=== PATIENT | male | born 1945 | race Caucasian/White ===

== ENCOUNTER → 2018-01-30 14:27 | Outpatient (CLI) | payer MEDICARE, OTHER, SELFPAY ==
[2018-01-30 16:10] LABS: Anion Gap 7 (5-15); BUN 24 mg/dL (7-18); BUN/Creat Ratio 15.5 RATIO (10-20); Calcium,Total 9.3 mg/dL (8.5-10.1); Chloride 107 mmol/L (98-107); Cholesterol 226 mg/dL (200); Creatinine, Serum 1.55 mg/dL (0.70-1.30); EST Glomerular Filtration Rate 47 mL/min (>60); Est Glom Filt Rate - Afr Amer 57 mL/min (>60); Glucose 90 mg/dL (74-106); High Density Lipoprotein 45 mg/dL; Potassium 4.6 mmol/L (3.5-5.1); Sodium Level 142 mmol/L (136-145); Triglycerides 111 mg/dL; Very Low Density Lipoprotein 22 mg/dL (5-40)
[2018-01-30 16:28] LABS: Vitamin D,25 Hydroxy 40.5 ng/mL (29.95-100.01)
== END ==
PROVIDERS: Family Provider Family Medicine; PCP Family Medicine; Visit Provider Family Medicine
DX: Z00.00 Encounter for general adult medical examination without abnormal findings (principal)
CPT/HCPCS: 36415; 80048; 80061; 82306; 84153; G0103

== ENCOUNTER → 2018-06-05 10:34 | Outpatient (CLI) | payer MEDICARE, OTHER, SELFPAY ==
[2018-06-05 12:15] LABS: Anion Gap 10 (5-15); BUN 32 mg/dL (7-18); BUN/Creat Ratio 18.8 RATIO (10-20); Calcium,Total 9.6 mg/dL (8.5-10.1); Chloride 105 mmol/L (98-107); EST Glomerular Filtration Rate 43 mL/min (>60); Est Glom Filt Rate - Afr Amer 51 mL/min (>60); Glucose 106 mg/dL (74-106); Potassium 3.6 mmol/L (3.5-5.1); Sodium Level 141 mmol/L (136-145); Thyroid Stim Hormone (TSH) 1.97 uIU/mL (0.358-3.74)
== END ==
PROVIDERS: Family Provider Family Medicine; PCP Family Medicine; Visit Provider Family Medicine
DX: E03.9 Hypothyroidism, unspecified (principal); N28.9 Disorder of kidney and ureter, unspecified
CPT/HCPCS: 36415; 80048; 84443

== ENCOUNTER → 2018-07-16 10:35 | Outpatient (CLI) | payer MEDICARE, OTHER, SELFPAY ==
[2018-07-16 12:05] LABS: Absolute Lymphocyte Count 2.09 X10^3/ul (0.83-4.51); Absolute Neutrophil Count 5.3 X10^3/uL (2.0-7.7); Basophil# 0.03 X10^3/uL; Basophil% 0.4 % (0-1); Eosinophil# 0.42 X10^3/uL; Eosinophils% 4.9 % (0-5); Lymphocyte # 2.09 X10^3/ul (4.0); Lymphocyte % 24.5 % (19-41); Mean Corp Hgb Conc 32.6 g/gl (32-36); Mean Corpuscular Hgb 30.4 pg (27.0-32.0); Mean Corpuscular Volume 93.3 fL (80-94); Mean Platelet Vol. 11.3 fl (6.2-12.0); Monocyte% 8.2 % (0-10); Neutrophil # 5.29 X10^3/uL (2.7-7.7); Neutrophil % 61.9 % (47-70); Platelet Count 248 K/mm3 (150-450); RBC Distribution Width CV 14.8 % (11.6-14.6); RBC Distribution Width SD 50.1 fl (35.1-43.9); Red Blood Count 4.93 M/mm3 (4.6-6.2); White Blood Count 8.5 K/mm3 (4.4-11.0)
[2018-07-16 12:06] LABS: POSITIVE COUNT NO; POSITIVE DIFFERENTIAL NO; POSITIVE MORPHOLOGY NO
[2018-07-16 12:23] LABS: ALB/GLOB Ratio 0.7 RATIO (0.9-2.4); AST(SGOT) 23 U/L (15-37); Alanine Aminotransfer ALT/SGPT 26 U/L (16-61); Alkaline Phosphatase 87 U/L (45-117); Anion Gap 13 (5-15); BUN 19 mg/dL (7-18); BUN/Creat Ratio 11.9 RATIO (10-20); Calcium,Total 9.1 mg/dL (8.5-10.1); Chloride 106 mmol/L (98-107); Creatinine, Serum 1.59 mg/dL (0.70-1.30); EST Glomerular Filtration Rate 46 mL/min (>60); Est Glom Filt Rate - Afr Amer 56 mL/min (>60); Globulin 4.6 g/dL (2.2-4.2); Glucose 93 mg/dL (74-106); Magnesium 1.9 mg/dL (1.6-2.6); Potassium 4.3 mmol/L (3.5-5.1); Prealbumin 16.8 mg/dL (20.0-40.0); Protein, Total 7.6 g/dL (6.4-8.2); Sodium Level 142 mmol/L (136-145); Thyroid Stim Hormone (TSH) 1.37 uIU/mL (0.358-3.74)
== END ==
PROVIDERS: Family Provider Family Medicine; PCP Family Medicine; Visit Provider Family Medicine
DX: Z98.84 Bariatric surgery status (principal)
CPT/HCPCS: 36415; 80053; 83735; 84134; 84443; 85025

== ENCOUNTER → 2018-07-24 11:19 | Outpatient (CLI) | payer MEDICARE, OTHER, SELFPAY ==
[2018-07-24 15:20] LABS: Anion Gap 9 (5-15); BUN 18 mg/dL (7-18); BUN/Creat Ratio 11.2 RATIO (10-20); Calcium,Total 9.7 mg/dL (8.5-10.1); Chloride 106 mmol/L (98-107); Creatinine, Serum 1.61 mg/dL (0.70-1.30); EST Glomerular Filtration Rate 45 mL/min (>60); Est Glom Filt Rate - Afr Amer 55 mL/min (>60); Glucose 121 mg/dL (74-106); Sodium Level 142 mmol/L (136-145)
== END ==
PROVIDERS: Family Provider Family Medicine; PCP Family Medicine; Referring Provider Family Medicine; Visit Provider Family Medicine
DX: N28.9 Disorder of kidney and ureter, unspecified (principal)
CPT/HCPCS: 36415; 80048

== ENCOUNTER → 2018-09-20 09:51 | Outpatient (CLI) | payer MEDICARE, OTHER, SELFPAY ==
[2018-09-20 12:05] LABS: Absolute Neutrophil Count 4.4 X10^3/uL (2.0-7.7); Basophil# 0.03 X10^3/uL; Basophil% 0.4 % (0-1); Eosinophil# 0.55 X10^3/uL; Eosinophils% 6.6 % (0-5); Hematocrit 45.8 % (40-54); Hemoglobin 14.8 g/dl (13.0-16.5); Mean Corp Hgb Conc 32.3 g/gl (32-36); Mean Corpuscular Hgb 30.3 pg (27.0-32.0); Mean Corpuscular Volume 93.7 fL (80-94); Mean Platelet Vol. 11.6 fl (6.2-12.0); Monocyte# 0.77 X10^3/uL; Monocyte% 9.2 % (0-10); Neutrophil # 4.43 X10^3/uL (2.7-7.7); Neutrophil % 52.7 % (47-70); Platelet Count 218 K/mm3 (150-450); RBC Distribution Width CV 16.1 % (11.6-14.6); RBC Distribution Width SD 55.2 fl (35.1-43.9); Red Blood Count 4.89 M/mm3 (4.6-6.2); White Blood Count 8.4 K/mm3 (4.4-11.0)
[2018-09-20 12:06] LABS: POSITIVE COUNT NO; POSITIVE DIFFERENTIAL NO; POSITIVE MORPHOLOGY NO
[2018-09-20 12:45] LABS: ALB/GLOB Ratio 0.9 RATIO (0.9-2.4); AST(SGOT) 22 U/L (15-37); Alanine Aminotransfer ALT/SGPT 26 U/L (16-61); Albumin, Serum 3.5 g/dL (3.2-5.0); Alkaline Phosphatase 105 U/L (45-117); Anion Gap 11 (5-15); BUN 19 mg/dL (7-18); BUN/Creat Ratio 12.3 RATIO (10-20); Calcium,Total 9.4 mg/dL (8.5-10.1); Chloride 108 mmol/L (98-107); Cholesterol 260 mg/dL (200); Creatinine, Serum 1.55 mg/dL (0.70-1.30); EST Glomerular Filtration Rate 47 mL/min (>60); Est Glom Filt Rate - Afr Amer 57 mL/min (>60); Globulin 4.1 g/dL (2.2-4.2); Glucose 100 mg/dL (74-106); High Density Lipoprotein 47 mg/dL; Prealbumin 19.8 mg/dL (20.0-40.0); Protein, Total 7.6 g/dL (6.4-8.2); Sodium Level 144 mmol/L (136-145); Triglycerides 140 mg/dL; Very Low Density Lipoprotein 28 mg/dL (5-40)
== END ==
PROVIDERS: Family Provider Family Medicine; PCP Family Medicine; Referring Provider Family Medicine; Visit Provider Family Medicine
DX: I10 Essential (primary) hypertension (principal); Z98.84 Bariatric surgery status; E78.5 Hyperlipidemia, unspecified; E03.9 Hypothyroidism, unspecified
CPT/HCPCS: 36415; 80053; 80061; 83735; 84134; 84443; 85025

== ENCOUNTER 2019-03-10 07:45 | Day surgery (SDC) | payer MEDICARE, OTHER, SELFPAY ==
--- NOTE | 2019-02-24 02:38 | HP_ITS ---
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 Is patient in pain?: No Allergies lisinopril Allergy (Verified 02/24/19 13:59) Swelling Medications Levothyroxine [Synthroid] 112 mcg PO DAILY 05/03/15 [History Confirmed 02/24/19] Multivit-Min/FA/Lycopene/Lut [Centrum Silver Tablet] 1 ea PO DAILY 05/03/15 [History Confirmed 02/24/19] Fish Oil 1,200 mg Fish Oil 1,200 mg PO DAILY 08/05/15 [History Confirmed 02/24/19] calcium carbonate 1,177 mg chewable tablet 1,177 mg PO DAILY tab 02/24/19 [History Confirmed 02/24/19] omeprazole 20 mg capsule,delayed release 20 mg PO DAILY 02/24/19 [History Confirmed 02/24/19] vitamin B12 500 mcg-folic acid 400 mcg tablet 1 tab PO DAILY 02/24/19 [History Confirmed 02/24/19] PFSH Medical History GERD (gastroesophageal reflux disease) (Acute) HTN (hypertension) (Chronic) Surgical History H/O carpal tunnel repair (Acute) H/O gastric bypass (Acute) h/o right thumb surgery (Acute) Family History Father Colon cancer Social History Smoking Status: Never smoker alcohol intake: never HPI HPI HPI: MIGUEL GUEVARA, is a 73 M who presents to the office today for HPI HPI Surgical H&P: Yes HPI: MIGUEL GUEVARA, is a 73 M who presents to the office today for superior gluteal cleft wound. Patient states about a month ago he started to notice this sore and he has been using Neosporin but has not stated gotten any better. States that with sitting he may have a 5/10 pain but that will improve to no pain if he changes position. Patient did have this previously in 2016 which did heal with some Neosporin and at that time it was only 1 cm x 0.7 cm with 2 mm of depth and no obvious pilonidal pits. Patient has had a colonoscopy in 2008 where he had lipoma of the right colon proven on biopsy otherwise no other polyps. Patient states he has bowel movements usually daily occasionally every other day, denies any blood. His father had colon cancer when he was 8485. Patient also did recently undergo gastric bypass at [facility] on 07/03/2018. Patient is still on omeprazole for reflux but he states that that is controlled he was initially put on more for pain in the epigastric region. Exam Const General: cooperative, comfortable, no acute distress Resp Effort & Inspection: normal respiratory effort Cardio Rate: regular rate GI Inspection: non-distended Palpation: soft, no guarding, nontender Other: Superior gluteal cleft: Shallow open wound about 1.5 cm in length by 3 mm in width with some macerated tissue surrounding, no obvious drainage. No obvious pilonidal pits Neuro Cranial Nerves: CN's II-XI intact bilaterally Psych Affect: normal affect Assessment & Plan Problems 1. Wound of gluteal cleft S31.809A 2. Encounter for screening for malignant neoplasm of colon Z12.11 Plan We will have patient continue Neosporin and only use Neosporin for half a day and then leave it dry and also place a gauze between the gluteal cleft see if this helps that heal. Wound is very shallow unable to be packed. Did encourage patient to not sit in a recliner as he would hit this area if he is in a reclined position. We will also reevaluate this area at the time of colonoscopy. We will likely plan for another follow-up. He just does not continue to heal patient may need wound care. I have discussed the above with the patient. I have offered the patient colonoscopy for evaluation. I have explained the risks/benefits of the procedure and described the procedure. I have discussed the risks with the patient, including but not limited to: infection, bleeding, perforation of the GI tract requiring emergency surgery, inability to complete the procedure, injury to any internal organs, complications of anesthesia, etc. - the patient understands and agrees to proceed. I have answered all the patient's questions to the patient's satisfaction and the patient has no further questions. The patient has been given instructions for the colon cleansing preparation. 1 day of clears, MiraLAX Dulcolax split prep Hailey Valdovinos M.D. Pager: [phone] [facility] [address] [place] [address], [facility], [address] [place] [address] Office: [phone] Plan Detail Follow Up We will schedule colonoscopy in reevaluate gluteal cleft wound Coding Level of Care Code Off vis,est,level 3 Diagnoses Wound of gluteal cleft S31.809A Encounter for screening for malignant neoplasm of colon Z12.11 02/24/19 1438 <Electronically signed by Hailey Valdovinos MD> Date Hailey Valdovinos MD I have re-examined the patient. There are no clinical changes since date of exam.
[2019-02-24 13:59] VITALS: BMI 28.8
[2019-03-10 08:06] VITALS: BP 138/76; PULSE 61; RESP 16; TEMP 36.2; O2SAT 99; BMI 29.1
[2019-03-10 09:36] VITALS: BP 138/76; BP 141/68; PULSE 73; RESP 16; TEMP 36.6; O2SAT 98
--- NOTE | 2019-03-10 09:38 | OP.ENDO_ITS ---
03/10/2019 Trevor Morton MD [address] [id number] Re : Colonoscopy procedure for Roosevelt Velarde Dear Dr. Morton This procedure was performed on Sunday, March 10, 2019. My impressions and recommendations are as follows: Impressions : - Preparation of the colon was inadequate. - Diverticulosis in the entire examined colon. - Small lipoma in the ascending colon. - No specimens collected. Recommendations : - Discharge patient to home. - High fiber diet. - Continue present medications. - Repeat colonoscopy at appointment to be scheduled because the bowel preparation was poor. My findings are described in the full procedure note, which is enclosed. If I can be of further assistance, please feel free to contact me at Doctor phone number(s): , Work: . Sincerely, MD Hailey Rainey MD 03/10/2019 9:38:25 AM This report has been signed electronically.
[2019-03-10 09:41] VITALS: BP 134/80; BP 138/76; PULSE 65; RESP 16; O2SAT 98
[2019-03-10 09:46] VITALS: BP 138/76; BP 142/77; PULSE 70; RESP 16; O2SAT 99
[2019-03-10 09:51] VITALS: BP 138/76; BP 141/82; PULSE 74; RESP 16; TEMP 36.5; O2SAT 99
[2019-03-10 09:58] VITALS: BP 138/76
== END 2019-03-10 10:08 | disposition home or self-care (01) ==
LOC: EN 07:47 → AC 07:49
PROVIDERS: Family Provider Family Medicine; PCP Family Medicine; Referring Provider Family Medicine; Visit Provider Surgery
PROC: 0DJD8ZZ Inspection of Lower Intestinal Tract, Via Natural or Artificial Opening Endoscopic (ICD-10-PCS; CPT 45378; principal; 2019-03-10 08:55)
DX: Z12.11 Encounter for screening for malignant neoplasm of colon (principal); K57.30 Diverticulosis of large intestine without perforation or abscess without bleeding; D17.79 Benign lipomatous neoplasm of other sites; Z80.0 Family history of malignant neoplasm of digestive organs; E78.00 Pure hypercholesterolemia, unspecified; E06.9 Thyroiditis, unspecified; K21.9 Gastro-esophageal reflux disease without esophagitis; I10 Essential (primary) hypertension; Z79.899 Other long term (current) drug therapy
CPT/HCPCS: G0105; J7120; J2405

== ENCOUNTER → 2019-03-20 | Outpatient (CLI) | payer MEDICARE, OTHER, SELFPAY ==
[2019-03-10 08:06] VITALS: BMI 29.1
[2019-03-20 14:33] LABS: AST(SGOT) 19 U/L (15-37); Alanine Aminotransfer ALT/SGPT 19 U/L (16-61); Albumin, Serum 3.6 g/dL (3.2-5.0); Alkaline Phosphatase 110 U/L (45-117); Bilirubin, Direct 0.23 mg/dL (0.00-0.30); Cholesterol 208 mg/dL (200); Globulin 3.7 g/dL (2.2-4.2); High Density Lipoprotein 52 mg/dL; Protein, Total 7.3 g/dL (6.4-8.2); T4 Total, Thyroxin 10.5 ug/dL (4.5-12.1); Thyroid Stim Hormone (TSH) 1.07 uIU/mL (0.358-3.74); Triglycerides 100 mg/dL; Very Low Density Lipoprotein 20 mg/dL (5-40)
== END | disposition home or self-care (01) ==
LOC: MTLAB 13:00
PROVIDERS: Family Provider Family Medicine; PCP Family Medicine; Referring Provider Family Medicine; Visit Provider Family Medicine
DX: E78.5 Hyperlipidemia, unspecified (principal); E03.9 Hypothyroidism, unspecified
CPT/HCPCS: 36415; 80061; 80076; 84436; 84443; 84481

== ENCOUNTER → 2019-03-25 | Outpatient (CLI) | payer MEDICARE, OTHER, SELFPAY ==
[2019-03-10 08:06] VITALS: BMI 29.1
[2019-03-25 15:45] LABS: Absolute Lymphocyte Count 1.59 X10^3/ul (0.83-4.51); Absolute Neutrophil Count 9.2 X10^3/uL (2.0-7.7); Basophil# 0.01 X10^3/uL; Basophil% 0.1 % (0-1); Eosinophil# 0.22 X10^3/uL; Eosinophils% 1.8 % (0-5); Hematocrit 45.7 % (40-54); Lymphocyte # 1.59 X10^3/ul (4.0); Lymphocyte % 13.2 % (19-41); Mean Corp Hgb Conc 32.8 g/gl (32-36); Mean Corpuscular Hgb 30.5 pg (27.0-32.0); Mean Corpuscular Volume 92.9 fL (80-94); Mean Platelet Vol. 11.9 fl (6.2-12.0); Monocyte# 0.97 X10^3/uL; Monocyte% 8.1 % (0-10); Neutrophil # 9.21 X10^3/uL (2.7-7.7); Neutrophil % 76.6 % (47-70); Platelet Count 188 K/mm3 (150-450); Red Blood Count 4.92 M/mm3 (4.6-6.2)
[2019-03-25 15:54] LABS: POSITIVE COUNT NO; POSITIVE DIFFERENTIAL NO; POSITIVE MORPHOLOGY NO
[2019-03-25 16:20] LABS: Vitamin D,25 Hydroxy 43.7 ng/mL (29.95-100.01)
[2019-03-25 16:21] LABS: PTHIN 50.8 pg/mL (18.4-80.1)
[2019-03-25 16:22] LABS: Anion Gap 7 (5-15); BUN 26 mg/dL (7-18); BUN/Creat Ratio 19.7 RATIO (10-20); Chloride 108 mmol/L (98-107); Creatinine, Serum 1.32 mg/dL (0.70-1.30); EST Glomerular Filtration Rate 57 mL/min (>60); Est Glom Filt Rate - Afr Amer 69 mL/min (>60); Glucose 99 mg/dL (74-106); Phosphorus 3.1 mg/dL (2.5-4.9); Potassium 3.9 mmol/L (3.5-5.1); Prealbumin 19.6 mg/dL (20.0-40.0); Sodium Level 140 mmol/L (136-145)
[2019-03-25 16:52] LABS: Vitamin B12 > 2000 pg/mL (211-911)
[2019-03-30 16:22] LABS: Zinc, Plasma or Serum 58 ug/dL (56-134)
== END | disposition home or self-care (01) ==
PROVIDERS: Family Provider Family Medicine; PCP Family Medicine; Referring Provider Family Medicine; Visit Provider Family Medicine
DX: N18.2 Chronic kidney disease, stage 2 (mild) (principal); Z98.84 Bariatric surgery status; E55.9 Vitamin D deficiency, unspecified; K21.9 Gastro-esophageal reflux disease without esophagitis
CPT/HCPCS: 36415; 80048; 82306; 82607; 82746; 83735; 83970; 84100; 84134; 84630; 85025

== ENCOUNTER 2019-04-15 10:00 | Outpatient (RCR) | payer MEDICARE, OTHER, SELFPAY ==
[2019-04-08 09:05] VITALS: BP 122/65; PULSE 68; RESP 16; TEMP 35.7; BMI 28.3
--- NOTE | 2019-04-08 10:35 | PCM.WC.HP ---
(1) Pressure ulcer of coccygeal region, stage 1 Status: Chronic Current Visit: Yes Code(s): L89.151 - Pressure ulcer of sacral region, stage 1 (2) Overweight (BMI 25.0-29.9) Status: Chronic Current Visit: No Code(s): E66.3 - Overweight (3) Hyperlipidemia Status: Chronic Current Visit: No Code(s): E78.5 - Hyperlipidemia, unspecified (4) Hypertension Status: Chronic Current Visit: No Code(s): I10 - Essential (primary) hypertension (5) Hypothyroidism Status: Chronic Current Visit: No Code(s): E03.9 - Hypothyroidism, unspecified (6) GERD (gastroesophageal reflux disease) Status: Chronic Current Visit: No Code(s): K21.9 - Gastro-esophageal reflux disease without esophagitis (7) History of gastric bypass Status: Chronic Current Visit: No Code(s): Z98.84 - Bariatric surgery status History of Present Illness Date of Service: 04/08/19 Chief Complaint: Pressure ulceration of the coccygeal area, stage I History of Wound: This is a 73-year-old male who presents with a sore on my coccyx. The condition has existed for approximately 3 months. He has been treated by his primary care physician, Dr. Morton, who subsequently referred the patient to Dr. Valdovinos , surgeon. The ulceration has been treated with Neosporin topically. In general, there has been slow improvement. He presents today for further evaluation and management. He denies significant drainage. He has had discomfort in the area, which appears to be improving. He has had no prior surgeries in the area of his current ulceration. Past Medical History Past Medical History: Chronic Problems (Last Reviewed 03/20/19 @ 13:51 by Amy Guevara) Pressure ulcer of coccygeal region, stage 1 (Chronic) Overweight (BMI 25.0-29.9) (Chronic) Hyperlipidemia (Chronic) Hypertension (Chronic) Hypothyroidism (Chronic) GERD (gastroesophageal reflux disease) (Chronic) History of gastric bypass (Chronic) Past Medical History: Patient's history is negative for myocardial infarction, congestive heart failure, cerebrovascular accident, diabetes mellitus, cancer, pulmonary disease, and renal disease. Patient does have a history of hyperlipidemia, hypothyroidism, hypertension, and gastroesophageal reflux disease. Surgical History: - - Patient has a history of bilateral total knee replacement surgeries in the past. He underwent gastric bypass surgery for morbid obesity in June 2018, and has lost to 115 pounds. He has a history of left carpal tunnel release. Right thumb surgery was performed as a result of trauma. The patient underwent a tonsillectomy in the past. Allergies/Adverse Reactions: Allergies lisinopril Allergy (Verified 04/08/19 09:18) Swelling Home Medications: Ambulatory Orders Medication Instructions Recorded Levothyroxine [Synthroid] 112 mcg PO DAILY 05/03/15 omeprazole 20 mg capsule,delayed 40 mg PO DAILY 02/24/19 release Calcium Citrate/Vitamin D3 1,200 ea PO DAILY 03/05/19 [Citracal + D Maximum Caplet] Cyanocobalamin (Vitamin B-12) 2,500 mcg PO DAILY 03/05/19 [Vitamin B-12] Multivit-Min/Iron/Folic Acid/K 1 ea PO DAILY 03/05/19 [Bariatric Mv-Iron 45 mg Cap] Red Yeast Rice 1,200 mg PO BID 03/05/19 - Family History Paternal Family History: Family History (Last Reviewed 03/20/19 @ 13:51 by Amy Guevara) Father Colon cancer - - Patient's father at the age of 86 with a history of colon cancer and chronic obstructive pulmonary disease. Patient's mother at the age of 89 from complications of old age. Social History: The patient is . He denies the use of alcohol tobacco products. 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 Lives: Spouse/ Significant Other Smoking Status: Never smoker Tobacco Use: Non-smoker Alcohol: None Drugs: None Review of Systems Constitutional: Denies: Chills, Fever, Weight Change Eyes: Denies: Pain, Vision Change HEENT: Denies: Difficulty Hearing, Difficulty Swallowing, Sinus Congestion Cardiovascular: Denies: Chest Pain, Palpitations Respiratory: Denies: Cough, Shortness of Breath Gastrointestinal: Denies: Diarrhea, Nausea, Vomiting Genitourinary: Denies: Dysuria, Hematuria Endocrine: Denies: Heat/ Cold Intolerance, Polydipsia, Polyuria Hematologic/ Lymphatic: Denies: Easy Bruising, Easy Bleeding - Physical Exam Vital Signs Temp Pulse Resp BP 96.2 F L 68 16 122/65 H 04/08/19 09:05 04/08/19 09:05 04/08/19 09:05 04/08/19 09:05 General: Alert, Oriented x3, Cooperative, No apparent distress, Well developed, Well nourished HEENT: Atraumatic, PERRLA, EOMI, Normocephalic Oral: Moist Mucosa Neck: Supple, No JVD, Negative Carotid Bruits, Negative Hepatojugular Reflux, No Nodes, No Nuchal Rigidity, Trachea Midline Lungs: Clear to auscultation, Normal air movement, No rhonchi, No wheeze, No rales Cardiovascular: Regular rate, Regular Rhythm, Normal S1, Normal S2, No murmurs Abdomen: Soft, Non Tender, Non-Distended, Obese Extremities: No clubbing, No cyanosis, No edema Skin: - - The sacrococcygeal area reveals some minor irritation, consistent with a stage I pressure ulceration. There is no full-thickness involvement. There is no sign of infection or cellulitis. Wound Measurements and Assessment WC - Nurse 1 - General Ulcer Measurement Start: 04/08/19 09:04 Freq: Status: Active Protocol: Activity Type Activity Date Activity User E-Sign Co-Sign Detail Recorded Client Recorded Date Recorded By Document 04/08/19 09:05 [facility] [id number] 04/08/19 09:14 [facility] 04/08/19 09:05 Wound Center Nurse 1 [Ulcer Assessment] #1- COCCYX -Combined with other wound No -Current Size (cm) - Length 0.1 -Current Size (cm) - Width 0.1 -Current Size (cm) - Depth 0.1 -Total Square Cm 0.01 -Date of Last Picture (Recall this 04/08/19 field) -Photo Taken Yes -Epithelialization None Present -Tunneling No -Undermining/Tunneling No -Circular Undermining No -Exudate Amt None Present -Wound Margin Flat & Intact -Texture (Mary-wound Skin Appearance) Assessed, Scarring -Moisture (Mary-wound Skin Appearance Assessed, ) Maceration -Color (Mary-wound Skin Appearance) Assessed, Erythema -Temperature (Mary-wound Skin No Abnormality Appearance) (Pt Warm) -Tenderness on Palpation (Mary-wound Yes Skin Appearance) -Ulcer Cleansing Rinsed/ Irrigated with Saline -Foul Odor after Cleansing No -Anesthetic Used 5% Lidocaine Gel WC - Nurse 2 - General Ulcer CM Notes Start: 04/08/19 09:04 Freq: Status: Active Protocol: Activity Type Activity Date Activity User E-Sign Co-Sign Detail Recorded Client Recorded Date Recorded By Document 04/08/19 10:21 DV [id number] 04/08/19 10:29 DV 04/08/19 10:21 Wound Center Nurse 2 [Procedure/Treatment] -Time 10:26 -Correct Patient Yes -Correct Side, Site, Position Yes -Correct Procedure No -Procedure Performed No -Wound/Ulcer Outcome Not Healed -Foul Odor after Cleansing No -Bioengineered Tissue No [See Physician Procedure note for Specifics] Pain Scale: 0-10 Numeric [Pain] -Is Patient Pain Free? Yes Musculoskeletal: No Muscle Wasting Neurological: Cranial nerves II-XII grossly intact, Neuro grossly intact Psych/Mental Status: Normal Affect, Appropriate, Alert and oriented to time, place, person, mood and affect Debridement Note Post-Debridement Measurements/Treatment WC - Nurse 2 - General Ulcer CM Notes Start: 04/08/19 09:04 Freq: Status: Active Protocol: Activity Type Activity Date Activity User E-Sign Co-Sign Detail Recorded Client Recorded Date Recorded By Document 04/08/19 10:21 DV [id number] 04/08/19 10:29 DV 04/08/19 10:21 Wound Center Nurse 2 #1- COCCYX -Time 10:26 -Correct Patient Yes -Correct Side, Site, Position Yes -Correct Procedure No -Procedure Performed No -Wound/Ulcer Outcome Not Healed -Foul Odor after Cleansing No -Bioengineered Tissue No Pain Scale: 0-10 Numeric Is Patient Pain Free? Yes No debridement was completed today Assessment/Plan Active Problems (Last Reviewed 03/20/19 @ 13:51 by Amy Guevara) Pressure ulcer of coccygeal region, stage 1 (Chronic) Assessment: This is a 73-year-old male who presents with irritation in the sacrococcygeal region, which is very superficial. It appears to represent a stage I pressure ulceration. Plan: A lengthy discussion has been undertaken with the patient and with his . Offloading measures are to be implemented. Means by which this is to be accomplished has been thoroughly explained. He currently owns gel cushions and other offloading devices. The patient has been advised to keep the area clean and dry. We are to implement the use of Melgisorb which will be applied daily. The patient is to return in 1 week for reassessment. The patient is not a smoker. Influenza vaccine was not administered today. Patient weighs 209 pounds. He stands 6 feet 0 inches tall. His BMI is 28.3, which places him in an overweight category. He is well aware of weight issues, having undergone a gastric bypass procedure 1 year ago. Mild weight loss has been recommended.
[2019-04-15 09:59] VITALS: BP 135/72; PULSE 63; RESP 18; TEMP 36.8; BMI 28.3
--- NOTE | 2019-04-15 10:53 | HP.PCM_ITS ---
(1) Pressure ulcer of coccygeal region, stage 1 Status: Chronic Current Visit: Yes Code(s): L89.151 - Pressure ulcer of sacral region, stage 1 (2) Overweight (BMI 25.0-29.9) Status: Chronic Current Visit: No Code(s): E66.3 - Overweight (3) Hyperlipidemia Status: Chronic Current Visit: No Code(s): E78.5 - Hyperlipidemia, unspecified (4) Hypertension Status: Chronic Current Visit: No Code(s): I10 - Essential (primary) hypertension (5) Hypothyroidism Status: Chronic Current Visit: No Code(s): E03.9 - Hypothyroidism, unspecified (6) GERD (gastroesophageal reflux disease) Status: Chronic Current Visit: No Code(s): K21.9 - Gastro-esophageal reflux disease without esophagitis (7) History of gastric bypass Status: Chronic Current Visit: No Code(s): Z98.84 - Bariatric surgery status History of Present Illness Date of Service: 04/15/19 Chief Complaint: Pressure ulceration of the coccygeal area, stage I History of Wound: This is a 73-year-old male who presented with a sore on my coccyx. The condition had existed for approximately 3 months. He had been treated by his primary care physician, Dr. Morton, who subsequently referred the patient to Dr. Valdovinos , surgeon. The ulceration had been treated with Neosporin topically. In general, there had been slow improvement. He presented for further evaluation and management. He denied significant drainage. He had discomfort in the area, which appeared to be improving. He has had no prior surgeries in the area of his ulceration. Past Medical History Past Medical History: Chronic Problems (Last Reviewed 03/20/19 @ 13:51 by Amy Guevara) Pressure ulcer of coccygeal region, stage 1 (Chronic) Overweight (BMI 25.0-29.9) (Chronic) Hyperlipidemia (Chronic) Hypertension (Chronic) Hypothyroidism (Chronic) GERD (gastroesophageal reflux disease) (Chronic) History of gastric bypass (Chronic) Surgical History: - - Patient has a history of bilateral total knee replacement surgeries in the past. He underwent gastric bypass surgery for morbid obesity in June 2018, and has lost to 115 pounds. He has a history of left carpal tunnel release. Right thumb surgery was performed as a result of trauma. The patient underwent a tonsillectomy in the past. Allergies/Adverse Reactions: Allergies lisinopril Allergy (Verified 04/08/19 09:18) Swelling Home Medications: Ambulatory Orders Medication Instructions Recorded Levothyroxine [Synthroid] 112 mcg PO DAILY 05/03/15 omeprazole 20 mg capsule,delayed 40 mg PO DAILY 02/24/19 release Calcium Citrate/Vitamin D3 1,200 ea PO DAILY 03/05/19 [Citracal + D Maximum Caplet] Cyanocobalamin (Vitamin B-12) 2,500 mcg PO DAILY 03/05/19 [Vitamin B-12] Multivit-Min/Iron/Folic Acid/K 1 ea PO DAILY 03/05/19 [Bariatric Mv-Iron 45 mg Cap] Red Yeast Rice 1,200 mg PO BID 03/05/19 - Family History Paternal Family History: Family History (Last Reviewed 03/20/19 @ 13:51 by Amy Guevara) Father Colon cancer - - Patient's father at the age of 86 with a history of colon cancer and chronic obstructive pulmonary disease. Patient's mother at the age of 89 from complications of old age. Lives: Spouse/ Significant Other Smoking Status: Never smoker Tobacco Use: Non-smoker Alcohol: None Drugs: None Review of Systems Constitutional: Denies: Chills, Fever, Weight Change Eyes: Denies: Pain, Vision Change HEENT: Denies: Difficulty Hearing, Difficulty Swallowing, Sinus Congestion Cardiovascular: Denies: Chest Pain, Palpitations Respiratory: Denies: Cough, Shortness of Breath Gastrointestinal: Denies: Diarrhea, Nausea, Vomiting Genitourinary: Denies: Dysuria, Hematuria Endocrine: Denies: Heat/ Cold Intolerance, Polydipsia, Polyuria Hematologic/ Lymphatic: Denies: Easy Bruising, Easy Bleeding - Physical Exam Vital Signs Temp Pulse Resp BP 98.2 F 63 18 135/72 H 04/15/19 09:59 04/15/19 09:59 04/15/19 09:59 04/15/19 09:59 General: Alert, Oriented x3, Cooperative, No apparent distress, Well developed, Well nourished HEENT: Atraumatic, PERRLA, EOMI, Normocephalic Oral: Moist Mucosa Neck: No JVD Lungs: Normal air movement Abdomen: Soft, Non Tender, Non-Distended Extremities: No clubbing, No cyanosis, No edema, No Calf Tenderness Skin: No rashes, No breakdown, - - The sacrococcygeal area is now totally healed and epithelialized. The ulceration for which the patient had initially presented is now healed. Wound Measurements and Assessment WC - Nurse 1 - General Ulcer Measurement Start: 04/08/19 09:04 Freq: Status: Active Protocol: Activity Type Activity Date Activity User E-Sign Co-Sign Detail Recorded Client Recorded Date Recorded By Document 04/15/19 09:59 RB [id number] 04/15/19 10:06 RB 04/15/19 09:59 Wound Center Nurse 1 [Ulcer Assessment] #1- COCCYX -Combined with other wound No -Current Size (cm) - Length 0 -Current Size (cm) - Width 0 -Current Size (cm) - Depth 0 -Total Square Cm 0 -Photo Taken Yes -Epithelialization Large 67-100% -Tunneling No -Undermining/Tunneling No -Circular Undermining No -Exudate Amt None Present -Wound Margin Distinct, Outline Attached -Granulation Amt Large (67-100%) -Granulation Quality [place] -Slough/Fibrin No -Necrosis Amt None Present (0 %) -Structure Exposed N/A -Texture (Mary-wound Skin Appearance) Assessed -Moisture (Mary-wound Skin Appearance Assessed ) -Color (Mary-wound Skin Appearance) Assessed -Temperature (Mary-wound Skin No Abnormality Appearance) (Pt Warm) -Tenderness on Palpation (Mary-wound No Skin Appearance) -Ulcer Cleansing Rinsed/ Irrigated with Saline -Foul Odor after Cleansing No WC - Nurse 2 - General Ulcer CM Notes Start: 04/08/19 09:04 Freq: Status: Active Protocol: Activity Type Activity Date Activity User E-Sign Co-Sign Detail Recorded Client Recorded Date Recorded By Document 04/15/19 10:46 DV [id number] 04/15/19 10:49 DV 04/15/19 10:46 Wound Center Nurse 2 [Procedure/Treatment] -Time 10:46 -Correct Patient Yes -Correct Side, Site, Position Yes -Correct Procedure No -Procedure Performed No -Post Debridement Size (cm) - Length 0 -Post Debridement Size (cm) - Width 0 -Post Debridement Size (cm) - Depth 0 -Total Square Cm 0 -Wound/Ulcer Outcome Healed- Epithelialized [See Physician Procedure note for Specifics] Pain Scale: 0-10 Numeric [Pain] -Is Patient Pain Free? Yes Musculoskeletal: No Muscle Wasting Neurological: Cranial nerves II-XII grossly intact, Neuro grossly intact Psych/Mental Status: Normal Affect, Appropriate, Alert and oriented to time, place, person, mood and affect Debridement Note Post-Debridement Measurements/Treatment WC - Nurse 2 - General Ulcer CM Notes Start: 04/08/19 09:04 Freq: Status: Active Protocol: Activity Type Activity Date Activity User E-Sign Co-Sign Detail Recorded Client Recorded Date Recorded By Document 04/08/19 10:21 DV [id number] 04/08/19 10:29 DV Document 04/15/19 10:46 DV [id number] 04/15/19 10:49 DV 04/08/19 04/15/19 10:21 10:46 Wound Center Nurse 2 #1- COCCYX -Time 10:26 10:46 -Correct Patient Yes Yes -Correct Side, Site, Position Yes Yes -Correct Procedure No No -Procedure Performed No No -Post Debridement Size (cm) - Length 0 -Post Debridement Size (cm) - Width 0 -Post Debridement Size (cm) - Depth 0 -Total Square Cm 0 -Wound/Ulcer Outcome Not Healed Healed- Epithelialized -Foul Odor after Cleansing No -Bioengineered Tissue No Pain Scale: 0-10 Numeric Is Patient Pain Free? Yes Yes No debridement was completed today - The patient is completely healed and epithelialized. Assessment/Plan Active Problems (Last Reviewed 03/20/19 @ 13:51 by Amy Guevara) Pressure ulcer of coccygeal region, stage 1 (Chronic) Assessment: This is a 73-year-old male who presented with irritation in the sacrococcygeal region, which is very superficial. It appeared to represent a stage I pressure ulceration, and is now completely healed and epithelialized. Plan: The patient is completely healed and epithelialized. The ulceration in the sacrococcygeal area for which the patient initially presented, is now healed. A lengthy discussion has been undertaken with the patient and with his . Offloading measures are to be continued. Means by which this is to be accomplished has been thoroughly explained. He currently owns gel cushions and other offloading devices. The patient has been advised to keep the area clean and dry. The patient is to be discharged, and will be followed up henceforth on an as-needed basis. The patient is not a smoker. Influenza vaccine was not administered today. Patient weighs 209 pounds. He stands 6 feet 0 inches tall. His BMI is 28.3, which places him in an overweight category. He is well aware of weight issues, having undergone a gastric bypass procedure 1 year ago. Mild weight loss has been recommended.
== END 2019-04-23 23:59 ==
LOC: WC 10:00
PROVIDERS: Family Provider Family Medicine; PCP Family Medicine; Visit Provider Surgery
DX: L89.151 Pressure ulcer of sacral region, stage 1 (principal); E78.5 Hyperlipidemia, unspecified; I10 Essential (primary) hypertension; K21.9 Gastro-esophageal reflux disease without esophagitis; Z98.84 Bariatric surgery status
CPT/HCPCS: 99212; 99213; G0463

== ENCOUNTER → 2019-09-25 11:50 | Outpatient (CLI) | payer MEDICARE, OTHER, SELFPAY ==
[2019-09-25 14:16] LABS: Absolute Lymphocyte Count 1.82 X10^3/uL (0.83-4.51); Absolute Neutrophil Count 6.8 X10^3/uL (2.0-7.7); Basophil# 0.06 X10^3/uL; Basophil% 0.6 % (0-1); Eosinophil# 0.29 X10^3/uL; Hematocrit 45.6 % (40-54); Hemoglobin 14.2 g/dL (13.0-16.5); Lymphocyte # 1.82 X10^3/ul (4.0); Lymphocyte % 18.9 % (19-41); Mean Corp Hgb Conc 31.1 g/dL (32-36); Mean Corpuscular Hgb 29.8 pg (27.0-32.0); Mean Corpuscular Volume 95.8 fL (80-94); Mean Platelet Vol. 11.5 fl (6.2-12.0); Monocyte# 0.67 X10^3/uL; NRBC Flagged by Analyzer 0 % (0-5); Neutrophil # 6.76 X10^3/uL (2.7-7.7); Neutrophil % 70.3 % (47-70); Platelet Count 223 K/mm3 (150-450); RBC Distribution Width CV 13.6 % (11.6-14.6); RBC Distribution Width SD 48.6 fl (35.1-43.9); Red Blood Count 4.76 M/mm3 (4.6-6.2); White Blood Count 9.6 K/mm3 (4.4-11.0)
[2019-09-25 14:32] LABS: Anion Gap 4 (5-15); BUN 18 mg/dL (7-18); BUN/Creat Ratio 13.7 RATIO (10-20); Calcium,Total 8.7 mg/dL (8.5-10.1); Chloride 109 mmol/L (98-107); Cholesterol 194 mg/dL (200); Creatinine, Serum 1.31 mg/dL (0.70-1.30); EST Glomerular Filtration Rate 57 mL/min (>60); Est Glom Filt Rate - Afr Amer 69 mL/min (>60); Free T3 2.5 pg/mL (2.18-3.98); Glucose 87 mg/dL (74-106); High Density Lipoprotein 54 mg/dL; Potassium 3.9 mmol/L (3.5-5.1); Sodium Level 143 mmol/L (136-145); T4 Total, Thyroxin 11.9 ug/dL (4.5-12.1); Thyroid Stim Hormone (TSH) 0.23 uIU/mL (0.358-3.74); Triglycerides 94 mg/dL; Very Low Density Lipoprotein 19 mg/dL (5-40)
== END ==
PROVIDERS: Family Provider Family Medicine; PCP Family Medicine; Referring Provider Family Medicine; Visit Provider Family Medicine
DX: Z00.00 Encounter for general adult medical examination without abnormal findings (principal); E03.9 Hypothyroidism, unspecified; Z98.84 Bariatric surgery status
CPT/HCPCS: 36415; 80048; 80061; 84153; 84436; 84443; 84481; 85025; G0103

== ENCOUNTER → 2019-10-28 12:35 | Outpatient (CLI) | payer MEDICARE, OTHER, SELFPAY ==
--- NOTE | 2019-10-28 12:45 | RAD_ITS ---
STUDY: X-RAY - LUMBAR SPINE REASON FOR EXAM: Male, 74 years old. LBP TECHNIQUE: 4 view(s) of the lumbar spine were obtained including oblique views. COMPARISON: Comparison is made with prior study dated October 25, 2016. FINDINGS: Normal lumbar lordosis. There is no substantial scoliosis. There is a normal alignment of the vertebrae. There is multilevel endplate spondylosis of the lumbar vertebrae. There is multi-level degenerative disc disease with multi-level disc space narrowing. Facet joint osteoarthritis. There has been progressive degenerative changes as compared to prior examination. There is mild atherosclerotic calcification of the abdominal aorta without a demonstrated aneurysm. RAD/L/S Spine Min 4 Views IMPRESSION: Degenerative changes of the spine, as detailed above. These have progressed. Electronically Signed: Howie Brothers, at 11:04 EST , Service support ,
== END ==
PROVIDERS: PCP Internal Medicine; Referring Provider Internal Medicine; Visit Provider Internal Medicine
DX: M54.5 Low back pain (principal)
CPT/HCPCS: 72110

== ENCOUNTER → 2019-11-04 10:41 | Outpatient (CLI) | payer MEDICARE, OTHER, SELFPAY ==
--- NOTE | 2019-11-04 10:30 | RAD_ITS ---
STUDY: X-RAY - ORBITS REASON FOR EXAM: Male, 74 years old. MRI CLEARANCE. HX METAL IN RT EYE. TECHNIQUE: 2 view(s) of the orbits were obtained. COMPARISON: None. FINDINGS: Normal bilateral orbits without a metallic orbital foreign body. Normal visualized facial bones. Normal paranasal sinuses. The soft tissue structures are unremarkable. RAD/Orbits for Foreign Body IMPRESSION: No demonstrated metallic orbital foreign body. The patient is cleared for an MRI examination. Electronically Signed: Howie Brothers, at 12:23 EST , Service support ,
--- NOTE | 2019-11-04 10:59 | MRI_ITS ---
STUDY: MRI BRAIN WITH AND WITHOUT CONTRAST REASON FOR EXAM: Male, 74 years old. ABNORMAL GAIT, tremors, syncope TECHNIQUE: Standardized multiplanar fat and water weighted pulse sequences were obtained. iv Dotarem 17ml was administered for the contrast portion of the examination. COMPARISON: None. FINDINGS: There is mild cerebral atrophy with widening of the extra-axial spaces and ventricular dilatation. There are a limited number of small white matter hyperintensities, distributed throughout the deep white matter tracts of the cerebral hemispheres, consistent with mild chronic white matter ischemic changes. There is no evidence for recent intracranial ischemia or other cause of cytotoxic edema on diffusion weighted imaging (DWI). Normal T2* images of the brain without demonstrated susceptibility artifact. There is no demonstrated hemosiderin stain. No midline shift or hydrocephalus. Cystic volume loss (measuring 2.0 x 2.29 x 0.48 cm) is present in the right basal ganglia and lentiform nucleus, with slight superior extension into the periventricular white matter, and there is mild peripheral enhancement of this region. No additional areas of abnormal enhancement or a focal lesion within the brain on the current study. Normal thalami. There is no extra-axial fluid accumulation. Normal flow voids within the major intracranial circulation suggesting patency by spin echo criteria. Normal venous enhancement. Normal sella turcica, pituitary gland, infundibular stalk, optic chiasm and hypothalamus. Normal tectal plate and pineal gland. Normal midbrain, enid and medulla. Normal cerebellum. Normal basal cisterns. Normal bilateral temporal bones. Normal bilateral internal auditory canals. No demonstrated orbital abnormality, within the constraints of a routine brain study. There is mucoperiosteal inflammatory disease of the paranasal sinuses consistent with mild chronic sinusitis. Normal calvarium and skull base. Normal visualized soft tissue structures. Normal visualized upper cervical spine. MRI/Brain W/WO Contrast IMPRESSION: 1. 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 2. Cystic volume loss (measuring 2.0 x 2.29 x 0.48 cm) is present in the right basal ganglia and lentiform nucleus, with slight superior extension into the periventricular white matter, and there is mild peripheral enhancement of this region. 3. Alternative consideration includes recent cystic necrosis or related changes due to previous infection or inflammatory process. 4. Cystic encephalomalacia from previous infarction can present in this manner, however no peripheral enhancement would be expected. 5. If there are prior brain imaging studies comparison to the current study is recommended. 6. Mild chronic ischemic changes of the white matter. Electronically Signed: Jonathan Patrick MD at 17:01 EST , Service support ,
[2019-11-04 11:45] LABS: EGFR FINGERSTICK > 60.0000 mL/min (>60)
== END ==
PROVIDERS: PCP Internal Medicine; Referring Provider Internal Medicine; Visit Provider Internal Medicine
DX: R26.9 Unspecified abnormalities of gait and mobility (principal)
CPT/HCPCS: 70030; 70553; A9575

== ENCOUNTER → 2019-11-14 12:59 | Outpatient (CLI) | payer MEDICARE, OTHER, SELFPAY ==
--- NOTE | 2019-11-14 13:05 | RAD_ITS ---
STUDY: X-RAY - CERVICAL SPINE REASON FOR EXAM: Male, 74 years old. neck pain, no trauma TECHNIQUE: 6 view(s) of the cervical spine were obtained. COMPARISON: None FINDINGS: Craniocervical junction and cervical spine are intact and aligned with normal mineralization and prevertebral soft tissues. There is diffuse age-related degenerative change likely with multilevel bilateral foraminal stenosis. Canal patency cannot be assessed on plain films. RAD/Cerv Spine 4 or 5 Views IMPRESSION: Age-related spondylosis. Electronically Signed: Dwight Sy, at 17:03 EST Tel , Service support ,
== END ==
PROVIDERS: PCP Internal Medicine; Referring Provider Internal Medicine; Visit Provider Internal Medicine
DX: M54.2 Cervicalgia (principal)
CPT/HCPCS: 72050

== ENCOUNTER 2019-12-15 10:30 | Outpatient (RCR) | payer MEDICARE, OTHER, SELFPAY ==
--- NOTE | 2019-11-17 13:30 | HP.PTEVAL_ITS ---
Patient's Visit Information MIGUEL GUEVARA is a 74 year old M referred to Physical Therapy by Eladia García DO with a diagnosis of LUMBAR DDD ,LBP,NECK PAIN ,LOSS ROM. Date of Evaluation: 11/17/19 Physical Therapist: Reuben Shaw, PT, Cert MDT, OCS - Visit Plan Frequency: 2x /Week Duration: 4 Weeks Plan: PT INTERVENTIONS DLS ,POSTURAL EX'S,LE FLEXABLITY,CERVICAL ROM ,MODATIES NEEDDED - Subjective Findings: This 74 y/o male presents to physical therapy with back pain and neck pain with decrease ROM. Cervical pain from decrease ROM. Pateint slipped in the snow. 3 weeks immediate. Patient seen Family DR recommended PT. Patient had x- rays . Patient symmtrical lumbar pain. Pain desribed as ache . Affected sleeping. Aggraveting factors bending lifting,extended walking. Alleviating sitting but has wound sacral. Denies parathesia/tingling.Cervical pain is worse when turning neck ,Denies TRUJILLO/Nausea/dizziness. Symptoms affects in cervical spine when driving care Bowel/bladder -. Coughing /sneezing -. Patient symptoms affects function and ADLS. 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 Patient had MRI showed tumor possible cyst plan to see Neurologist. SOCAIL: . VOCATION: retired - Pain Bilateral Back Pain Intensity (Out of 10): 2 Pain Intensity Range: 10 - Objective POSTURE: mild foward posture. GAIT: reciprocal pattern mild foward posture. NEURO: denies parathesia/tingling,reflexes 1/3 L3-4,L4-5,L5-S1. MMT: quads/hams 4/5,hip flexion 4-/5,ankle 4/5. SYMMTRIES: align. LUMBAR ROM: flexion mod loss,extension,mod /severe,side glides mod loss. CERVICAL ROM: rotation /lateral flexion mod/severe loss,extension mod/severe loss,flexion mi t. loss. FLEXABLITY: hams mod tight - Special Tests C/S Radiculapathy - Right Upper limb tension test: Negative C/S Radiculapathy - Left Spurl[place]: Negative C/S Radiculapathy - Right Spurlings: Negative C/S Radiculapathy - Left Cervical distraction: Negative C/S Radiculapathy - Right Cervical distraction: Negative C/S Radiculapathy - Left Relief test: Negative Sharp [place]: Negative Vertebral Artery Test: Negative Alar Ligament Test: Negative L/S Slump test left side: Negative L/S Slump test right side: Negative L/S Left Straight Leg Raise: Negative L/S Right Straight Leg Raise: Negative Lumbar Standing: Flexion - Mechanical Response: No effect Lumbar Standing: Flexion - Symptoms During Testing: No effect Lumbar Standing: Flexion - Symptoms After Testing: No effect Lumbar Standing: Extension - Mechanical Response: No effect Lumbar Standing: Extension - Symptoms During Testing: Increases Lumbar Standing: Extension - Symptoms After Testing: Worse Lumbar Standing: Right Side Glides - Mechanical Response: No effect Lumbar Standing: Right Side [place] - Symptoms During Testing: No effect Lumbar Standing: Right Side [place] - Symptoms After Testing: No effect Lumbar Standing: Left Side [place] - Mechanical Response: No effect Lumbar Standing: Left Side [place] - Symptoms During Testing: No effect Lumbar Standing: Left Side [place] - Symptoms After Testing: No effect - Goals Goal 1:: Patient be Independant with HEP. Goal Time Frame: 4-6 Weeks Goal 2:: Patient improve postural ex's for ADL'S. Goal Time Frame: 4-6 Weeks Goal 3:: Patient decrease pain cervical and lumbar pain by 50% to improve function. Goal Time Frame: 4-6 Weeks Goal 4:: Patient to improve lumbar ROM and cervical ROM for function of recovery. Goal Time Frame: 4-6 Weeks Goal 5:: Patient improve back owestrey score by 5 points or > to improve QOL. Goal Time Frame: 4-6 Weeks - Rehabilitation Potential Physical Therapy Diagnosis: This patient has decrease lumbar ROM ,pain,decrease strength ,core ,postural muscles along with comorbities influence patients condition. Rehabilitation Potential: Good - Anticipated Interventions Patient/Client Instruction: Educate patient on: Condition, Plan of Care For the Purpose of:: To decrease pain, To increase ROM, To improve muscle performance and motor function, To increase tolerance to activity/condition/position, To improve performance and independence with ADL's, To improve ability of physical actions for home/community/work/leisure, To improve health of tissue, To decrease soft tissue restriction, To increase flexibility/ROM, To reduce risk of recurrence, To improve ability to perform tasks related to life management Therapeutic Exercise to Include: Strength training, Postural training, Flexibilty training, Active ROM, Dynamic Lumbar Stabilization For the Purpose of:: To decrease pain, To increase ROM, To improve muscle performance and motor function, To improve ability to perform ADL's, To increase tolerance to activity/condition/position, To improve ability of physical actions for home/community/work/leisure, To improve health of tissue, To decrease soft tissue restriction, To increase flexibility/ROM, To reduce risk of recurrence, To improve ability to perform tasks related to life management TENS: Yes IF ES: Yes Cryotherapy (ice pack, ice massage): Yes Thermo therapy (hot pack): Yes For the Purpose of:: To decrease pain, To increase ROM, To improve nutrient delivery to tissue, To increase oxygenation perfusion, To improve health of tissue, To decrease soft tissue restriction Thank you for the opportunity to evaluate your patient. For Medicare and Medicare HMO plans, please review the plan of care and approve it. It will need to be FAXED BACK to us at [phone] for Medicare purposes. For Medicare only, by signing this I certify the plan of care. Please let me know if there are questions or concerns regarding this plan of care. Physician Signature: Date :
--- NOTE | 2019-12-15 11:50 | HP.PTDCSUM ---
It has been my pleasure to treat MIGUEL GUEVARA referred by Eladia García DO, with the diagnosis of LUMBAR DDD ,LBP,NECK PAIN ,LOSS ROM for a total of 6 visit(s). Discharge Date: 12/15/19 Please see the following information for a summary of their discharge status. Subjective: Doing about same not much better. Dr has no visit scheduled Bilateral Back Pain Intensity (Out of 10): 2 % Improvement: 50 Objective/Function: POSTURE: mild foward posture. GAIT : reciprocal pattern. NEURO: denies parathesia/tingling ,reflexes. MMT: quads/hams/hip 4/5,ankle 4/5. LUMBAR ROM: flexion min loss ,extension mod loss ,side glides min loss Goal 1:: Patient be Independant with HEP. Goal Progress: Goal Met Goal 2:: Patient improve postural ex's for ADL'S. Goal Progress: Goal Met Goal 3:: Patient decrease pain cervical and lumbar pain by 50% to improve function. Goal Progress: Goal Met Goal 4:: Patient to improve lumbar ROM and cervical ROM for function of recovery. Goal Progress: Goal Met Goal 5:: Patient improve back owestrey score by 5 points or > to improve QOL. Goal Progress: Goal Met Plan: d/c to HEP Discharge Comments: D/C TO HEP If there are questions or concerns regarding this patient's physical therapy, please feel free to call me at [phone]. Thank you for the referral of this patient. Sincerely, Reuben Shaw, PT, Cert MDT, OCS
== END 2019-12-15 19:00 | disposition home or self-care (01) ==
LOC: PT 10:30
PROVIDERS: PCP Internal Medicine; Referring Provider Internal Medicine; Visit Provider Internal Medicine
DX: M51.36 Other intervertebral disc degeneration, lumbar region (principal); M47.816 Spondylosis without myelopathy or radiculopathy, lumbar region; M54.2 Cervicalgia; M54.5 Low back pain; R29.898 Other symptoms and signs involving the musculoskeletal system
CPT/HCPCS: 97110; 97162; 97530

== ENCOUNTER 2019-12-18 11:36 | Observation (INO) | payer MEDICARE, OTHER, SELFPAY ==
[2019-12-18] VITALS (12 sets, daily range): BP systolic 104–149; BP diastolic 63–72; PULSE 53–88; RESP 12–17; TEMP 36.7–36.9; O2SAT 96–99; BMI 27.0; BMI 26.4
--- NOTE | 2019-12-18 11:55 | EKG12_ITS ---
Test Reason : SYNCOPE Blood Pressure : / mmHG Vent. Rate : 072 BPM Atrial Rate : 072 BPM P-R Int : 182 ms QRS Dur : 076 ms QT Int : 388 ms P-R-T Axes : 058 023 048 degrees QTc Int : 424 ms Sinus rhythm with occasional Premature ventricular complexes Low voltage QRS Borderline ECG Confirmed by CELESTE MATUTE, CAMILLE ([id number]), medical editor CHANTAL WELLS ([id number]) on 12/22/2019 1:45:02 PM Referred By: Eladia García Confirmed By:CONCHIS ALONSO MD
--- NOTE | 2019-12-18 11:57 | ED.DCSUM_ITS ---
- ER Visit Summary Date of Service: 12/18/19 Chief Complaint: Passed out History of Present Illness: The patient is a 74 M history of stroke and Parkinson's disease. No cardiac history. Patient was walking around his kitchen. Finger lightheaded for a time and he passed out for seconds. Denies any injuries. Denies any headache, chest pain, shortness of breath, abdominal pain, nausea or vomiting. After the episode he had some mild diarrhea. Denies any melena. He ate breakfast this morning. He denies any recent fever. Physical Examination: Older male no acute distress. Vital signs are stable and afebrile. He does not look septic or toxic. He is in no acute distress. H E ENT exam unremarkable. Neck nontender no lymphadenopathy. Lungs clear to auscultation bilaterally. Heart regular rate and rhythm rate about 80 no murmur. Chest wall nontender. Abdomen soft nontender. Normal bowel sounds no peritoneal signs. Extremities moves all 4. Calves are nontender without edema or cords. No deformities. Nontender. Normal range of motion. 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 Dorsi plantarflexion intact. Back nontender. Neurologically is awake and alert. He has no focal motor or sensory deficits. Fingertip to nose within normal limits bilaterally. NIH score is 0. Test Results: EKG shows normal sinus rhythm rate of 70 with PVCs. No signs of PA or ischemia. No significant dysrhythmia. Chest x-ray portable 1 view shows no acute abnormality. Read both by myself and radiologist. CBC normal white count 9 hemoglobin 14. Chemistries unremarkable except creatinine 1.42. He does have a baseline renal insufficiency. Troponin normal. Orthostatic vital signs negative. Emergency Department Course and Treatment: Older male with brief syncopal episode. He is passed out before which sounds like orthostatic hypotension. He really was just walking around his kitchen today when this occurred. Treatment Plan: Repeat exam patient is doing well at 1 PM. He is asymptomatic. He and I discussed treatment options and he is willing to be admitted. I have the hospitalist on page. Disposition: Admission Impression: Acute syncope of uncertain etiology History of prior stroke and Parkinson's disease This note was generated with [employer] software. It may contain incorrect words, spelling, and punctuation that were not noted in review of the chart prior to signing ED Disposition - Plan for ED Patient: Referrals: Ricky,Eladia, DO [Primary Care Provider] -
--- NOTE | 2019-12-18 12:00 | RAD_ITS ---
STUDY: X-RAY CHEST REASON FOR EXAM: Male, 74 years old. SYNCOPE, NO CHEST COMPLAINTS TECHNIQUE: Single AP portable view of the chest. COMPARISON: 05/12/2015 FINDINGS: The lungs are clear and expanded. There is no demonstrated pleural abnormality. Normal size heart. Normal mediastinum and shasha. Normal visualized pulmonary arteries. Normal visualized aortic arch and descending thoracic aorta. Normal visualized thoracic spine. Normal visualized ribs, clavicles, and shoulders. There is no demonstrated abnormality of the visualized soft tissue structures of the upper abdomen. RAD/Chest 1 View (Portable) IMPRESSION: Normal x-ray examination of the chest. Electronically Signed: Reginaldo Stout MD at 12:35 EDT Tel , Service support ,
[2019-12-18 12:10] LABS: Absolute Lymphocyte Count 0.76 X10^3/uL (0.83-4.51); Absolute Neutrophil Count 8.2 X10^3/uL (2.0-7.7); Basophil# 0.04 X10^3/uL; Basophil% 0.4 % (0-1); Eosinophil# 0.04 X10^3/uL; Eosinophils% 0.4 % (0-5); Hemoglobin 14.6 g/dL (13.0-16.5); Lymphocyte # 0.76 X10^3/ul (4.0); Lymphocyte % 7.7 % (19-41); Mean Corp Hgb Conc 31.7 g/dL (32-36); Mean Corpuscular Hgb 30.6 pg (27.0-32.0); Mean Corpuscular Volume 96.4 fL (80-94); Mean Platelet Vol. 11.1 fl (6.2-12.0); Monocyte# 0.74 X10^3/uL; Monocyte% 7.5 % (0-10); NRBC Flagged by Analyzer 0 % (0-5); Neutrophil # 8.24 X10^3/uL (2.7-7.7); Neutrophil % 83.4 % (47-70); Platelet Count 183 K/mm3 (150-450); RBC Distribution Width CV 14.6 % (11.6-14.6); RBC Distribution Width SD 52.3 fl (35.1-43.9); Red Blood Count 4.77 M/mm3 (4.6-6.2); White Blood Count 9.9 K/mm3 (4.4-11.0)
[2019-12-18 12:28] LABS: Anion Gap 6 (5-15); BUN 22 mg/dL (7-18); BUN/Creat Ratio 15.5 RATIO (10-20); Calcium,Total 9.3 mg/dL (8.5-10.1); Chloride 104 mmol/L (98-107); Creatinine, Serum 1.42 mg/dL (0.70-1.30); EST Glomerular Filtration Rate 52 mL/min (>60); Est Glom Filt Rate - Afr Amer 63 mL/min (>60); Estimated Creatinine Clearance 51.61 ml/min; Glucose 152 mg/dL (74-106); Potassium 4.2 mmol/L (3.5-5.1); Sodium Level 139 mmol/L (136-145)
--- NOTE | 2019-12-18 13:13 | PCM.HP.STD ---
Problem List (1) Syncope and collapse Status: Acute (2) History of CVA (cerebrovascular accident) Status: Chronic (3) Parkinsons disease Status: Chronic (4) Hyperlipidemia Status: Chronic Qualifiers: Hyperlipidemia type: unspecified Qualified Code(s): E78.5 - Hyperlipidemia, unspecified (5) Hypertension Status: Chronic Qualifiers: Hypertension type: essential hypertension Qualified Code(s): I10 - Essential (primary) hypertension (6) Hypothyroidism Status: Chronic Qualifiers: Hypothyroidism type: unspecified Qualified Code(s): E03.9 - Hypothyroidism, unspecified (7) GERD (gastroesophageal reflux disease) Status: Chronic Qualifiers: Esophagitis presence: esophagitis presence not specified Qualified Code(s): K21.9 - Gastro-esophageal reflux disease without esophagitis History of Present Illness Date of Admission: 12/18/19 Chief Complaint: Syncopal event The patient is a 74 y/o M w/ PMHx: Hx CVA, Parkinson's Disease, CKD stage III (baseline Cr 1.4-1.6), Hypothyroidism, GERD, Hx Gastric Bypass who presents to the [facility] ED on 12/18/19 with history of on AM on day of ED presentation noted to have been walking into his kitchen, felt lightheaded which worsened with syncopal event < 1 minute, no other symptoms, notes diarrheal episode following with no head or body trauma he states he had no abdominal cramping or any further loose stools aside that 1. Patient does admit upon waking had significant body aches diffusely but patient denies any recent fever, cough, dyspnea complaints. He notes that he is only been walking from his home to the pharmacy. His is at home with him and has had no recent symptoms and she has not been out either. He denies any urinary symptoms including dysuria, frequency, suprapubic discomfort.. Work-up in the ED included T 98.3, heart 79, BP 139/68, respiratory rate 17, 97% on room air, negative orthostatic vital signs especially upon standing, CBC with WC 9.9, hemoglobin 14.6, platelet 183 with left shift, BMP with BUN/creatinine 22/1.42, glucose 152, troponin less than 0.015, EKG with sinus rhythm with PVCs with no acute evidence of ischemia, chest x-ray with no acute cardiopulmonary findings. Past Medical History Past Medical History (Chronic Problems): Chronic Problems (Last Reviewed 03/20/19 @ 13:51 by Amy Guevara) Pressure ulcer of coccygeal region, stage 1 (Chronic) Overweight (BMI 25.0-29.9) (Chronic) Hyperlipidemia (Chronic) Hypertension (Chronic) Hypothyroidism (Chronic) GERD (gastroesophageal reflux disease) (Chronic) History of gastric bypass (Chronic) History of CVA (cerebrovascular accident) (Chronic) Parkinsons disease (Chronic) Medical History: Medical History (Last Reviewed 03/20/19 @ 13:51 by Amy Guevara) GERD (gastroesophageal reflux disease) K21.9 HTN (hypertension) I10 Allergies lisinopril Allergy (Verified 12/18/19 11:37) Swelling Home Medications: Ambulatory Orders Medication Instructions Recorded Levothyroxine [Synthroid] 112 mcg PO DAILY 05/03/15 Carbidopa/Levodopa 1 tab PO TID 12/18/19 [Carbidopa-Levodopa 25-250 Tab] Surgical History: Surgical History (Last Reviewed 03/20/19 @ 13:51 by Amy Guevara) H/O carpal tunnel repair Z98.890 H/O gastric bypass Z98.84 h/o right thumb surgery Surgical History: - - Patient has a history of bilateral total knee replacement surgeries in the past. He underwent gastric bypass surgery for morbid obesity in June 2018, and has lost to 115 pounds. He has a history of left carpal tunnel release. Right thumb surgery was performed as a result of trauma. The patient underwent a tonsillectomy in the past. Psychiatric History: No pertinent psych hx Lives: Spouse/ Significant Other Smoking Status: Never smoker Tobacco Use: Non-smoker Alcohol: None Drugs: None - *Family History Paternal Family History: Family History (Last Reviewed 03/20/19 @ 13:51 by Amy Guevara) Father Colon cancer History Items: - - Patient's father at the age of 86 with a history of colon cancer and chronic obstructive pulmonary disease. Maternal Family History: Family History (Last Reviewed 03/20/19 @ 13:51 by Amy Guevara) Father Colon cancer History Items: - - Patient's mother at the age of 89 from complications of old age but patient denied any history in her of heart disease, diabetes or cancer. Review of Systems Constitutional: Reports: Malaise, Weakness, Fatigue. Denies: Anorexia, Chills, Fever, Weight Change HEENT: Denies: Head Aches, Sinus Congestion, Sinus Drainage Cardiovascular: Reports: Syncope. Denies: Chest Pain, Palpitations Respiratory: Denies: Cough, Shortness of Breath, Shortness of breath at rest, Shortness of breath upon exertion, Sputum production, Wheezing Gastrointestinal: Reports: Diarrhea. Denies: Abdominal Pain, Nausea, Vomiting Genitourinary: Denies: Dysuria Musculoskeletal: Reports: Joint Pain, Muscle pain. Denies: Joint Tenderness Skin: Denies: Rash, Wounds Neurological: Reports: Tremor. Denies: Focal weakness, Numbness, Tingling Psychiatric: Denies: Anxiety, Depression, Homicidal Ideations, Suicidal Ideations Hematologic/ Lymphatic: Reports: Easy Bruising, Easy Bleeding VTE Information - Inpt Only VTE Present on Admission: No VTE Mechan Device Prophylaxis: SCD's VTE Pharm Prophylaxis ordered?: Yes Patient Problems: Active and Suspected Problems (Last Reviewed 03/20/19 @ 13:51 by Amy Guevara) Syncope and collapse (Acute) Subjective: Seated upright in the ED bed, no acute distress, denies any current complaints but does still admit to generalized malaise, body aches. Objective: Physical Examination: General: awake, alert, oriented x 3 and cooperative, seated upright in the ED bed, no acute distress. Skin: normal color, turgor, no icterus, cyanosis. HEENT: AT/NC, EOMI, PERRLA, oddly dry MM, no carotid bruits or JVD noted. Lungs: CTA bilaterally, moderate effort, mild decrease BL bases, no rales, ronchi or wheezing. Heart: Regular rate and rhythm; no gallop, rub audible. Abdomen: soft, NTTP, ND, mildly hyperactive BS, no HSM. Extremities: no cyanosis, clubbing, or edema. Neurological: patient awake, alert, oriented x 3; cognitive function appears baseline intact; pupils equally reactive to light and accomodation; cranial nerves II-XII grossly normal, moving all 4 extremities, mild tremor primarily left upper extremity, hand, strength moderately to severely global decrease secondary to acute complaints. Psychiatric: affect appears mildly fatigued otherwise normal, no acute evidence of depressive or anxiety feelings. - Physical Exam Vitals/I&O's: Vital Signs Temp Pulse Resp BP Pulse Ox 98.3 F 71 16 133/64 H 99 12/18/19 11:37 12/18/19 11:55 12/18/19 11:50 12/18/19 11:55 12/18/19 11:50 Oxygen Delivery Method Room Air Weight: 199 lb 4.766 oz Body Mass Index (BMI) 27.0 Laboratory Results 12/18/19 11:50: WBC 9.9, RBC 4.77, Hgb 14.6, Hct 46.0, MCV 96.4 H, MCH 30.6, MCHC 31.7 L, RDW Std Deviation 52.3 H, RDW Coeff of Aravind 14.6, Plt Count 183, MPV 11.1, Immature Gran % (Auto) 0.600, Neut % (Auto) 83.4 H, Lymph % (Auto) 7.7 L, [place] % (Auto) 7.5, Eos % (Auto) 0.4, Baso % (Auto) 0.4, Absolute Neuts (auto) 8.2 H, Absolute Lymphs (auto) 0.76 L, Nucleated RBC % 0 12/18/19 11:50: Sodium 139, Potassium 4.2, Chloride 104, Carbon Dioxide 29.0, Anion Gap 6, BUN 22 H, Creatinine 1.42 H, Estim Creat Clear Calc 51.61, Est GFR (MDRD) Af Amer 63, Est GFR (MDRD) Non-Af 52 L, BUN/Creatinine Ratio 15.5, Glucose 152 H, Calcium 9.3, Troponin I < 0.015 Assessment/Plan All Active Problems (Last Reviewed 03/20/19 @ 13:51 by Amy Guevara) Syncope and collapse (Acute) The patient is a 74 y/o M w/ PMHx: Hx CVA, Parkinson's Disease, CKD stage III, Hypothyroidism, GERD, Hx Gastric Bypass who presents to the [facility] ED on 12/18/19 with history of on AM on day of ED presentation noted to have been walking into his kitchen, felt lightheaded which worsened with syncopal event < 1 minute, no other symptoms, notes diarrheal episode following with no head or body trauma. 1. Syncopal Event: Unclear etiololgy, EKG in ED w/ sinus rhythm with PVCs without evidence of acute ischemia, CXR w/ no acute cardiopulmonary findings, initial trop normal. Will admit to PCU, place on a monitored bed to assure no acute myocardial infarction with serial cardiac enzymes and EKGs. Will maintain on fall precautions, obtain admission orthostatic repeat in AM, continue to gently hydrate, obtain ECHO, if any developments of any upper respiratory complaints would immediately transition patient to appropriate precautions and request respiratory viral panel. PT/OT consultation to ascertain stability and discharge needs. 2. Hyperglycemia: Admission glucose 152, will obtain HgbA1c and add accu checks and ISS if appropriate. 3. Parkinson's disease: Continue home sinemet regimen, does have tremor, maintain on fall precautions, PT/OT/CM consultations for discharge planning. 4. Hx CVA: Patient without any deficits, will add baby asa, not on HTN regimen, not on HLD, will add if appropriate 5. Hypothyroidism: Continue home synthroid regimen, TSH and FT4 pending. 6. Chronic Kidney Disease Stage III: Admission BUN/Cr 22/1.42, baseline renal function 1.4-1.6, repeat BMP in AM. 7. GERD: Maintain on famotidine. 8. DVT prophylaxis: SCDs, Lovenox. OBSV E&M: [id number] Initial observation care L3
--- NOTE | 2019-12-18 13:56 | ED.RN ---
attempted to call and daughter both with no answer to inform of pt's admission.
--- NOTE | 2019-12-18 14:07 | ECHOD_ITS ---
Reason For Study: Syncope Procedure This was a 2D Doppler, Color Flow transthoracic echocardiogram. Exam performed portable in patient room. Left Ventricle Normal LV size. Left ventricular systolic function is normal. The estimated ejection fraction is 65 %. Normal diastology for age. No regional wall motion abnormalities noted. Right Ventricle Normal RV size. Normal systolic function. Atria Normal left atrium. Normal right atrium. Hypermobile atrial septum. Bubble contrast study negative for right to left interatrial shunt. Mitral Valve Normal mitral valve. Tricuspid Valve Normal tricuspid valve. Aortic Valve Trisinus/trileaflet aortic valve. Mild focal aortic valve calcification. Pulmonic Valve Normal pulmonic valve. Great Vessels Normal aortic root. Pericardium/Pleural No pericardial effusion. Medication Performed a rapid injection of agitated mix of 9 cc saline and 1cc air to assess for atrial septal defect. MMode/2D Measurements & Calculations LVIDd: 4.4 cm IVSd: 1.2 cm Ao root diam: 3.7 cm LVIDs: 2.7 cm LVPWd: 1.2 cm RVDd: 3.6 cm FS: 37.1 % LAV(MOD-bp): 47.0 ml LVAd ap4: 24.1 cm2 SV(MOD-sp4): 41.0 ml LAV(MOD-bp) Indexed: 22.1 ml/m2 EDV(MOD-sp4): 61.9 ml LAV(MOD-sp2): 43.8 ml EDV(sp4-el): 62.9 ml LAV(MOD-sp4): 43.1 ml LVAs ap4: 12.6 cm2 ESV(MOD-sp4): 20.9 ml ESV(sp4-el): 21.6 ml EF(MOD-sp4): 66.3 % EF(sp4-el): 65.7 % SV(sp4-el): 41.3 ml LA A4 area: 16.2 cm2 LA dimension(2D): 4.5 cm RA A4 area: 14.1 cm2 Doppler Measurements & Calculations MV E max gilbert: 70.1 cm/sec Lat Peak E' Gilbert: 7.7 cm/sec Med Peak E' Gilbert: 6.5 cm/sec MV A max gilbert: 103.9 cm/sec E/E' lat: 9.1 E/E' med: 10.9 MV E/A: 0.67 Ao V2 max: 132.3 cm/sec LV V1 max: 110.2 cm/sec PA V2 max: 115.2 cm/sec Ao max P.0 mmHg LV V1 max P.9 mmHg Ao V2 mean: 95.5 cm/sec Ao mean P.0 mmHg Ao V2 VTI: 29.8 cm Interpretation Summary Normal LV size. Left ventricular systolic function is normal. The estimated ejection fraction is 65 %. Hypermobile atrial septum. Bubble contrast study negative for right to left interatrial shunt. Normal diastology for age. Ordering Physician: Waleska Bernard Referring Physician: Eladia García Performed By: Mary Jane Booker, HAYES, RVT
[2019-12-18 14:33] LABS: T4 Free Direct 1.18 ng/dL (0.76-1.46); Thyroid Stim Hormone (TSH) 0.37 uIU/mL (0.358-3.74)
[2019-12-18] MEDS: 0.9% Normal Saline 1,000 ML 100 ML IV (14:36)
[2019-12-18 14:46] LABS: Hemoglobin A1c 5.6 % (4.2-6.3)
[2019-12-18 16:14] LABS: Bacteria 0 SEEN /hpf (None Seen); Mucous, Urine 0 SEEN /hpf (<or=2+); Red Blood Cells-Urine 0 SEEN /hpf (0-5); Squamous Epithelial Cells - UA 0 SEEN /hpf (0-5); White Blood Cells 0 SEEN /hpf (0-5)
[2019-12-18 16:22] LABS: Color, Urine Yellow (Yellow); Glucose, Dipstick Normal (Normal); Ketone-Dipstick 5 mg/dl (Negative); Leukocyte Esterase-Dipstick 25 /ul (Negative); Nitrite-Dipstick Negative (Negative); Occult Blood-Urine Negative /ul (Negative); Protein-Dipstick Negative (Negative); Specific Gravity, Urine 1.015 (1.002-1.030); Urine Bilirubin Dipstick Negative (Negative); Urine Clarity Clear (Clear); Urine Urobilinogen Normal (Normal)
[2019-12-18] MEDS: Carbidopa/Levodopa 25/250 Tablet PO (17:44)
[2019-12-19] VITALS (12 sets, daily range): BP systolic 124–156; BP diastolic 57–77; PULSE 44–65; RESP 14–16; TEMP 36.2–37; O2SAT 95–97
[2019-12-19] MEDS: 0.9% Normal Saline 1,000 ML 100 ML IV ×3 (00:23→22:09)
[2019-12-19 05:30] LABS: Absolute Lymphocyte Count 2.11 X10^3/uL (0.83-4.51); Absolute Neutrophil Count 3.3 X10^3/uL (2.0-7.7); Basophil# 0.04 X10^3/uL; Basophil% 0.6 % (0-1); Eosinophil# 0.58 X10^3/uL; Eosinophils% 8.5 % (0-5); Hematocrit 42.5 % (40-54); Hemoglobin 13.7 g/dL (13.0-16.5); Lymphocyte # 2.11 X10^3/ul (4.0); Lymphocyte % 30.8 % (19-41); Mean Corp Hgb Conc 32.2 g/dL (32-36); Mean Corpuscular Hgb 30.6 pg (27.0-32.0); Mean Corpuscular Volume 94.9 fL (80-94); Monocyte# 0.84 X10^3/uL; Monocyte% 12.3 % (0-10); NRBC Flagged by Analyzer 0 % (0-5); Neutrophil # 3.25 X10^3/uL (2.7-7.7); Neutrophil % 47.5 % (47-70); Platelet Count 154 K/mm3 (150-450); RBC Distribution Width CV 14.4 % (11.6-14.6); RBC Distribution Width SD 49.7 fl (35.1-43.9); Red Blood Count 4.48 M/mm3 (4.6-6.2); White Blood Count 6.8 K/mm3 (4.4-11.0)
--- NOTE | 2019-12-19 05:55 | EKG12_ITS ---
Test Reason : AM Blood Pressure : / mmHG Vent. Rate : 049 BPM Atrial Rate : 049 BPM P-R Int : 186 ms QRS Dur : 084 ms QT Int : 438 ms P-R-T Axes : 062 014 050 degrees QTc Int : 395 ms Sinus bradycardia Otherwise normal ECG When compared with ECG of 18-DEC-2019 12:26, MANUAL COMPARISON REQUIRED, DATA IS UNCONFIRMED Confirmed by GERALDINE MATUTE, JENSEN ([id number]), index editor ANNIA NARANJO ([id number]) on 12/23/2019 9:25:06 AM Referred By: Eladia García Confirmed By:JENSEN CHANDLER MD
[2019-12-19] MEDS: Levothyroxine 112 MCG Tablet PO (06:12)
[2019-12-19 06:19] LABS: ALB/GLOB Ratio 0.9 RATIO (0.9-2.4); AST(SGOT) 17 U/L (15-37); Alanine Aminotransfer ALT/SGPT 8 U/L (16-61); Albumin, Serum 3.1 g/dL (3.2-5.0); Alkaline Phosphatase 111 U/L (45-117); Anion Gap 7 (5-15); BUN 19 mg/dL (7-18); BUN/Creat Ratio 15.3 RATIO (10-20); Calcium,Total 8.7 mg/dL (8.5-10.1); Chloride 107 mmol/L (98-107); Creatinine, Serum 1.24 mg/dL (0.70-1.30); EST Glomerular Filtration Rate 61 mL/min (>60); Est Glom Filt Rate - Afr Amer 74 mL/min (>60); Globulin 3.3 g/dL (2.2-4.2); Glucose 88 mg/dL (74-106); Protein, Total 6.4 g/dL (6.4-8.2); Sodium Level 141 mmol/L (136-145)
[2019-12-19] MEDS: Aspirin 81 MG TAB.CHEW PO (08:43)
[2019-12-19] MEDS: Carbidopa/Levodopa 25/250 Tablet PO ×3 (08:43→16:32)
[2019-12-19] MEDS: Famotidine 20 MG Tablet PO (08:43)
[2019-12-19] MEDS: Enoxaparin 40 MG/0.4 ML Syringe SC (08:43)
--- NOTE | 2019-12-19 10:38 | PCM.PN.HOSP ---
Patient Problems: Active and Suspected Problems (Last Reviewed 03/20/19 @ 13:51 by Amy Guevara) Syncope and collapse (Acute) Subjective: Patient seen and examined. He was admitted with a complaint of syncope. Patient states he was walking in his kitchen sugar Hungarian 2 get something was making breakfast when he fell on the floor. Patient is not sure whether he passed out or not as he says he was aware of his surroundings and was laying on the floor for about an hour after wards because he was unable to get up. He had associated fecal incontinence but cannot say whether he had any seizure-like episode or not. He had no urinary incontinence and no tongue biting and did not feel drowsy afterwards. He says he has had 3 similar episodes like this over the past year. He says he has had a stroke in the recent past. He says he is due for an MRI of his back today as he has been having back pain. He has no complaints this morning. He denies any nausea, lightheadedness or dizziness or any weakness in his lower extremities. Review systems otherwise negative. Labs and vitals reviewed. Patient noted to be bradycardic with heart rate going down to the 40s. Review of signs otherwise negative. Vitals/I&O's: Vital Signs Temp Pulse Resp BP Pulse Ox 97.5 F L 59 L 16 156/72 H 96 12/19/19 08:47 12/19/19 08:47 12/19/19 08:47 12/19/19 08:47 12/19/19 08:47 Oxygen Delivery Method Room Air Weight: 194 lb 14.218 oz Body Mass Index (BMI) 26.4 Orthostatic Vital Signs Start: 12/19/19 06:29 Freq: q24h Status: Active Protocol: Activity Type Activity Date Activity User E-Sign Co-Sign Detail Recorded Client Recorded Date Recorded By Document 12/19/19 06:29 CM [id number] 12/19/19 06:30 CM 12/19/19 06:29 Orthostatic Vitals Standing -Blood Pressure (90/60-120/80) 124/63 H -Extremity Use Left Arm -Pulse Rate (60-100) 65 Sitting -Blood Pressure (90/60-120/80) 128/64 H -Extremity Use Left Arm -Pulse Rate (60-100) 55 L Lying -Blood Pressure (90/60-120/80) 133/57 H -Extremity Use Left Arm -Pulse Rate (60-100) 50 L Intake and Output for Last 24 Hours 12/17/19 12/18/19 12/19/19 23:59 23:59 23:59 Intake Total 520 / 520 2127. / Balance 520 / 520 / General: Alert, Oriented x3, Cooperative, No apparent distress HEENT: Atraumatic, PERRLA, EOMI, Normocephalic Oral: Moist Mucosa Neck: Supple, No JVD, Negative Carotid Bruits Lungs: Clear to auscultation, Normal air movement, No rhonchi, No wheeze, No rales Cardiovascular: Regular rate, Regular Rhythm, Normal S1, Normal S2, No murmurs Abdomen: Bowel Sounds Present, Soft, Non Tender, Non-Distended, No Hepato-splenomegaly Extremities: No clubbing, No cyanosis, No edema, Capillary Refill Less than 3 Seconds Skin: No rashes, No breakdown Musculoskeletal: No Tenderness to Palpation of Joints or Extremities Lymphatic: No Cervical, Supraclavicular, or Inguinal Adenopathy Neurological: Cranial nerves II-XII grossly intact, Neuro grossly intact, Motor Exam 5/5 strength throughout Psych/Mental Status: Normal Affect, Appropriate, Alert and oriented to time, place, person, mood and affect Laboratory Results 12/18/19 11:50: WBC 9.9, RBC 4.77, Hgb 14.6, Hct 46.0, MCV 96.4 H, MCH 30.6, MCHC 31.7 L, RDW Std Deviation 52.3 H, RDW Coeff of Aravind 14.6, Plt Count 183, MPV 11.1, Immature Gran % (Auto) 0.600, Neut % (Auto) 83.4 H, Lymph % (Auto) 7.7 L, [place] % (Auto) 7.5, Eos % (Auto) 0.4, Baso % (Auto) 0.4, Absolute Neuts (auto) 8.2 H, Absolute Lymphs (auto) 0.76 L, Nucleated RBC % 0 12/18/19 11:50: Sodium 139, Potassium 4.2, Chloride 104, Carbon Dioxide 29.0, Anion Gap 6, BUN 22 H, Creatinine 1.42 H, Estim Creat Clear Calc 51.61, Est GFR (MDRD) Af Amer 63, Est GFR (MDRD) Non-Af 52 L, BUN/Creatinine Ratio 15.5, Glucose 152 H, Calcium 9.3, Troponin I < 0.015 12/18/19 11:50: Magnesium 2.0, TSH 0.37, Free T4 1.18 12/18/19 11:50: Hemoglobin A1c 5.6 12/18/19 16:00: Troponin I < 0.015 12/18/19 16:07: Urine Color Yellow, Urine Clarity Clear, Urine pH 5.0, Ur Specific [place] 1.015, Urine Protein Negative, Urine Glucose (UA) Normal, Urine Ketones 5 H, Urine Occult Blood Negative, Urine Nitrite Negative, Urine Bilirubin Negative, Urine Urobilinogen Normal, Ur Leukocyte Esterase 25 H, Urine RBC 0 SEEN, Urine WBC 0 SEEN, Ur Squamous Epith Cells 0 SEEN, Urine Bacteria 0 SEEN, Urine Mucus 0 SEEN 12/18/19 18:34: Troponin I < 0.015 12/19/19 05:10: WBC 6.8, RBC 4.48 L, Hgb 13.7, Hct 42.5, MCV 94.9 H, MCH 30.6, MCHC 32.2, RDW Std Deviation 49.7 H, RDW Coeff of Aravind 14.4, Plt Count 154, MPV 11.0, Immature Gran % (Auto) 0.300, Neut % (Auto) 47.5, Lymph % (Auto) 30.8, [place] % (Auto) 12.3 H, Eos % (Auto) 8.5 H, Baso % (Auto) 0.6, Absolute Neuts (auto) 3.3, Absolute Lymphs (auto) 2.11, Nucleated RBC % 0 12/19/19 05:10: Sodium 141, Potassium 4.0, Chloride 107, Carbon Dioxide 27.0, Anion Gap 7, BUN 19 H, Creatinine 1.24, Estim Creat Clear Calc 59.10, Est GFR (MDRD) Af Amer 74, Est GFR (MDRD) Non-Af 61, BUN/Creatinine Ratio 15.3, Glucose 88, Calcium 8.7, Total Bilirubin 0.70, AST 17, ALT 8 L, Alkaline Phosphatase 111, Total Protein 6.4, Albumin 3.1 L, Globulin 3.3, Albumin/Globulin Ratio 0.9 Diagnostic Data Chest X-Ray 12/18/19 12:00 IMPRESSION: Normal x-ray examination of the chest. Electronically Signed: Reginaldo Stout MD at 12:35 EDT Tel , Service support , Current Medications Acetaminophen (Tylenol) 650 mg PO Q6H PRN PRN PRN Reason: Pain Score 1-10/Temp > 100.7 F Al Hydroxide/Mg Hydroxide (Mylanta Ii) 30 ml PO Q6H PRN PRN PRN Reason: Gastric Burning Albuterol Sulfate (Ventolin Aerosols) 2.5 mg INHALATION Q2H PRN PRN PRN Reason: SOB/Wheezing Aspirin (Aspirin, Baby) 81 mg PO DAILY@0800 [facility] Last Admin: 12/19/19 08:43 Dose: 81 mg Documented by: Carbidopa/Levodopa (Sinemet) 1 tablet PO TIDCM [facility] Last Admin: 12/19/19 08:43 Dose: 1 tablet Documented by: Dextrose (D50w Syringe) 0 gm IV X1 PRN; Protocol PRN Reason: Hypoglycemia Enoxaparin Sodium (Lovenox) 40 mg SC DAILY [facility] Last Admin: 12/19/19 08:43 Dose: 40 mg Documented by: Famotidine (Pepcid) 20 mg PO BID [facility] Last Admin: 12/19/19 08:43 Dose: 20 mg Documented by: Glucagon () 1 mg IM .X1 PRN PRN Reason: Hypoglycemia Guaifenesin (Robitussin) 20 ml PO Q4H PRN PRN PRN Reason: COUGH Hydralazine HCl (Apresoline Iv) 10 mg IV Q4H PRN PRN PRN Reason: SBP > 160 Sodium Chloride () 1,000 mls @ 100 mls/hr IV .Q10H [facility] Last Admin: 12/19/19 10:25 Dose: 100 mls/hr Documented by: Levothyroxine Sodium (Synthroid) 112 mcg PO DAILY@0600 [facility] Last Admin: 12/19/19 06:12 Dose: 112 mcg Documented by: Magnesium Hydroxide (Milk Of Magnesia) 30 ml PO DAILY PRN PRN PRN Reason: Constipation Melatonin (Melatonin) 3 mg PO QHS PRN PRN PRN Reason: INSOMNIA Nitroglycerin (Nitrostat) 0.4 mg SUBLINGUAL Q5M PRN PRN Reason: CARDIAC/CHEST PAIN Ondansetron HCl (Zofran) 4 mg IV Q8H PRN PRN PRN Reason: NAUSEA/VOMITING Oxycodone HCl (Oxyir) 5 mg PO Q4H PRN PRN PRN Reason: Pain Score 4-5/10 Prochlorperazine Edisylate (Compazine Iv) 5 mg IV Q4H PRN PRN PRN Reason: Breakthrough Nausea/Vomiting Psyllium Hydrophilic Mucilloid (Metamucil) 1 packet PO DAILY PRN PRN PRN Reason: Constipation Senna/Docusate Sodium (Senokot-S, Mary-Colace) 2 tablet PO BID PRN PRN PRN Reason: Constipation Sodium Chloride () 10 - 40 ml IV UD PRN PRN Reason: SALINE FLUSH Throat Lozenges (Cepacol Sore Throat Lozenge) 1 lozenge MUCOUS MEM Q2H PRN PRN PRN Reason: SORE THROAT STROKE Vital Signs/Narrative: Vital Signs Temp Pulse Resp BP Pulse Ox 12/19/19 08:47 97.5 F L 59 L 16 156/72 H 96 12/19/19 06:59 95 12/19/19 06:49 50 L Medical Necessity - Tobacco Use Smoking Status: Never smoker Tobacco Use: Non-smoker Assessment/Plan All Active Problems (Last Reviewed 03/20/19 @ 13:51 by Amy Guevara) Syncope and collapse (Acute) 1. Syncope etiology is unclear. He ahd associated fecal incontinence, raising a question of possible seizure. He also has bradycardia, which could be contributing to syncope. troponins x 3 were negative. EKG showed no acute ST changes. 2D echo: Normal left ventricular size and function with EF of 65% and no regional wall motion abnormalities noted. Bubble study negative, hypermobile atrial septum. Normal diastolic for age. will get neurology consult and EEG in light of possibility of seizure 2. Parkinson;s disease: recently diagnosed with Parkinsons. On sinemet. Fall precautions. PT/OT on board 3. History of CVA: on aspirin. 4. HypothyroidismL: on synthroid. 5. CKD 3: baseline Cr is around 1.3. Cr today is 1.24 6. GERD: on famotidine. DVT prophylaxis: lovenox OBSV E&M: [id number] Subsequent observation care L2
--- NOTE | 2019-12-19 12:50 | CASEMGMT ---
Attempted x 2 to discuss SHAIKH form with patient. turfgrass technician is in room now and will be working with pt for a while. Josh LONDONON RN ACM
--- NOTE | 2019-12-19 14:30 | MRI_ITS ---
STUDY: MRI LUMBAR SPINE WITHOUT CONTRAST REASON FOR EXAM: Male, 74 years old. back pain, fall 1 mon ago TECHNIQUE: Standardized fat and water weighted pulse sequences were obtained in the sagittal and axial planes. COMPARISON: Lumbar spine x-ray dated October 28, 2019 FINDINGS: No visualized compression deformity or acute fracture. Slight predominance of red marrow noted in the osseous structures. Normal lumbar lordosis. Mild levoscoliosis is present. Normal conus medullaris that terminates at the T12-L1 level. L1-2: Normal endplates. Normal disc height and morphology. Normal bilateral facet joints. Normal central canal and bilateral lateral recesses. Normal bilateral intervertebral neural foramina. L2-3: The disc space is mildly to moderately narrowed from anterior to posterior, resulting in a mild diffuse disc spur complex. Mild bilateral facet joint hypertrophy is also present contributing to mild central canal stenosis. Normal lateral recesses. Normal bilateral intervertebral neural foramina. Mild endplate degenerative changes are present. Schmorl''s nodes changes are present on both sides of the disc space. L3-4: The disc space is moderately narrowed with a mild diffuse disc bulge and superimposed central disc protrusion. Bilateral facet joint hypertrophy is also present contributing to mild central canal stenosis. Normal lateral recesses. Normal bilateral intervertebral neural foramina. Mild endplate degenerative changes are present. L4-5: The disc space is moderately narrowed with a mild diffuse disc bulge and superimposed central disc protrusion. Bilateral facet joint hypertrophy is also present contributing to mild central canal stenosis. Normal lateral recesses. Normal bilateral intervertebral neural foramina. Mild endplate degenerative changes are present. L5-S1: The disc space is moderately narrowed with minimal posterior annular bulging. A superimposed right eccentric disc protrusion is present entering the right lateral recess stenosis and nerve root compression. Normal central canal and left lateral recess. Normal bilateral facet joints. Normal bilateral intervertebral neural foramina. Mild endplate degenerative changes are present. Normal visualized sacral ala. There is mild paraspinal muscular atrophy. Several small cysts are present in the left kidney. MRI/Spine Lumbar (Routine) IMPRESSION: 1. Multilevel degenerative changes, as described above. 2. Mild central canal stenosis from L2-L3 down to L5-S1 3. No visualized compression deformity or acute fracture. Electronically Signed: Jonathan Patrick MD at 15:34 EDT , Service support ,
--- NOTE | 2019-12-19 15:28 | CASEMGMT ---
RN CM Note: attempted to review SHAIKH form, nursing working with pt. Deferred at this time. Josh LONDONON RN ACM
--- NOTE | 2019-12-19 15:32 | NURSING ---
VSA not completed on time due to patient being off floor for testing
[2019-12-20 02:48] VITALS: BP 132/87; PULSE 46; RESP 16; TEMP 36.7; O2SAT 98
[2019-12-20 03:00] VITALS: PULSE 44
[2019-12-20] MEDS: Levothyroxine 112 MCG Tablet PO (05:33)
[2019-12-20 06:11] VITALS: PULSE 39
[2019-12-20 06:25] VITALS: BP 107/67; BP 131/67; BP 136/74; PULSE 46; PULSE 53; PULSE 64
[2019-12-20 06:45] VITALS: PULSE 64
[2019-12-20 07:03] LABS: Absolute Lymphocyte Count 2.02 X10^3/uL (0.83-4.51); Absolute Neutrophil Count 3.6 X10^3/uL (2.0-7.7); Basophil# 0.06 X10^3/uL; Basophil% 0.8 % (0-1); Eosinophil# 0.91 X10^3/uL; Eosinophils% 12.1 % (0-5); Hematocrit 40.5 % (40-54); Hemoglobin 13.1 g/dL (13.0-16.5); Lymphocyte # 2.02 X10^3/ul (4.0); Lymphocyte % 26.8 % (19-41); Mean Corp Hgb Conc 32.3 g/dL (32-36); Mean Corpuscular Hgb 30.8 pg (27.0-32.0); Mean Corpuscular Volume 95.3 fL (80-94); Mean Platelet Vol. 11.2 fl (6.2-12.0); Monocyte# 0.91 X10^3/uL; Monocyte% 12.1 % (0-10); NRBC Flagged by Analyzer 0 % (0-5); Neutrophil # 3.63 X10^3/uL (2.7-7.7); Neutrophil % 47.9 % (47-70); Platelet Count 162 K/mm3 (150-450); RBC Distribution Width CV 14.5 % (11.6-14.6); RBC Distribution Width SD 50.5 fl (35.1-43.9); Red Blood Count 4.25 M/mm3 (4.6-6.2); White Blood Count 7.6 K/mm3 (4.4-11.0)
[2019-12-20 07:23] LABS: Anion Gap 7 (5-15); BUN 17 mg/dL (7-18); BUN/Creat Ratio 16.7 RATIO (10-20); Calcium,Total 8.2 mg/dL (8.5-10.1); Chloride 110 mmol/L (98-107); Creatinine, Serum 1.02 mg/dL (0.70-1.30); EST Glomerular Filtration Rate 76 mL/min (>60); Est Glom Filt Rate - Afr Amer 92 mL/min (>60); Estimated Creatinine Clearance 71.85 ml/min; Glucose 83 mg/dL (74-106); Sodium Level 143 mmol/L (136-145)
[2019-12-20] MEDS: Aspirin 81 MG TAB.CHEW PO (07:24)
[2019-12-20] MEDS: Carbidopa/Levodopa 25/250 Tablet PO (07:24)
[2019-12-20] MEDS: Enoxaparin 40 MG/0.4 ML Syringe SC (07:24)
[2019-12-20] MEDS: 0.9% Normal Saline 1,000 ML 100 ML IV (07:27)
[2019-12-20 08:28] VITALS: BP 145/71; PULSE 85; RESP 16; TEMP 36.4; O2SAT 94
--- NOTE | 2019-12-20 09:49 | DCINST_ITS ---
- Discharge Diagnoses Current Active Problems: Current Active and Chronic Problems (Last Reviewed 03/20/19 @ 13:51 by Amy Guevara) Syncope and collapse (Acute) History of CVA (cerebrovascular accident) (Chronic) Parkinsons disease (Chronic) You will use the following diet at home:: Cardiac Your food should be the consistency of: Regular Your liquids should be the consistency of: Regular/Thin Discharge Activity: Return to Normal Activity Weight Bearing Status: Weight bearing as tolerated Call your doctor if you observe: Shortness of breath, Dizziness, Fainting spells Instructions: What Is Syncope?, ED Bradycardia, ED Near Syncope Vasovagal Additional Instructions: follow up with classified advertising clerk in [place] in 1-2 weeks Allergies/Adverse Reactions: Allergies lisinopril Allergy (Verified 12/18/19 11:37) Swelling Medications to take at Discharge Levothyroxine [Synthroid] 112 mcg PO DAILY 05/03/15 Carbidopa/Levodopa [Carbidopa-Levodopa 25-250 Tab] 1 tab PO TID 12/18/19 Primary Care Physician: Eladia García DO [Primary Care Provider] - Please follow up with your Primary Care Physician in: one week Test Results: Test results from this visit will be discussed in further detail at your follow-up appointment, if applicable. Proposed Discharge Date: 12/20/19
--- NOTE | 2019-12-20 09:53 | PCM.DC.SUM ---
Discharge Date and Diagnosis Date of Admission: 12/18/19 Date of Discharge: 12/20/19 - Primary Discharge Diagnosis Active and Suspected Problems (Last Reviewed 03/20/19 @ 13:51 by Amy Guevara) Syncope and collapse (Acute) mechanical fall bradycardia - Secondary Discharge Diagnosis Chronic Problems (Last Reviewed 03/20/19 @ 13:51 by Amy Guevara) Pressure ulcer of coccygeal region, stage 1 (Chronic) Overweight (BMI 25.0-29.9) (Chronic) Hyperlipidemia (Chronic) Hypertension (Chronic) Hypothyroidism (Chronic) GERD (gastroesophageal reflux disease) (Chronic) History of gastric bypass (Chronic) History of CVA (cerebrovascular accident) (Chronic) Parkinsons disease (Chronic) Hospital Course and Treatment Imaging Results: Diagnostic Data Chest X-Ray 12/18/19 12:00 IMPRESSION: Normal x-ray examination of the chest. Electronically Signed: Reginaldo Stout MD at 12:35 EDT Tel , Service support , Lumbar Spine MRI 12/19/19 14:30 IMPRESSION: 1. Multilevel degenerative changes, as described above. 2. Mild central canal stenosis from L2-L3 down to L5-S1 3. No visualized compression deformity or acute fracture. Electronically Signed: Jonathan Patrick MD at 15:34 EDT , Service support , Operations: None Procedures: 2-D Echocardiogram, Electroencephalogram Summary of Care Provided: The patient is a 74 year old M with a past medical history as outlined was admitted through the ED on 12/18/2019 with a complaint of syncopal event on the day of presentation. Patient states he was walking to his kitchen to get something for the fridge and thinks his legs gave way. He really could not say whether he passed out or at bedside if he did it was very very brief moments. This was unwitnessed and he lay on the floor for about an hour before he was able to get to a phone to call his son. He had assisted bowel incontinence because he could not get up from the floor but denied any generalized weakness. Patient has a history of bradycardia and states he has been following up with his payroll clerk and had to wear Holter monitor for about a month but was told that it was not related to any falls. He has had 3 such falls in the past year and is also been diagnosed with Parkinson's disease and this was thought to also be a cause of the falls. On admission, vitals were stable and EKG showed sinus rhythm with some PVCs but no evidence of ischemia. Chest x-ray showed no acute cardiopulmonary findings. He was admitted and managed for syncope. OrthoStatics checked were positive, on the floor, though they have been positive in the ED. 2D echo was done and showed normal left ventricular size and function with EF of 65% and no regional wall motion abnormalities noted with negative bubble study and hypermobile atrial septum and normal diastolic for age. EEG done was also normal and neurology was consulted due to suspicion for bowel incontinence which raised possibility of a seizure. Neurology reviewed patient and did not think that this was likely due to a seizure. Patient remained stable. He was bradycardic for some time in the hospital with heart rate going down to the 40s but then would come up to the 80s and was 85 at time of discharge. Patient said this was chronic and review of records showed that he had had bradycardia back in 2013. He said he had been told by his payroll clerk that he did not need a pacemaker and patient preferred to follow-up with his payroll clerk on outpatient basis. Patient remained stable and was discharged home on 12/20/2019. He was evaluated by physical therapy and deemed fit to go home. He is to follow-up with his primary care doctor and also to follow-up with his payroll clerk within 1 to 2 weeks. Patient seen and examined prior to discharge. He had no complaints and felt well. Review of systems otherwise negative. Labs and vitals reviewed. Home medication reviewed and reconciled. o/e: Vital Signs Height 6 ft Weight: 194 lb 14.218 oz Weight in Pounds 194.9 lbs Pulse Ox 94 Temperature 97.6 F Pulse Rate [Standing] 64 Pulse Rate [Sitting] 53 Pulse Rate [Lying] 46 Pulse Rate 85 Respiratory Rate 16 Blood Pressure [Standing] 107/67 Blood Pressure [Sitting] 131/67 Blood Pressure [Lying] 136/74 Blood Pressure 145/71 Blood Pressure Position Semi-Fowlers [] General: Alert, Oriented x3, Cooperative, No apparent distress HEENT: Atraumatic, PERRLA, EOMI, Normocephalic Oral: Moist Mucosa Neck: Supple, No JVD, Negative Carotid Bruits Lungs: Clear to auscultation, Normal air movement, No rhonchi, No wheeze, No rales Cardiovascular: Regular rate, Regular Rhythm, Normal S1, Normal S2, No murmurs Abdomen: Bowel Sounds Present, Soft, Non Tender, Non-Distended, No Hepato-splenomegaly Extremities: No clubbing, No cyanosis, No edema, Capillary Refill Less than 3 Seconds Skin: No rashes, No breakdown Musculoskeletal: No Tenderness to Palpation of Joints or Extremities Lymphatic: No Cervical, Supraclavicular, or Inguinal Adenopathy Neurological: Cranial nerves II-XII grossly intact, Neuro grossly intact, Motor Exam 5/5 strength throughout Psych/Mental Status: Normal Affect, Appropriate, Alert and oriented to time, place, person, mood and affect Patient was able to ambulate without any shortness of breath or feeling dizzy or lightheaded. Plan is to discharge him today to follow-up with his primary care doctor and payroll clerk. - Physical Exam Vitals/I&O's: Vital Signs Temp Pulse Resp BP Pulse Ox 97.6 F L 85 16 145/71 H 94 12/20/19 08:28 12/20/19 08:28 12/20/19 08:28 12/20/19 08:28 12/20/19 08:28 Oxygen Delivery Method Room Air Weight: 194 lb 14.218 oz Body Mass Index (BMI) 26.4 Orthostatic Vital Signs Start: 12/19/19 06:29 Freq: q24h Status: Active Protocol: Activity Type Activity Date Activity User E-Sign Co-Sign Detail Recorded Client Recorded Date Recorded By Document 12/20/19 06:25 [id number] 12/20/19 06:28 12/20/19 06:25 Orthostatic Vitals Standing -Blood Pressure (90/60-120/80 mm Hg) 107/67 -Extremity Use Left Arm -Pulse Rate (60-100 beats/min) 64 Sitting -Blood Pressure (90/60-120/80 mm Hg) 131/67 H -Extremity Use Left Arm -Pulse Rate (60-100 beats/min) 53 L Lying -Blood Pressure (90/60-120/80 mm Hg) 136/74 H -Extremity Use Left Arm -Pulse Rate (60-100 beats/min) 46 L Intake and Output for Last 24 Hours 12/18/19 12/19/19 12/20/19 23:59 23:59 23:59 Intake Total 520 / 520 3808.33 / 4408.33 2009 Balance 520 / 520 3808.33 / 4408.33 2009 Microbiology Past 72 Hours 12/18/19 16:07 Urine, Clean Catch Urine Culture - Preliminary Culture exhibits no growth. Laboratory Results 12/20/19 06:15: WBC 7.6, RBC 4.25 L, Hgb 13.1, Hct 40.5, MCV 95.3 H, MCH 30.8, MCHC 32.3, RDW Std Deviation 50.5 H, RDW Coeff of Aravind 14.5, Plt Count 162, MPV 11.2, Immature Gran % (Auto) 0.300, Neut % (Auto) 47.9, Lymph % (Auto) 26.8, Grainger % (Auto) 12.1 H, Eos % (Auto) 12.1 H, Baso % (Auto) 0.8, Absolute Neuts (auto) 3.6, Absolute Lymphs (auto) 2.02, Nucleated RBC % 0 12/20/19 06:15: Sodium 143, Potassium 4.0, Chloride 110 H, Carbon Dioxide 26.0, Anion Gap 7, BUN 17, Creatinine 1.02, Estim Creat Clear Calc 71.85, Est GFR (MDRD) Af Amer 92, Est GFR (MDRD) Non-Af 76, BUN/Creatinine Ratio 16.7, Glucose 83, Calcium 8.2 L Current Medications Acetaminophen (Tylenol) 650 mg PO Q6H PRN PRN PRN Reason: Pain Score 1-10/Temp > 100.7 F Al Hydroxide/Mg Hydroxide (Mylanta Ii) 30 ml PO Q6H PRN PRN PRN Reason: Gastric Burning Albuterol Sulfate (Ventolin Aerosols) 2.5 mg INHALATION Q2H PRN PRN PRN Reason: SOB/Wheezing Aspirin (Aspirin, Baby) 81 mg PO DAILY@0800 [facility] Last Admin: 12/20/19 07:24 Dose: 81 mg Documented by: Carbidopa/Levodopa (Sinemet) 1 tablet PO TIDCM [facility] Last Admin: 12/20/19 07:24 Dose: 1 tablet Documented by: Dextrose (D50w Syringe) 0 gm IV X1 PRN; Protocol PRN Reason: Hypoglycemia Enoxaparin Sodium (Lovenox) 40 mg SC DAILY [facility] Last Admin: 12/20/19 07:24 Dose: 40 mg Documented by: Famotidine (Pepcid) 20 mg PO BID [facility] Last Admin: 12/20/19 07:23 Dose: Not Given Documented by: Glucagon () 1 mg IM .X1 PRN PRN Reason: Hypoglycemia Guaifenesin (Robitussin) 20 ml PO Q4H PRN PRN PRN Reason: COUGH Hydralazine HCl (Apresoline Iv) 10 mg IV Q4H PRN PRN PRN Reason: SBP > 160 Levothyroxine Sodium (Synthroid) 112 mcg PO DAILY@0600 [facility] Last Admin: 12/20/19 05:33 Dose: 112 mcg Documented by: Magnesium Hydroxide (Milk Of Magnesia) 30 ml PO DAILY PRN PRN PRN Reason: Constipation Melatonin (Melatonin) 3 mg PO QHS PRN PRN PRN Reason: INSOMNIA Nitroglycerin (Nitrostat) 0.4 mg SUBLINGUAL Q5M PRN PRN Reason: CARDIAC/CHEST PAIN Ondansetron HCl (Zofran) 4 mg IV Q8H PRN PRN PRN Reason: NAUSEA/VOMITING Oxycodone HCl (Oxyir) 5 mg PO Q4H PRN PRN PRN Reason: Pain Score 4-5/10 Prochlorperazine Edisylate (Compazine Iv) 5 mg IV Q4H PRN PRN PRN Reason: Breakthrough Nausea/Vomiting Psyllium Hydrophilic Mucilloid (Metamucil) 1 packet PO DAILY PRN PRN PRN Reason: Constipation Senna/Docusate Sodium (Senokot-S, Mary-Colace) 2 tablet PO BID PRN PRN PRN Reason: Constipation Sodium Chloride () 10 - 40 ml IV UD PRN PRN Reason: SALINE FLUSH Throat Lozenges (Cepacol Sore Throat Lozenge) 1 lozenge MUCOUS MEM Q2H PRN PRN PRN Reason: SORE THROAT Discharge Diet: Low fat/ Low Cholesterol Discharge Activity: Return to Normal Activity Weight Bearing Status: Weight bearing as tolerated Call your doctor if you observe: Shortness of breath, Dizziness, Fainting spells Home Medications: Medications to take at Discharge Levothyroxine [Synthroid] 112 mcg PO DAILY 05/03/15 Carbidopa/Levodopa [Carbidopa-Levodopa 25-250 Tab] 1 tab PO TID 12/18/19 Primary Care Physician: Eladia García DO [Primary Care Provider] - Please follow up with your Primary Care Physician in: one week Patient Instructions: What Is Syncope?, ED Bradycardia, ED Near Syncope Vasovagal Additional Instructions: follow up with your payroll clerk in 1-2 weeks Disposition: Home Minutes spent on discharge:: 35 Patient Condition:: Stable Medical Necessity - Tobacco Use Smoking Status: Never smoker Tobacco Use: Non-smoker Meaningful Use Info Meaningful Use Diagnoses (Choose all that apply): None applicable OBSV E&M: 11493 Observation care discharge
== END 2019-12-20 09:52 | disposition home or self-care (01) ==
LOC: ED 12:02 → PCU 13:33
PROVIDERS: Admitting Provider Family Medicine; Emergency Provider Emergency Medicine; PCP Internal Medicine; Referring Provider Internal Medicine; Visit Provider Student in an Organized Health Care Education/Training Program
DX: R55 Syncope and collapse (principal); G20 Parkinson's disease; E78.5 Hyperlipidemia, unspecified; E03.9 Hypothyroidism, unspecified; K21.9 Gastro-esophageal reflux disease without esophagitis; I12.9 Hypertensive chronic kidney disease with stage 1 through stage 4 chronic kidney disease, or unspecified chronic kidney disease; N18.3 Chronic kidney disease, stage 3 (moderate); R73.9 Hyperglycemia, unspecified; R00.1 Bradycardia, unspecified; I35.8 Other nonrheumatic aortic valve disorders; Z86.73 Personal history of transient ischemic attack (TIA), and cerebral infarction without residual deficits; Z79.899 Other long term (current) drug therapy; Z98.84 Bariatric surgery status
CPT/HCPCS: 36415; 71045; 72148; 80048; 80053; 81001; 83036; 83735; 84439; 84443; 84484; 85025; 87086; 93005; 93306; 95819; 96360; 96361; 96372; 97161; 97165; 99218; 99251; 99285; J7030; Q9957; G0378; G0463

== ENCOUNTER → 2020-03-05 15:56 | Outpatient (CLI) | payer MEDICARE, OTHER, SELFPAY ==
[2019-12-18 14:20] VITALS: BMI 26.4
--- NOTE | 2020-03-05 16:45 | MRI_ITS ---
STUDY: MRI CERVICAL SPINE WITHOUT CONTRAST REASON FOR EXAM: Male, 74 years old. Neck pain and stiffness TECHNIQUE: Standardized fat and water weighted pulse sequences were obtained in the sagittal and axial planes. COMPARISON: Plain films 14 November 2019 FINDINGS: Craniocervical junction is intact and aligned with mild reversal of cervical lordosis. Marrow and paraspinal soft tissues are normal. There is diffuse thickening of the posterior longitudinal ligament contributing to multilevel thecal sac stenosis. Spinal cord is mildly compressed at C2-C3, C3-C4, C4-C5. There are multilevel bilateral moderate and severe foraminal stenoses at C3-C4, C4-C5, left C5-C6, left C6-C7. Spinal cord is flattened at the compressing levels with mildly decreased volume and normal signal. MRI/Spine Cervical (Routine) IMPRESSION: 1. Multilevel mild cord compression due to ventral spondylosis, presumably early anterior longitudinal ligament ossification. Neurosurgical referral is advised. 2. Multilevel foraminal stenoses. Electronically Signed: Dwight Sy, at 20:58 EDT Tel , Service support ,
== END ==
PROVIDERS: PCP Internal Medicine; Referring Provider Internal Medicine; Visit Provider Internal Medicine
DX: M54.2 Cervicalgia (principal)
CPT/HCPCS: 72141

== ENCOUNTER → 2020-05-14 07:17 | Outpatient (CLI) | payer MEDICARE, OTHER, SELFPAY ==
[2019-12-18 14:20] VITALS: BMI 26.4
--- NOTE | 2020-05-14 07:21 | NM_ITS ---
CLINICAL: 74-year-old male with history of elevation of the serum alkaline phosphatase level. WHOLE BODY 99m Tc MDP RADIONUCLIDE BONE SCINTIGRAPHY COMPARISON: None available FINDINGS: Following the intravenous administration of 26.7 mCi of 99m Tc MDP, whole body bone images reveal: 1. Increased radiopharmaceutical concentration is identified in the acromioclavicular and sternoclavicular compartments of both shoulders, right and left wrists. 2. The remaining skeletal structures are scintigraphically unremarkable with normal-appearing renal images and urinary bladder activity identified. Bilateral knee arthroplasties are demonstrated without evidence of abnormal increased tracer concentration. NM/Bone Scan Whole Body IMPRESSION: 1. The increase in radiopharmaceutical concentration identified in the bilateral shoulders and wrists is commensurate with degenerative arthritis. 2. There is no definitive scintigraphic evidence of visualized skeletal metastatic and/or metabolic disease on the current examination. Electronically Signed: Reginaldo Mata DO at 21:29 EDT Tel , Service support ,
== END ==
PROVIDERS: PCP Internal Medicine; Referring Provider Internal Medicine; Visit Provider Internal Medicine
DX: R74.8 Abnormal levels of other serum enzymes (principal)
CPT/HCPCS: 78306

== ENCOUNTER → 2020-06-29 10:17 | Outpatient (CLI) | payer MEDICARE, OTHER, SELFPAY ==
[2019-12-18 14:20] VITALS: BMI 26.4
--- NOTE | 2020-06-29 10:46 | CT_ITS ---
STUDY: CT BRAIN WITH AND WITHOUT CONTRAST REASON FOR EXAM: Male, 74 years old. RIGHT SIDE WEAKNESS. HX OF STOKE X 1 YEAR. RADIATION DOSAGE (If Supplied By Facility): CTDIvol = ( 60.81 ) mGy, DLP = ( 2218.02 ) mGycm TECHNIQUE: Transaxial CT imaging of the brain was performed pre and post contrast administration. The examination was performed with intravenous administration of 50ML OF ISOVUE 370. Individualized dose optimization techniques were used for this CT. COMPARISON: MRI 11/04/2019 FINDINGS: Normal soft tissue structures. Normal calvarium. There is mild cerebral atrophy with widening of the extra-axial spaces and ventricular dilatation. There are areas of decreased attenuation within the white matter tracts of the supratentorial brain, consistent with microvascular disease changes. Chronic lacunar infarct of the right caudate nucleus. Normal brainstem. Normal cerebellum. There is no intracranial hemorrhage. There are no findings of an acute ischemic infarction. Normal visualized paranasal sinuses. CT/Brain/Head W/WO Contrast IMPRESSION: Chronic involutional changes of the brain. Electronically Signed: Reginaldo Stout MD at 11:06 EDT Tel , Service support ,
== END ==
PROVIDERS: PCP Internal Medicine; Referring Provider Internal Medicine; Visit Provider Internal Medicine
DX: R53.1 Weakness (principal)
CPT/HCPCS: 70470; Q9967

== ENCOUNTER → 2020-07-27 11:33 | Outpatient (CLI) | payer MEDICARE, OTHER, SELFPAY ==
[2019-12-18 14:20] VITALS: BMI 26.4
--- NOTE | 2020-07-27 08:00 | PROSBIL_PTH ---
PATIENT: MIGUEL GUEVARA LOC: [facility] U#:[id number] AGE/SX: 79/M ROOM: RE07/27/[address]: Dr. Camacho Read MD : [id number] BED: DIS: SPEC #: [id number] RECD: 07/27/20 12:50 STATUS: LOUIE LYNDSAY #: [id number] DIXON: 07/27/20 08:[address]: Camacho Read DEPT: SURGICAL PATHOLOGY RECD BY: Rajat Zavala ENTERED: 07/27/20 12:51 SP TYPE: PROST BX PHILIP DR: Dr. Eladia García DO Tissues: A - PROSTATE RIGHT B - PROSTATE RIGHT C - PROSTATE RIGHT D - PROSTATE LEFT E - PROSTATE LEFT F - PROSTATE LEFT Procedures: PROSTATE BX HEADER OPERATION: Prostate biopsy PRE-OP DIAGNOSIS: Elevated PSA TISSUE SUBMITTED: A - Right apex, B - Right mid, C - Right base, D - Left apex, E - Left mid, F - Left base MICROSCOPIC DIAGNOSIS A. Right prostate, apex, core biopsy: Focal glandular atrophy. B. Right prostate, mid, core biopsy: Focal glandular atrophy. C. Right prostate, base, core biopsy: Focal high-grade prostatic intraepithelial neoplasia (HGPIN). D. Left prostate, apex, core biopsy: Focal high-grade prostatic intraepithelial neoplasia (HGPIN). E. Left prostate, mid, core biopsy: Focal glandular atrophy and mild chronic inflammation. F. Left prostate, base, core biopsy: Mild chronic inflammation and focal acute inflammation. AM:thomas 07/28/20 MICROSCOPIC DESCRIPTION Slides are reviewed. GROSS DESCRIPTION A - Received is one container designated prostate, right apex. The specimen consists of one elongated fragment of light dougherty-white soft tissue measuring 1.2 cm in length and 0.1 cm in diameter. The specimen is totally submitted in one cassette. B - Received is one container designated prostate, right mid. The specimen consists of two elongated fragments of light dougherty-white soft tissue each measuring 1.5 cm in length and 0.1 cm in diameter. The specimen is totally submitted in one cassette. C - Received is one container designated prostate, right base. The specimen consists of two elongated fragments of light dougherty-white soft tissue measuring 1 and 1.2 cm in length and 0.1 cm in diameter. The specimen is totally submitted in one cassette. D - Received is one container designated prostate, left apex. The specimen consists of one elongated fragment of light dougherty-white soft tissue measuring 1 cm in length and 0.1 cm in diameter. The specimen is totally submitted in one cassette. E - Received is one container designated prostate, left mid. The specimen consists of two elongated fragments of light dougherty-white soft tissue measuring 1 and 1.2 cm in length and 0.1 cm in diameter. The specimen is totally submitted in one cassette. F - Received is one container designated prostate, left base. The specimen consists of two elongated fragments of light dougherty-white soft tissue measuring 0.7 and 1 cm in length and 0.1 cm in diameter. The specimen is totally submitted in one cassette. / SJ:rg 07/27/20 TC:3 CPT: G0146
== END ==
PROVIDERS: PCP Internal Medicine; Visit Provider Urology
DX: R97.20 Elevated prostate specific antigen [PSA] (principal)
CPT/HCPCS: 88305; G0416

== ENCOUNTER 2020-08-13 15:50 | Observation (INO) | payer MEDICARE, OTHER, SELFPAY ==
[2019-12-18 14:20] VITALS: BMI 26.4
[2020-08-13] VITALS (11 sets, daily range): BP systolic 112–199; BP diastolic 62–88; PULSE 46–86; RESP 13–19; TEMP 36.6–36.7; O2SAT 97–99; BMI 26.4; BMI 27.2; BMI 27.3
--- NOTE | 2020-08-13 16:03 | EKG12_ITS ---
Test Reason : CP Blood Pressure : / mmHG Vent. Rate : 068 BPM Atrial Rate : 068 BPM P-R Int : 176 ms QRS Dur : 080 ms QT Int : 396 ms P-R-T Axes : 048 001 039 degrees QTc Int : 421 ms Normal sinus rhythm Low voltage QRS Borderline ECG Confirmed by GERALDINE MATUTE, JENSEN ([id number]), primer expeditor and drier ANNIA NARANJO ([id number]) on 08/16/2020 9:39:08 AM Referred By: CHICO Confirmed By:JENSEN CHANDLER MD
[2020-08-13] MEDS: Aspirin 81 MG TAB.CHEW 324 MG PO (16:10)
--- NOTE | 2020-08-13 16:12 | ED.DCSUM_ITS ---
History of Present Illness Chief Complaint: Chest Pain Informant: Patient Onset: Today Narrative: Presents for evaluation of transient chest pressure starting 2 hours prior to arrival. States resting when symptoms occurred. No radicular symptoms. No nausea dyspnea or diaphoresis. No cardiac history. He states earlier this morning while walking the kitchen he did feel lightheaded. There is no dizziness. There is been no recent vomiting or diarrhea. No fevers. No cough. No loss of taste or smell. No sick contacts. History of hypertension however off medicine since his gastric bypass. History of hypercholesterolemia. History of a stroke in the past with no deficits. Stress test years ago no history of heart cath. He states symptoms resolved just prior to arrival to the ED. Currently asymptomatic. Prior similar symptoms: No Past Medical History - Allergies and Home Meds Allergies/Adverse Reactions: Allergies lisinopril Allergy (Verified 08/13/20 15:51) Swelling Primary Care Physician: Eladia García DO [Primary Care Provider] - Past Medical History: - - Hypertension, hypercholesterolemia, CVA Surgical History: - - Patient has a history of bilateral total knee replacement surgeries in the past. He underwent gastric bypass surgery for morbid obesity in June 2018, and has lost to 115 pounds. He has a history of left carpal tunnel release. Right thumb surgery was performed as a result of trauma. The patient underwent a tonsillectomy in the past. Smoking Status: Never smoker - Family History Paternal Family History: Family History (Last Reviewed 03/20/19 @ 13:51 by Amy Guevara) Father Colon cancer Family History: Reports: - - Patient's father at the age of 86 with a history of colon cancer and chronic obstructive pulmonary disease. Maternal Family History: Family History (Last Reviewed 03/20/19 @ 13:51 by Amy Guevara) Father Colon cancer Family History: Reports: - - Patient's mother at the age of 89 from complications of old age but patient denied any history in her of heart disease, diabetes or cancer. Review of Systems General: Denies: Chills, Fever, Sweats Eyes: Denies: Visual changes - bilaterally, Diplopia ENT: Denies: Rhinorrhea, Sore throat Cardiovascular: Reports: Chest pain. Denies: Palpitations Respiratory: Denies: Dyspnea, Cough, Dyspnea on exertion Gastrointestinal: Denies: Abdominal pain, Nausea, Vomiting, Diarrhea, Melena, Hematochezia Genitourinary: Denies: Dysuria, Hematuria, Frequency Musculoskeletal: Denies: Back pain, Extremity Pain Skin: Denies: Rash, Wounds Neurological: Denies: Headache, Weakness, Numbness Physical Exam Vital Signs/Narrative: Vital Signs Temp Pulse Resp BP Pulse Ox 08/13/20 16:03 97 08/13/20 15:59 72 15 130/70 H 97 08/13/20 15:51 98.1 F 86 17 112/65 98 Inital Vital Signs reviewed: Yes General: Well nourished, Well developed, No Acute Distress Head: Normocephalic, Atraumatic Eyes: Perrl, EOMI ENT: Moist mucous membranes, No rhinorrhea Neck: Supple, Nontender Cardiovascular: Regular rate, Regular rhythm, No murmurs Respiratory: No distress, CTA bilaterally, Chest nontender Abdomen: Soft, Nontender, Nondistended, Normal bowel sounds Back: Nontender, Normal Inspection Extremities: Nontender, No edema Skin: Normal color, No rash Neurological: Alert, Oriented x3, Cranial nerves II-XII grossly intact, Normal Strength, Normal Sensation Psychological: Normal affect, Normal Mood Diagnostic/Tx/Re-eval Chest X-Ray - ED: 1 View, Read by ED Physician, Read by Radiologist, No Acute Disease Clinical Impression(s) from Imaging Studies Chest X-Ray 08/13/20 16:20 IMPRESSION: Normal x-ray examination of the chest. Electronically Signed: Reginaldo Stout MD at 16:33 EST Tel , Service support , Abnormal Lab Results 08/13/20 08/13/20 08/13/20 16:15 16:15 16:15 WBC 7.2 RBC 4.45 L Hgb 13.9 Hct 43.5 MCV 97.8 H MCH 31.2 MCHC 32.0 RDW Std Deviation 52.3 H RDW Coeff of Aravind 14.4 Plt Count 191 MPV 11.0 Immature Gran % (Auto) 0.400 Neut % (Auto) 60.3 Lymph % (Auto) 23.1 [place] % (Auto) 9.4 Eos % (Auto) 6.2 H Baso % (Auto) 0.6 Absolute Neuts (auto) 4.3 Absolute Lymphs (auto) 1.65 Nucleated RBC % 0 PT 13.5 INR 1.1 APTT 28.5 Sodium 145 Potassium 4.0 Chloride 115 H Carbon Dioxide 26.0 Anion Gap 4 L BUN 18 Creatinine 1.12 Estim Creat Clear Calc 65.44 Est GFR (MDRD) Af Amer 83 Est GFR (MDRD) Non-Af 68 BUN/Creatinine Ratio 16.1 Glucose 87 Calcium 8.9 Troponin I < 0.015 Urine Color Urine Clarity Urine pH Ur Specific [place] Urine Protein Urine Glucose (UA) Urine Ketones Urine Occult Blood Urine Nitrite Urine Bilirubin Urine Urobilinogen Ur Leukocyte Esterase Urine RBC Urine WBC Ur Squamous Epith Cells Amorphous Sediment Urine Bacteria Urine Mucus 08/13/20 08/13/20 19:05 19:08 WBC RBC Hgb Hct MCV MCH MCHC RDW Std Deviation RDW Coeff of Aravind Plt Count MPV Immature Gran % (Auto) Neut % (Auto) Lymph % (Auto) [place] % (Auto) Eos % (Auto) Baso % (Auto) Absolute Neuts (auto) Absolute Lymphs (auto) Nucleated RBC % PT INR APTT Sodium Potassium Chloride Carbon Dioxide Anion Gap BUN Creatinine Estim Creat Clear Calc Est GFR (MDRD) Af Amer Est GFR (MDRD) Non-Af BUN/Creatinine Ratio Glucose Calcium Troponin I 0.017 Urine Color Yellow Urine Clarity Sl. Cloudy Urine pH 5.0 Ur Specific [place] 1.020 Urine Protein Negative Urine Glucose (UA) Normal Urine Ketones 5 H Urine Occult Blood 150 H Urine Nitrite Negative Urine Bilirubin Negative Urine Urobilinogen Normal Ur Leukocyte Esterase 25 H Urine RBC 10-25 SEEN Urine WBC 0-5 SEEN Ur Squamous Epith Cells 5-10 SEEN Amorphous Sediment 1+ URATE Urine Bacteria 0 SEEN Urine Mucus 0 SEEN - Medical Decision Making Patient asymptomatic on arrival EKG sinus with no acute changes. Initial cardiac work-up was negative. Urine noted slight leukocytes WBCs, urine culture was sent him normal white count. Patient's heart score is a 4. In addition I performed repeat troponin at 3 hours, troponin slightly up at 0.017. He was given aspirin. Remains symptom-free. Discussed with hospitalist, Dr. Bernard for admission. ED Disposition - Plan for ED Patient: Disposition: Acute Care Hospital [facility] Diagnosis: Chest pain, Elevated troponin Referrals: Ricky,Eladia, [Primary Care Provider] -
--- NOTE | 2020-08-13 16:20 | RAD_ITS ---
STUDY: X-RAY CHEST REASON FOR EXAM: Male, 74 years old. chest heaviness, fatigue, and dizziness. TECHNIQUE: Single AP portable view of the chest. COMPARISON: 12/18/2019 FINDINGS: The lungs are clear and expanded. There is no demonstrated pleural abnormality. Normal size heart. Normal mediastinum and shasha. Normal visualized pulmonary arteries. Normal visualized aortic arch and descending thoracic aorta. Normal visualized thoracic spine. Normal visualized ribs, clavicles, and shoulders. There is no demonstrated abnormality of the visualized soft tissue structures of the upper abdomen. RAD/Chest 1 View (Portable) IMPRESSION: Normal x-ray examination of the chest. Electronically Signed: Reginaldo Stout MD at 16:33 EST Tel , Service support ,
[2020-08-13 16:34] LABS: Absolute Lymphocyte Count 1.65 X10^3/uL (0.83-4.51); Absolute Neutrophil Count 4.3 X10^3/uL (2.0-7.7); Basophil# 0.04 X10^3/uL; Basophil% 0.6 % (0-1); Eosinophil# 0.44 X10^3/uL; Eosinophils% 6.2 % (0-5); Hematocrit 43.5 % (40-54); Hemoglobin 13.9 g/dL (13.0-16.5); Lymphocyte # 1.65 X10^3/ul (4.0); Lymphocyte % 23.1 % (19-41); Mean Corpuscular Hgb 31.2 pg (27.0-32.0); Mean Corpuscular Volume 97.8 fL (80-94); Monocyte# 0.67 X10^3/uL; Monocyte% 9.4 % (0-10); NRBC Flagged by Analyzer 0 % (0-5); Neutrophil # 4.32 X10^3/uL (2.7-7.7); Neutrophil % 60.3 % (47-70); Platelet Count 191 K/mm3 (150-450); RBC Distribution Width CV 14.4 % (11.6-14.6); RBC Distribution Width SD 52.3 fl (35.1-43.9); Red Blood Count 4.45 M/mm3 (4.6-6.2); White Blood Count 7.2 K/mm3 (4.4-11.0)
[2020-08-13 16:45] LABS: International Normalized Ratio 1.1; Prothrombin Time (Protime)PT. 13.5 SECONDS (11.7-14.9)
[2020-08-13 16:46] LABS: Partial Thromboplast Time 28.5 Seconds (24.1-36.2)
[2020-08-13 16:47] LABS: Anion Gap 4 (5-15); BUN 18 mg/dL (7-18); BUN/Creat Ratio 16.1 RATIO (10-20); Calcium,Total 8.9 mg/dL (8.5-10.1); Chloride 115 mmol/L (98-107); Creatinine, Serum 1.12 mg/dL (0.70-1.30); EST Glomerular Filtration Rate 68 mL/min (>60); Est Glom Filt Rate - Afr Amer 83 mL/min (>60); Estimated Creatinine Clearance 65.44 ml/min; Glucose 87 mg/dL (74-106); Sodium Level 145 mmol/L (136-145)
[2020-08-13 19:20] LABS: Bacteria 0 SEEN /hpf (None Seen); Mucous, Urine 0 SEEN /hpf (<or=2+)
[2020-08-13 19:30] LABS: Color, Urine Yellow (Yellow); Glucose, Dipstick Normal (Normal); Ketone-Dipstick 5 mg/dl (Negative); Leukocyte Esterase-Dipstick 25 /ul (Negative); Nitrite-Dipstick Negative (Negative); Occult Blood-Urine 150 /ul (Negative); Protein-Dipstick Negative (Negative); Urine Bilirubin Dipstick Negative (Negative); Urine Clarity Sl. Cloudy (Clear); Urine Urobilinogen Normal (Normal)
[2020-08-13 19:38] LABS: White Blood Cells 0-5 SEEN /hpf (0-5)
[2020-08-13 19:39] LABS: Red Blood Cells-Urine 10-25 SEEN /hpf (0-5); Squamous Epithelial Cells - UA 5-10 SEEN /hpf (0-5)
[2020-08-13 19:40] LABS: Amorphous Sediment 1+ URATE
--- NOTE | 2020-08-13 20:57 | PCM.HP.STD ---
Problem List (1) Chest pain Status: Acute Qualifiers: Chest pain type: unspecified Qualified Code(s): R07.9 - Chest pain, unspecified (2) Overweight (BMI 25.0-29.9) Status: Chronic (3) Hyperlipidemia Status: Chronic Qualifiers: Hyperlipidemia type: unspecified Qualified Code(s): E78.5 - Hyperlipidemia, unspecified (4) Hypertension Status: Chronic Qualifiers: Hypertension type: essential hypertension Qualified Code(s): I10 - Essential (primary) hypertension (5) Hypothyroidism Status: Chronic Qualifiers: Hypothyroidism type: unspecified Qualified Code(s): E03.9 - Hypothyroidism, unspecified (6) GERD (gastroesophageal reflux disease) Status: Chronic Qualifiers: Esophagitis presence: esophagitis presence not specified Qualified Code(s): K21.9 - Gastro-esophageal reflux disease without esophagitis (7) History of gastric bypass Status: Chronic (8) History of CVA (cerebrovascular accident) Status: Chronic (9) Parkinsons disease Status: Chronic History of Present Illness Date of Admission: 08/13/20 Chief Complaint: Dyspnea, fatigue, dizziness. The patient is a 74 y/o M w/ PMHx: Chronic bradycardia, Hx CVA without deficits, Hx morbid obesity s/p gastric bypass, HTN not on medications since bypass, HLD, Parkinson's disease, Hypothyroidism, BPH recently started on new medication alfuzosin Sunday prior to presentation who presents to the [facility] ED on 08/13/20 with history of onset of chest discomfort approximate 2 hours prior to arrival, described as a chest heaviness/pressure in the midsternal region with no radiation occurring at rest while he was watching television with no associated nausea, emesis, dyspnea, diaphoresis, rated initially 5-10 in severity, resolved upon ED presentation and continues to remain resolved. Patient denies any symptoms of lightheadedness following initiation of his new medication, only starting today on ED day of presentation. Work-up in the ED included T 98.1, heart rate 86, BP 112/65, respiratory rate 17, 98% on room air, CBC with WC 7.2, hemoglobin 13.9, platelet 191 with no shift with increased eosinophils only, unremarkable coags, BMP with chloride 115, troponin less than 0.015 with repeat 0.017, urinalysis with elevated specific gravity 1.020 otherwise not marked appearing, chest x-ray with no acute cardiopulmonary findings, EKG with SR with no acute evidence of ischemia. In the ED patient ministered aspirin 324 mg p.o. x1. Past Medical History Past Medical History (Chronic Problems): Chronic Problems (Last Reviewed 03/20/19 @ 13:51 by Amy Guevara) Pressure ulcer of coccygeal region, stage 1 (Chronic) Overweight (BMI 25.0-29.9) (Chronic) Hyperlipidemia (Chronic) Hypertension (Chronic) Hypothyroidism (Chronic) GERD (gastroesophageal reflux disease) (Chronic) History of gastric bypass (Chronic) History of CVA (cerebrovascular accident) (Chronic) Parkinsons disease (Chronic) Medical History: Medical History (Last Reviewed 03/20/19 @ 13:51 by Amy Guevara) GERD (gastroesophageal reflux disease) K21.9 HTN (hypertension) I10 Allergies lisinopril Allergy (Verified 08/13/20 15:51) Swelling Home Medications: Ambulatory Orders Medication Instructions Recorded Levothyroxine [Synthroid] 112 mcg PO DAILY 05/03/15 Carbidopa/Levodopa 1 tab PO TID 12/18/19 [Carbidopa-Levodopa 25-250 Tab] Alfuzosin HCl [Alfuzosin HCl ER] 10 mg PO QHS 08/13/20 Finasteride [Proscar] 5 mg PO 08/13/20 Gabapentin [Neurontin] 200 mg PO BIDCM 08/13/20 Surgical History: Surgical History (Last Reviewed 03/20/19 @ 13:51 by Amy Guevara) H/O carpal tunnel repair Z98.890 H/O gastric bypass Z98.84 h/o right thumb surgery Surgical History: - - Bilateral total knee replacements, gastric, Left carpal tunnel release, Right thumb surgery, T+A, lumbar back surgery. Psychiatric History: No pertinent psych hx Lives: Spouse/ Significant Other Smoking Status: Never smoker Tobacco Use: Non-smoker Alcohol: None Drugs: None - *Family History Paternal Family History: Family History (Last Reviewed 03/20/19 @ 13:51 by Amy Guevara) Father Colon cancer History Items: Cancer, Pulmonary Disease, - - Patient's father at the age of 86 with a history of colon cancer and chronic obstructive pulmonary disease. Maternal Family History: Family History (Last Reviewed 03/20/19 @ 13:51 by Amy Guevara) Father Colon cancer History Items: - - Patient's mother at the age of 89 from complications of old age but patient denied any history in her of heart disease, diabetes or cancer. Review of Systems Constitutional: Reports: Fatigue. Denies: Anorexia, Chills, Fever, Malaise, Weakness, Weight Change HEENT: Denies: Head Aches, Sinus Congestion, Sinus Drainage Cardiovascular: Reports: Chest Pain, Chest Pressure, Light Headedness. Denies: Edema, Orthopnea, Palpitations, Syncope Respiratory: Denies: Cough, Shortness of Breath, Shortness of breath at rest, Shortness of breath upon exertion, Sputum production Gastrointestinal: Denies: Abdominal Pain, Nausea, Vomiting Genitourinary: Denies: Dysuria Musculoskeletal: Reports: Back Pain, Joint Pain, Joint stiffness, Joint swelling, Joint Tenderness, Leg Pain Skin: Denies: Rash, Wounds Neurological: Denies: Numbness, Tingling, Focal weakness Psychiatric: Denies: Anxiety, Depression, Homicidal Ideations, Suicidal Ideations Hematologic/ Lymphatic: Denies: Easy Bruising, Easy Bleeding VTE Information - Inpt Only VTE Present on Admission: No VTE Mechan Device Prophylaxis: SCD's VTE Pharm Prophylaxis ordered?: Yes Subjective: Patient seated upright in the ED bed, mildly fatigued otherwise no acute distress, continues to be chest discomfort/pressure free. Objective: Physical Examination: General: awake, alert, oriented x 3 and cooperative, seated upright in the ED bed in no apparent distress, remains chest discomfort free. Skin: normal color, turgor, no icterus, cyanosis. HEENT: AT/NC, EOMI, PERRLA, MMM, no carotid bruits or JVD noted. Lungs: CTA bilaterally, moderate effort, mild decrease BL bases, no rales, ronchi or wheezing. Heart: Mildly bradycardic with regular rhythm; no gallop, rub audible. Abdomen: soft, NTTP, ND, normal BS, no HSM. Extremities: no cyanosis, clubbing, or edema. Neurological: patient awake, alert, oriented as noted; cognitive function baseline intact; pupils equally reactive to light and accomodation; cranial nerves II-XII grossly normal, moving all 4 extremities, no focal deficits, strength preserved. Psychiatric: affect appears mildly fatigued otherwise normal, no acute evidence of depressive or anxiety feelings. - Physical Exam Vitals/I&O's: Vital Signs Temp Pulse Resp BP Pulse Ox 98.1 F 52 L 17 146/67 H 99 08/13/20 15:51 08/13/20 19:05 08/13/20 19:05 08/13/20 19:05 08/13/20 19:05 Oxygen Delivery Method Room Air Weight: 195 lb Body Mass Index (BMI) 26.4 Laboratory Results 08/13/20 16:15: WBC 7.2, RBC 4.45 L, Hgb 13.9, Hct 43.5, MCV 97.8 H, MCH 31.2, MCHC 32.0, RDW Std Deviation 52.3 H, RDW Coeff of Aravind 14.4, Plt Count 191, MPV 11.0, Immature Gran % (Auto) 0.400, Neut % (Auto) 60.3, Lymph % (Auto) 23.1, [place] % (Auto) 9.4, Eos % (Auto) 6.2 H, Baso % (Auto) 0.6, Absolute Neuts (auto) 4.3, Absolute Lymphs (auto) 1.65, Nucleated RBC % 0 08/13/20 16:15: PT 13.5, INR 1.1, APTT 28.5 08/13/20 16:15: Sodium 145, Potassium 4.0, Chloride 115 H, Carbon Dioxide 26.0, Anion Gap 4 L, BUN 18, Creatinine 1.12, Estim Creat Clear Calc 65.44, Est GFR (MDRD) Af Amer 83, Est GFR (MDRD) Non-Af 68, BUN/Creatinine Ratio 16.1, Glucose 87, Calcium 8.9, Troponin I < 0.015 08/13/20 19:05: Urine Color Yellow, Urine Clarity Sl. Cloudy, Urine pH 5.0, Ur Specific [place] 1.020, Urine Protein Negative, Urine Glucose (UA) Normal, Urine Ketones 5 H, Urine Occult Blood 150 H, Urine Nitrite Negative, Urine Bilirubin Negative, Urine Urobilinogen Normal, Ur Leukocyte Esterase 25 H, Urine RBC 10-25 SEEN, Urine WBC 0-5 SEEN, Ur Squamous Epith Cells 5-10 SEEN, Amorphous Sediment 1+ URATE, Urine Bacteria 0 SEEN, Urine Mucus 0 SEEN 08/13/20 19:08: Troponin I 0.017 Assessment/Plan All Active Problems (Last Reviewed 03/20/19 @ 13:51 by Amy Guevara) Syncope and collapse (Acute) Chest pain (Acute) The patient is a 74 y/o M w/ PMHx: Chronic bradycardia, Hx CVA without deficits, Hx morbid obesity s/p gastric bypass, HTN not on medications since bypass, HLD, Parkinson's disease, Hypothyroidism, BPH recently started on new medication alfuzosin Sunday prior to presentation who presents to the [facility] ED on 08/13/20 with history of onset of chest discomfort approximate 2 hours prior to arrival, described as a chest heaviness/pressure in the midsternal region. 1. Chest Pain: EKG in ED with sinus rhythm with no acute evidence of ischemia, CXR w/ no acute cardiopulmonary findings, initial trop initial less than 0.015 with repeat 0.017. Will admit to PCU, place on a monitored bed to assure no acute myocardial infarction with serial cardiac enzymes and EKGs. If repeat EKGs and cardiac enzymes remain unremarkable will pursue a.m. cardiac stress testing. FLP in AM. Magnesium level requested. ASA, NG, morphine. 2. Hypertension, not on medication: Patient with elevated BP upon ED evaluation, prior to this BPs noted to be normal range, notes hypertensive issues resolved once he had his bypass surgery, will continue to closely monitor and if necessary add regimen, as needed IV hydralazine. 3. Hyperlipidemia: Not on statin, will obtain FLP in AM. 4. Parkinson's disease: We will continue patient home Sinemet regimen, maintain on fall precautions as needed. 5. Hypothyroidism: Continue home synthroid regimen. 6. BPH: We will continue patient Proscar and recently initiated alfuzosin; however, if cardiac stress testing unremarkable may need to consider discontinuing this regimen as lightheadedness may be associated. 7. Chronic neuropathy with chronic back pain: We will continue patient home Neurontin regimen. 8. History of prior CVA: We will maintain on aspirin, not on statin with FLP in a.m. as noted, monitor for initiation of hypertensive regimen, hemoglobin A1c pending as noted. 9. Chronic bradycardia: Patient with chronic bradycardia, notes often heart rate in the 50s. 10. DVT prophylaxis: SCDs, Lovenox. OBSV E&M: 85242 Initial observation care L3
--- NOTE | 2020-08-13 21:44 | EKG12_ITS ---
Test Reason : CP ADMIT Blood Pressure : / mmHG Vent. Rate : 050 BPM Atrial Rate : 050 BPM P-R Int : 206 ms QRS Dur : 082 ms QT Int : 440 ms P-R-T Axes : 065 021 056 degrees QTc Int : 401 ms Sinus bradycardia Otherwise normal ECG When compared with ECG of 13-AUG-2020 16:13, MANUAL COMPARISON REQUIRED, DATA IS UNCONFIRMED Confirmed by GERALDINE MATUTE, JENSEN ([id number]), script editor ANNIA NARANJO ([id number]) on 08/17/2020 9:36:47 AM Referred By: SEAN Confirmed By:JENSEN CHANDLER MD
[2020-08-13 22:37] LABS: Magnesium 2.1 mg/dL (1.6-2.6)
[2020-08-13] MEDS: Famotidine 20 MG Tablet PO (22:47)
[2020-08-13] MEDS: 0.9% Normal Saline 1,000 ML 100 ML IV (22:48)
[2020-08-13] MEDS: 0.9% Saline Lock 10 ML Syringe IV (22:48)
[2020-08-14 03:02] VITALS: PULSE 45
[2020-08-14 04:19] VITALS: BP 150/74; PULSE 51; RESP 14; TEMP 36.6; O2SAT 96
[2020-08-14] MEDS: Levothyroxine 112 MCG Tablet PO (05:34)
[2020-08-14] MEDS: Aspirin E.C. 81 MG Tablet PO (05:34)
[2020-08-14] MEDS: Carbidopa/Levodopa 25/250 Tablet PO (05:34)
--- NOTE | 2020-08-14 05:55 | EKG12_ITS ---
Test Reason : AM Blood Pressure : / mmHG Vent. Rate : 048 BPM Atrial Rate : 048 BPM P-R Int : 200 ms QRS Dur : 084 ms QT Int : 454 ms P-R-T Axes : 071 015 055 degrees QTc Int : 405 ms Sinus bradycardia Otherwise normal ECG When compared with ECG of 13-AUG-2020 21:50, MANUAL COMPARISON REQUIRED, DATA IS UNCONFIRMED Confirmed by GERALDINE MATUTE, JENSEN ([id number]), material expeditor ANNIA NARANJO ([id number]) on 08/17/2020 9:39:01 AM Referred By: SEAN Confirmed By:JENSEN CHANDLER MD
[2020-08-14 06:59] VITALS: PULSE 59
[2020-08-14 07:32] LABS: Absolute Neutrophil Count 4.4 X10^3/uL (2.0-7.7); Basophil# 0.06 X10^3/uL; Basophil% 0.8 % (0-1); Eosinophil# 0.49 X10^3/uL; Eosinophils% 6.3 % (0-5); Hematocrit 42.9 % (40-54); Hemoglobin 13.2 g/dL (13.0-16.5); Lymphocyte % 25.8 % (19-41); Mean Corp Hgb Conc 30.8 g/dL (32-36); Mean Corpuscular Hgb 30.3 pg (27.0-32.0); Mean Corpuscular Volume 98.4 fL (80-94); Mean Platelet Vol. 11.2 fl (6.2-12.0); Monocyte# 0.77 X10^3/uL; Monocyte% 9.9 % (0-10); NRBC Flagged by Analyzer 0 % (0-5); Neutrophil # 4.41 X10^3/uL (2.7-7.7); Neutrophil % 56.9 % (47-70); Platelet Count 187 K/mm3 (150-450); RBC Distribution Width CV 14.2 % (11.6-14.6); RBC Distribution Width SD 51.9 fl (35.1-43.9); Red Blood Count 4.36 M/mm3 (4.6-6.2); White Blood Count 7.8 K/mm3 (4.4-11.0)
[2020-08-14 07:52] VITALS: O2SAT 97
[2020-08-14 08:08] LABS: ALB/GLOB Ratio 0.9 RATIO (0.9-2.4); AST(SGOT) 16 U/L (15-37); Alanine Aminotransfer ALT/SGPT < 6 U/L (16-61); Alkaline Phosphatase 109 U/L (45-117); Anion Gap 2 (5-15); BUN 18 mg/dL (7-18); BUN/Creat Ratio 16.4 RATIO (10-20); Calcium,Total 8.7 mg/dL (8.5-10.1); Chloride 113 mmol/L (98-107); Cholesterol 206 mg/dL (200); EST Glomerular Filtration Rate 70 mL/min (>60); Est Glom Filt Rate - Afr Amer 84 mL/min (>60); Estimated Creatinine Clearance 66.63 ml/min; Globulin 3.2 g/dL (2.2-4.2); Glucose 86 mg/dL (74-106); High Density Lipoprotein 58 mg/dL; Potassium 4.1 mmol/L (3.5-5.1); Protein, Total 6.2 g/dL (6.4-8.2); Sodium Level 144 mmol/L (136-145); Triglycerides 78 mg/dL; Very Low Density Lipoprotein 16 mg/dL (5-40)
[2020-08-14] MEDS: 0.9% Normal Saline 1,000 ML 100 ML IV (10:01)
[2020-08-14 10:03] VITALS: BP 146/74; PULSE 59; RESP 14; TEMP 36.4; O2SAT 96
[2020-08-14] MEDS: Gabapentin 400 MG Capsule PO (10:06)
--- NOTE | 2020-08-14 10:50 | STRESSREP ---
Stress Test Report Pharmacologic myocardial perfusion stress test. 74-year-old man with a history of chest pain. Stress protocol: Resting KG demonstrates sinus bradycardia with a rate of 55 bpm normal intervals are noted resting blood pressure is 152/64 mmHg. 0.4 mg of regadenoson was infused per usual protocol. The maximum heart rate attained was 80 bpm which was 54% of max impacted heart rate maximum workload was 1 metabolic equivalent. At rest there were no ST or T wave changes noted to suggest abnormal flow reserve at peak infusion nonspecific ST-T wave changes were noted with no meet the criteria for ischemia. No clinical angina was noted. Myocardial perfusion protocol. 14.1 mCi of technetium 99m sestamibi was injected at rest. 0.4 mg of regadenoson was infused per usual protocol. At peak infusion 44.3 mCi of technetium 99m sestamibi was injected stress images were obtained stress and rest images were reconstructed and compared in short axis vertical and horizontal long axis. Gated images were also obtained Perfusion SPECT analysis: Review of the stress images demonstrate normal uptake of tracer noted in all areas of myocardium the resting images similar demonstrate normal uptake of tracer noted in all areas of myocardium. No reversibility is noted suggest ischemia no previous infarct is noted. Gated SPECT analysis: The gated ejection fraction is 66%. Conclusion: Normal pharmacologic myocardial perfusion stress test. Preserved ejection fraction.
--- NOTE | 2020-08-14 11:59 | DCINST_ITS ---
- Discharge Diagnoses Current Active Problems: Current Active and Chronic Problems (Last Reviewed 03/20/19 @ 13:51 by Amy Guevara) Overweight (BMI 25.0-29.9) (Chronic) Hyperlipidemia (Chronic) Hypertension (Chronic) Hypothyroidism (Chronic) GERD (gastroesophageal reflux disease) (Chronic) History of gastric bypass (Chronic) History of CVA (cerebrovascular accident) (Chronic) Parkinsons disease (Chronic) Chest pain (Acute) You will use the following diet at home:: No restrictions Your food should be the consistency of: Regular Your liquids should be the consistency of: Regular/Thin Discharge Activity: Return to Normal Activity Weight Bearing Status: Full weight bearing Allergies/Adverse Reactions: Allergies lisinopril Allergy (Verified 08/13/20 15:51) Swelling Medications to take at Discharge Levothyroxine [Synthroid] 112 mcg PO DAILY 05/03/15 Alfuzosin HCl [Alfuzosin HCl ER] 10 mg PO QHS 08/13/20 Gabapentin [Neurontin] 400 mg PO TID 08/13/20 Carbidopa-Levo 25-100 mg Odt 1 tab PO TID 08/14/20 Multiple Vitamin 1 PO DAILY 08/14/20 Primary Care Physician: Eladia García DO [Primary Care Provider] - Please follow up with your Primary Care Physician in: SCHEDULED Test Results: Test results from this visit will be discussed in further detail at your follow- up appointment, if applicable.
--- NOTE | 2020-08-14 16:58 | PCM.DC.SUM ---
Discharge Date and Diagnosis - Problem List Patient Problems: Active and Suspected Problems (Last Reviewed 03/20/19 @ 13:51 by Amy Guevara) Chest pain (Acute) Date of Admission: 08/13/20 Date of Discharge: 08/14/20 - Primary Discharge Diagnosis Acute Problems: Active Problems (Last Reviewed 03/20/19 @ 13:51 by Amy Guevara) #1 Musculoskeletal chest pain #2 essential hypertension #3 Parkinson's disease #4 hyperlipidemia - Secondary Discharge Diagnosis Chronic Problems: Chronic Problems (Last Reviewed 03/20/19 @ 13:51 by Amy Guevara) Pressure ulcer of coccygeal region, stage 1 (Chronic) Overweight (BMI 25.0-29.9) (Chronic) Hyperlipidemia (Chronic) Hypertension (Chronic) Hypothyroidism (Chronic) GERD (gastroesophageal reflux disease) (Chronic) History of gastric bypass (Chronic) History of CVA (cerebrovascular accident) (Chronic) Parkinsons disease (Chronic) Hospital Course and Treatment Operations: None Procedures: Nuclear stress test Summary of Care Provided: The patient is a 74 year old M was seen in the emergency room at [facility] with a chief complaint of chest pain which she describes as pressure-like in nature, work-up in the emergency room included cardiac isoenzymes which were normal, EKG was obtained and showed no acute ischemic changes, patient had a repeat troponin drawn in the emergency room and it was slightly up from his original troponin at 0.017. Patient's chest x-ray was unremarkable. Patient was placed in observation status on PCU, repeat cardiac enzymes were not significant. On 08/14/2020, patient underwent a nuclear stress test that was negative for reversible ischemia. On 08/14/2020, patient was seen and examined: On examination he appeared in good health and spirits. A resting tremor was noted. Vital signs as documented. Skin warm and dry and without overt rashes. Neck without JVD, neck was supple, trachea midline, thyroid was normal. Lungs clear bilaterally, normal air movement was noted. Heart exam notable for regular rhythm, normal sounds and absence of murmurs, rubs or gallops. Abdomen unremarkable and without evidence of organomegaly, masses, or abdominal aortic enlargement. Bowel sounds are present, abdomen is not distended. Extremities nonedematous, no cyanosis was noted, no clubbing was noted. Neuro: Cranial nerves II through XII are grossly intact, no focal motor deficits were noted, sensation to light touch and pinprick intact, motor exam 5/5 throughout. Psych: Patient is alert and oriented x3, he does not appear anxious or depressed, he does not appear agitated. On 08/14/2020, patient was seen and examined and discharged home in stable condition. Patient Problems: Active and Suspected Problems (Last Reviewed 03/20/19 @ 13:51 by Amy Guevara) Chest pain (Acute) - Physical Exam Vitals/I&O's: Vital Signs Temp Pulse Resp BP Pulse Ox 97.6 F L 59 L 14 146/74 H 96 08/14/20 10:03 08/14/20 10:03 08/14/20 10:03 08/14/20 10:03 08/14/20 10:03 Oxygen Delivery Method Room Air Weight: 91.2 kg Body Mass Index (BMI) 27.2 Intake and Output for Last 24 Hours 08/12/20 08/13/20 08/14/20 23:59 23:59 23:59 Intake Total 240 / 240 1163.33 / 1163.33 Output Total 200 / 200 Balance 240 / 240 963.33 / 963.33 Microbiology Past 72 Hours 08/13/20 19:15 Urine, Clean Catch Urine Culture - Preliminary Culture exhibits no growth. Laboratory Results 08/13/20 19:05: Urine Color Yellow, Urine Clarity Sl. Cloudy, Urine pH 5.0, Ur Specific [place] 1.020, Urine Protein Negative, Urine Glucose (UA) Normal, Urine Ketones 5 H, Urine Occult Blood 150 H, Urine Nitrite Negative, Urine Bilirubin Negative, Urine Urobilinogen Normal, Ur Leukocyte Esterase 25 H, Urine RBC 10-25 SEEN, Urine WBC 0-5 SEEN, Ur Squamous Epith Cells 5-10 SEEN, Amorphous Sediment 1+ URATE, Urine Bacteria 0 SEEN, Urine Mucus 0 SEEN 08/13/20 19:08: Troponin I 0.017 08/13/20 19:08: Magnesium 2.1 08/13/20 22:00: Troponin I 0.016 08/14/20 07:15: WBC 7.8, RBC 4.36 L, Hgb 13.2, Hct 42.9, MCV 98.4 H, MCH 30.3, MCHC 30.8 L, RDW Std Deviation 51.9 H, RDW Coeff of Aravind 14.2, Plt Count 187, MPV 11.2, Immature Gran % (Auto) 0.300, Neut % (Auto) 56.9, Lymph % (Auto) 25.8, [place] % (Auto) 9.9, Eos % (Auto) 6.3 H, Baso % (Auto) 0.8, Absolute Neuts (auto) 4.4, Absolute Lymphs (auto) 2.00, Nucleated RBC % 0 08/14/20 07:15: Sodium 144, Potassium 4.1, Chloride 113 H, Carbon Dioxide 29.0, Anion Gap 2 L, BUN 18, Creatinine 1.10, Estim Creat Clear Calc 66.63, Est GFR (MDRD) Af Amer 84, Est GFR (MDRD) Non-Af 70, BUN/Creatinine Ratio 16.4, Glucose 86, Calcium 8.7, Total Bilirubin 0.60, AST 16, ALT < 6 L, Alkaline Phosphatase 109, Total Protein 6.2 L, Albumin 3.0 L, Globulin 3.2, Albumin/Globulin Ratio 0.9, Triglycerides 78, Cholesterol 206 H, LDL Cholesterol 132 H, VLDL Cholesterol 16, HDL Cholesterol 58 Discharge Activity: Return to Normal Activity Weight Bearing Status: Full weight bearing Home Medications: Medications to take at Discharge Levothyroxine [Synthroid] 112 mcg PO DAILY 05/03/15 Alfuzosin HCl [Alfuzosin HCl ER] 10 mg PO QHS 08/13/20 Gabapentin [Neurontin] 400 mg PO TID 08/13/20 Carbidopa-Levo 25-100 mg Odt 1 tab PO TID 08/14/20 Multiple Vitamin 1 PO DAILY 08/14/20 Primary Care Physician: Eladia García DO [Primary Care Provider] - Please follow up with your Primary Care Physician in: SCHEDULED Disposition: Home Minutes spent on discharge:: 30 Patient Condition:: Stable Medical Necessity - Tobacco Use Smoking Status: Never smoker Tobacco Use: Non-smoker Meaningful Use Info Meaningful Use Diagnoses (Choose all that apply): None applicable OBSV E&M: 07589 Observation care discharge
== END 2020-08-14 11:59 | disposition home or self-care (01) ==
LOC: ED 21:03 → PCU 21:25
PROVIDERS: Admitting Provider Family Medicine; Emergency Provider Emergency Medicine; PCP Internal Medicine; Visit Provider Internal Medicine
DX: R07.89 Other chest pain (principal); E03.9 Hypothyroidism, unspecified; E78.5 Hyperlipidemia, unspecified; G20 Parkinson's disease; G62.9 Polyneuropathy, unspecified; G89.29 Other chronic pain; I10 Essential (primary) hypertension; K21.00 Gastro-esophageal reflux disease with esophagitis, without bleeding; N40.0 Benign prostatic hyperplasia without lower urinary tract symptoms; M54.9 Dorsalgia, unspecified; R00.1 Bradycardia, unspecified; Z79.899 Other long term (current) drug therapy; Z86.73 Personal history of transient ischemic attack (TIA), and cerebral infarction without residual deficits; Z96.653 Presence of artificial knee joint, bilateral; Z98.84 Bariatric surgery status
CPT/HCPCS: 36415; 71045; 78452; 80048; 80053; 80061; 81001; 83735; 84484; 85025; 85610; 85730; 87086; 87088; 93005; 93017; 99285; A9500; J7030; A4216; J2785

== ENCOUNTER → 2020-10-08 10:44 | Outpatient (CLI) | payer MEDICARE, OTHER, SELFPAY ==
[2020-08-13 22:08] VITALS: BMI 27.2
--- NOTE | 2020-10-08 10:49 | CDU_ITS ---
Reason For Study: Carotid stenosis Rt. Velocities/BP Lt. Velocities/BP Prox CCA 68.2/10.8 cm/sec. Prox CCA 69.5/10.2 cm/sec. Mid CCA 81.2/9.5 cm/sec. Mid CCA 66.2/11.3 cm/sec. Dist CCA 79.9/12.1 cm/sec. Dist CCA 61.9/10.2 cm/sec. Prox ICA 89.1/48.6 cm/sec. Prox ICA 52/13.5 cm/sec. Mid ICA 91.7/16 cm/sec. Mid ICA 66.2/17.9 cm/sec. Dist ICA 78.6/16 cm/sec. Dist ICA 78.4/19 cm/sec. Rt. ICA/CCA = 1.1. Lt. ICA/CCA = 1.2. Prox ECA 82.6/4.3 cm/sec. Prox ECA 91.5 cm/sec. Rt. Vert. 35.5/8 cm/sec. Lt. Vert. 34.3/9 cm/sec. Right Extracranial There is homogeneous, smooth atherosclerotic plaque noted in the right common carotid artery. There is heterogeneous, smooth atherosclerotic plaque noted in the right internal carotid artery. There is homogeneous, smooth atherosclerotic plaque noted in the right external carotid artery. Antegrade flow is noted in the right vertebral artery. Left Extracranial There is intimal thickening but no significant atherosclerotic plaque noted in the left common carotid artery. There is heterogeneous, irregular atherosclerotic plaque noted in the left internal carotid artery. There is homogeneous, smooth atherosclerotic plaque noted in the left external carotid artery. Antegrade flow is noted in the left vertebral artery. Procedure Carotid Duplex [id number]. This is a Carotid Duplex examination using B-mode, color flow and specral Doppler. Exam performed in department. Interpretation Summary Mild (<50%) stenosis right extracranial internal carotid. Mild (<50%) stenosis left extracranial internal carotid. Flow within the vertebral arteries is antegrade bilaterally. Ordering Physician: Eladia García Referring Physician: Eladia García Performed By: Dara Guerra RVT
== END ==
PROVIDERS: PCP Internal Medicine; Referring Provider Internal Medicine; Visit Provider Internal Medicine
DX: I65.23 Occlusion and stenosis of bilateral carotid arteries (principal)
CPT/HCPCS: 93880

== ENCOUNTER 2020-12-17 13:30 | Outpatient (RCR) | payer MEDICARE, OTHER, SELFPAY ==
[2019-12-18 14:20] VITALS: BMI 26.4
--- NOTE | 2020-07-06 13:39 | HP.PTEVAL_ITS ---
Patient's Visit Information MIGUEL GUEVARA is a 74 year old M referred to Physical Therapy by DELANEY RUIZ with a diagnosis of SPINAL STENOSIS. Date of Evaluation: 07/06/20 Physical Therapist: Luna Wolfe PT, Cert MDT - Visit Plan Frequency: 2-3x /Week Duration: 4-6 Weeks Plan: NO BENDING, TWISTING OR LIFTING > 10 LBS. POSTURE CORRECTION/STRENGTHENING, INSTRUCTION IN APPROPRIATE BODY MECHANICS AND ACTIVITY MODIFICATIONS. DLS STARTING WITH A NEUTRAL SPINE PROGRESSING ROM TOLERATED. CHARLIE LE ROM, STRETCHING AND STRENGTHENING. HEP INSTRUCTION. - Subjective DX: S/P L2-S1 DECOMPRESSION 05/26/20. Work/Leisure: RETIRED. Present symptoms: NO BACK PAIN OR HARDLY NOTICABLE. EXTREMELY WEAK LEGS. RIGHT FOOT FEELS HALF NUMB. LEFT LEG WAS GOOD LEG BUT IT IS STARTING TO GET WEAKER THE DAYS GO ON AND REPORTS HE WAS HARDLY ABLE TO GET IN THE CAR TODAY. PATIENT REPORTS HE WAS HAVING A LOT OF PAIN IN HIS LEGS BUT THE MEDICINE PRESCRIBED HELPED THAT. Present since: PATIENT REPORTS BACK PAIN FOR YEARS. LEG SX'S ARE NEW SINCE S URGERY. STATES THAT BEFORE SX THERE WERE TIMES THAT HE COULD HARDLY WALK BECAUSE OF PAIN IN HIS BACK AND GLUTES BUT THE PAIN WOULD COME AND GO AND FOR THE MOST PART HE COULD WALK NORMALLY AND DO WHATEVER HE WANTED. STATES THAT HE IS WORSE NOW THAN BEFORE SURGERY BECAUSE HE CAN'T WALK. Pain Scale: WORST 8/10 CHARLIE THIGHS AND CALVES. LEAST 0/10. THERE ARE TIMES HE IS PAINFREE SINCE TAKING THE MEDICINE IN THE LAST WEEK OR SO. Currently: 0/10. Commenced as a result of: NO APPARENT REASON. Symptoms at onset: LOW BACK PAIN. Worse: LEGS GET WEAKING WITH STANDING AND WALKING. Better: SITTING. Disturbed sleep: NOT SINCE TAKING THE MEDICINE. Previous history/Previous treatment: THIS IS FIRST BACK SURGERY. NO INJECTIONS. TRIED BEFORE SURGERY - NO EFFECT. Coughing/sneezing/straining: NEGATIVE. Gait: USING WALKER AT ALMOST ALL TIMES. USES THE CANE SOMETIMES AT HOME BUT STATES IT IS HARD TO KEEP HIS BALANCE WITH THE CANE. Difficulty initiating urinatin: NO. Accidents: NO. Un explained weight loss: NO. Imaging: NONE SINCE SURGERY THAT PATIENT IS AWARE OF. PMH: SEE BELOW. CHARLIE TKR'S. SOCIAL: LIVES WITH . SHE IS IN FAIRLY GOOD HEALTH. STATES THAT HIS BED IS UPSTAIRS AND HE THINKS HE MIGHT HAVE TO PUT A BED DOWNSTAIRS BECAUSE WITH HIS LEFT LEG GETTING WEAKER IT IS GETTING HARDER AND HARDER TO GET UP STAIRS AND HE DOES NOT HAVE A WALKER UP THERE. OTHER: DR. ANDERSON'S ASSESSMENT/PLAN 06/08/20: HE IS HEALING IN AN EXPECTED MANNER. HE HAS GENERALIZED WEAKNESS IN HIS LEGS THAT WAS PRESENT BEFORE SURGERY. HE WAS ENCOURAGED TO AMBULATE MUCH POSSIBLE. HIS SUTURES WERE REMOVED AND INCISION HEALING WELL. HE WAS GIVEN NORCO, A MEDROL DOSEPACK, AND MUSCLE RELAXANT TO HELP WITH HIS PAIN. HE WILL FOLLOW UP IN 3 MONTHS AND IF HE IS HEALING WELL, WE CAN DISCUSS HIS NECK PATHOLOGY ATH THIS TIME. IF HE WOULD LIKE TO DO PT, HE WILL CALL US IN 1 MONTH AND WE WILL REFER THAT. - Objective Sitting/Standing Posture: POOR. Lordosis: REDUCED. Other Observations: INDEP GAIT INTO PT WITH FWW X APPROX 300 FEET WITH INCREASING DIFFICULTY WITH INCREASED DISTANCE. PATIENT IS VERY DEPENDENT. Motor deficit: CHARLIE LE WEAKNESS LEFT > RIGHT. LLE: HIP 4-/5, KNEE 4/5, ANKLE 4/5, EHL 4/5. RIGHT LE: HIP 4- /5, KNEE 4-/5, ANKLE 3+/5, EHL 1-2/5. Sensory deficit: CHARLIE LE LIGHT TOUCH SENSATION GROSSLY APPEARS INTACT AND SYMMETRICAL. FURTHER TESTING OF RIGHT FOOT NEEDED. ROM deficit: TIGHT CHARLIE LE HS'S AND GASTROC SOLEUS COMPLEX'S. Reflexes: NT. Dural Signs: NEGATIVE CHARLIE LE'S. Lumbar mvmt loss: NT. Core strength: POOR. Palpation: INCISION IS WELL HEALED WITHOUT SIGNS OF INFECTION. TREATMENT: NEUROMUSCULAR REEDUCATION - RETRAINING OF MVMT AND POSTURE FOR SITTING, LYING AND STANDING ACTIVITIES. - Goals Goal 1:: DECREASE C/O BACK AND CHARLIE LE SX'S. Goal Time Frame: 4-6 Weeks Goal 2:: IMPROVE PERSONAL CARE, LIFTING, WALKING, STANDING, SLEEP, SOCIAL LIFE AND HOMEMAKING FUNCTION Goal Time Frame: 4-6 Weeks Goal 3:: INSTRUCT IN PROPHYLAXIS Goal Time Frame: 4-6 Weeks - Anticipated Interventions Patient/Client Instruction: Educate patient on: Condition, Plan of Care, Risk Factors, Benefits of Fitness Program For the Purpose of:: To improve self management Therapeutic Exercise to Include: Strength training, Body mechanics, Postural training, Flexibilty training, Gait and locomotor training, Neuromotor development, Dynamic Lumbar Stabilization For the Purpose of:: To decrease pain, To improve muscle performance and motor function, To increase tolerance to activity/condition/position, To improve ability of physical actions for home/community/work/leisure, To improve gait and locomotor functions Cryotherapy (ice pack, ice massage): Yes Thermo therapy (hot pack): Yes Ultrasound (thermal/non thermal): Yes For the Purpose of:: To decrease pain, To improve nutrient delivery to tissue Thank you for the opportunity to evaluate your patient. For Medicare and Medicare HMO plans, please review the plan of care and approve it. It will need to be FAXED BACK to us at [phone] for Medicare purposes. For Medicare only, by signing this I certify the plan of care. Please let me know if there are questions or concerns regarding this plan of care. Physician Signature: Date:
--- NOTE | 2020-07-16 12:06 | HP.PTREVAL ---
DELANEY RUIZ, It has been my pleasure to treat MIGUEL GUEVARA over the last 6 visits for SPINAL STENOSIS. Please see the progress note below for an update on the physical therapy plan of care! Subjective: PATIENT REPORTS THE WEAKNESS IN HIS LEGS IS GETTING WORSE AND IT IS VERY DISHEARTNING. STATES HIS CAN SEE THAT HIS IS WALKING WORSE TOO. GETTING HARDER TO GET UP OFF THE COUCH. PATIENT REPORTS INCREASED DIFFICULTY GETTING INTO HIS VEHICLE TO GO HOME VS GETTING IN HIS VEHICLE TO COME TO PT. PATIENT REPORTS DR. WATSON INCREASED HIS GABAPENTIN SUNDAY DUE TO HIS CALL TO HER REPORTING THE ACHING IN HIS LEGS GETTING WORSE. HE REPORTS THE INCREASE IN MEDICINE IS HELPING BUT HE STILL HAS ACHING IN HIS LEGS. PATIENT REPORTS HE LOST HIS BALANCE AND FELL GOING OUT HIS BACK DOOR AT HOME WITH THE WALKER SUNDAY. WAS ABLE TO USE A CHAIR TO GET HIMSELF UP BUT IT WAS VERY DIFFICULT. STATES HE CALLED TO REPORT THE FALL TO DR. WATSON'S OFFICE AND IT WAS DECIDED THAT HE DID NOT NEED TO BE SEEN. STATES HE THINKS HE BETTER GO AHEAD WITH THE REPEAT MRI THAT HIS SURGEON RECOMMENDED. PATIENT REPORTS HE DOES FEEL LIKE HE HAS GAINED SOME STRENGTH IN HIS LEGS AND ANKLES SINCE STARTING PT BUT IT JUST HASN'T HELPED HIS WALKING. PATIENT REPORTS HE IS BUYING A BED TO PUT DOWNSTAIRS DUE TO INCREASED DIFFICULTY TRYING TO GET UP HIS STEPS TO HIS BEDROOM. Objective/Function: PATIENT WAS SEEN TODAY FOR RE-ASSESSMENT OF PROGRESS TOWARD THE SET PT GOALS AND THE NEED FOR FURTHER PHYSICAL THERAPY VS READINESS FOR DISCHARGE. OBJECTIVE EXAM TODAY IS ABOUT THE SAME INITIAL EVAL HOWEVER HE DOES HAVE SOME INCREASED LE STRENGTH WITH MMT'ING AND HE IS PROGRESSING WITH THER EX. HE APPEARS TO BE A GOOD CANDIDATE TO CONTINUE PT BUT THIS PT RECOMMENDS HE CALL HIS SURGEON TO REPORT HIS FALL AND SUBJECTIVE REPORTS LISTED ABOVE. HE IS STILL HAVE GREAT DIFFICULTY WITH GAIT AND WE WILL INCORPORATE MORE GAIT AND BALANCE ACTIVITIES IN HIS PT PLAN. I WAS HAPPY TO SEE SOME INCREASED STRENGTH IN HIS RIGHT EHL TODAY. UPON EXAM TODAY: INDEP GAIT INTO PT WITH FWW X APPROX 300 FEET WITH INCREASING DIFFICULTY WITH INCREASED DISTANCE. PATIENT IS VERY DEPENDENT ON WALKER FOR SAFETY BUT WHEN IN PARALLEL BARS ABLE TO WALK WITHOUT UE. HE IS AFRAID TO DO THIS OUTSIDE OF THE PARALLEL BARS. WITHOUT THE WALKER HIS TRUNK FLEX AND LIMP INCREASE. Motor deficit: CHARLIE LE WEAKNESS RIGHT > LEFT LLE: HIP 4/5, KNEE 4/5, ANKLE 4/5, EHL 4/5. RIGHT LE: HIP 4-/5, KNEE 4-/5, ANKLE 4-/5, EHL3-/5. Sensory deficit: CHARLIE LE LIGHT TOUCH SENSATION GROSSLY APPEARS INTACT AND SYMMETRICAL. FURTHER TESTING OF RIGHT FOOT NEEDED. ROM deficit: TIGHT CHARLIE LE HS'S AND GASTROC SOLEUS COMPLEX'S. Reflexes: NT. Dural Signs: NEGATIVE CHARLIE LE'S. Lumbar mvmt loss: NT. Core strength: POOR. Palpation: INCISION IS WELL HEALED WITHOUT SIGNS OF INFECTION Plan Plan: NO BENDING, TWISTING OR LIFTING > 10 LBS. INCREASE FOCUS ON GAIT AND BALANCE TRAINING AND CONFIDENCE WITH GAIT. POSTURE CORRECTION/STRENGTHENING, INSTRUCTION IN APPROPRIATE BODY MECHANICS AND ACTIVITY MODIFICATIONS. DLS WITH A NEUTRAL SPINE. CHARLIE LE ROM, STRETCHING AND STRENGTHENING. HEP INSTRUCTION. Goals Goal 1:: DECREASE C/O BACK AND CHARLIE LE SX'S. Goal Time Frame: 4-6 Weeks Goal Progress: Not Progressing Goal 2:: IMPROVE PERSONAL CARE, LIFTING, WALKING, STANDING, SLEEP, SOCIAL LIFE AND HOMEMAKING FUNCTION Goal Time Frame: 4-6 Weeks Goal Progress: Not Progressing Goal 3:: INSTRUCT IN PROPHYLAXIS Goal Time Frame: 4-6 Weeks Goal Progress: Not Progressing Anticipated Interventions Patient/Client Instruction: Educate patient on: Condition, Plan of Care, Risk Factors, Benefits of Fitness Program For the Purpose of:: To improve self management Therapeutic Exercise to Include: Strength training, Body mechanics, Postural training, Flexibilty training, Gait and locomotor training, Neuromotor development, Dynamic Lumbar Stabilization For the Purpose of:: To decrease pain, To improve muscle performance and motor function, To increase tolerance to activity/condition/position, To improve ability of physical actions for home/community/work/leisure, To improve gait and locomotor functions Cryotherapy (ice pack, ice massage): Yes Thermo therapy (hot pack): Yes Ultrasound (thermal/non thermal): Yes For the Purpose of:: To decrease pain, To improve nutrient delivery to tissue Please do not hesitate to contact me at [phone] by phone or if you have questions or concerns regarding this new plan of care! Sincerely, Luna Wolfe, PT, Cert MDT
--- NOTE | 2020-08-04 11:35 | HP.PTREVAL_ITS ---
DELANEY RUIZ, It has been my pleasure to treat MIGUEL GUEVARA over the last 10 visits for SPINAL STENOSIS. Please see the progress note below for an update on the physical therapy plan of care! Subjective: PATIENT REPORTS HE WOKE UP WITH SOME DIZZINESS TODAY. NO DIZZINESS SITTING IN TREATMENT ROOM RIGHT NOW. PATIENT REPORTS IT IS INTERMITTENT, ONLY OCCURS WHEN HE WALKS AND IS VERY MILD. PATIENT REPORTS HE HAD HIS MRI OF HIS LOW BACK IN [place] AND HE IS GOING TO GET THE RESULTS WHEN HE SEES DR. ANDERSON TOMORROW. PATIENT DENIES ANY FALLS OR OTHER PROCEEDURES SINCE LAST VISIT. NEGATIVE PROSTATE BIOSPSY. PATIENT REPORTS HIS LEGS ARE STILL WEAK AND HE IS AFRAID TO WALK WITHOUT THE WALKER. PATIENT REPORTS TOLERATING THE LAST PT SESSION WELL. DOING SOME PEDALING WITH HOME EQUIPMENT BUT NOT REALLY DOING ANY OTHER HOME EX'S. Objective/Function: BLOOD PRESSURE: 134/78. PATIENT WAS SEEN TODAY FOR RE- ASSESSMENT OF PROGRESS TOWARD THE SET PT GOALS AND THE NEED FOR FURTHER PHYSICAL THERAPY VS READINESS FOR DISCHARGE. PATIENT CAN NOW WALK INDEP'LY WITHOUT AD SHORT DISTANCES WITH SUPERVISION BUT HE IS AFRAID OF FALLING. HE HAS SOME INCREASED STRENGTH IN THE RIGHT LE SINCE INITIAL EVAL BUT STILL HAS SIGNIFICANT CHARLIE LE WEAKNESS AND BALANCE DEFICITS. PATIENT REPORTS HE REALLY HASN'T IMPROVED MUCH IN TERMS OF HIS LE STRENGTH AND BALANCE SINCE STARTING PT AND THE SURGEON PRETTY MUCH TOOK CARE OF HIS PAIN. HE APPEARS TO BE A GOOD CANDIDATE TO CONTINUE PT IF SURGEON CONCURS. UPON EXAM TODAY: Motor deficit: CHARLIE LE WEAKNESS LEFT > RIGHT. LLE: HIP 4/5, KNEE 4/5, ANKLE 4/5, EHL 4/5. RIGHT LE: HIP 4-/5, KNEE 4-/5, ANKLE 4-/5, EHL 3-/5. Sensory deficit: CHARLIE LE LIGHT TOUCH SENSATION GROSSLY APPEARS INTACT AND SYMMETRICAL. FURTHER TESTING OF RIGHT FOOT NEEDED. PATIENT REPORTS THE TOP OF HIS RIGHT FOOT STILL FEELS NUMB. ROM deficit: TIGHT CHARLIE LE HS'S AND GASTROC SOLEUS COMPLEX'S. BALANCE: PATIENT IS UNABLE TO SLS ON EITHER LE WITHOUT UE ASSSIT FOR MORE THAN ABOUT 1 SEC. Reflexes: NT. Dural Signs: NEGATIVE CHARLIE LE'S. Lumbar mvmt loss: NT. Core strength: POOR Plan Plan: *NO BENDING, TWISTING OR LIFTING > 10 LBS*. CONTINUE PT 2X'S A WK X 10 VISITS. PATIENT AGREEABLE. INCREASE FOCUS ON GAIT AND BALANCE TRAINING AND CONFIDENCE WITH GAIT. POSTURE CORRECTION/STRENGTHENING, INSTRUCTION IN APPROPRIATE BODY MECHANICS AND ACTIVITY MODIFICATIONS. DLS WITH A NEUTRAL SPINE. CHARLIE LE ROM, STRETCHING AND STRENGTHENING. HEP INSTRUCTION. Goals Goal 1:: DECREASE C/O BACK AND CHARLIE LE SX'S. Goal Time Frame: 4-6 Weeks Goal Progress: Not Progressing Goal 2:: IMPROVE PERSONAL CARE, LIFTING, WALKING, STANDING, SLEEP, SOCIAL LIFE AND HOMEMAKING FUNCTION Goal Time Frame: 4-6 Weeks Goal Progress: Not Progressing Goal 3:: INSTRUCT IN PROPHYLAXIS Goal Time Frame: 4-6 Weeks Goal Progress: Not Progressing Anticipated Interventions Patient/Client Instruction: Educate patient on: Condition, Plan of Care, Risk Factors, Benefits of Fitness Program For the Purpose of:: To improve self management Therapeutic Exercise to Include: Strength training, Body mechanics, Postural training, Flexibilty training, Gait and locomotor training, Neuromotor development, Dynamic Lumbar Stabilization For the Purpose of:: To decrease pain, To improve muscle performance and motor function, To increase tolerance to activity/condition/position, To improve ability of physical actions for home/community/work/leisure, To improve gait and locomotor functions Cryotherapy (ice pack, ice massage): Yes Thermo therapy (hot pack): Yes Ultrasound (thermal/non thermal): Yes For the Purpose of:: To decrease pain, To improve nutrient delivery to tissue Please do not hesitate to contact me at [phone] by phone or if you have questions or concerns regarding this new plan of care! Sincerely, Luna Wolfe, PT, Cert MDT
--- NOTE | 2020-08-20 13:14 | HP.PTREVAL ---
DELANEY RUIZ, It has been my pleasure to treat MIGUEL GUEVARA over the last 15 visits for SPINAL STENOSIS. Please see the progress note below for an update on the physical therapy plan of care! Subjective: PATIENT REPORTS HE WAS IN THE HOSPITAL SINCE LAST VISIT FOR CHEST PAIN. PATIENT REPORTS BEING ADMITTED TO THE HOSPITAL LAST SUNDAY AFTERNOON. HE WAS IN THE HOSPITAL ONE DAY. ALL TESTS WERE NORMAL PER PATIENT REPORT AND CHEST PAIN RESOLVED ON ITS OWN. PATIENT DOES NOT FEEL THE THERAPY SESSIONS ARE TOO HARD - JUST RIGHT. PATIENT REPORTS HIS WALKING IS IMRPOVING. HE STATES HE WANTS TO CONTINUE THERAPY BECAUSE IT IS HELPING. NO LONGER USING WALKING. USUALLY USES CANE. Objective/Function: PATIENT WAS SEEN TODAY FOR RE-ASSESSMENT OF PROGRESS TOWARD THE SET PT GOALS AND THE NEED FOR FURTHER PHYSICAL THERAPY VS READINESS FOR DISCHARGE. PATIENT CAN NOW WALK INDEP'LY WITHOUT AD SHORT DISTANCES BUT BALANCE IS BETTER WITH THE CANE. PATIENT DENIES FEAR OF FALLING NOW. HE IS STILL UE DEPENDENT TO TRANSFER FROM SIT TO STAND. GAIT, BALANCE AND LE STRENGTH ARE NOW IMPROVING. HE APPEARS TO BE A GOOD CANDIDATE TO CONTINUE PT BASED ON IMPROVEMENT MADE AND ROOM FOR FURTHER IMPROVEMENT. PATIENT AGREES. UPON EXAM TODAY: Motor deficit: CHARLIE LE WEAKNESS RIGHT > LEFT. LLE: HIP 4/5, KNEE 5/5, ANKLE 5/5, EHL 5/5. RLE: HIP 4-/5, KNEE 4/5, ANKLE 4-/5, EHL 3+/5. Sensory deficit: CHARLIE LE LIGHT TOUCH SENSATION GROSSLY APPEARS INTACT AND SYMMETRICAL. FURTHER TESTING OF RIGHT FOOT NEEDED. PATIENT REPORTS THE TOP OF HIS RIGHT FOOT STILL FEELS NUMB. ROM deficit: TIGHT CHARLIE LE HS'S AND GASTROC SOLEUS COMPLEX'S. BALANCE: PATIENT IS NOW ABLE TO SLS ON THE R LE X APPROX 3 SEC AND THE LEFT 7 SEC'S WITHOUT UE SUPPORT. Reflexes: NT. Dural Signs: NEGATIVE CHARLIE LE'S. Lumbar mvmt loss: (LUMBAR ROM TESTED FOR THE FIRST TIME TODAY). FLEX - MOD. EXT - PATRICE. RSG - PATRICE. LSG - PATRICE. Core strength: POOR Plan Plan: New orders rec'd-- no bend, lift or twist precautions any longer. CONTINUE PT 2X'S A WK X 10 VISITS. PATIENT AGREEABLE. ADD SKTC AND LTR TO HEP TOLERATED NEXT VISIT. INCREASE FOCUS ON GAIT AND BALANCE TRAINING AND CONFIDENCE WITH GAIT. POSTURE CORRECTION/STRENGTHENING, INSTRUCTION IN APPROPRIATE BODY MECHANICS AND ACTIVITY MODIFICATIONS. DLS WITH A NEUTRAL SPINE. CHARLIE LE ROM, STRETCHING AND STRENGTHENING. HEP INSTRUCTION. Goals Goal 1:: DECREASE C/O BACK AND CHARLIE LE SX'S. Goal Time Frame: 4-6 Weeks Goal Progress: Not Progressing Goal 2:: IMPROVE PERSONAL CARE, LIFTING, WALKING, STANDING, SLEEP, SOCIAL LIFE AND HOMEMAKING FUNCTION Goal Time Frame: 4-6 Weeks Goal Progress: Not Progressing Goal 3:: INSTRUCT IN PROPHYLAXIS Goal Time Frame: 4-6 Weeks Goal Progress: Not Progressing Anticipated Interventions Patient/Client Instruction: Educate patient on: Condition, Plan of Care, Risk Factors, Benefits of Fitness Program For the Purpose of:: To improve self management Therapeutic Exercise to Include: Strength training, Body mechanics, Postural training, Flexibilty training, Gait and locomotor training, Neuromotor development, Dynamic Lumbar Stabilization For the Purpose of:: To decrease pain, To improve muscle performance and motor function, To increase tolerance to activity/condition/position, To improve ability of physical actions for home/community/work/leisure, To improve gait and locomotor functions Cryotherapy (ice pack, ice massage): Yes Thermo therapy (hot pack): Yes Ultrasound (thermal/non thermal): Yes For the Purpose of:: To decrease pain, To improve nutrient delivery to tissue Please do not hesitate to contact me at [phone] by phone or if you have questions or concerns regarding this new plan of care! Sincerely, Luna Wolfe, PT, Cert MDT
--- NOTE | 2020-09-23 12:29 | HP.PTDCSUM_ITS ---
It has been my pleasure to treat MIGUEL GUEVARA referred by DELANEY RUIZ, with the diagnosis of SPINAL STENOSIS for a total of 25 visit(s). Discharge Date: Please see the following information for a summary of their discharge status. Subjective: PATIENT REPORTS HE IS DOING PRETTY GOOD. A LITTLE BIT OF LOW BACK PAIN RISING FROM SITTING IF HE SITTS TOO LONG. STATES HE FEELS OK TO STOP PT. WENT FOR A WALK YESTERDAY AND DID REALLY WELL. USING THE CANE WHEN GOES OUTSIDE MOST OF THE TIME FOR SAFETY. PHYSICIAN FOLLOW 10/01/20. CHARLIE THIGHS Pain Intensity (Out of 10): 0 LOW BACK Pain Intensity (Out of 10): 3 % Improvement: 75 Objective/Function: PATIENT WAS SEEN TODAY FOR RE-ASSESSMENT OF PROGRESS TOWARD THE SET PT GOALS AND THE NEED FOR FURTHER PHYSICAL THERAPY VS READINESS FOR DISCHARGE. HE IS NOW ABLE TO TRANSFER FROM SIT TO STAND WITHOUT UE ASSIST. GAIT, BALANCE AND LE STRENGTH HAVE ALL IMPROVED. HE APPEARS TO BE APPROPRIATE FOR DISCHARGE. PATIENT IS AGREEABLE. UPON EXAM TODAY: Motor deficit: CHARLIE LE WEAKNESS RIGHT > LEFT. LLE: HIP 4/5, KNEE 5/5, ANKLE 5/5, EHL 5/5. RLE: HIP 4-/5, KNEE 5/5, ANKLE 4/5, EHL 4-/5. Sensory deficit: CHARLIE LE LIGHT TOUCH SENSATION GROSSLY APPEARS INTACT AND SYMMETRICAL. ROM deficit: TIGHT CHARLIE LE HS'S AND GASTROC SOLEUS COMPLEX'S. BALANCE: PATIENT IS NOW ABLE TO SLS ON THE R LE X APPROX 3 SEC AND THE LEFT 7 SEC'S WITHOUT UE SUPPORT. HE IS QUITE SHAKY WHILE SLS ON LLE. Reflexes: NT. Dural Signs: NEGATIVE CHARLIE LE'S. Lumbar mvmt loss: FLEX - MOD - INCREASES LBP. EXT - PATRICE. RSG - PATRICE. LSG - PATRICE. LUMBAR ROM IS TIGHT ALL DIRECTIONS. THIS PT RECOMMENDS CONTINUED USE OF CANE FOR SAF ETY AND PATIENT AGREEABLE. Goal 1:: DECREASE C/O BACK AND CHARLIE LE SX'S. Goal Progress: Progressing Goal 2:: IMPROVE PERSONAL CARE, LIFTING, WALKING, STANDING, SLEEP, SOCIAL LIFE AND HOMEMAKING FUNCTION Goal Progress: Progressing Goal 3:: INSTRUCT IN PROPHYLAXIS Goal Progress: Progressing Plan: D/C. PATIENT AGREEABLE. If there are questions or concerns regarding this patient's physical therapy, please feel free to call me at [phone]. Thank you for the referral of this patient. Sincerely, Luna Wolfe PT, Cert MDT
--- NOTE | 2020-10-05 12:43 | HP.PTREVAL_ITS ---
DELANEY RUIZ, It has been my pleasure to treat MIGUEL GUEVARA over the last 26 visits for SPINAL STENOSIS. Please see the progress note below for an update on the physical therapy plan of care! Subjective: STILL HAVING BACK PAIN. IT HAS NEVER GONE AWAY. CONSTANT 2-12/11 LBP. NO PAIN, NUMBNESS OR TINGLING IN LEGS. C/O LEG WEAKNESS. HAS TROUBLE STEPPING UP TO GET INTO TRUCK. GOING TO [employer] IN JANUARY AND WANTS TO BE ABLE TO PLAY GOLF IF POSSIBLE. PATIENT REPORTS HIS BALANCE ISN'T GOOD IT USE TO BE AND HE AND DR. WATSON DECIDED HE SHOULD DO MORE PT. STAES HE HAS TRIED TO DO A LOT OF WALING BUT HIS LEGS GET TIRED AND HE LIMPS (LIMPS ON LEFT > RIGHT). 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 PATIENT REPORTS DR. ANDERSON TOLD HIM HE CAN DO WHATEVER HE WANTS TO DO - NO RESTRICTIONS. Objective/Function: NO SIGNIFICANT CHANGES SINCE LAST RE-CHECK 09/23/20 EXCEPT PATIENT IS NOW ABLE TO SLS ON CHARLIE LE'S X 8+ SEC'S EA. LLE IS ALSO MUCH LESS SHAKY WITH SLS. PATIENT IS A GOOD CANDIDATE TO RESUME PT BASED ON PROGRESS MADE AND ROOM FOR FURTHER IMPROVEMENT. Plan Plan: PATIENTS GOAL IS TO BE ABLE TO GOLF IN JANUARY. HAS A MEMBERSHIP AT [employer] AND WILL NEED EX INSTRUCTIONS FOR D/C. RESUME PT 2X'S A WEEK X 10 VISITS. BALANCE TRAINING. CORE STENGTH AND STABILITY TRAINING. TRUNK AND CHARLIE LE ROM AND STRETCHING. CHARLIE LE STRENGTHENING. Goals Goal 1:: DECREASE C/O BACK AND CHARLIE LE SX'S. Goal Time Frame: 4-6 Weeks Goal Progress: Progressing Goal 2:: IMPROVE PERSONAL CARE, LIFTING, WALKING, STANDING, SLEEP, SOCIAL LIFE AND HOMEMAKING FUNCTION Goal Time Frame: 4-6 Weeks Goal Progress: Progressing Goal 3:: INSTRUCT IN PROPHYLAXIS Goal Time Frame: 4-6 Weeks Goal Progress: Progressing Anticipated Interventions Patient/Client Instruction: Educate patient on: Condition, Plan of Care, Risk Factors, Benefits of Fitness Program For the Purpose of:: To improve self management Therapeutic Exercise to Include: Strength training, Body mechanics, Postural training, Flexibilty training, Gait and locomotor training, Neuromotor development, Dynamic Lumbar Stabilization For the Purpose of:: To decrease pain, To improve muscle performance and motor function, To increase tolerance to activity/condition/position, To improve ability of physical actions for home/community/work/leisure, To improve gait and locomotor functions Cryotherapy (ice pack, ice massage): Yes Thermo therapy (hot pack): Yes Ultrasound (thermal/non thermal): Yes For the Purpose of:: To decrease pain, To improve nutrient delivery to tissue Please do not hesitate to contact me at [phone] by phone or if you have questions or concerns regarding this new plan of care! Sincerely, Luna Wolfe, PT, Cert MDT
--- NOTE | 2020-11-11 12:28 | HP.PTREVAL ---
DELANEY RUIZ, It has been my pleasure to treat MIGUEL GUEVARA over the last 35 visits for SPINAL STENOSIS. Please see the progress note below for an update on the physical therapy plan of care! Subjective: PATIENT REPORTS HE FOLLOWED UP WITH HIS SURGEON LAST WEEK AND HE RELEASED HIM. PATIENT REPORTS HE IS CONTINUING TO GET STRONGER AND HIS BALANCE IS EVEN BETTER. CONSIDERING JOINING HERE AT [employer] FOR INDEP EX INSTEAD OF PLANET FITNESS. PATIENT DENIES ANY FALLS BUT REPORTS SOME CLOSE CALLS AND THE SNOW DOESN'T HELP. FORGOT HIS CANE TODAY BUT USUALLY USES IT. STATES SEEING EMERGENCY ROOM PHYSICIAN YESTERDAY AND DOING WELL. DOES NOT HAVE TO FOLLOW UP WITH EMERGENCY ROOM PHYSICIAN FOR A YEAR. Objective/Function: PATIENT WAS SEEN TODAY FOR RE-ASSESSMENT OF PROGRESS TOWARD THE SET PT GOALS AND THE NEED FOR FURTHER PHYSICAL THERAPY VS READINESS FOR DISCHARGE. HE IS MORE EASILY ABLE TO TRANSFER FROM SIT TO STAND WITHOUT UE ASSIST NOW. GAIT, BALANCE AND LE STRENGTH ARE ALL STILL IMPROVING. HE WOULD BENEFIT FROM DECREASING FORMAL PT TO ONE TIME A WEEK WHILE HE STARTS INDEP EX AT THE GYM OF HIS CHOICE. PATIENT IS AGREEABLE AND WAS PROVIDED WITH HIS EX LOGS FOR BOTH [employer] AND [employer]. UPON EXAM TODAY: Motor deficit: CHARLIE LE WEAKNESS RIGHT > LEFT. LLE: HIP 4/5, KNEE 5/5, ANKLE 5/5, EHL 5/5. RLE: HIP 4/5, KNEE 5/5, ANKLE 4/5, EHL 4-/5. Sensory deficit: CHARLIE LE LIGHT TOUCH SENSATION GROSSLY APPEARS INTACT AND SYMMETRICAL. ROM deficit: TIGHT CHARLIE LE HS'S AND GASTROC SOLEUS COMPLEX'S. BALANCE: PATIENT IS NOW ABLE TO SLS ON THE R LE X APPROX 6 SEC AND THE LEFT 20 SEC'S WITHOUT UE SUPPORT. Reflexes: NT. Dural Signs: NEGATIVE CHARLIE LE'S. Lumbar mvmt loss: FLEX - MIN TO MOD - DENIES PAIN. EXT - PATRICE. RSG - PATRICE. LSG - PATRICE. LUMBAR ROM IS TIGHT ALL DIRECTIONS. THIS PT RECOMMENDS CONTINUED USE OF CANE FOR SAFETY AND PATIENT AGREEABLE. Plan Plan: CONTINUE PT ONCE A WEEK FOR EX PROGRESSION AND HOME STRETCHING PROGRAM. PATIENTS GOAL IS TO BE ABLE TO GOLF IN JANUARY. BALANCE TRAINING. CORE STENGTH AND STABILITY TRAINING. TRUNK AND CHARLIE LE ROM AND STRETCHING. CHARLIE LE STRENGTHENING. Goals Goal 1:: DECREASE C/O BACK AND CHARLIE LE SX'S. Goal Time Frame: 4-6 Weeks Goal Progress: Progressing Goal 2:: IMPROVE PERSONAL CARE, LIFTING, WALKING, STANDING, SLEEP, SOCIAL LIFE AND HOMEMAKING FUNCTION Goal Time Frame: 4-6 Weeks Goal Progress: Progressing Goal 3:: INSTRUCT IN PROPHYLAXIS Goal Time Frame: 4-6 Weeks Goal Progress: Progressing Anticipated Interventions Patient/Client Instruction: Educate patient on: Condition, Plan of Care, Risk Factors, Benefits of Fitness Program For the Purpose of:: To improve self management Therapeutic Exercise to Include: Strength training, Body mechanics, Postural training, Flexibilty training, Gait and locomotor training, Neuromotor development, Dynamic Lumbar Stabilization For the Purpose of:: To decrease pain, To improve muscle performance and motor function, To increase tolerance to activity/condition/position, To improve ability of physical actions for home/community/work/leisure, To improve gait and locomotor functions Cryotherapy (ice pack, ice massage): Yes Thermo therapy (hot pack): Yes Ultrasound (thermal/non thermal): Yes For the Purpose of:: To decrease pain, To improve nutrient delivery to tissue Please do not hesitate to contact me at [phone] by phone or if you have questions or concerns regarding this new plan of care! Sincerely, Luna Wolfe, PT, Cert MDT
--- NOTE | 2020-12-17 14:31 | HP.PTDCSUM ---
It has been my pleasure to treat MIGUEL GUEVARA referred by DELANEY RUIZ, with the diagnosis of SPINAL STENOSIS for a total of 39 visit(s). Discharge Date: Please see the following information for a summary of their discharge status. Subjective: STATES HE CAN HIT ABOUT 10 OR 15 GOLF BALLS IN THE BACK YARD NOW. STILL USES THE CANE MOST OF THE TIME TO FEEL MORE COMFORTABLE. CHARLIE THIGHS Pain Intensity (Out of 10): 0 LOW BACK Pain Intensity (Out of 10): 0 % Improvement: 85 Objective/Function: PATIENT WAS SEEN TODAY FOR RE-ASSESSMENT OF PROGRESS TOWARD THE SET PT GOALS AND THE NEED FOR FURTHER PHYSICAL THERAPY VS READINESS FOR DISCHARGE. HE IS MORE EASILY ABLE TO TRANSFER FROM SIT TO STAND WITHOUT UE ASSIST NOW. GAIT, BALANCE AND LE STRENGTH ARE ALL STILL IMPROVING. HE IS INDEP WITH A GYM EX PROGRAM AND IS APPROPRIATE FOR DISCHARGE TO [facility] EX AT THIS TIME. PATIENT IS AGREEABLE. HE STILL HAS LE WEAKNESS, BACK PAIN AND DECREASED BALANCE. UPON EXAM TODAY: Motor deficit: CHARLIE LE WEAKNESS. LLE: HIP 4/5, KNEE 5/5, ANKLE 5/5, EHL 5/5. RLE: HIP 4/5, KNEE 5/5, ANKLE 4/5, EHL 4-/5. Sensory deficit: CHARLIE LE LIGHT TOUCH SENSATION GROSSLY APPEARS INTACT AND SYMMETRICAL. ROM deficit: TIGHT CHARLEI LE HS'S AND GASTROC SOLEUS COMPLEX'S. BALANCE: PATIENT IS NOW ABLE TO SLS ON THE R LE X APPROX 7 SEC AND THE LEFT 18 SEC'S WITHOUT UE SUPPORT. Reflexes: NT. Dural Signs: NEGATIVE CHARLIE LE'S. Lumbar mvmt loss: FLEX - MIN TO MOD - DENIES PAIN. EXT - PATRICE. RSG - PATRICE. LSG - PATRICE. LUMBAR ROM IS TIGHT ALL DIRECTIONS. THIS PT RECOMMENDS CONTINUED USE OF CANE FOR SAFETY AND PATIENT AGREEABLE. Goal 1:: DECREASE C/O BACK AND CHARLIE LE SX'S. Goal Progress: Goal Met Goal 2:: IMPROVE PERSONAL CARE, LIFTING, WALKING, STANDING, SLEEP, SOCIAL LIFE AND HOMEMAKING FUNCTION Goal Progress: Goal Met Goal 3:: INSTRUCT IN PROPHYLAXIS Goal Progress: Goal Met Plan: D/C If there are questions or concerns regarding this patient's physical therapy, please feel free to call me at [phone]. Thank you for the referral of this patient. Sincerely, Luna Wolfe, PT, Cert MDT
== END 2020-12-17 19:00 | disposition home or self-care (01) ==
LOC: PT 13:30
PROVIDERS: PCP Internal Medicine
DX: M48.062 Spinal stenosis, lumbar region with neurogenic claudication (principal)
CPT/HCPCS: 97110; 97112; 97116; 97162; 97164

== ENCOUNTER 2021-09-18 11:52 | Emergency (ER) | payer MEDICARE, OTHER, SELFPAY ==
[2021-09-18 11:53] VITALS: BP 143/72; PULSE 78; RESP 16; TEMP 35.7; O2SAT 94; BMI 30.6
--- NOTE | 2021-09-18 12:33 | EDS_ITS ---
HPI HPI - URI History of Present Illness Chief Complaint: Shortness of Breath Informant: patient Onset/Context/Timing Onset: Today and Yesterday Context: Gradual Onset Timing: Continuous Current Severity: Mild Maximum Severity: Mild Associated Symptoms Associated Symptoms: Positive for Nasal Congestion, Myalgias and Nonproductive cough Narrative Narrative: 76-year-old male history of hypertension and Parkinson's disease. Has had URI symptoms last 2 days with rhinorrhea muscle aches and a nonproductive cough. He denies any fever or chills. He has had some loose stools. He is able to take in p.o. fluids. And he has been vaccinated boosted against Covid. Prior similar symptoms: Yes Recent Illness/Hospitalization: No ROS ROS ED ROS Narrative 76-year-old male no acute distress vital signs stable afebrile pulse ox 94% on room air no hypoxia. HEENT exam unremarkable. Neck nontender. Lungs clear to auscultation bilaterally. Heart regular rhythm no murmur. Abdomen soft nontender. Remedies moves all 4. Calves nontender without edema or cords. Neurologically is awake and alert with no focal motor deficits. Review of Systems ROS Unobtainable: Denies due to encephalopathy Constitutional Constitutional ED: Denies chills, fever(s) or subjective Eyes Eyes: Denies change in vision ENT ENT ED: Denies ear pain Cardiovascular Cardiovascular: Denies chest pain Respiratory/Chest Respiratory/Chest: Reports cough; Denies dyspnea Gastrointestinal Gastrointestinal: Reports diarrhea; Denies abdominal pain, nausea or vomiting Genitourinary Genitourinary ED: Denies dysuria Musculoskeletal Musculoskeletal: Denies myalgias Integumentary Reports rash Neurologic Neurologic: Denies headache(s) Psychiatric Psychiatric: Denies depression Endocrine Endocrinology: Denies polyuria Hematologic/Lymphatic Hematologic/Lymphatic: Denies easy bruising Allergic/Immunologic Allergic/Immunologic ED: Denies urticaria [facility] Medical History (Updated 09/18/21 @ 14:[address] Isidoro Flowers MD) GERD (gastroesophageal reflux disease) HTN (hypertension) Home Medications levothyroxine 112 mcg PO DAILY 05/03/15 [History Last Taken 12/18/19] Carbidopa-Levo 25-100 mg Odt 1 tab PO TID 08/14/20 [History Last Taken Unknown] Multiple Vitamin 1 tablet PO DAILY 08/14/20 [History Last Taken Unknown] Allergy/AdvReac Type Severity Reaction Status Date / Time lisinopril Allergy Swelling Verified 09/18/21 11:53 Family History Father Colon cancer Surgical History H/O carpal tunnel repair H/O gastric bypass h/o right thumb surgery Social History Smoking Status: Never smoker alcohol intake: never EXAM Physical Exam Narrative Exam Narrative: 76-year-old male no acute distress. Vital signs are stable afebrile. H EENT exam is unremarkable. Neck nontender no JVD. Lungs clear to auscultation bilaterally. Heart regular rhythm no murmur. Abdomen soft nontender normal bowel sounds no peritoneal signs. Extremities moves all 4. Calves are nontender without edema or cords. Neurologically is awake alert with no focal motor deficits. Const Vital Signs: 09/18/21 11:53 09/18/21 12:48 09/18/21 14:29 Temperature 96.2 F L Temperature Source Temporal Pulse Rate 78 65 Respiratory Rate 16 18 Respiratory Effort Normal Non-Labored Respiratory Depth Normal Respiratory Pattern Normal Blood Pressure 143/72 H 151/82 H Blood Pressure Mean 95 105 Pulse Ox 94 98 Oxygen Delivery Method Room Air Room Air Room Air Positive well nourished and well developed; Negative for cachectic or contractures General Appearance ED: well developed and NAD; Negative for cachectic, contractures, cyanotic, diaphoretic or pallor Nutritional Appearance: Negative for cachectic HEENT Reports moist mucous membranes normocephalic External Ear: external ears normal Neck no lymphadenopathy, supple, no meningeal signs and no JVD General: Negative for anterior neck swelling Resp normal respiratory effort and clear to auscultation bilaterally Auscultation: Negative for rales, rhonchi or wheezes Cardio S1 normal heart sound, S2 normal heart sound and no murmurs Rate: regular rate Rhythm: regular rhythm GI non-tender, non-distended and no masses Inspection: Negative for abdominal distention Auscultation: normoactive bowel sounds Palpation: soft; Negative for tender or guarding Back/Spine no CVA tenderness and normal ROM General Back: Negative for CVA tenderness Extremity normal to inspection and full ROM General Extremety ED: Negative for cyanosis or tenderness General Extremity: Negative for cyanosis Neuro oriented x3 Sensorium / Orientation: alert, oriented to person, oriented to place and oriented to time; Negative for orientation impaired, lethargic or stuporous Motor Exam: strength 5/5 throughout Psych mental status grossly normal Mood & Affect: Negative for depressed Skin General Skin Exam: Negative for jaundice or pallor Lesions: no lesions Rashes: no rashes MDM MDM MDM Narrative Medical decision making narrative: Patient with URI symptoms. Unremarkable exam. Chest x-ray and Covid test pending. Repeat exam patient doing well at 2:38 PM. Both tests are negative will be discharged home. I did reevaluate his posterior pharynx its normal. Lab Data Attestation: I reviewed the patient's lab results. Lab results narrative: Covid rapid antigen test negative. Radiography Diagnostic Testing: Clinical Impression(s) from Imaging Studies Chest X-Ray 09/18/21 12:39 IMPRESSION: Normal x-ray examination of the chest. Electronically Signed: Reginaldo Stout MD at 13:25 EST Tel , Service support , Chest x-ray, portable, single view interpreted by myself shows no acute abnormality. Cardiac silhouette mediastinum. No infiltrate. Discharge Plan Triage Chief Complaint: Shortness of Breath ED Provider: Isidoro Flowers Dx/Rx/DC Orders Clinical Impression: Viral URI Instructions: ED URI, Viral, No Abx (Adult) Prescriptions: No Action levothyroxine 112 MCG tablet 112 mcg PO DAILY RF: 0 Carbidopa-Levo 25-100 mg Odt 1 tab PO TID RF: 0 Multiple Vitamin 1 tablet PO DAILY RF: 0 Primary Care Provider: Ricky,Eladia Referrals: Ricky,Eladia, DO [Primary Care Provider] - 3-5 Days if not improving Activity Restrictions/Additional Instructions: Plan fluids and rest. Alternate Tylenol and/or Motrin as needed for body aches and fevers. Follow-up with your doctor if not improving. Disposition Disposition: Home, Self Care
--- NOTE | 2021-09-18 12:39 | RAD_ITS ---
STUDY: X-RAY CHEST REASON FOR EXAM: Male, 76 years old. cough TECHNIQUE: Single AP portable view of the chest. COMPARISON: 08/13/2020 FINDINGS: The lungs are clear and expanded. There is no demonstrated pleural abnormality. Normal size heart. Normal mediastinum and shasha. Normal visualized pulmonary arteries. Normal visualized aortic arch and descending thoracic aorta. Normal visualized thoracic spine. Normal visualized ribs, clavicles, and shoulders. There is no demonstrated abnormality of the visualized soft tissue structures of the upper abdomen. RAD/Chest 1 View (Portable) IMPRESSION: Normal x-ray examination of the chest. Electronically Signed: Reginaldo Stout MD at 13:25 EST Tel , Service support ,
[2021-09-18 12:48] VITALS: O2SAT 94
[2021-09-18 14:29] VITALS: BP 151/82; PULSE 65; RESP 18; O2SAT 98
[2021-09-18 15:20] VITALS: RESP 18
== END 2021-09-18 15:21 | disposition home or self-care (01) ==
PROVIDERS: Emergency Provider Emergency Medicine; PCP Internal Medicine
DX: J06.9 Acute upper respiratory infection, unspecified (principal); Z20.822 Contact with and (suspected) exposure to COVID-19; R06.02 Shortness of breath; G20 Parkinson's disease; I10 Essential (primary) hypertension; K21.9 Gastro-esophageal reflux disease without esophagitis; Z79.899 Other long term (current) drug therapy; Z79.890 Hormone replacement therapy
CPT/HCPCS: 71045; 87426; 99282

== ENCOUNTER → 2021-09-20 | Outpatient (CLI) | payer MEDICARE, OTHER, SELFPAY | END | disposition home or self-care (01) | LOC: LABSPEC 15:13 | PROVIDERS: PCP Internal Medicine; Referring Provider Internal Medicine; Visit Provider Internal Medicine | DX: R05.9 Cough, unspecified (principal) | CPT/HCPCS: 87635; U0005; U0003 ==

== ENCOUNTER 2021-11-17 08:55 | Outpatient (CLI) | payer MEDICARE, OTHER, SELFPAY ==
--- NOTE | 2021-11-17 09:02 | CDU_ITS ---
Reason For Study: carotid stenosis Rt. Velocities/BP Lt. Velocities/BP Prox CCA 57.8/12.1 cm/sec. Prox CCA 69.6/12.4 cm/sec. Mid CCA 82.5/14.7 cm/sec. Mid CCA 66.2/12.4 cm/sec. Dist CCA 76.0/12.1 cm/sec. Dist CCA 61.9/11.3 cm/sec. Prox ICA 50.9/8.0 cm/sec. Prox ICA 50.1/11.2 cm/sec. Mid ICA 69.5/16.8 cm/sec. Mid ICA 69.5/16.8 cm/sec. Dist ICA 84.9/20.1 cm/sec. Dist ICA 77.3/20.1 cm/sec. Rt. ICA/CCA = 1.0. Lt. ICA/CCA = 1.2. Prox ECA 79.9/9.5 cm/sec. Prox ECA 86.0/6.9 cm/sec. Rt. Vert. 41.0/13.5 cm/sec. Lt. Vert. 49.8/12.4 cm/sec. Right Extracranial There is intimal thickening but no significant atherosclerotic plaque noted in the right common carotid artery. There is heterogeneous, irregular atherosclerotic plaque noted in the right internal carotid artery. There is intimal thickening but no significant atherosclerotic plaque noted in the right external carotid artery. Antegrade flow is noted in the right vertebral artery. Left Extracranial There is intimal thickening but no significant atherosclerotic plaque noted in the left common carotid artery. There is heterogeneous, irregular atherosclerotic plaque noted in the left internal carotid artery. There is homogeneous, smooth atherosclerotic plaque noted in the left external carotid artery. Antegrade flow is noted in the left vertebral artery. Procedure Carotid Duplex 77716. This is a Carotid Duplex examination using B-mode, color flow and specral Doppler. The exam was diagnostic. Exam performed in department. VL/Carotid Duplex Ultrasound Interpretation Summary Mild (<50%) stenosis right extracranial internal carotid. Mild (<50%) stenosis left extracranial internal carotid. Flow within the vertebral arteries is antegrade bilaterally. Ordering Physician: Eladia García Performed By: Tyson Carson RVT
== END 2021-11-17 23:59 | disposition home or self-care (01) ==
LOC: CVS 08:56
PROVIDERS: PCP Internal Medicine; Referring Provider Internal Medicine; Visit Provider Internal Medicine
DX: I65.23 Occlusion and stenosis of bilateral carotid arteries (principal)
CPT/HCPCS: 93880

== ENCOUNTER 2021-12-12 11:00 | Outpatient (RCR) | payer MEDICARE, OTHER, SELFPAY ==
--- NOTE | 2021-11-15 10:19 | HP.PTEVAL_ITS ---
Patient's Visit Information MIGUEL GUEVARA is a 76 year old M referred to Physical Therapy by Dr. Eladia García DO with a diagnosis of PD, balance issues, generalized weakness. Date of Evaluation: 11/15/21 Physical Therapist: LIV Juares - Visit Plan Frequency: 3x /Week Duration: 3 Weeks Plan: 2-3X/ week for 3-8 weeks for LE strengthening, gait with changing directions and head turns, stretching of gastroc, dual tasking, with HEP - Subjective Pt had PD and is having trouble with his balance and his stamina. He is not very steady when he walks and his legs are weak and he has fallen a few times BW/FW. No freezing episodes. On PD meds. Has had PD for a few years. He does not exercise. He tries to walk and lately he has not been. He used to be able to walk a couple miles at a time but now can only walk 1/4 mile and gets worn out. He uses the cane when he leaves the house. Sit to stand: able to get up without arms and softer chairs are harder to get out of. Stairs: He can go up alter at times when his legs do not feel weak and going down he generally does one at a time. He sleeps well. He can not get up from the floor if he falls. - Objective Gait: walks with wider HEAVENLY, decreased arm swing and decreased trunk rotation. Sit to stand: able to get out of a chair without the use of his arms. TU:20. LE MMT: hip flex R 4-/5 and L 4-/5, hip abd 4/5 B, Able to do 1/2 normal ROM bridge, B knee ext 4/5, B knee flex 4/5. Pt was able to walk on heels and toes (increase LOB). 4 square: 10.02 seconds. opposite arm and leg in standing X 10 on each side including counting by 2's. FGA: 19 - Balance/Special Test Scores Functional Gait Assessment Score: 19 % Disability: 36.6700 Lower Extremity Functional Score: 39 - Goals Goal 1:: I HEP Goal Time Frame: 4-6 Weeks Goal 2:: Increase Tug score by 3 seconds to decrease fall risk Goal Time Frame: 4-6 Weeks Goal 3:: Increase 4 square test to less than 9.68sec to decrease fall risk. Goal Time Frame: 4-6 Weeks Goal 4:: Increase LE strength by 1/2 muscle grade (at time of the eval: LE MMT: hip flex R 4-/5 and L 4-/5, hip abd 4/5 B, Able to do 1/2 normal ROM bridge, B knee ext 4/5, B knee flex 4/5. Pt was able to walk on heels and toes (increase LOB) Goal Time Frame: 4-6 Weeks - Rehabilitation Potential Rehabilitation Potential: Good - Anticipated Interventions Patient/Client Instruction: Educate patient on: Condition, Plan of Care For the Purpose of:: To improve nutrient delivery to tissue, To increase oxygenation perfusion, To improve muscle performance and motor function, To improve ability to perform ADL's, To increase tolerance to activity/condition/position, To improve performance and independence with ADL's, To decrease level of supervision to perform tasks, To improve ability of physical actions for home/community/work/leisure, To improve gait and locomotor functions, To decrease soft tissue restriction, To increase flexibility/ROM, To improve endurance, To improve balance, To improve safety with gait Therapeutic Exercise to Include: Strength training, Endurance training, Balance training, Postural training, Flexibilty training, Gait and locomotor training, Passive ROM, Active ROM For the Purpose of:: To improve muscle performance and motor function, To improve ability to perform ADL's, To increase tolerance to activity/condition/po sition, To improve performance and independence with ADL's, To decrease level of supervision to perform tasks, To improve ability of physical actions for home/community/work/leisure, To improve gait and locomotor functions, To improve health of tissue, To increase flexibility/ROM, To improve endurance, To improve balance, To improve safety with gait, To improve safety Functional Training to Include: Gait training For the Purpose of:: To improve gait and locomotor functions Manual Therapy Techniques to Include: Passive ROM For the Purpose of:: To increase ROM Thank you for the opportunity to evaluate your patient. For Medicare and Medicare HMO plans, please review the plan of care and approve it. It will need to be FAXED BACK to us at [phone] for Medicare purposes. For Medicare only, by signing this I certify the plan of care. Please let me know if there are questions or concerns regarding this plan of care. Physician Signature: Date:
--- NOTE | 2021-12-12 11:33 | HP.PTDCSUM ---
It has been my pleasure to treat MIGUEL GUEVARA referred by Dr. Eladia García DO, with the diagnosis of PD, balance issues, generalized weakness for a total of 9 visit(s). Discharge Date: 12/12/21 Please see the following information for a summary of their discharge status. Subjective: Pt reports that he still feels that his balance is bad and that he gets tired when he walks. Pt feels that the PD class is a good fit for him. Pt wants to see more of the stations than the stretching. generalized achy Pain Intensity (Out of 10): Unrated B knee pain Pain Intensity (Out of 10): Unrated Back Pain Pain Intensity (Out of 10): 3 % Improvement: 25 Objective/Function: LE MMT: hip flex R 4/5 and L 4/5, hip abd 4/5 B, Able to do 1/2 normal ROM bridge, B knee ext 4/5, B knee flex 4/5. Pt was able to walk on heels and toes (increase LOB). TUG improved from 9.20 seconds to 7.47 seconds. 4 Square Test improved from 10.02 to 9 seconds. Goal 1:: I HEP Goal Progress: Goal Met Goal 2:: Increase Tug score by 3 seconds to decrease fall risk Goal Progress: Progressing Goal 3:: Increase 4 square test to less than 9.68sec to decrease fall risk. Goal Progress: Goal Met Goal 4:: Increase LE strength by 1/2 muscle grade (at time of the eval: LE MMT: hip flex R 4-/5 and L 4-/5, hip abd 4/5 B, Able to do 1/2 normal ROM bridge, B knee ext 4/5, B knee flex 4/5. Pt was able to walk on heels and toes (increase LOB) Goal Progress: Goal Met Plan: DC PT to HEP and PD class. Discharge Comments: DC PT to PD class. If there are questions or concerns regarding this patient's physical therapy, please feel free to call me at [phone]. Thank you for the referral of this patient. Sincerely, Renata Baker, MPT Balance/Gait/Functional tests - Balance/Special Test Scores Functional Gait Assessment Score: 19 % Disability: 36.6700 Lower Extremity Functional Score: 44
== END 2021-12-12 19:00 | disposition home or self-care (01) ==
LOC: PT 11:00
PROVIDERS: PCP Internal Medicine; Referring Provider Internal Medicine; Visit Provider Internal Medicine
DX: G20 Parkinson's disease (principal); R53.1 Weakness; R26.89 Other abnormalities of gait and mobility
CPT/HCPCS: 97110; 97161; 97530

== ENCOUNTER → 2022-02-21 | Outpatient (CLI) | payer MEDICARE, OTHER, SELFPAY ==
--- NOTE | 2022-02-21 10:00 | STRESSREP ---
Stress Test Report Pharmacologic myocardial perfusion stress test. 76-year-old male with a history of dyspnea on exertion. Stress protocol: Resting EKG demonstrates normal sinus rhythm with a rate of 57 bpm normal intervals are noted resting blood pressure 148/72 mmHg. 0.4 mg of regadenoson was infused per usual protocol followed by rapid intravenous saline flush injection continuous EKG monitoring was performed. The maximum heart rate was 90 bpm which was 61% of max impacted heart rate the maximum workload was 1 metabolic equivalent. At rest there were no ST or T wave changes noted suggest abnormal flow reserve and at peak infusion nonspecific ST changes were noted with did not meet the criteria for abnormal flow reserve. No clinical angina was noted. Myocardial perfusion protocol. 14.3 mCi of technetium 99m sestamibi was injected at rest. 0.4 mg of regadenoson was infused per usual protocol. At peak infusion 44.6 mCi of technetium 99m sestamibi was injected stress images were obtained stress and rest images were reconstructed and compared in the short axis vertical long horizontal long axis. Gated images were also obtained for Perfusion SPECT analysis: Review of the stress images demonstrate normal uptake of tracer noted in all areas of the myocardium. The resting images similar demonstrate normal uptake of tracer noted in all areas of the myocardium. No areas of reversibility are noted suggest ischemia and no previous infarct is noted. Gated SPECT analysis: The gated ejection fraction is 60%. Conclusion: Normal pharmacologic myocardial perfusion stress test. Preserved ejection fraction.
== END | disposition home or self-care (01) ==
LOC: CVS 06:02
PROVIDERS: PCP Internal Medicine; Referring Provider Internal Medicine; Visit Provider Internal Medicine
DX: R06.00 Dyspnea, unspecified (principal)
CPT/HCPCS: 78452; 93017; A9500; A4216; J2785

== ENCOUNTER → 2022-07-19 | Outpatient (CLI) | payer MEDICARE, OTHER, SELFPAY ==
--- NOTE | 2022-07-19 11:01 | US_ITS ---
EXAM: US RETROPERITONEAL LIMITED, RENAL CLINICAL INDICATION: DISORDER OF KIDNEY TECHNIQUE: Limited grayscale and color Doppler sonographic evaluation of the retroperitoneum was performed. This report was created using [employer] report [employer] technology. COMPARISON: None. FINDINGS: RIGHT KIDNEY: Right kidney measures 10.6 cm in length. 3 mm right renal stone. No hydronephrosis. No perinephric collection is demonstrated. LEFT KIDNEY: Left kidney measures 11.5 cm in length 2.2 cm left renal cyst. No hydronephrosis. No shadowing calculus. No perinephric collection is demonstrated. BLADDER: Mild urinary bladder wall thickening which may represent cystitis or bladder hypertrophy related to chronic outlet obstruction. Bladder mass not excluded. OTHER FINDINGS: Prostate gland is enlarged measuring 5.5 x 5.4 x 4.9 cm. US/Kidney and Bladder IMPRESSION: 1. Nonobstructive 3 mm right renal stone. 2. Prostatomegaly. 3. Urinary bladder wall thickening as described. Electronically Signed: Isaac Oliver MD at 14:58 EDT ,
== END | disposition home or self-care (01) ==
LOC: US 10:58
PROVIDERS: PCP Internal Medicine; Referring Provider Internal Medicine; Visit Provider Internal Medicine
DX: N28.9 Disorder of kidney and ureter, unspecified (principal); R79.89 Other specified abnormal findings of blood chemistry
CPT/HCPCS: 76770

== ENCOUNTER → 2022-07-24 | Outpatient (CLI) | payer MEDICARE, OTHER, SELFPAY ==
--- NOTE | 2022-07-24 07:38 | US_ITS ---
STUDY: ABDOMINAL ULTRASOUND - RIGHT UPPER QUADRANT REASON FOR VISIT: Male, 76 years old ELEVATED LIVER FUNCTION TEST TECHNIQUE: Ultrasound evaluation of the right upper quadrant was performed with real-time and static cano-scale imaging. TECHNICAL QUALITY: Adequate. COMPARISON: Comparison is made with prior study dated 07/19/2022. FINDINGS: Liver: The liver measures 15 cm. There is normal echogenicity of the liver. The bile ducts are within normal limits. There is hepatic color flow. The direction of portal flow is hepatopetal. There is no demonstrated mass lesion. Gallbladder: Normal distended gallbladder. The gallbladder wall measures 2.3 mm. There is a negative sonographic He''s sign. There is no pericholecystic fluid. There are no gallstones. Common Bile Duct (C.B.D.): The common bile duct measures 6.7 mm. Pancreas: Normal size of the head, body and tail of the pancreas. There is normal echogenicity of the pancreas. There is no demonstrated pancreatic mass or cyst. Right Kidney: Normal size of the right kidney. The right kidney measures 10.2 cm x 5.2 cm x 4.7 cm. Normal renal cortex. The right cortex measures 1.5 cm. There is a 1.8 cm x 1.7 cm x 1.2 cm cyst in the right kidney. There is also evidence of a 4 mm nonobstructive intrarenal calculus. There is no right hydronephrosis. US/Abdomen Limited IMPRESSION: Right renal cyst. 4 mm nonobstructive right intrarenal calculus. Electronically Signed: Howie Brothers MD at 15:17 EDT ,
== END | disposition home or self-care (01) ==
LOC: US 07:35
PROVIDERS: PCP Internal Medicine; Referring Provider Internal Medicine; Visit Provider Internal Medicine
DX: R79.89 Other specified abnormal findings of blood chemistry (principal)
CPT/HCPCS: 76705

== ENCOUNTER → 2022-08-21 | Outpatient (CLI) | payer MEDICARE, OTHER, SELFPAY ==
[2022-08-21 13:20] LABS: Absolute Lymphocyte Count 2.03 X10^3/uL (0.83-4.51); Absolute Neutrophil Count 6.4 X10^3/uL (2.0-7.7); Basophil# 0.04 X10^3/uL; Basophil% 0.4 % (0-1); Eosinophils% 3.2 % (0-5); Hematocrit 39.6 % (40-54); Hemoglobin 12.3 g/dL (13.0-16.5); Lymphocyte # 2.03 X10^3/ul (0.83-4.51); Lymphocyte % 21.6 % (19-41); Mean Corp Hgb Conc 31.1 g/dL (32-36); Mean Corpuscular Hgb 30.4 pg (27.0-32.0); Mean Platelet Vol. 11.6 fl (6.2-12.0); Monocyte# 0.54 X10^3/uL; Monocyte% 5.8 % (0-10); NRBC Flagged by Analyzer 0 % (0-5); Neutrophil # 6.43 X10^3/uL (2.7-7.7); Neutrophil % 68.6 % (47-70); Platelet Count 300 K/mm3 (150-450); RBC Distribution Width CV 15.3 % (11.6-14.6); RBC Distribution Width SD 54.9 fl (35.1-43.9); Red Blood Count 4.04 M/mm3 (4.6-6.2); White Blood Count 9.4 K/mm3 (4.4-11.0)
[2022-08-21 13:30] LABS: Prothrombin Time (Protime)PT. 13.1 SECONDS (11.7-14.9)
[2022-08-21 13:31] LABS: Partial Thromboplast Time 28.3 Seconds (24.1-36.2)
[2022-08-21 13:34] LABS: ALB/GLOB Ratio 0.8 RATIO (0.9-2.4); AST(SGOT) 20 U/L (15-37); Alanine Aminotransfer ALT/SGPT 10 U/L (16-61); Albumin, Serum 3.2 g/dL (3.2-5.0); Alkaline Phosphatase 199 U/L (45-117); Anion Gap 6 (5-15); BUN 25 mg/dL (7-18); BUN/Creat Ratio 18.5 RATIO (10-20); Calcium,Total 8.9 mg/dL (8.5-10.1); Chloride 113 mmol/L (98-107); Creatinine, Serum 1.35 mg/dL (0.70-1.30); EST Glomerular Filtration Rate 55 mL/min (>60); Est Glom Filt Rate - Afr Amer 66 mL/min (>60); Globulin 3.9 g/dL (2.2-4.2); Glucose 106 mg/dL (74-106); Potassium 4.2 mmol/L (3.5-5.1); Protein, Total 7.1 g/dL (6.4-8.2); Sodium Level 143 mmol/L (136-145); Troponin-I HS 10 pg/mL (3.0-78.0)
== END | disposition home or self-care (01) ==
PROVIDERS: PCP Internal Medicine; Visit Provider Internal Medicine
DX: K92.1 Melena (principal); R06.09 Other forms of dyspnea
CPT/HCPCS: 80053; 84484; 85025; 85610; 85730

== ENCOUNTER → 2022-12-05 | Outpatient (CLI) | payer MEDICARE, OTHER, SELFPAY ==
--- NOTE | 2022-12-05 08:50 | RAD_ITS ---
EXAM: FL Esophagram, Double Contrast HISTORY: DYSPHAGIA, 34.22 mGy, 62 seconds fluoroscopy, 6 fluoroscopic images obtained COMPARISON: None FINDINGS: Swallowing was initiated normally. No nasopharyngeal reflux or aspiration. No Zenker diverticulum noted on the lateral view. There are anterior spurs in the lower C-spine which impinge upon the posterior esophagus. Normal peristaltic activity noted in the proximal esophagus. However, the mid and distal esophagus demonstrates tertiary contractions with intraesophageal reflux. There is a prominent retrocardiac hiatal hernia with evidence of GE reflux. A 13 mm barium pill passed through the esophagus without difficulty. 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 There is both intraesophageal and GE reflux. Electronically Signed: Anselmo Bass MD at 10:00 EDT ,
== END | disposition home or self-care (01) ==
LOC: RAD 08:39
PROVIDERS: PCP Internal Medicine; Referring Provider Internal Medicine Gastroenterology; Visit Provider Internal Medicine Gastroenterology
DX: R13.10 Dysphagia, unspecified (principal)
CPT/HCPCS: 74221

== ENCOUNTER 2022-12-13 13:30 | Outpatient (RCR) | payer MEDICARE, OTHER, SELFPAY ==
--- NOTE | 2022-09-08 14:26 | HP.PTEVAL_ITS ---
Patient's Visit Information MIGUEL GUEVARA is a 77 year old M referred to Physical Therapy by Dr. Rubi Sanchez MD with a diagnosis of PD, neck pain, cervical dystonia. Date of Evaluation: 09/08/22 Physical Therapist: LIV Juares - Visit Plan Frequency: 2-3x /Week Duration: 6 Weeks Plan: 2-3X/ week for c-spine paraspinal MT, light PROM, light distraction, postural exercises with HEP. Also work on functional balance (EC/EO, head turns, foam and no foam) with HEP. HEP: c-spine rotation X 10 each direction up to 5X/ day - Subjective Pt reports that today is his birthday and he is going out to eat after this. Pt has not felt good for a long while. He stopped coming to PD class cause he would feel bad for 2 days after that. He can not turn his neck very far. He went to a pain management spine Dr. He wanted him to get PT and then the Dr wants to do x-rays if PT goes not help. If X-ray is ok he might have to do an MRI. He has neck all the time but worse with turning his head both directions. He does not sleep but that is not because of his neck. He has no N&T and no weakness into his hands. This was a gradual onset. His balance is terrible. He uses the cane when he goes places that he is not familiar with. He has not had any recent falls. He has not had any freezing episodes. He thinks the PD is getting worse (the shakes and balance). He drives but not often cause he can not turn his neck. PT Goals: fix his neck and make his balance a little better. - Pain c-spine Pain Intensity (Out of 10): 2 Pain Intensity Range: 8 Comment: with turning his neck. LBP Pain Intensity (Out of 10): 0 Pain Intensity Range: 8 Comment: standing - Objective C-spine AROM: Rot B 10%, flex 50%, Ext 10%, SB R 10% and SB L 20%. UE AROM: Flex and Abd approx 120, IR WFL. UE MMT: Flexion 11.8# and 12.6#, IR R 16.7# and L 17.2#, ER R 20.4 and L 20.2. bicep reflex 2+/3 B. 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 Palpation: Tender along the c-spine paraspinals, traps, scalenes and levator. Gait: Walks with flexed trunk and decreased arm swing. good step length and passes stance leg. LE MMT: hip Flex 18.1# and 15.1# and knee ext R 30.7# and L 31.8#, R knee flex 19.5# and L 19.1#. Posture: sits with increase PPT and rounded shoulders and significant fw head. standing opp arm and let. Sit to stand: Able to get up out of the chair without using his arms. FGA: . Stairs: up and down recip with 2 hand rails. TU:06. 4 square: 8.65. Standing with EC 12 seconds and therapist needed to give min A (light touch to correct balance). Sitting opp arm and leg: X 20 without messing up. Did some PT of the c-spine upper paraspinals and some manual light rotation and then had the patient sit up and he felt he could move his neck a little more - Balance/Special Test Scores Functional Gait Assessment Score: 19 % Disability: 36.6700 Lower Extremity Functional Score: 19 - Goals Goal 1:: I HEP Goal Time Frame: 4-6 Weeks Goal 2:: Increase C-spine AROM (at time of the eval: C-spine AROM: Rot B 10%, flex 50%, Ext 10%, SB R 10% and SB L 20%) Goal Time Frame: 4-6 Weeks Goal 3:: Be able to sit with more upright posture on command Goal Time Frame: 4-6 Weeks Goal 4:: Increase FGA by 2 points to decrease fall risk Goal Time Frame: 4-6 Weeks - Rehabilitation Potential Rehabilitation Potential: Good - Anticipated Interventions Patient/Client Instruction: Educate patient on: Condition, Plan of Care For the Purpose of:: To decrease pain, To increase ROM, To improve nutrient delivery to tissue, To improve muscle performance and motor function, To improve ability to perform ADL's, To increase tolerance to activity/condition/position, To improve performance and independence with ADL's, To improve ability of physical actions for home/community/work/leisure, To improve gait and locomotor functions, To improve health of tissue, To decrease soft tissue restriction, To increase flexibility/ROM, To improve balance, To improve safety with gait Therapeutic Exercise to Include: Strength training, Endurance training, Balance training, Body mechanics, Postural training, Flexibilty training, Gait and locomotor training, Passive ROM, Active ROM, Dynamic Lumbar Stabilization, Scapular Strength/Stabilization For the Purpose of:: To decrease pain, To decrease swelling/inflammation, To increase ROM, To improve nutrient delivery to tissue, To improve muscle performance and motor function, To improve ability to perform ADL's, To increase tolerance to activity/condition/position, To improve performance and independen ce with ADL's, To decrease level of supervision to perform tasks, To improve ability of physical actions for home/community/work/leisure, To improve gait and locomotor functions, To improve health of tissue, To decrease soft tissue restriction, To increase flexibility/ROM, To improve balance, To improve safety with gait Functional Training to Include: Gait training For the Purpose of:: To improve gait and locomotor functions Manual Therapy Techniques to Include: Passive ROM, Soft tissue mobilization For the Purpose of:: To decrease pain, To decrease swelling/inflammation, To increase ROM, To improve nutrient delivery to tissue, To improve muscle performance and motor function, To improve ability to perform ADL's, To increase tolerance to activity/condition/position, To improve performance and independence with ADL's, To improve gait and locomotor functions, To improve health of tissue, To decrease soft tissue restriction, To increase flexibility/ROM, To improve endurance, To improve balance, To improve safety with gait Thermo therapy (hot pack): Yes For the Purpose of:: To decrease pain, To increase ROM, To improve nutrient delivery to tissue Thank you for the opportunity to evaluate your patient. For Medicare and Medicare HMO plans, please review the plan of care and approve it. It will need to be FAXED BACK to us at [phone] for Medicare purposes. For Medicare only, by signing this I certify the plan of care. Please let me know if there are questions or concerns regarding this plan of care. Physician Signature: Date:
--- NOTE | 2022-10-18 13:46 | HP.PTREVAL_ITS ---
Dr. Rubi Sanchez MD, It has been my pleasure to treat MIGUEL GUEVARA over the last 9 visits for PD, neck pain, cervical dystonia. Please see the progress note below for an update on the physical therapy plan of care! Subjective: Pt reports that his neck pain is about 7/10 today. He feels that he has 70% improvement but would like to continue a little more and see if he can get more improvement. Objective/Function: C-spine AROM: Rot B 25%, flex 50%, Ext 25%, SB R 20 % and SB L 25%). FGA: 22 Plan Plan: 2-3X/ week for c-spine paraspinal MT, light PROM, light distraction, postural exercises with HEP. Also work on functional balance (EC/EO, head turns, foam and no foam) with HEP. HEP: c-spine rotation X 10 each direction up to 5X/ day Balance/Gait/Functional tests - Balance/Special Test Scores Functional Gait Assessment Score: 22 % Disability: 26.6700 Lower Extremity Functional Score: 38 Goals Goal 1:: I HEP Goal Time Frame: 4-6 Weeks Goal 2:: Increase C-spine AROM (at time of the eval: C-spine AROM: Rot B 10%, flex 50%, Ext 10%, SB R 10% and SB L 20%) Goal Time Frame: 4-6 Weeks Goal 3:: Be able to sit with more upright posture on command Goal Time Frame: 4-6 Weeks Goal Progress: Progressing Goal 4:: Increase FGA by 2 points to decrease fall risk Goal Time Frame: 4-6 Weeks Goal Progress: Goal Met Goal 5:: Decrease neck pain to 5/10 with ADL's Goal Time Frame: 8-12 Weeks Anticipated Interventions Patient/Client Instruction: Educate patient on: Condition, Plan of Care For the Purpose of:: To decrease pain, To increase ROM, To improve nutrient delivery to tissue, To improve muscle performance and motor function, To improve ability to perform ADL's, To increase tolerance to activity/condition/position, To improve performance and independence with ADL's, To improve ability of physical actions for home/community/work/leisure, To improve gait and locomotor functions, To improve health of tissue, To decrease soft tissue restriction, To increase flexibility/ROM, To improve balance, To improve safety with gait Therapeutic Exercise to Include: Strength training, Endurance training, Balance training, Body mechanics, Postural training, Flexibilty training, Gait and locomotor training, Passive ROM, Active ROM, Dynamic Lumbar Stabilization, Scapular Strength/Stabilization For the Purpose of:: To decrease pain, To decrease swelling/inflammation, To increase ROM, To improve nutrient delivery to tissue, To improve muscle performance and motor function, To improve ability to perform ADL's, To increase tolerance to activity/condition/position, To improve performance and independence with ADL's, To decrease level of supervision to perform tasks, To improve ability of physical actions for home/community/work/leisure, To improve gait and locomotor functions, To improve health of tissue, To decrease soft tissue restriction, To increase flexibility/ROM, To improve balance, To improve safety with gait Functional Training to Include: Gait training For the Purpose of:: To improve gait and locomotor functions Manual Therapy Techniques to Include: Passive ROM, Soft tissue mobilization For the Purpose of:: To decrease pain, To decrease swelling/inflammation, To increase ROM, To improve nutrient delivery to tissue, To improve muscle performance and motor function, To improve ability to perform ADL's, To increase tolerance to activity/condition/position, To improve performance and independence with ADL's, To improve gait and locomotor functions, To improve health of tissue, To decrease soft tissue restriction, To increase flexibility/ROM, To improve endurance, To improve balance, To improve safety wi th gait Thermo therapy (hot pack): Yes For the Purpose of:: To decrease pain, To increase ROM, To improve nutrient delivery to tissue Please do not hesitate to contact me at [phone] by phone or if you have questions or concerns regarding this new plan of care! Sincerely, Renata Baker, MPT
--- NOTE | 2022-12-13 13:59 | HP.PTDCSUM ---
It has been my pleasure to treat MIGUEL GUEVARA referred by Dr. Rubi Sanchez MD, with the diagnosis of PD, neck pain, cervical dystonia for a total of 17 visit(s). Discharge Date: 12/13/22 Please see the following information for a summary of their discharge status. Subjective: Pt went to the Dr and he had a swallow test and an endoscopy and they found and bone spur putting pressure on his esophagus and his throat is like pulsating and they also took a biopsy. He feels that PT is not helping him group home. He is waiting for test results and to do a few more test. His neck pain is pretty bad in evening and morning. c-spine Pain Intensity (Out of 10): 2 LBP Pain Intensity (Out of 10): 0 % Improvement: 70 Objective/Function: C-spine AROM: Rot B 25%, flex 50%, Ext 20%, SB R 20% and SB L 25%). Pt always feels looser after MT but it does not last. Goal 1:: I HEP Goal Progress: Not Progressing Goal 2:: Increase C-spine AROM (at time of the eval: C-spine AROM: Rot B 10%, flex 50%, Ext 10%, SB R 10% and SB L 20%) Goal Progress: Progressing Goal 3:: Be able to sit with more upright posture on command Goal Progress: Progressing Goal 4:: Increase FGA by 2 points to decrease fall risk Goal Progress: Goal Met Goal 5:: Decrease neck pain to 5/10 with ADL's Goal Progress: Not Progressing Plan: DC PT to HEP and back to physician. HEP: c-spine rotation X 10 each direction up to 5X/ day Discharge Comments: DC PT to physician If there are questions or concerns regarding this patient's physical therapy, please feel free to call me at [phone]. Thank you for the referral of this patient. Sincerely, Renata Baker, MPT Balance/Gait/Functional tests - Balance/Special Test Scores Functional Gait Assessment Score: 22 % Disability: 100 Lower Extremity Functional Score: 31
== END 2022-12-13 19:00 | disposition home or self-care (01) ==
LOC: PT 13:30
PROVIDERS: PCP Internal Medicine; Referring Provider Psychiatry & Neurology Neurology; Visit Provider Psychiatry & Neurology Neurology
DX: G20 Parkinson's disease (principal); M54.2 Cervicalgia; G24.3 Spasmodic torticollis
CPT/HCPCS: 97110; 97140; 97162; 97530

== ENCOUNTER → 2022-12-28 | Outpatient (CLI) | payer MEDICARE, OTHER, SELFPAY ==
--- NOTE | 2022-12-28 10:15 | NM_ITS ---
CLINICAL: 77-year-old male with history of chronic nausea. SEMI-SOLID PHASE 99m Tc SULFUR COLLOID GASTRIC EMPTYING STUDY COMPARISON: None available FINDINGS: The patient was administered 1.1 mCi of 99m Tc sulfur colloid mixed with oatmeal and consumed per os. Image acquisitions in anterior-posterior projections were obtained for 60 minutes. There is prompt visualization of the stomach. There is no gastroesophageal reflux identified. The T ? raw data emptying was calculated to be 26.66 minutes, (Normal: 12-56 minutes). NM/Gastric Emptying Study IMPRESSION: 1. NORMAL 99m Tc sulfur colloid semi-solid phase (oatmeal) gastric emptying imaging examination. A. There is normal and preserved semi-solid phase gastric emptying compared to normal controls. (Lynn et al, J Nucl Med Tech 38: 186, 2010). Electronically Signed: Reginaldo Mata, at 8:29 EDT ,
== END | disposition home or self-care (01) ==
LOC: NM 10:10
PROVIDERS: PCP Internal Medicine; Referring Provider Internal Medicine Gastroenterology; Visit Provider Internal Medicine Gastroenterology
DX: R11.0 Nausea (principal)
CPT/HCPCS: 78264; A9541

== ENCOUNTER → 2022-12-30 | Outpatient (CLI) | payer MEDICARE, OTHER, SELFPAY ==
--- NOTE | 2022-12-30 07:47 | MRI_ITS ---
STUDY: MRI CERVICAL SPINE WITHOUT CONTRAST REASON FOR EXAM: Male, 77 years old. Cervical spinal stenosis TECHNIQUE: Standardized fat and water weighted pulse sequences were obtained in the sagittal and axial planes. COMPARISON: MRI cervical spine without contrast 03/05/2020. FINDINGS: Normal foramen magnum and brainstem-cervical cord junction. Normal craniovertebral junction. Normal anterior atlantoaxial articulation. Normal odontoid process. Normal cervical lordosis. Normal vertebral bodies and posterior osseous elements. C2-3: Normal endplates. Normal disc height. Midline ventral extradural defect is posterior bulging annulus and is unchanged. Normal central canal and intervertebral neural foramina. C3-4: Normal endplates. Mild disc space height narrowing. Mild ventral epidural defect due to posterior bulging annulus and posterior marginal spurs. This is causing mild indentation of the ventral cord surface. Mild central canal stenosis with an AP canal diameter of 6.6 mm is unchanged. There is moderate stenosis of the right intervertebral neural foramen. Mild stenosis of the left intervertebral neural foramen. This level is unchanged. C4-5: Normal endplates. Minimal disc space height narrowing. Prominent right ventral extradural defect extending caudally is at least bone spur causing posterior displacement of the right C5 nerve root sleeve. The bone spur is also minimally touching the right ventral cord surface. Normal central canal. Mild stenosis of the right intervertebral neural foramen. Normal left intervertebral neural foramina. In my opinion, this level is unchanged. C5-6: Normal endplates. Normal disc height. Minimal ventral extra dural defect due to posterior bulging annulus is unchanged. Normal central canal. Moderate stenosis of the left intervertebral neural foramen. Mild stenosis of the right intervertebral neural foramen. This level is unchanged. C6-7: Normal endplates. Normal disc height. Right ventral extradural defect is posterior marginal spurs. This is unchanged. Normal central canal and intervertebral neural foramina. This level is unchanged. C7-T1: Normal endplates. Normal disc height, signal and morphology. Normal central canal and intervertebral neural foramina. T1-T2, T2-T3 and T3-4: (Sagittal only). Normal endplates. Normal disc height, signal and morphology. Normal central canal and intervertebral neural foramina. No intrinsic signal abnormality of the spinal cord. Mild indentation of the right ventral cord surface at C4-C5 disc space levels due to bone spurs. Normal upper thoracic spinal cord, brainstem and cerebellum. Normal visualized soft tissue structures. OPINION: 1. 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 Calcified right posterior caudal disc extrusion cannot be entirely excluded. Additionally, mild stenosis of the right C4-C5 intervertebral neural foramen. In my opinion, these were present previously and are unchanged. 2. 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 This is unchanged. 3. C3-C4 ventral extradural defect due to posterior bulging annulus and posterior marginal spurs causing minimal indentation of the ventral cord surface and mild central canal stenosis. Additionally, moderate stenosis of the right intervertebral neural foramen and mild stenosis of the left intervertebral neural foramen. This level is unchanged. No 4. No MRI evidence of any suspicious cervical extruded disc fragment. 5. No significant interval change when compared to 03/05/2020. Electronically Signed: Renan Ritchie MD at 13:33 EDT , MRI/Spine Cervical (Routine) IMPRESSION: undefined
== END | disposition home or self-care (01) ==
LOC: MRI 07:46
PROVIDERS: PCP Internal Medicine; Visit Provider Internal Medicine
DX: M48.02 Spinal stenosis, cervical region (principal)
CPT/HCPCS: 72141

== ENCOUNTER 2023-01-10 17:16 | Emergency (ER) | payer MEDICARE, OTHER, SELFPAY ==
[2023-01-10 17:18] VITALS: BP 162/61; PULSE 62; RESP 18; TEMP 36.8; O2SAT 96
[2023-01-10 17:53] LABS: Absolute Lymphocyte Count 0.88 X10^3/uL (0.83-4.51); Absolute Neutrophil Count 12.9 X10^3/uL (2.0-7.7); Basophil# 0.03 X10^3/uL; Basophil% 0.2 % (0-1); Eosinophil# 0.09 X10^3/uL; Eosinophils% 0.6 % (0-5); Hematocrit 45.7 % (40-54); Hemoglobin 14.3 g/dL (13.0-16.5); Lymphocyte # 0.88 X10^3/ul (0.83-4.51); Mean Corp Hgb Conc 31.3 g/dL (32-36); Mean Corpuscular Hgb 29.8 pg (27.0-32.0); Mean Corpuscular Volume 95.2 fL (80-94); Mean Platelet Vol. 10.8 fl (6.2-12.0); Monocyte# 0.62 X10^3/uL; Monocyte% 4.2 % (0-10); NRBC Flagged by Analyzer 0 % (0-5); Neutrophil # 12.93 X10^3/uL (2.7-7.7); Neutrophil % 88.6 % (47-70); Platelet Count 330 K/mm3 (150-450); RBC Distribution Width CV 15.7 % (11.6-14.6); RBC Distribution Width SD 55.5 fl (35.1-43.9); White Blood Count 14.6 K/mm3 (4.4-11.0)
[2023-01-10 18:13] LABS: ALB/GLOB Ratio 0.8 RATIO (0.9-2.4); AST(SGOT) 131 U/L (15-37); Alanine Aminotransfer ALT/SGPT 34 U/L (16-61); Albumin, Serum 3.1 g/dL (3.2-5.0); Alkaline Phosphatase 436 U/L (45-117); Anion Gap 4 (5-15); BUN 22 mg/dL (7-18); BUN/Creat Ratio 15.6 RATIO (10-20); Calcium,Total 9.2 mg/dL (8.5-10.1); Chloride 112 mmol/L (98-107); Creatinine, Serum 1.41 mg/dL (0.70-1.30); EST Glomerular Filtration Rate 52 mL/min (>60); Est Glom Filt Rate - Afr Amer 63 mL/min (>60); Globulin 4.1 g/dL (2.2-4.2); Glucose 136 mg/dL (74-106); Potassium 4.1 mmol/L (3.5-5.1); Protein, Total 7.2 g/dL (6.4-8.2); Sodium Level 139 mmol/L (136-145)
[2023-01-10 18:25] LABS: Bacteria 0 SEEN /hpf (None Seen); Red Blood Cells-Urine 0 SEEN /hpf (0-5); Squamous Epithelial Cells - UA 0 SEEN /hpf (0-5)
[2023-01-10 18:27] LABS: Color, Urine Yellow (Yellow); Glucose, Dipstick Normal (Normal); Ketone-Dipstick 15 mg/dl (Negative); Leukocyte Esterase-Dipstick 25 /ul (Negative); Nitrite-Dipstick Negative (Negative); Occult Blood-Urine Negative /ul (Negative); Protein-Dipstick 15 mg/dl (Negative); Specific Gravity, Urine 1.025 (1.002-1.030); Urine Clarity Clear (Clear); Urine Urobilinogen 8 mg/dl (Normal)
[2023-01-10 18:31] LABS: Urine Bilirubin Dipstick 3 mg/dL (Negative)
[2023-01-10 18:35] LABS: Mucous, Urine RARE /hpf (<or=2+); White Blood Cells 0-5 SEEN /hpf (0-5)
--- NOTE | 2023-01-10 18:45 | EKG12_ITS ---
Test Reason : DYSRHYTHMIA Blood Pressure : / mmHG Vent. Rate : 075 BPM Atrial Rate : 075 BPM P-R Int : 188 ms QRS Dur : 078 ms QT Int : 400 ms P-R-T Axes : 066 005 038 degrees QTc Int : 446 ms Normal sinus rhythm Low voltage QRS Borderline ECG Confirmed by JENSEN CHANDLER MD ([id number]), newspaper photo editor LILLIE ARRIAGA ([id number]) on 01/12/2023 2:21:24 PM Referred By: KYREE Confirmed By:JENSEN CHANDLER MD
--- NOTE | 2023-01-10 18:47 | EDS_ITS ---
HPI HPI - GI History of Present Illness Chief Complaint: Abd Pain Narrative Narrative: 7-year-old male presenting with abdominal pain. He states it is below his diaphragm and above his umbilicus. He describes it as aching and sharp. He states this started about 4 hours ago and was pretty persistent and is now much improved. He had nausea without vomiting. Denies diarrhea or constipation. Patient states that he had upper endoscopy with Dr. Young about a month ago. Everything looked okay. He has a history of gastric bypass as well as hiatal hernia. Patient reports that today he had toast and butter for breakfast and then fried chicken for lunch. There is nothing that would have set him off typically. He does state the pain in the upper abdomen now radiates into his chest periodically throughout the course of the day. He states he has shortness of breath typically but this is unchanged. No chest pressure, lightheadedness. Patient does report that he had a swallow performed yesterday. This was ordered by Dr. Pires performed at [facility] Medical History (Updated 01/10/23 @ 19:[address] Waleska Bernard MD) CKD (chronic kidney disease), stage III GERD (gastroesophageal reflux disease) History of CVA (cerebrovascular accident) HTN (hypertension) Hyperlipidemia Hypothyroidism Parkinsons disease Sinus bradycardia, chronic Home Medications levothyroxine 112 mcg tablet 112 mcg PO DAILY THYROID 05/03/15 [History Last Taken 12/18/19] Carbidopa-Levo 25-100 mg Odt 1 tab PO TID parkinsons 08/14/20 [History Last Taken Unknown] Multiple Vitamin 1 tablet PO DAILY 08/14/20 [History Last Taken Unknown] Allergy/AdvReac Type Severity Reaction Status Date / Time lisinopril Allergy Swelling Verified 01/10/23 17:19 Family History (Updated 01/10/23 @ 19:[address] Waleska Bernard MD) Father Colon cancer COPD (chronic obstructive pulmonary disease) Surgical History (Updated 01/10/23 @ 19:[address] Waleska Bernard MD) H/O carpal tunnel repair H/O gastric bypass h/o right thumb surgery History of back surgery History of gastric bypass History of tonsillectomy and adenoidectomy History of total bilateral knee replacement Social History (Updated 01/10/23 @ 19:[address] Waleska Bernard MD) household members: spouse Smoking Status: Never smoker alcohol intake: never substance use type: does not use ROS ROS ED Constitutional Constitutional ED: Denies chills or fever(s) ENT ENT ED: Denies rhinorrhea or sore throat Cardiovascular Cardiovascular: Reports chest pain Respiratory/Chest Respiratory/Chest: Denies cough or dyspnea Gastrointestinal Gastrointestinal: Reports abdominal pain and nausea Genitourinary Genitourinary ED: Denies dysuria or hematuria Musculoskeletal Musculoskeletal: Denies arthralgias Integumentary Denies abscess Neurologic Neurologic: Denies headache(s) Psychiatric Psychiatric: Denies anxiety or depression EXAM Physical Exam Const Vital Signs: 01/10/23 17:18 01/10/23 20:42 01/10/23 22:42 Temperature 98.3 F Temperature Source Temporal Pulse Rate 62 77 Respiratory Rate 18 18 Blood Pressure 162/61 H 159/65 H Blood Pressure Mean 94 96 Pulse Ox 96 95 Oxygen Delivery Method Room Air Room Air Room Air MDM MDM MDM Narrative Medical decision making narrative: Patient presenting with mid abdominal pain. He states is resolved currently. He states the pain was lasting for about 4-hours. Patient had recent upper endoscopy about a month ago. He had a swallow study yesterday. Differential includes but is not limited to GERD, gastritis, peptic ulcer disease, acute cholecystitis, acute cholelithiasis, choledocholithiasis, appendicitis, d iverticulitis, pancreatitis, small bowel obstruction, perforated bowel. CBC to assess for, hemoglobin, platelets, differential. CMP to assess liver function, renal function, glucose, anion gap, electrolytes. Lipase to assess for pancreatitis. Patient is currently pain-free. CBC shows a leukocytosis of 14.6. Hemoglobin 14.3. Platelets 330. Creatinine near baseline at 1.41. Electrolytes unremarkable. Glucose 126 without anion gap. Total bilirubin 2.5, AST 131, alk phos 436. Urinalysis negative for infection. Patient still remains pain-free. I obtained a CT of the abdomen pelvis with IV contrast which shows concern for gallstones and mild dilatation of the common bile duct. I did follow this with a right upper quadrant ultrasound which showed multiple gallstones with gallbladder wall thickening. The common bile duct is slightly dilated. Discussed with Dr. Patel she does believe it is choledocholithiasis but states that he given the patient has a history of gastric bypass the surgery would be rather complex and would involve GI and general surgery. He states he does not feel comfortable performing this procedure. He recommended transfer. I did try the transfer line for [facility] but was told that they are deferring surgical patients as they have a bunch of surgeries waiting in the ER. [facility] does not have any availability. Spoke with [facility] who did accept the patient ER to ER. Patient remained medically stable. He was given Zosyn prior to transfer. Impression: 1. Choledocholithiasis 2. Acute cholecystitis Lab Data Labs: Laboratory Results - last 24 hr 01/10/23 01/10/23 01/10/23 17:32 17:32 18:15 WBC 14.6 H RBC 4.80 Hgb 14.3 Hct 45.7 MCV 95.2 H MCH 29.8 MCHC 31.3 L RDW Std Deviation 55.5 H RDW Coeff of Aravind 15.7 H Plt Count 330 MPV 10.8 Immature Gran % (Auto) 0.400 Neut % (Auto) 88.6 H Lymph % (Auto) 6.0 L Patrick % (Auto) 4.2 Eos % (Auto) 0.6 Baso % (Auto) 0.2 Absolute Neuts (auto) 12.9 H Absolute Lymphs (auto) 0.88 Nucleated RBC % 0 Sodium 139 Potassium 4.1 Chloride 112 H Carbon Dioxide 23.0 Anion Gap 4 L BUN 22 H Creatinine 1.41 H Est GFR (MDRD) Af Amer 63 Est GFR (MDRD) Non-Af 52 L BUN/Creatinine Ratio 15.6 Glucose 136 H Calcium 9.2 Total Bilirubin 2.50 H AST 131 H ALT 34 Alkaline Phosphatase 436 H Total Protein 7.2 Albumin 3.1 L Globulin 4.1 Albumin/Globulin Ratio 0.8 L Urine Color Yellow Urine Clarity Clear Urine pH 5.0 Ur Specific Mingus 1.025 Urine Protein 15 H Urine Glucose (UA) Normal Urine Ketones 15 H Urine Occult Blood Negative Urine Nitrite Negative Urine Bilirubin 3 H Urine Urobilinogen 8 H Ur Leukocyte Esterase 25 H Urine RBC 0 SEEN Urine WBC 0-5 SEEN Ur Squamous Epith Cells 0 SEEN Urine Bacteria 0 SEEN Urine Mucus RARE Radiography Diagnostic Testing: Clinical Impression(s) from Imaging Studies Abdomen/Pelvis CT 01/10/23 19:00 IMPRESSION: Multiple gallstones with gallbladder wall thickening. Dilated common bile duct. Left renal stone. No hydronephrosis. Colonic diverticulosis. No obstruction or abscess. Electronically Signed: Ariel Hanson MD at 19:35 EDT , Chest X-Ray 01/10/23 19:01 IMPRESSION: Degenerative changes, as described above. No demonstrated acute cardiopulmonary process. Electronically Signed: Ariel Hanson MD at 19:36 EDT , Gallbladder Ultrasound 01/10/23 19:40 IMPRESSION: Multiple gallstones. Mild dilatation of the common bile duct. Electronically Signed: Ariel Hanson MD at 21:24 EDT , Discharge Plan Triage Chief Complaint: Abd Pain ED Provider: Abdulaziz Dyer Dx/Rx/DC Orders Prescriptions: No Action levothyroxine 112 MCG tablet 112 mcg PO DAILY Label Comments: TAKES 1/2 pill on Sundays. Carbidopa-Levo 25-100 mg Odt 1 tab PO TID Multiple Vitamin 1 tablet PO DAILY Primary Care Provider: Eladia García Referrals: Eladia García DO [Primary Care Provider] -
[2023-01-10] MEDS: 0.9% Normal Saline 1,000 ML 999 ML IV (18:53)
--- NOTE | 2023-01-10 19:00 | CT_ITS ---
STUDY: CT ABDOMEN AND PELVIS WITH CONTRAST REASON FOR EXAM: Male, 77 years old. Epigastric pain RADIATION DOSAGE (If Supplied By Facility): CTDIvol = ( 16.03 ) mGy, DLP = ( 1227.72 ) mGycm TECHNIQUE: Transaxial images were obtained from the dome of the diaphragm to the symphysis pubis without oral contrast. IV 100mL Isovue-300 was administered. Sagittal and coronal images were reconstructed. Individualized dose optimization techniques were used for this CT. COMPARISON: None. FINDINGS: The visualized lung bases are unremarkable. The visualized portions of the heart are within normal limits. Normal liver. There are multiple gallstones. Gallbladder wall thickening and pericholecystic edema. Common bile duct is dilated measuring 1.0 cm. Normal spleen. Normal pancreas. Normal bilateral adrenal glands. There are bilateral renal cysts measuring up to 1.7 cm. There is 0.3 cm stone at the upper pole of the left kidney. There is a small hiatal hernia with adjacent postoperative change of the stomach Normal small intestine. There are a few colonic diverticula consistent with diverticulosis. There is non-visualization of the appendix. There is diffuse atherosclerotic calcification of the abdominal aorta, without a demonstrated aneurysm. Normal inferior vena cava. Normal retroperitoneum. There is an enlarged prostate impressing upon the urinary bladder. There is no free fluid in the abdomen or pelvis. Normal abdominal wall. There is degenerative and postoperative change of the spine. CT/Abdomen/Pelvis W IV Cont ONLY IMPRESSION: Multiple gallstones with gallbladder wall thickening. Dilated common bile duct. Left renal stone. No hydronephrosis. Colonic diverticulosis. No obstruction or abscess. Electronically Signed: Ariel Hanson MD at 19:35 EDT ,
--- NOTE | 2023-01-10 19:01 | RAD_ITS ---
STUDY: X-RAY CHEST REASON FOR EXAM: Male, 77 years old. Chest pain TECHNIQUE: Single AP portable view of the chest. COMPARISON: None. FINDINGS: The lungs are clear and expanded. There is no demonstrated pleural abnormality. Normal size heart. Normal mediastinum and shasha. Normal visualized pulmonary arteries. Normal visualized aortic arch and descending thoracic aorta. There are diffuse degenerative changes of the visualized thoracic spine. Normal visualized ribs, clavicles, and shoulders. There is no demonstrated abnormality of the visualized soft tissue structures of the upper abdomen. RAD/Chest 1 View (Portable) IMPRESSION: Degenerative changes, as described above. No demonstrated acute cardiopulmonary process. Electronically Signed: Ariel Hanson MD at 19:36 EDT ,
--- NOTE | 2023-01-10 19:40 | US_ITS ---
STUDY: ABDOMINAL ULTRASOUND - RIGHT UPPER QUADRANT REASON FOR VISIT: Male, 77 years old RUQ pain TECHNIQUE: Ultrasound evaluation of the right upper quadrant was performed with real-time and static cano-scale imaging. TECHNICAL QUALITY: Adequate. COMPARISON: CT. FINDINGS: Liver: The liver measures 14.8 cm. There is normal echogenicity of the liver. The bile ducts are within normal limits. There is hepatic color flow. The direction of portal flow is hepatopetal. There is no demonstrated mass lesion. Gallbladder: Normal distended gallbladder. The gallbladder wall measures 1 mm. There is a negative sonographic He''s sign. There is no pericholecystic fluid. There are multiple echogenic structures within the gallbladder, consistent with multiple gallstones. Common Bile Duct (C.B.D.): The common bile duct measures 7 mm. Pancreas: There is nonvisualization of the pancreas. There is no demonstrated pancreatic mass or cyst. Right Kidney: Normal size of the right kidney. The right kidney measures 9.9 cm. Normal renal cortex. The right cortex measures 1.7 cm. There is 1.2 cm cyst. There is no right hydronephrosis. US/Gallbladder IMPRESSION: Multiple gallstones. Mild dilatation of the common bile duct. Electronically Signed: Ariel Hanson MD at 21:24 EDT ,
[2023-01-10 20:42] VITALS: BP 159/65; PULSE 77; O2SAT 95; BMI 31.8
--- NOTE | 2023-01-10 22:19 | NURSING ---
CALLED PHYSICIANS TO SET UP TRANSFER TO [facility]-- ETA 60-90 MINUTES --[id number]
[2023-01-10 22:42] VITALS: RESP 18
[2023-01-10 23:44] VITALS: BP 142/74; PULSE 86; RESP 18; O2SAT 94
[2023-01-10 23:59] LABS: Lipase 28 U/L (13-75)
== END 2023-01-11 00:08 | disposition short-term general hospital (02) ==
LOC: ED 18:50
PROVIDERS: Emergency Provider Student in an Organized Health Care Education/Training Program; PCP Internal Medicine; Visit Provider Student in an Organized Health Care Education/Training Program
DX: K80.62 Calculus of gallbladder and bile duct with acute cholecystitis without obstruction (principal); N18.30 Chronic kidney disease, stage 3 unspecified; I12.9 Hypertensive chronic kidney disease with stage 1 through stage 4 chronic kidney disease, or unspecified chronic kidney disease; E78.5 Hyperlipidemia, unspecified; R07.9 Chest pain, unspecified
CPT/HCPCS: 71045; 74177; 76705; 80053; 81001; 83690; 85025; 93005; 96361; 96365; 99283; Q9967; A4216

== ENCOUNTER 2023-02-07 08:52 | Emergency (ER) | payer MEDICARE, OTHER, SELFPAY ==
[2023-02-07 08:53] VITALS: BP 122/48; PULSE 65; RESP 14; TEMP 36.2; O2SAT 97; BMI 31.4
--- NOTE | 2023-02-07 09:12 | EKG12_ITS ---
Test Reason : Blood Pressure : / mmHG Vent. Rate : 062 BPM Atrial Rate : 062 BPM P-R Int : 204 ms QRS Dur : 080 ms QT Int : 450 ms P-R-T Axes : 054 005 038 degrees QTc Int : 456 ms Normal sinus rhythm Nonspecific T wave abnormality Abnormal ECG Confirmed by GERALDINE MATUTE, JENSEN ([id number]), assistant editor ANNIA NARANJO ([id number]) on 02/09/2023 9:32:33 AM Referred By: BENJAMÍN Confirmed By:JENSEN CHANDLER MD
--- NOTE | 2023-02-07 09:14 | EX.ED.DYSGE1 ---
HPI History of Present Illness Chief Complaint: Wound Check Detail of Chief Complaint: General malaise and not feeling well after recent hospitalization at [facility]. Informant: patient Onset/Context/Timing Onset: Days Context: Gradual Onset Timing: Continuous Current Severity: Mild Maximum Severity: Mild Narrative Narrative: 77-year-old male history of chronic kidney disease, hypertension, stroke, A-fib was on Coumadin currently off of it because his levels were too high and a prior gastric bypass and a prior open cholecystectomy. Patient was recently admitted to [facility] in [place] he initially had a percutaneous drain of his gallbladder and then that he had a bile leak coded twice and then had an open cholecystectomy which she has since then had wound dehiscence. States she is just not feeling well he has not felt well for for some time. He denies vomiting or diarrhea. He denies fever. He denies dysuria. Says his abdominal pain continually improves. Prior similar symptoms: Yes Recent Illness/Hospitalization: Yes [facility] Medical History Calculus of gallbladder with acute cholecystitis with obstruction CKD (chronic kidney disease), stage III GERD (gastroesophageal reflux disease) History of CVA (cerebrovascular accident) HTN (hypertension) Hyperlipidemia Hypothyroidism Parkinsons disease Sinus bradycardia, chronic Home Medications Carbidopa-Levo 25-100 mg Odt 1 tab PO TID parkinsons 08/14/20 [History Last Taken Unknown] acetaminophen 500 mg tablet 1,000 mg PO Q6H 02/07/23 [History Last Taken Unknown] amiodarone 200 mg tablet 200 mg PO DAILY 02/07/23 [History Last Taken Unknown] cholecalciferol (vitamin D3) 25 mcg (1,000 unit) tablet 50 mcg PO DAILY 02/07/23 [History Last Taken Unknown] cyanocobalamin (vitamin B-12) 500 mcg tablet (Vitamin B-12) 500 mcg PO DAILY 02/07/23 [History Last Taken Unknown] levothyroxine 125 mcg tablet 125 mcg PO DAILY 02/07/23 [History Last Taken Unknown] melatonin 10 mg tablet 10 mg PO QHS 02/07/23 [History Last Taken Unknown] oxycodone 5 mg tablet,oral ONLY (not feeding tubes) (Oxaydo) 5 mg PO Q6H PRN Pain 02/07/23 [History Last Taken Unknown] pediatric multivit no.158-iron fum 18 mg-vit K1 10 mcg chewable tablet (Cerovite Jr) 1 tab PO DAILY 02/07/23 [History Last Taken Unknown] sennosides 8.6 mg tablet (senna) 8.6 mg PO QHS 02/07/23 [History Last Taken Unknown] sodium bicarbonate 650 mg tablet 650 mg PO TID 02/07/23 [History Last Taken Unknown] tamsulosin 0.4 mg capsule 0.4 mg PO DAILY 02/07/23 [History Last Taken Unknown] warfarin 1 mg tablet 1 mg PO QHS 02/07/23 [History Last Taken Unknown] Allergy/AdvReac Type Severity Reaction Status Date / Time lisinopril Allergy Swelling Verified 01/10/23 17:19 Family History Father Colon cancer COPD (chronic obstructive pulmonary disease) Surgical History H/O carpal tunnel repair H/O gastric bypass h/o right thumb surgery History of back surgery History of gastric bypass History of tonsillectomy and adenoidectomy History of total bilateral knee replacement Social History household members: spouse Smoking Status: Never smoker alcohol intake: never substance use type: does not use ROS ROS ED ROS Narrative Not feeling well. Review of Systems ROS Unobtainable: Denies due to encephalopathy Constitutional Constitutional ED: Denies chills or fever(s) Eyes Eyes: Denies blurry vision ENT ENT ED: Denies ear pain Cardiovascular Cardiovascular: Denies chest pain Respiratory/Chest Respiratory/Chest: Denies cough or dyspnea Gastrointestinal Gastrointestinal: Denies abdominal pain, constipation, diarrhea, melena, nausea or vomiting Genitourinary Genitourinary ED: Denies dysuria or hematuria Musculoskeletal Musculoskeletal: Denies arthralgias Integumentary Denies abscess Neurologic Neurologic: Denies headache(s) Psychiatric Psychiatric: Denies anxiety Endocrine Endocrinology: Denies cold intolerance Hematologic/Lymphatic Hematologic/Lymphatic: Reports none Allergic/Immunologic Allergic/Immunologic ED: Denies mouth swelling or tongue swelling EXAM Physical Exam Narrative Exam Narrative: 77-year-old male no acute distress vital signs stable afebrile. Pulse ox 97% room air no hypoxia. H EENT exam unremarkable. Neck nontender. Lungs clear. Heart regular rhythm rate about 80 no murmur. Chest wall nontender. Abdomen soft nondistended normal bowel sounds no peritoneal signs. He has multiple abdominal incisions. Not appear to be infected. He has a large open incision his right upper quadrant from an open cholecystectomy. Half of that wound is open. There is a small amount of bleeding. There is no pus or redness. There is no foul drainage or odor. It involves the skin and subcu tissue does not go into the peritoneal cavity. He has mild tenderness but he said that is improving. Moving all 4 extremities. Trace edema in his ankles. Neurologically he is awake and alert with no focal motor deficits. Const Vital Signs: 02/07/23 08:53 02/07/23 11:00 Temperature 97.2 F L Temperature Source Temporal Pulse Rate 65 64 Respiratory Rate 14 16 Blood Pressure 122/48 H 144/63 H Blood Pressure Mean 72 90 Pulse Ox 97 97 Oxygen Delivery Method Room Air Room Air Positive well nourished and well developed; Negative for cachectic, contractures or unkempt General Appearance ED: well developed and NAD; Negative for unkempt, cachectic, contractures, cyanotic, diaphoretic or pallor Nutritional Appearance: Negative for cachectic HEENT Reports moist mucous membranes Negative for trauma or tenderness Eyes PERRL and EOMs intact bilaterally General Eye ED: Negative for pale conjunctiva or scleral icterus Neck no lymphadenopathy, supple and no JVD General: Negative for tenderness Lymph Lymphatic: Negative for other Chest Wall inspection of chest normal and palpation of chest normal Chest: Negative for other Resp normal respiratory effort and clear to auscultation bilaterally Effort and Inspection: Negative for retractions Auscultation: Negative for rales, rhonchi or wheezes Cardio regular rate, regular rhythm, S1 normal heart sound, S2 normal heart sound and no murmurs Palpation: Negative for palpable S3 Rate: Negative for bradycardia Rhythm: Negative for abnormal rhythm GI normal to inspection, nondistended, normoactive bowel sounds, non-tender, non-distended and no masses GI Narrative: Multiple abdominal incisions. Large area of wound dehiscence in the right upper quadrant from an open cholecystectomy. Mild bleeding. No signs of infection, pus, discharge or cellulitis. Inspection: Negative for abdominal distention Auscultation: normoactive bowel sounds Palpation: soft and tender; Negative for guarding Back/Spine no CVA tenderness General Back: Negative for CVA tenderness or other Cervical Spine: Negative for cervical spine tenderness Thoracic Spine / Upper Back: Negative for thoracic spinal tenderness Lumbar Spine / Lower Back: Negative for lumbar spinal tenderness Extremity normal to inspection Extremity Narrative: Trace ankle edema. Calves are nontender. General Extremety ED: Yes edema General Extremity: edema Neuro oriented x3 and CN's II-XII intact bilaterally Sensorium / Orientation: alert; Negative for orientation impaired, lethargic or stuporous Motor Exam: strength 5/5 throughout Psych mental status grossly normal Appearance: Negative for unkempt Attitude: No agitated Mood & Affect: Negative for depressed, anxious or tearful Skin no rashes or lesions noted and no wounds General Skin Exam: Negative for elasticity normal, jaundice or pallor Lesions: No lesion noted Rashes: No rashes noted Trauma: Negative for abrasion Wounds: Negative for wounds noted MDM MDM MDM Narrative Medical decision making narrative: 77-year-old male extensive past medical history recent major surgery and hospitalization at [facility]. Just not feeling well after an open cholecystectomy with wound dehiscence. Screening labs are going to be obtained. This could include anemia infection, dehydration etc. Currently there is no family present but he believes his will be coming in. I will speak to her when she gets here. seen. Several repeat exams patient is doing well at noon. We discussed his labs and compared them the old ones is no significant change. He is chronically anemic. He has chronic renal insufficiency. He was on Coumadin there have not being held because his level was too high. He is doing well his abdomen is benign. He and I and his discussed his test results his exam. They are going to have wound care put on some type of wound VAC at the nursing facility my nurses look into that. Will be discharged back to the extended care facility. Return if worse. History & Record Review Discussion w/independent historian: Patient Lab Data Attestation: I reviewed the patient's lab results. Lab results narrative: ChronicCBC shows white count 1.4. H&H 11.2 and 34.6. Platelets 309. Patient was previously on Coumadin which is being held his INR is 3.3. Electrolytes show a gap of 7. BUN and creatinine 29 and 2.8 which are consistent with prior labs in our computer. Anemia. He has a chronic renal insufficiency. Lipase is normal at 26. Urinalysis is negative. No signs Labs: Laboratory Results - last 24 hr 02/07/23 02/07/23 02/07/23 09:40 09:40 09:40 WBC 11.4 H RBC 3.65 L Hgb 11.2 L Hct 34.6 L MCV 94.8 H MCH 30.7 MCHC 32.4 RDW Std Deviation 65.8 H RDW Coeff of Aravind 19.6 H Plt Count 309 MPV 11.3 Immature Gran % (Auto) 0.400 Neut % (Auto) 46.4 L Lymph % (Auto) 24.9 [place] % (Auto) 9.3 Eos % (Auto) 17.9 H Baso % (Auto) 1.1 H Absolute Neuts (auto) 5.3 Absolute Lymphs (auto) 2.84 Nucleated RBC % 0 Differential Comment COMMENT Diff Path Review May foll Anisocytosis 1+ PT 33.8 H INR 3.3 Sodium 141 Potassium 4.4 Chloride 110 H Carbon Dioxide 24.0 Anion Gap 7 BUN 29 H Creatinine 2.80 H Estim Creat Clear Calc 25.02 Est GFR (MDRD) Af Amer 29 L Est GFR (MDRD) Non-Af 24 L BUN/Creatinine Ratio 10.4 Glucose 84 Calcium 8.7 Total Bilirubin 0.80 AST 30 ALT 7 L Alkaline Phosphatase 138 H Total Protein 7.3 Albumin 2.1 L Globulin 5.2 H Albumin/Globulin Ratio 0.4 L Lipase 26 Urine Color Urine Clarity Urine pH Ur Specific Kerman Urine Protein Urine Glucose (UA) Urine Ketones Urine Occult Blood Urine Nitrite Urine Bilirubin Urine Urobilinogen Ur Leukocyte Esterase Urine RBC Urine WBC Ur Squamous Epith Cells Urine Bacteria Urine Mucus 02/07/23 11:05 WBC RBC Hgb Hct MCV MCH MCHC RDW Std Deviation RDW Coeff of Aravind Plt Count MPV Immature Gran % (Auto) Neut % (Auto) Lymph % (Auto) [place] % (Auto) Eos % (Auto) Baso % (Auto) Absolute Neuts (auto) Absolute Lymphs (auto) Nucleated RBC % Differential Comment Diff Path Review Anisocytosis PT INR Sodium Potassium Chloride Carbon Dioxide Anion Gap BUN Creatinine Estim Creat Clear Calc Est GFR (MDRD) Af Amer Est GFR (MDRD) Non-Af BUN/Creatinine Ratio Glucose Calcium Total Bilirubin AST ALT Alkaline Phosphatase Total Protein Albumin Globulin Albumin/Globulin Ratio Lipase Urine Color Yellow Urine Clarity Sl. Cloudy Urine pH 5.0 Ur Specific Kerman 1.020 Urine Protein 15 H Urine Glucose (UA) Normal Urine Ketones 5 H Urine Occult Blood 50 H Urine Nitrite Negative Urine Bilirubin Negative Urine Urobilinogen Normal Ur Leukocyte Esterase 25 H Urine RBC 0-5 SEEN Urine WBC 0-5 SEEN Ur Squamous Epith Cells 0 SEEN Urine Bacteria 0 SEEN Urine Mucus 0 SEEN Radiography Chest X-Ray - ED: 1 View, Read by ED Physician, Read by Radiologist, Heart, Lungs, Mediastinum, Bony Structures, No Acute Disease and Chronic Changes Diagnostic Testing: Clinical Impression(s) from Imaging Studies Chest X-Ray 02/07/23 09:48 IMPRESSION: Patchy bibasilar pulmonary infiltrates worse on the left side. Blunting of the right costophrenic angle. Electronically Signed: Howie Brothers MD at 10:02 EDT Reading Location ID and State: [facility] / [place] , Service support , Chest x-ray, portable, single view interpreted both by myself the radiologist shows chronic changes no acute process. Discharge Plan Triage Chief Complaint: Wound Check Other Complaint: General Illness ED Provider: Isidoro Flowers Dx/Rx/DC Orders Clinical Impression: Malaise, Chronic anticoagulation, Chronic anemia, Chronic renal insufficiency, Abdominal wound dehiscence Prescriptions: No Action Carbidopa-Levo 25-100 mg Odt 1 tab PO TID amiodarone 200 mg Tablet 200 mg PO DAILY cyanocobalamin (vitamin B-12) [Vitamin B-12] 500 mcg Tablet 500 mcg PO DAILY warfarin 1 mg Tablet 1 mg PO QHS cholecalciferol (vitamin D3) 25 mcg (1,000 unit) Tablet 50 mcg PO DAILY melatonin 10 mg Tablet 10 mg PO QHS Cerovite Jr 18 mg iron- 10 mcg Tablet,Chewable 1 tab PO DAILY sennosides [senna] 8.6 mg Tablet 8.6 mg PO QHS acetaminophen 500 mg Tablet 1,000 mg PO Q6H tamsulosin 0.4 mg Capsule 0.4 mg PO DAILY sodium bicarbonate 650 mg Tablet 650 mg PO TID levothyroxine 125 mcg Tablet 125 mcg PO DAILY Oxaydo 5 mg Tablet, Oral Only 5 mg PO Q6H PRN (Reason: Pain) Primary Care Provider: Eladia García Referrals: Eladia García, [Primary Care Provider] - As Needed Activity Restrictions/Additional Instructions: Follow-up with your surgeons at [facility]. Your labs today really work significantly changed from prior. Your blood counts and kidney function are where they normally run or even a little better. Your urinalysis was not infected. Your INR is still a little elevated at 3.3. They need to do the wound VAC of your gallbladder surgical wound as soon as possible. Disposition Disposition: Home, Self Care
--- NOTE | 2023-02-07 09:48 | RAD_ITS ---
STUDY: X-RAY CHEST REASON FOR EXAM: Male, 77 years old. Weakness TECHNIQUE: Single AP portable view of the chest. COMPARISON: Comparison is made with prior study dated January 10, 2023. FINDINGS: EKG electrodes are seen. Patchy bibasilar pulmonary infiltrates more prominent on the left side. There is blunting of the right costophrenic angle. Normal size heart. Normal mediastinum and shasha. Normal visualized pulmonary arteries. There is atherosclerotic calcification of the aortic arch with tortuosity. There are diffuse degenerative changes of the visualized thoracic spine. Normal visualized ribs, clavicles, and shoulders. There is no demonstrated abnormality of the visualized soft tissue structures of the upper abdomen. RAD/Chest 1 View (Portable) IMPRESSION: Patchy bibasilar pulmonary infiltrates worse on the left side. Blunting of the right costophrenic angle. Electronically Signed: Howie Brothers MD at 10:02 EDT ,
[2023-02-07 09:55] LABS: Absolute Lymphocyte Count 2.84 X10^3/uL (0.83-4.51); Absolute Neutrophil Count 5.3 X10^3/uL (2.0-7.7); Basophil# 0.12 X10^3/uL; Basophil% 1.1 % (0-1); Eosinophils% 17.9 % (0-5); Hematocrit 34.6 % (40-54); Hemoglobin 11.2 g/dL (13.0-16.5); Lymphocyte # 2.84 X10^3/ul (0.83-4.51); Lymphocyte % 24.9 % (19-41); Mean Corp Hgb Conc 32.4 g/dL (32-36); Mean Corpuscular Hgb 30.7 pg (27.0-32.0); Mean Corpuscular Volume 94.8 fL (80-94); Mean Platelet Vol. 11.3 fl (6.2-12.0); Monocyte# 1.06 X10^3/uL; Monocyte% 9.3 % (0-10); NRBC Flagged by Analyzer 0 % (0-5); Neutrophil # 5.31 X10^3/uL (2.7-7.7); Neutrophil % 46.4 % (47-70); POSITIVE DIFFERENTIAL YES; POSITIVE MORPHOLOGY YES; Platelet Count 309 K/mm3 (150-450); RBC Distribution Width CV 19.6 % (11.6-14.6); RBC Distribution Width SD 65.8 fl (35.1-43.9); Red Blood Count 3.65 M/mm3 (4.6-6.2); White Blood Count 11.4 K/mm3 (4.4-11.0)
[2023-02-07 10:03] LABS: Differential Indicated SCAN CRITERIA MET; Eosinophil# 2.04 X10^3/uL
[2023-02-07 10:04] LABS: International Normalized Ratio 3.3; Prothrombin Time (Protime)PT. 33.8 SECONDS (11.7-14.9)
[2023-02-07 10:12] LABS: ALB/GLOB Ratio 0.4 RATIO (0.9-2.4); AST(SGOT) 30 U/L (15-37); Alanine Aminotransfer ALT/SGPT 7 U/L (16-61); Albumin, Serum 2.1 g/dL (3.2-5.0); Alkaline Phosphatase 138 U/L (45-117); Anion Gap 7 (5-15); BUN 29 mg/dL (7-18); BUN/Creat Ratio 10.4 RATIO (10-20); Calcium,Total 8.7 mg/dL (8.5-10.1); Chloride 110 mmol/L (98-107); EST Glomerular Filtration Rate 24 mL/min (>60); Est Glom Filt Rate - Afr Amer 29 mL/min (>60); Estimated Creatinine Clearance 25.02 ml/min; Globulin 5.2 g/dL (2.2-4.2); Glucose 84 mg/dL (74-106); Lipase 26 U/L (13-75); Potassium 4.4 mmol/L (3.5-5.1); Protein, Total 7.3 g/dL (6.4-8.2); Sodium Level 141 mmol/L (136-145)
[2023-02-07 10:27] LABS: Anisocytosis 1+
[2023-02-07 11:00] VITALS: BP 144/63; PULSE 64; RESP 16; O2SAT 97
[2023-02-07 11:09] LABS: Bacteria 0 SEEN /hpf (None Seen); Mucous, Urine 0 SEEN /hpf (<or=2+); Squamous Epithelial Cells - UA 0 SEEN /hpf (0-5)
[2023-02-07 11:29] LABS: Color, Urine Yellow (Yellow); Glucose, Dipstick Normal (Normal); Ketone-Dipstick 5 mg/dl (Negative); Leukocyte Esterase-Dipstick 25 /ul (Negative); Nitrite-Dipstick Negative (Negative); Occult Blood-Urine 50 /ul (Negative); Protein-Dipstick 15 mg/dl (Negative); Urine Bilirubin Dipstick Negative (Negative); Urine Clarity Sl. Cloudy (Clear); Urine Urobilinogen Normal (Normal)
[2023-02-07 11:47] LABS: Red Blood Cells-Urine 0-5 SEEN /hpf (0-5); White Blood Cells 0-5 SEEN /hpf (0-5)
[2023-02-07 12:02] VITALS: BP 131/61; PULSE 62; RESP 16; TEMP 36.6; O2SAT 98
--- NOTE | 2023-02-07 12:58 | ED.RN ---
REPORT CALLED TO SALEEM GIBSON, PT WOUND DRESSED WITH SURGI FOAM, ABD PAD, AND MASON WRAP. TRAUMA DRESSING THAT WAS APPLIED WAS SOAKED WITH BLOOD, STILL LEAKING WHEN GEL FOAM WAS APPLIED. AWARE. NOT CHANGES ORDERED.
[2023-02-08 13:07] LABS: Pathologist Review Reviewed
== END 2023-02-07 13:25 | disposition home or self-care (01) ==
PROVIDERS: Emergency Provider Emergency Medicine; PCP Internal Medicine; Visit Provider Emergency Medicine
DX: T81.31XA Disruption of external operation (surgical) wound, not elsewhere classified, initial encounter (principal); G20 Parkinson's disease; D68.32 Hemorrhagic disorder due to extrinsic circulating anticoagulants; N18.30 Chronic kidney disease, stage 3 unspecified; L76.22 Postprocedural hemorrhage of skin and subcutaneous tissue following other procedure; T45.515A Adverse effect of anticoagulants, initial encounter; Y83.8 Other surgical procedures as the cause of abnormal reaction of the patient, or of later complication, without mention of misadventure at the time of the procedure; R53.81 Other malaise; D64.9 Anemia, unspecified; Z79.01 Long term (current) use of anticoagulants; I12.9 Hypertensive chronic kidney disease with stage 1 through stage 4 chronic kidney disease, or unspecified chronic kidney disease; E78.5 Hyperlipidemia, unspecified; E03.9 Hypothyroidism, unspecified; K21.9 Gastro-esophageal reflux disease without esophagitis; Z79.890 Hormone replacement therapy; Z79.899 Other long term (current) drug therapy; Z86.73 Personal history of transient ischemic attack (TIA), and cerebral infarction without residual deficits; Z98.84 Bariatric surgery status; Z90.49 Acquired absence of other specified parts of digestive tract
CPT/HCPCS: 71045; 80053; 81001; 83690; 85025; 85610; 93005; 99284; 99285

== ENCOUNTER 2023-02-07 19:54 | Emergency (ER) | payer MEDICARE, OTHER, SELFPAY ==
[2023-02-07 19:55] VITALS: BP 137/62; PULSE 63; RESP 18; TEMP 36.9; O2SAT 99; BMI 4490.2
--- NOTE | 2023-02-07 21:08 | EX.ED.DYSGE1 ---
HPI History of Present Illness Chief Complaint: Wound Check Informant: patient and spouse/S.O. Narrative Narrative: Patient represents with some bleeding from abdominal wound. This patient had a episode of loose cholecystitis. Due to his prior Autumn-en-Y gastric bypass abdominal surgery was transferred to [facility]. Evidently there was injury to common bile duct during surgery. He ended up having a drain placed at least once. Is admitted to ICU. He ended up getting infected. The wound is now open in several areas and closing secondarily. It was found that his Coumadin was high a couple days ago and it is being held. He has developed some oozing at the wound. He has 3 open areas in the wound and only the lateral one on the right side is oozing. He feels weak and tired but is no different today than he has for the last month. No bleeding from other areas. No fevers. He is set up to get a wound VAC as an outpatient. He was seen here earlier but at that time there was no bleeding. Evidently there is no bleeding when he went back to the nursing facility. But it started again this evening. [facility] Medical History Calculus of gallbladder with acute cholecystitis with obstruction CKD (chronic kidney disease), stage III GERD (gastroesophageal reflux disease) History of CVA (cerebrovascular accident) HTN (hypertension) Hyperlipidemia Hypothyroidism Parkinsons disease Sinus bradycardia, chronic Home Medications Carbidopa-Levo 25-100 mg Odt 1 tab PO TID parkinsons 08/14/20 [History Last Taken Unknown] acetaminophen 500 mg tablet 1,000 mg PO Q6H 02/07/23 [History Last Taken Unknown] amiodarone 200 mg tablet 200 mg PO DAILY 02/07/23 [History Last Taken Unknown] cholecalciferol (vitamin D3) 25 mcg (1,000 unit) tablet 50 mcg PO DAILY 02/07/23 [History Last Taken Unknown] cyanocobalamin (vitamin B-12) 500 mcg tablet (Vitamin B-12) 500 mcg PO DAILY 02/07/23 [History Last Taken Unknown] levothyroxine 125 mcg tablet 112 mcg PO DAILY 02/07/23 [History Last Taken Unknown] lidocaine HCl 4 % topical cream (Aspercreme (lidocaine HCl)) 1 applic topical DAILY 02/07/23 [History Last Taken Unknown] melatonin 10 mg tablet 10 mg PO QHS 02/07/23 [History Last Taken Unknown] oxycodone 5 mg tablet,oral ONLY (not feeding tubes) (Oxaydo) 5 mg PO Q6H PRN Pain 02/07/23 [History Last Taken Unknown] pediatric multivit no.158-iron fum 18 mg-vit K1 10 mcg chewable tablet (Cerovite Jr) 1 tab PO DAILY 02/07/23 [History Last Taken Unknown] sennosides 8.6 mg tablet (senna) 8.6 mg PO QHS 02/07/23 [History Last Taken Unknown] sodium bicarbonate 650 mg tablet 650 mg PO TID 02/07/23 [History Last Taken Unknown] tamsulosin 0.4 mg capsule 0.4 mg PO DAILY 02/07/23 [History Last Taken Unknown] warfarin 1 mg tablet 1 mg PO QHS 02/07/23 [History Last Taken Unknown] Allergy/AdvReac Type Severity Reaction Status Date / Time lisinopril Allergy Swelling Verified 01/10/23 17:19 Family History Father Colon cancer COPD (chronic obstructive pulmonary disease) Surgical History H/O carpal tunnel repair H/O gastric bypass h/o right thumb surgery History of back surgery History of gastric bypass History of tonsillectomy and adenoidectomy History of total bilateral knee replacement S/P cholecystectomy S/P cholecystectomy Social History household members: spouse Smoking Status: Never smoker alcohol intake: never substance use type: does not use ROS ROS ED Constitutional Constitutional ED: Denies chills or fever(s) ENT ENT ED: Denies rhinorrhea Cardiovascular Cardiovascular: Denies chest pain or palpitations Respiratory/Chest Respiratory/Chest: Denies cough or dyspnea Gastrointestinal Gastrointestinal: Reports other Details: See history of present illness also. ; Denies abdominal pain, nausea or vomiting Musculoskeletal Musculoskeletal: Denies back pain Integumentary Reports other Details: Open area at abdominal incision and right upper quadrant. Hematologic/Lymphatic Hematologic/Lymphatic: Reports easy bleeding and easy bruising Allergic/Immunologic Allergic/Immunologic ED: Denies urticaria EXAM Physical Exam Narrative Exam Narrative: Patient is awake alert. He looks chronically ill but not acutely toxic. HEENT shows minimally dry mucous membranes. Neck is supple Heart is regular. I hear no murmur. Lungs are clear. No coughing. No wheezing. His saturations are normal at 99% on room air showing no hypoxia. Abdomen: Patient has dressings in the right upper abdomen. The area across the majority of the abdomen and the incision which is more medial portion of the incision shows 2 open areas but they are not bleeding. They are not red. Not inflamed. No odor. They look like they are healing quite well. The lateral aspect also shows no erythema warmth tenderness odor or purulent drainage. There is some blood on the gauze. At the far right lateral area superior aspect of the wound just under the skin there is a small amount of oozing of blood. When I placed my finger over this all bleeding stops. The rest of the area is cleaned. There is no oozing from other areas. It looks like it is actually healing quite well. There is no sign of infection. I think all the bleeding is likely coming from this small spot right at the edge of his skin. Extremities show no trauma. Neurologically he is awake alert and reasonably good informant for the portions of his illness that he remembers. He was critically ill so does not recall all issues. Const Vital Signs: 02/07/23 19:55 02/07/23 22:00 02/08/23 00:15 Temperature 98.4 F 98.4 F Temperature Source Temporal Temporal Pulse Rate 63 64 64 Respiratory Rate 18 16 16 Blood Pressure 137/62 H 120/62 132/58 H Blood Pressure Mean 87 81 82 Pulse Ox 99 99 96 Oxygen Delivery Method Room Air Room Air Room Air [facility] [place] Medical decision making narrative: Procedure: Cauterization of edge of wound: We again looked at this wound. The superior right lateral area had a small area of oozing. We cleansed this. I was able to put pressure next to the skin to slow down the use. I used 3 cautery sticks in the area and it appears as though the bleeding is stopped. We are going to leave this open to further evaluate it. This area was having a steady ooze. Patient tolerated this overall quite well. Patient's hemoglobin is 9 6. This is down from today but is back to where it was just prior to that which was only on the 16th. Therefore, the hemoglobin is unchanged from the 16th. I would be surprised his hemoglobin shayna 1-1/2 g in a day. His INR was just slightly up from today but this may be just lab variation. But since this patient's had 2 visits, wound oozing, elevated INR, I will give oral vitamin K. I do not think he needs IV vitamin K or FFP at this time. He is not clinically unstable and this is not in an compressible site. Patient will be observed in the ED. Patient has been rechecked 3 more times by me. The wound has been left open. There is no bleeding. We will place Gelfoam gently in this area and put dry dressing to cover it. I explained to the patient that they should not change this for about 24 hours. Time his INR should be significantly reduced with the oral vitamin K. Although oral vitamin K is not usually given for an INR at his level, with 2 visits and recurrent bleeding I think it is appropriate. I do not think he is at risk with this bleeding at this time. It seems to be stopped with cauterization. We have watched it for a couple hours now with no problems. He does not want to go back up to [facility] to be seen. I explained that there is not a therapy in the hospital that we would need to do and he does not really need admission. But he needs to be gently handled, avoid bumping or moving that area, and leave the dressing on for 24 hours. If there is recurrent issues patient should return. Lab Data Attestation: I reviewed the patient's lab results. Labs: Laboratory Results - last 24 hr 02/07/23 02/07/23 21:05 21:25 WBC 11.4 H RBC 3.18 L Hgb 9.6 L Hct 30.7 L MCV 96.5 H MCH 30.2 MCHC 31.3 L RDW Std Deviation 66.2 H RDW Coeff of Aravind 19.5 H Plt Count 273 MPV 10.8 Immature Gran % (Auto) 0.400 Neut % (Auto) 47.5 Lymph % (Auto) 26.1 Maverick % (Auto) 8.8 Eos % (Auto) 16.3 H Baso % (Auto) 0.9 Absolute Neuts (auto) 5.4 Absolute Lymphs (auto) 2.98 Nucleated RBC % 0 Platelet Estimate ADEQUATE RBC Morphology N CHROM Anisocytosis 1+ Macrocytosis 1+ PT 36.0 H INR 3.6 Procedures Other Procedures Procedure(s): Cauterization of wound. See MDM. Discharge Plan Triage Chief Complaint: Wound Check ED Provider: Jose J Mendoza Dx/Rx/DC Orders Clinical Impression: Bleeding from wound, Abdominal wound dehiscence, Warfarin-induced coagulopathy Instructions: ED Post Op Wound Check, Bleeding Prescriptions: No Action Carbidopa-Levo 25-100 mg Odt 1 tab PO TID amiodarone 200 mg Tablet 200 mg PO DAILY cyanocobalamin (vitamin B-12) [Vitamin B-12] 500 mcg Tablet 500 mcg PO DAILY warfarin 1 mg Tablet 1 mg PO QHS cholecalciferol (vitamin D3) 25 mcg (1,000 unit) Tablet 50 mcg PO DAILY melatonin 10 mg Tablet 10 mg PO QHS Cerovite Jr 18 mg iron- 10 mcg Tablet,Chewable 1 tab PO DAILY sennosides [senna] 8.6 mg Tablet 8.6 mg PO QHS acetaminophen 500 mg Tablet 1,000 mg PO Q6H tamsulosin 0.4 mg Capsule 0.4 mg PO DAILY sodium bicarbonate 650 mg Tablet 650 mg PO TID levothyroxine 125 mcg Tablet 112 mcg PO DAILY Oxaydo 5 mg Tablet, Oral Only 5 mg PO Q6H PRN (Reason: Pain) lidocaine HCl [Aspercreme (lidocaine HCl)] 4 % Cream 1 applic TOPICAL DAILY Primary Care Provider: Eladia García Referrals: Eladia García DO [Primary Care Provider] - 3-5 Days Activity Restrictions/Additional Instructions: Follow-up with your surgeon as scheduled. Disposition Disposition: Care Home Facility
[2023-02-07 21:17] LABS: Absolute Lymphocyte Count 2.98 X10^3/uL (0.83-4.51); Absolute Neutrophil Count 5.4 X10^3/uL (2.0-7.7); Basophil% 0.9 % (0-1); Eosinophil# 1.86 X10^3/uL; Eosinophils% 16.3 % (0-5); Hematocrit 30.7 % (40-54); Hemoglobin 9.6 g/dL (13.0-16.5); Lymphocyte # 2.98 X10^3/ul (0.83-4.51); Lymphocyte % 26.1 % (19-41); Mean Corp Hgb Conc 31.3 g/dL (32-36); Mean Corpuscular Hgb 30.2 pg (27.0-32.0); Mean Corpuscular Volume 96.5 fL (80-94); Mean Platelet Vol. 10.8 fl (6.2-12.0); Monocyte# 1.01 X10^3/uL; Monocyte% 8.8 % (0-10); NRBC Flagged by Analyzer 0 % (0-5); Neutrophil # 5.43 X10^3/uL (2.7-7.7); Neutrophil % 47.5 % (47-70); POSITIVE MORPHOLOGY YES; Platelet Count 273 K/mm3 (150-450); RBC Distribution Width CV 19.5 % (11.6-14.6); RBC Distribution Width SD 66.2 fl (35.1-43.9); Red Blood Count 3.18 M/mm3 (4.6-6.2); White Blood Count 11.4 K/mm3 (4.4-11.0)
[2023-02-07] MEDS: Silver Nitrate (BKC) 4 EACH TOPICAL (21:22)
[2023-02-07 21:47] LABS: International Normalized Ratio 3.6
[2023-02-07 21:52] LABS: Differential Indicated SCAN CRITERIA MET
[2023-02-07 21:54] LABS: Anisocytosis 1+; Macrocytosis 1+; Platelet Estimate ADEQUATE (ADEQ); Red Cell Morphology N CHROM NORMAL (NORM C&C)
[2023-02-07 22:00] VITALS: BP 120/62; PULSE 64; RESP 16; TEMP 36.9; O2SAT 99
[2023-02-07] MEDS: Phytonadione (Vit K1) 5 MG TABLET 2.5 MG PO (22:44)
[2023-02-08 00:15] VITALS: BP 132/58; PULSE 64; RESP 16; O2SAT 96
--- NOTE | 2023-02-08 00:54 | ED.RN ---
1254: Report called to Renetta LEWIS at [facility].
== END 2023-02-08 01:39 | disposition skilled nursing facility (03) ==
PROVIDERS: Emergency Provider Emergency Medicine; PCP Internal Medicine; Visit Provider Emergency Medicine
DX: T81.31XA Disruption of external operation (surgical) wound, not elsewhere classified, initial encounter (principal); G20 Parkinson's disease; D68.32 Hemorrhagic disorder due to extrinsic circulating anticoagulants; N18.30 Chronic kidney disease, stage 3 unspecified; Y83.8 Other surgical procedures as the cause of abnormal reaction of the patient, or of later complication, without mention of misadventure at the time of the procedure; T45.515A Adverse effect of anticoagulants, initial encounter; I12.9 Hypertensive chronic kidney disease with stage 1 through stage 4 chronic kidney disease, or unspecified chronic kidney disease; E78.5 Hyperlipidemia, unspecified; E03.9 Hypothyroidism, unspecified; K21.9 Gastro-esophageal reflux disease without esophagitis; Z79.01 Long term (current) use of anticoagulants; Z79.890 Hormone replacement therapy; Z79.899 Other long term (current) drug therapy; Z98.84 Bariatric surgery status
CPT/HCPCS: 85025; 85610

== ENCOUNTER 2023-04-08 12:35 | Emergency (ER) | payer MEDICARE, OTHER, SELFPAY ==
[2023-04-08 12:36] VITALS: BP 189/78; PULSE 56; RESP 16; TEMP 36.3; O2SAT 100
[2023-04-08 13:20] VITALS: BP 194/122; PULSE 52; RESP 18; O2SAT 98
--- NOTE | 2023-04-08 13:30 | CT_ITS ---
INDICATION: Seizure. EXAMINATION: CT BRAIN - CT Head or Brain W/O Contrast Injection TECHNIQUE: Multiple axial images were obtained of the head without intravenous contrast. A radiation dose optimization technique was used for this scan. IV Contrast dosage and agent: None. RADIATION DOSAGE (If Supplied By Facility): CTDIvol = ( 44.99 ) mGy, DLP = ( 812.98 ) mGycm COMPARISON: CT scan of the brain of 06/29/2020. FINDINGS: BRAIN PARENCHYMA: No intra- or extra-axial hemorrhage. No evidence of acute infarct. Old lacunar infarct in the right caudate nucleus. Decreased attenuation in the periventricular and deep white matter consistent with chronic microvascular disease unchanged. There is preservation of the cano/white matter interface. Posterior fossa structures are unremarkable. Atherosclerotic calcifications of the vertebral and cavernous internal carotid arteries. CSF SPACES: Mild cerebral atrophy. No hydrocephalus. Basal cisterns are patent. CALVARIUM, SKULL BASE, PARANASAL SINUSES AND MASTOID AIR CELLS: Clear. No discrete lytic or blastic abnormalities. ORBITS: Both globes, extraocular muscles, optic nerves and retrobulbar fat appear unremarkable. ASPECTS Score for Acute Strokes: 10 CT/Brain/Head without Contrast IMPRESSION: 1. No acute intracranial process. 2. 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 3. Chronic involutional changes of the brain. 4. Intracranial atherosclerotic vascular calcifications. Electronically Signed: Doug Cristobal MD at 14:26 EDT ,
--- NOTE | 2023-04-08 13:43 | EDS_ITS ---
HPI <DESEAN Oliva - Last Filed: 04/08/23 20:08> History of Present Illness Chief Complaint: Seizure Narrative Narrative: Patient presenting today due to concerns that he either had a seizure or stroke while at his group home this morning. reports that the group home called her with concerns that he was having a stroke, patient reports that the group home told him that they were concerned he was having a seizure. He was sitting in his wheelchair and was told that his arms began to shake and his eyes were rolling in the back of his head. He denies any history of seizures but does report that he has a history of stroke. He has a significant history of orthostatic hypotension and reports that his blood pressure fluctuates rapidly. He is at the [facility] after having a cholecystectomy that caused injury to the common bile duct and sepsis and he spent a month at [facility] in [place]. PMH includes orthostatic hypotension, chronic kidney disease, Parkinson's, hypothyroidism. PFSH <DESEAN Oliva - Last Filed: 04/08/23 20:08> [facility]LY [facility] Medical History Calculus of gallbladder with acute cholecystitis with obstruction CKD (chronic kidney disease), stage III GERD (gastroesophageal reflux disease) History of CVA (cerebrovascular accident) HTN (hypertension) Hyperlipidemia Hypothyroidism Parkinsons disease Sinus bradycardia, chronic Home Medications Carbidopa-Levo 25-100 mg Odt 1 tab PO TID parkinsons 08/14/20 [History Last Taken Unknown] acetaminophen 500 mg tablet 1,000 mg PO Q6H 02/07/23 [History Last Taken Unknown] amiodarone 200 mg tablet 200 mg PO DAILY 02/07/23 [History Last Taken Unknown] cholecalciferol (vitamin D3) 25 mcg (1,000 unit) tablet 50 mcg PO DAILY 02/07/23 [History Last Taken Unknown] cyanocobalamin (vitamin B-12) 500 mcg tablet (Vitamin B-12) 500 mcg PO DAILY 02/07/23 [History Last Taken Unknown] levothyroxine 125 mcg tablet 112 mcg PO DAILY 02/07/23 [History Last Taken Unknown] lidocaine HCl 4 % topical cream (Aspercreme (lidocaine HCl)) 1 applic topical DAILY 02/07/23 [History Last Taken Unknown] melatonin 10 mg tablet 10 mg PO QHS 02/07/23 [History Last Taken Unknown] oxycodone 5 mg tablet,oral ONLY (not feeding tubes) (Oxaydo) 5 mg PO Q6H PRN Pain 02/07/23 [History Last Taken Unknown] pediatric multivit no.158-iron fum 18 mg-vit K1 10 mcg chewable tablet (Cerovite Jr) 1 tab PO DAILY 02/07/23 [History Last Taken Unknown] sennosides 8.6 mg tablet (senna) 8.6 mg PO QHS 02/07/23 [History Last Taken Unknown] sodium bicarbonate 650 mg tablet 650 mg PO TID 02/07/23 [History Last Taken Unknown] tamsulosin 0.4 mg capsule 0.4 mg PO DAILY 02/07/23 [History Last Taken Unknown] warfarin 1 mg tablet 1 mg PO QHS 02/07/23 [History Last Taken Unknown] Allergy/AdvReac Type Severity Reaction Status Date / Time lisinopril Allergy Swelling Verified 01/10/23 17:19 Family History Father Colon cancer COPD (chronic obstructive pulmonary disease) Surgical History H/O carpal tunnel repair H/O gastric bypass h/o right thumb surgery History of back surgery History of gastric bypass History of tonsillectomy and adenoidectomy History of total bilateral knee replacement S/P cholecystectomy S/P cholecystectomy Social History household members: spouse Smoking Status: Never smoker alcohol intake: never substance use type: does not use ROS <DESEAN Oliva - Last Filed: 04/08/23 20:08> ROS ED Constitutional Constitutional ED: Denies chills, fever(s) or sweats Eyes Eyes: Denies blurry vision or diplopia Cardiovascular Cardiovascular: Denies chest pain or palpitations Respiratory/Chest Respiratory/Chest: Denies cough, dyspnea, tachypnea or wheezing Gastrointestinal Gastrointestinal: Denies abdominal pain, constipation, diarrhea, nausea or vomiting Genitourinary Genitourinary ED: Denies dysuria, hematuria or urinary urgency Musculoskeletal Musculoskeletal: Denies arthralgias, back pain, myalgias or neck pain Integumentary Denies abscess, Abrasions or rash Neurologic Neurologic: Denies confusion, dizziness or paresthesias Psychiatric Psychiatric: Denies anxiety, depression, suicidal ideation or suicidal thoughts Allergic/Immunologic Allergic/Immunologic ED: Denies lip swelling, mouth swelling or urticaria EXAM <DESEAN Oliva - Last Filed: 04/08/23 20:08> Physical Exam Const Vital Signs: 04/08/23 12:36 04/08/23 13:20 04/08/23 15:27 Temperature 97.4 F L Temperature Source Temporal Pulse Rate 56 L 52 L 50 L Respiratory Rate 16 18 18 Blood Pressure 189/78 H 194/122 H 165/80 H Blood Pressure Mean 115 146 108 Pulse Ox 100 98 98 Oxygen Delivery Method Room Air Room Air Room Air Positive well nourished, well developed and no apparent distress General Appearance ED: well developed HEENT Reports normocephalic and head/scalp atraumatic Mouth ED: Yes moist mucous membranes normal Eyes PERRL and EOMs intact bilaterally Neck full ROM and supple Chest Wall inspection of chest normal Resp normal respiratory effort and clear to auscultation bilaterally Cardio regular rate and regular rhythm GI soft to palpation, non-tender, non-distended and no masses Back/Spine normal ROM and normal to inspection Extremity normal to inspection and full ROM Neuro oriented x3, CN's II-XII intact bilaterally, moves all extremities, no focal motor deficits and no sensory deficits noted Sensorium / Orientation: awake and alert Psych mental status grossly normal and thought process normal Skin no rashes or lesions noted and no wounds <Renan Marley MD - Last Filed: 04/08/23 21:03> Physical Exam Const Vital Signs: 04/08/23 12:36 04/08/23 13:20 04/08/23 15:27 Temperature 97.4 F L Temperature Source Temporal Pulse Rate 56 L 52 L 50 L Respiratory Rate 16 18 18 Blood Pressure 189/78 H 194/122 H 165/80 H Blood Pressure Mean 115 146 108 Pulse Ox 100 98 98 Oxygen Delivery Method Room Air Room Air Room Air MDM <DESEAN Oliva - Last Filed: 04/08/23 20:08> [facility] MDM Narrative Medical decision making narrative: Patient presenting today due to concerns that he either had a stroke or a seizure at the group home today. The patient and his seem to be very confused about what actually happened so I did speak to the nurse at his group home, [facility] and she reports that he was sitting in his wheelchair in the dining room and tilted his head back and his eyes seemed to roll on the back of his head and his arms were shaking more than usual. She then went to shake the patient and he took about 30 seconds to act normal again and told her that he was seeing stars. He did not become incontinent during this episode. She was able to then get him into his bed and the nursing surgical services director noticed that his head was falling over to the side, his eyes were rolling back in his head, and his arms were shaking again. Again, he took about 30-50 seconds to snap out of it. Nurse reports that she had concerns that he could be having a stroke or seizure given his symptoms and decided to send him in for evaluation. Patient does not have any neurological deficits that would indicate a stroke, NIH is 0. Patient's presentation also does not sound like he had a seizure, he also has no history of seizures, and he does have a tremor at rest given his Parkinson's disease. I think it is more likely that patient had a syncopal episode. He is well-appearing and in no acute distress. He is slightly hypertensive here but reports that he got an extra dose of his midorine today that he takes when he becomes hypotensive. He has a significant history of orthostatic hypotension and reports that he does become syncopal at times because of his orthostatic hypotension and has rapid fluctuations in his blood pressure that sometimes occur just when he is sitting up in a chair from a laying position. Labs will be obtained to rule out leukocytosis, anemia, electrolyte abnormality, ACS. Head CT will be obtained to rule out intracranial abnormality in his neck or any findings. Labs are at baseline for patient, chest x-ray negative for any acute findings. Patient will be discharged home in stable condition and is comfortable with plan. He is to follow-up with his PCP and has been given return instructions. Lab Data Attestation: I reviewed the patient's lab results. Lab results narrative: H&H 12.5 and 39.5, creatinine 1.55, GFR 47, BUN 24 Labs: Laboratory Results - last 24 hr 04/08/23 04/08/23 13:35 14:35 WBC 7.3 RBC 3.96 L Hgb 12.5 L Hct 39.5 L MCV 99.7 H MCH 31.6 MCHC 31.6 L RDW Std Deviation 56.6 H RDW Coeff of Aravind 15.1 H Plt Count 264 MPV 11.1 Immature Gran % (Auto) 0.300 Neut % (Auto) 58.5 Lymph % (Auto) 26.9 [place] % (Auto) 8.6 Eos % (Auto) 4.9 Baso % (Auto) 0.8 Absolute Neuts (auto) 4.3 Absolute Lymphs (auto) 1.96 Nucleated RBC % 0 Sodium 142 Potassium 4.1 Chloride 110 H Carbon Dioxide 27.0 Anion Gap 5 BUN 24 H Creatinine 1.55 H Est GFR (MDRD) Af Amer 56 L Est GFR (MDRD) Non-Af 47 L BUN/Creatinine Ratio 15.5 Glucose 95 Lactic Acid 0.9 Calcium 8.8 Troponin I High Sens 10 Urine Color Yellow Urine Clarity Clear Urine pH 6.5 Ur Specific Exchange 1.015 Urine Protein Negative Urine Glucose (UA) Normal Urine Ketones Negative Urine Occult Blood Negative Urine Nitrite Negative Urine Bilirubin 1 H Urine Urobilinogen 8 H Ur Leukocyte Esterase 25 H Urine RBC 0 SEEN Urine WBC 0-5 SEEN Ur Squamous Epith Cells 0 SEEN Urine Bacteria 0 SEEN Urine Mucus 0 SEEN Radiography Diagnostic Testing: Clinical Impression(s) from Imaging Studies Brain CT 04/08/23 13:30 IMPRESSION: 1. No acute intracranial process. 2. 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 3. Chronic involutional changes of the brain. 4. Intracranial atherosclerotic vascular calcifications. Electronically Signed: Doug Cristobal MD at 14:26 EDT , Chest X-Ray 04/08/23 14:20 IMPRESSION: No radiographic evidence of acute cardiopulmonary disease. Electronically Signed: Doug Cristobal MD at 14:36 EDT , EKG Initial EKG: Comments: 50 bpm, sinus bradycardia, no ST elevation, reviewed and interpreted by attending ED physician <Renan Marley MD - Last Filed: 04/08/23 21:03> MDM [facility] Narrative Medical decision making narrative: Patient presenting today due to concerns that he either had a stroke or a seizure at the group home today. The patient and his seem to be very confused about what actually happened so I did speak to the nurse at his group home, [facility] and she reports that he was sitting in his wheelchair in the dining room and tilted his head back and his eyes seemed to roll on the back of his head and his arms were shaking more than usual. She then went to shake the patient and he took about 30 seconds to act normal again and told her that he was seeing stars. He did not become incontinent during this episode. She was able to then get him into his bed and the nursing surgical services director noticed that his head was falling over to the side, his eyes were rolling back in his head, and his arms were shaking again. Again, he took about 30-50 seconds to snap out of it. Nurse reports that she had concerns that he could be having a stroke or seizure given his symptoms and decided to send him in for evaluation. Patient does not have any neurological deficits that would indicate a stroke, NIH is 0. Patient's presentation also does not sound like he had a seizure, he also has no history of seizures, and he does have a tremor at rest given his Parkinson's disease. I think it is more likely that patient had a syncopal episode. He is well-appearing and in no acute distress. He is slightly hypertensive here but reports that he got an extra dose of his midorine today that he takes when he becomes hypotensive. He has a significant history of orthostatic hypotension and reports that he does become syncopal at times because of his orthostatic hypotension and has rapid fluctuations in his blood pressure that sometimes occur just when he is sitting up in a chair from a laying position. Labs will be obtained to rule out leukocytosis, anemia, electrolyte abnormality, ACS. Head CT will be obtained to rule out intracranial abnormality in his neck or any findings. Labs are at baseline for patient, chest x-ray negative for any acute findings. Patient will be discharged home in stable condition and is comfortable with plan. He is to follow-up with his PCP and has been given return instructions. Dr. Marley: I have personally performed a face to face assessment of the patient and have reviewed the JOSE DE JESUS Note. I performed a substantive portion of the visit including all aspects of the following. My barfield findings include: History is seizure versus syncope Exam is GCS 15. ABCs intact. Regular rate and rhythm. Lungs clear to auscultation bilaterally. Positive Parkinson's with tremor of bilateral upper extremities. Awake, alert, oriented. Medical Decision Making check CT brain. Check labs. Check EKG. Discharge. Other additions or changes: [None] History & Record Review Discussion w/independent historian: Patient and Family Additional record(s) reviewed:: Prior ED visit and Prior labs Lab Data Labs: Laboratory Results - last 24 hr 04/08/23 04/08/23 13:35 14:35 WBC 7.3 RBC 3.96 L Hgb 12.5 L Hct 39.5 L MCV 99.7 H MCH 31.6 MCHC 31.6 L RDW Std Deviation 56.6 H RDW Coeff of Aravind 15.1 H Plt Count 264 MPV 11.1 Immature Gran % (Auto) 0.300 Neut % (Auto) 58.5 Lymph % (Auto) 26.9 [place] % (Auto) 8.6 Eos % (Auto) 4.9 Baso % (Auto) 0.8 Absolute Neuts (auto) 4.3 Absolute Lymphs (auto) 1.96 Nucleated RBC % 0 Sodium 142 Potassium 4.1 Chloride 110 H Carbon Dioxide 27.0 Anion Gap 5 BUN 24 H Creatinine 1.55 H Est GFR (MDRD) Af Amer 56 L Est GFR (MDRD) Non-Af 47 L BUN/Creatinine Ratio 15.5 Glucose 95 Lactic Acid 0.9 Calcium 8.8 Troponin I High Sens 10 Urine Color Yellow Urine Clarity Clear Urine pH 6.5 Ur Specific Exchange 1.015 Urine Protein Negative Urine Glucose (UA) Normal Urine Ketones Negative Urine Occult Blood Negative Urine Nitrite Negative Urine Bilirubin 1 H Urine Urobilinogen 8 H Ur Leukocyte Esterase 25 H Urine RBC 0 SEEN Urine WBC 0-5 SEEN Ur Squamous Epith Cells 0 SEEN Urine Bacteria 0 SEEN Urine Mucus 0 SEEN Radiography Diagnostic Testing: Clinical Impression(s) from Imaging Studies Brain CT 04/08/23 13:30 IMPRESSION: 1. No acute intracranial process. 2. 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 3. Chronic involutional changes of the brain. 4. Intracranial atherosclerotic vascular calcifications. Electronically Signed: Doug Cristobal MD at 14:26 EDT , Chest X-Ray 04/08/23 14:20 IMPRESSION: No radiographic evidence of acute cardiopulmonary disease. Electronically Signed: Doug Cristobal MD at 14:36 EDT , Discharge Plan Triage Chief Complaint: Seizure ED Midlevel Provider: Olga Reyes ED Provider: Renna Marley Dx/Rx/DC Orders Clinical Impression: Chronic orthostatic hypotension, Syncope Instructions: ED Hypotension, Orthostatic, ED Fainting, Uncertain Cause Prescriptions: No Action Carbidopa-Levo 25-100 mg Odt 1 tab PO TID amiodarone 200 mg Tablet 200 mg PO DAILY cyanocobalamin (vitamin B-12) [Vitamin B-12] 500 mcg Tablet 500 mcg PO DAILY warfarin 1 mg Tablet 1 mg PO QHS cholecalciferol (vitamin D3) 25 mcg (1,000 unit) Tablet 50 mcg PO DAILY melatonin 10 mg Tablet 10 mg PO QHS Cerovite Jr 18 mg iron- 10 mcg Tablet,Chewable 1 tab PO DAILY sennosides [senna] 8.6 mg Tablet 8.6 mg PO QHS acetaminophen 500 mg Tablet 1,000 mg PO Q6H tamsulosin 0.4 mg Capsule 0.4 mg PO DAILY sodium bicarbonate 650 mg Tablet 650 mg PO TID levothyroxine 125 mcg Tablet 112 mcg PO DAILY Oxaydo 5 mg Tablet, Oral Only 5 mg PO Q6H PRN (Reason: Pain) lidocaine HCl [Aspercreme (lidocaine HCl)] 4 % Cream 1 applic TOPICAL DAILY Primary Care Provider: Eladia García Referrals: Eladia García DO [Primary Care Provider] - 3-5 Days Activity Restrictions/Additional Instructions: Please follow-up with your PCP and return for any worsening of your symptoms. Disposition Disposition: Home, Self Care Discharge Date/Time: 04/08/23 16:23
[2023-04-08 13:45] LABS: Absolute Lymphocyte Count 1.96 X10^3/uL (0.83-4.51); Absolute Neutrophil Count 4.3 X10^3/uL (2.0-7.7); Basophil# 0.06 X10^3/uL; Basophil% 0.8 % (0-1); Eosinophil# 0.36 X10^3/uL; Eosinophils% 4.9 % (0-5); Hematocrit 39.5 % (40-54); Hemoglobin 12.5 g/dL (13.0-16.5); Lymphocyte # 1.96 X10^3/ul (0.83-4.51); Lymphocyte % 26.9 % (19-41); Mean Corp Hgb Conc 31.6 g/dL (32-36); Mean Corpuscular Hgb 31.6 pg (27.0-32.0); Mean Corpuscular Volume 99.7 fL (80-94); Mean Platelet Vol. 11.1 fl (6.2-12.0); Monocyte# 0.63 X10^3/uL; Monocyte% 8.6 % (0-10); NRBC Flagged by Analyzer 0 % (0-5); Neutrophil # 4.26 X10^3/uL (2.7-7.7); Neutrophil % 58.5 % (47-70); Platelet Count 264 K/mm3 (150-450); RBC Distribution Width CV 15.1 % (11.6-14.6); RBC Distribution Width SD 56.6 fl (35.1-43.9); Red Blood Count 3.96 M/mm3 (4.6-6.2); White Blood Count 7.3 K/mm3 (4.4-11.0)
[2023-04-08 13:57] LABS: Anion Gap 5 (5-15); BUN 24 mg/dL (7-18); BUN/Creat Ratio 15.5 RATIO (10-20); Calcium,Total 8.8 mg/dL (8.5-10.1); Chloride 110 mmol/L (98-107); Creatinine, Serum 1.55 mg/dL (0.70-1.30); EST Glomerular Filtration Rate 47 mL/min (>60); Est Glom Filt Rate - Afr Amer 56 mL/min (>60); Glucose 95 mg/dL (74-106); Potassium 4.1 mmol/L (3.5-5.1); Sodium Level 142 mmol/L (136-145)
[2023-04-08 14:09] LABS: Lactic Acid 0.9 mmol/L (0.4-1.9)
--- NOTE | 2023-04-08 14:20 | RAD_ITS ---
INDICATION: cough EXAMINATION/TECHNIQUE: X-RAY - XR Chest 1 View COMPARISON: 02/07/2023. FINDINGS: LINES/DEVICES: None. LUNGS: No consolidation, edema or effusion. No pneumothorax. MEDIASTINUM AND CARDIOVASCULAR STRUCTURES: Cardiac silhouette not enlarged. Central airways and mediastinal contour are unremarkable. BONES AND SOFT TISSUES: No demonstrated acute osseous changes. RAD/Chest 1 View (Portable) IMPRESSION: No radiographic evidence of acute cardiopulmonary disease. Electronically Signed: Doug Cristobal MD at 14:36 EDT ,
[2023-04-08 14:36] LABS: Troponin-I HS 10 pg/mL (3.0-78.0)
[2023-04-08 14:47] LABS: Bacteria 0 SEEN /hpf (None Seen); Mucous, Urine 0 SEEN /hpf (<or=2+); Red Blood Cells-Urine 0 SEEN /hpf (0-5); Squamous Epithelial Cells - UA 0 SEEN /hpf (0-5)
[2023-04-08 14:49] LABS: Color, Urine Yellow (Yellow); Glucose, Dipstick Normal (Normal); Ketone-Dipstick Negative (Negative); Leukocyte Esterase-Dipstick 25 /ul (Negative); Nitrite-Dipstick Negative (Negative); Occult Blood-Urine Negative /ul (Negative); Protein-Dipstick Negative (Negative); Specific Gravity, Urine 1.015 (1.002-1.030); Urine Clarity Clear (Clear); Urine Urobilinogen 8 mg/dl (Normal); Urine pH 6.5 (5.0 - 8.0)
[2023-04-08 14:50] LABS: Urine Bilirubin Dipstick 1 mg/dL (Negative)
[2023-04-08 14:56] LABS: White Blood Cells 0-5 SEEN /hpf (0-5)
[2023-04-08 15:27] VITALS: BP 165/80; PULSE 50; RESP 18; O2SAT 98
[2023-04-08 15:47] VITALS: BMI 28.8
== END 2023-04-08 16:23 | disposition home or self-care (01) ==
PROVIDERS: Physician Assistant; Emergency Provider Emergency Medicine; PCP Internal Medicine; Visit Provider Emergency Medicine
DX: I95.1 Orthostatic hypotension (principal); G20 Parkinson's disease; N18.30 Chronic kidney disease, stage 3 unspecified; I12.9 Hypertensive chronic kidney disease with stage 1 through stage 4 chronic kidney disease, or unspecified chronic kidney disease; E78.5 Hyperlipidemia, unspecified; E03.9 Hypothyroidism, unspecified; Z79.01 Long term (current) use of anticoagulants; Z79.890 Hormone replacement therapy; Z79.899 Other long term (current) drug therapy; Z86.73 Personal history of transient ischemic attack (TIA), and cerebral infarction without residual deficits; Z90.49 Acquired absence of other specified parts of digestive tract
CPT/HCPCS: 70450; 71045; 80048; 81001; 83605; 84484; 85025; 93005; 99284; A4216

== ENCOUNTER → 2023-05-10 | Outpatient (CLI) | payer MEDICARE, OTHER, SELFPAY ==
[2023-05-10 13:06] LABS: International Normalized Ratio 2.3; Prothrombin Time (Protime)PT. 25.8 SECONDS (11.7-14.9)
== END | disposition home or self-care (01) ==
LOC: LABSPEC 12:29
PROVIDERS: PCP Internal Medicine; Referring Provider Internal Medicine; Visit Provider Internal Medicine
DX: Z51.81 Encounter for therapeutic drug level monitoring (principal)
CPT/HCPCS: 85610

== ENCOUNTER → 2023-08-07 | Outpatient (CLI) | payer MEDICARE, OTHER, SELFPAY ==
[2023-08-07 13:11] LABS: Bacteria 0 SEEN /hpf (None Seen); Mucous, Urine 0 SEEN /hpf (<or=2+); Red Blood Cells-Urine 0 SEEN /hpf (0-5); Squamous Epithelial Cells - UA 0 SEEN /hpf (0-5)
[2023-08-07 15:17] LABS: Hematocrit 37.3 % (40-54); Hemoglobin 11.1 g/dL (13.0-16.5); Mean Corp Hgb Conc 29.8 g/dL (32-36); Mean Corpuscular Hgb 28.2 pg (27.0-32.0); Mean Corpuscular Volume 94.9 fL (80-94); Mean Platelet Vol. 11.9 fl (6.2-12.0); Platelet Count 261 K/mm3 (150-450); RBC Distribution Width CV 15.7 % (11.6-14.6); RBC Distribution Width SD 54.9 fl (35.1-43.9); Red Blood Count 3.93 M/mm3 (4.6-6.2); White Blood Count 8.2 K/mm3 (4.4-11.0)
[2023-08-07 15:32] LABS: Albumin, Serum 3.1 g/dL (3.2-5.0); BUN 28 mg/dL (7-18); BUN/Creat Ratio 16.2 RATIO (10-20); Calcium,Total 8.6 mg/dL (8.5-10.1); Chloride 108 mmol/L (98-107); Creatinine, Serum 1.73 mg/dL (0.70-1.30); EST Glomerular Filtration Rate 41 mL/min (>60); Est Glom Filt Rate - Afr Amer 50 mL/min (>60); Glucose 92 mg/dL (74-106); Phosphorus 3.4 mg/dL (2.5-4.9); Potassium 4.3 mmol/L (3.5-5.1); Sodium Level 141 mmol/L (136-145)
[2023-08-07 15:35] LABS: Color, Urine Yellow (Yellow); Glucose, Dipstick Normal (Normal); Ketone-Dipstick 5 mg/dl (Negative); Leukocyte Esterase-Dipstick 25 /ul (Negative); Nitrite-Dipstick Negative (Negative); Occult Blood-Urine 10 /ul (Negative); Protein-Dipstick 30 mg/dl (Negative); Urine Clarity Clear (Clear); Urine Urobilinogen 4 mg/dl (Normal)
[2023-08-07 15:36] LABS: Urine Bilirubin Dipstick 3 mg/dL (Negative)
[2023-08-07 15:50] LABS: Calcium Oxalate Crystals Ur 2+ /hpf (<or=2+); Hyaline Cast 5-10 SEEN /lpf (0-5)
[2023-08-07 15:52] LABS: White Blood Cells 0-5 SEEN /hpf (0-5)
[2023-08-08 08:06] LABS: PTHIN 71.1 pg/mL (18.4-80.1)
== END | disposition home or self-care (01) ==
LOC: MTLAB 13:06
PROVIDERS: PCP Internal Medicine; Referring Provider Internal Medicine Nephrology; Visit Provider Internal Medicine Nephrology
DX: N17.9 Acute kidney failure, unspecified (principal); N18.31 Chronic kidney disease, stage 3a
CPT/HCPCS: 36415; 80069; 81001; 83970; 85027

== ENCOUNTER → 2023-09-12 | Outpatient (CLI) | payer MEDICARE, OTHER, SELFPAY ==
--- NOTE | 2023-09-12 12:41 | CDU_ITS ---
Reason For Study: bilateral stenosis Rt. Velocities/BP Lt. Velocities/BP Prox CCA 56.7/9.0 cm/sec. Prox CCA 65.1/13.6 cm/sec. Mid CCA 77.1/13.8 cm/sec. Mid CCA 71.2/13.6 cm/sec. Dist CCA 84.6/11.0 cm/sec. Dist CCA 62.5/11.9 cm/sec. Prox ICA 67.6/10.0 cm/sec. Prox ICA 60.0/17.1 cm/sec. Mid ICA 81.8/14.7 cm/sec. Mid ICA 73.2/17.1 cm/sec. Dist ICA 97.4/19.3 cm/sec. Dist ICA 87.5/20.4 cm/sec. Rt. ICA/CCA = 97.4/84.6=1.2. Lt. ICA/CCA = 87.5/71.2=1.2. Prox ECA 80.9/0.0 cm/sec. Prox ECA 91.9/0.0 cm/sec. Rt. Vert. 51.1/11.0 cm/sec. Lt. Vert. 67.7/12.7 cm/sec. Right Extracranial There is homogeneous, smooth atherosclerotic plaque noted in the right common carotid artery. There is heterogeneous, irregular atherosclerotic plaque noted in the right internal carotid artery. There is homogeneous, smooth atherosclerotic plaque noted in the right external carotid artery. Antegrade flow is noted in the right vertebral artery. Left Extracranial There is homogeneous, smooth atherosclerotic plaque noted in the left common carotid artery. There is heterogeneous, irregular atherosclerotic plaque noted in the left internal carotid artery. There is homogeneous, smooth atherosclerotic plaque noted in the left external carotid artery. Antegrade flow is noted in the left vertebral artery. Procedure Carotid Duplex 28002. This is a Carotid Duplex examination using B-mode, color flow and specral Doppler. Exam performed in department. VL/Carotid Duplex Ultrasound Interpretation Summary Mild (<50%) stenosis right extracranial internal carotid. Mild (<50%) stenosis left extracranial internal carotid. Patent and antegrade vertebrals bilaterally. Ordering Physician: Eladia García Referring Physician: Eladia García Performed By: Nanette Avila, HAYES, RVT
--- NOTE | 2023-09-12 13:05 | SP.MBSS_ITS ---
Modified Barium Swallow Patient Information Study Date: 09/12/23 Study Time: 13:00 Direct Billable Minutes: 116 Total Minutes procedure & reportin Diagnosis: Cough R05.9; Parkinson's Disease G20 Referring Physician: Eladia García Reason for Referral: Objectively assess swallow function, assess risk for aspiration, and determine recommendations for least restrictive diet textures and compensatory strategies to improve safety of swallow. Medical History: PMH: Parkinson's disease, cough, HTN, syncope and collapse, CVA (3-4 years ago, no swallowing or speech difficulty afterwards per patient). 78-year-old male who reports occasional sensation of retention of food caught in his throat with coughing. No history of choking per patient. His PCP referred him for MBSS to further assess concern for swallow dysfunction due to cough and reports of retention in his throat. Current Diet Ordered: Regular textures / Thin liquids Dentition: Natural Teeth and Missing Teeth Mental Status: WNL Respiratory Status: Oxygenating on Room Air Penetration-Aspiration Scale Penetration-Aspiration Scale: OBJECTIVE ASSESSMENT OF SWALLOW FUNCTION (QUANTITATIVE ? PER TRIAL): PENETRATION / ASPIRATION SCALE (BELLO): 1 = does not enter airway 2 = enters airway/above vocal folds/ejected 3 = enters airway/above vocal folds/not ejected 4 = enters airway/contacts vocal folds/ejected 5 = enters airway/contacts vocal folds/not ejected 6 = enters airway/below vocal folds/ejected 7 = enters airway/below vocal folds/not ejected despite effort 8 = enters airway/below vocal folds/no effort VIDEOFLOROSCOPIC SCALE SCORE (BELLO): Grade I = aspiration of material that has penetrated into the laryngeal vestibule, intact cough reflex Grade II = aspiration < 10 % of the bolus, intact cough reflex Grade III = aspiration of < 10 % of the bolus, reduced cough reflex or aspiration of > 10 % of the bolus, intact cough reflex Grade IV = aspiration of > 10 % of the bolus, reduced cough reflex Penetration-Aspiration Scale Score Thin Liquid via teaspoon: Result: 1= does not enter airway Thin Liquid via teaspoon Trial 2: Result: 1= does not enter airway Thin Liquid via small single sip: cup: Result: 2= enter airway/above vocal folds/ejected [employer] Thick Liquid via small single sip: cup: Result: 1= does not enter airway Pudding via teaspoon: Result: 1= does not enter airway Comment: Esophageal screen - Complete clearance. Cookie: Result: 1= does not enter airway Thin Liquid via single sip: straw: Result: 2= enter airway/above vocal folds/ejected Thin Liquid via sequential sips:straw: Result: 2= enter airway/above vocal folds/ejected Comment: Esophageal screen - Complete clearance. Oral Phase Labial Seal: No Labial Escape Tongue Control During Bolus Hold: Posterior escape of less than half of bolus Bolus Preparation/Mastication: Disorganized chewing/mashing with solid pieces of bolus unchewed (small pieces of cookie appeared unchewed) Bolus Transport/Lingual Motion: Delayed initiation of tongue motion Oral Residue: Trace residue lining oral structures Pharyngeal Phase Initiation of Pharyngeal Swallow: Bolus head at posterior laryngeal surgace of epiglottis Soft Palate Elevation: No bolus between soft palate and pharyngeal wall Laryngeal Elevation: Comp. Superior move thyroid cart w/comp. apprx arytenoid cart-epig pet Anterior Hyoid Excursion: Partial anterior movement Epiglottic Movement: Partial inversion Laryngeal Vestibule Closure at Height of Swallow: Incomplete; narrow column of air/contrast in laryngeal vestibule (trace laryngeal penetration with full ejection for thin liquids via sequential straw) Pharyngeal Stripping Wave: Present - diminished Pharyngoesophageal Segment Opening: Complete distension and complete duration; no obstruction of flow Tongue Base Retraction: Wide column of contrast between tongue base & post. pharyngeal wall Pharyngeal Residue: Majority of contrast within or on pharyngeal structures (~50% of cookie remained in the vallecula after the swallow) Esophageal Phase Esophageal Clearance: Esophageal retention (Brief retention of liquid in upper esophagus, which cleared by the following trial.) Diagnosis/Impression Diagnosis: Mild oropharyngeal phase dysphagia R13.12 Impression: The oral phase is primarily marked by... -Decreased bolus control with <1/2 of the bolus spilling posteriorly to the posterior surface of the epiglottis prior to swallow onset observed with one sip of thin liquids. Otherwise, the patient demonstrated good bolus control. -Timely mastication; however, small pieces appeared un-chewed. The pharyngeal phase is primarily marked by... -Mildly decreased airway closure during the swallow due to partial anterior hyoid excursion and partial epiglottic inversion. -Moderately decreased tongue base retraction and pharyngeal stripping wave, resulting in mild-moderate pharyngeal residues most notable with pudding and cookie. Patient reported no sensation of moderate pharyngeal retention of cookie; however, he did mostly clear the residues with 3 swallows. Residues increase the patient's risk for post prandial aspiration. -Trace laryngeal penetration with full ejection with thin liquids via sequential straw sips. No aspiration observed. Recommendations Diet: Regular Textures (Easy to Chew textures - IDDSI Level 7) and Thin Liquids Compensatory Strategies: Small Bites (chew thoroughly), Small Sips, Slow Rate, Multiple Swallows, Alternate bites/solids and sips/liquids, Sitting upright and Remain sitting upright for 30 minutes after PO intake Recommend Repeat Modified Barium Swallow: Yes (Recommend annual MBSS due to dx of PD as dysphagia is at risk to worsen with disease progression. If worsening s/s of dysphagia prior to 08/2024, please re-consult sooner.) Need for Skilled Speech Therapy Services: Yes Comment: Will recommend the patient for outpatient dysphagia therapy to address deficits in oropharyngeal swallow function. Will recommend the patient for oropharyngeal strengthening to improve hyolaryngeal elevation/excursion, pharyngeal motility, and tongue base retraction (Kerry, Robyn, Effortful). The patient would benefit from thorough education regarding recommended diet textures and compensatory strategies. Education Completed: 1. Described result of evaluation. and 2. Pt understands evaluation & agrees with goals and treatment plan. Status Active ST Patient: Active Contact Information [facility] Speech Therapy:: Meagan Forman M.A. [facility] Speech-Language Pathologist [facility] [address] [place] [address] [email or web address] [phone]
[2023-09-12 13:19] LABS: PSA,Total- Diagnostic 2.49 ng/mL (0.0-4.0)
== END | disposition home or self-care (01) ==
LOC: RAD 12:24
PROVIDERS: Urology; PCP Internal Medicine; Referring Provider Internal Medicine; Visit Provider Internal Medicine
DX: R97.20 Elevated prostate specific antigen [PSA] (principal); R05.9 Cough, unspecified; I65.23 Occlusion and stenosis of bilateral carotid arteries
CPT/HCPCS: 36415; 74230; 84153; 92611; 93880

== ENCOUNTER → 2023-12-04 | Outpatient (CLI) | payer MEDICARE, OTHER, SELFPAY ==
[2023-12-04 15:41] LABS: Albumin, Serum 3.1 g/dL (3.2-5.0); BUN 25 mg/dL (7-18); BUN/Creat Ratio 13.9 RATIO (10-20); Calcium,Total 8.5 mg/dL (8.5-10.1); Chloride 111 mmol/L (98-107); EST Glomerular Filtration Rate 39 mL/min (>60); Est Glom Filt Rate - Afr Amer 47 mL/min (>60); Glucose 84 mg/dL (74-106); Phosphorus 3.8 mg/dL (2.5-4.9); Potassium 4.7 mmol/L (3.5-5.1); Sodium Level 143 mmol/L (136-145)
== END | disposition home or self-care (01) ==
PROVIDERS: PCP Internal Medicine; Referring Provider Internal Medicine Nephrology; Visit Provider Internal Medicine Nephrology
DX: N17.9 Acute kidney failure, unspecified (principal)
CPT/HCPCS: 36415; 80069

== ENCOUNTER → 2023-12-12 | Outpatient (CLI) | payer MEDICARE, OTHER, SELFPAY ==
--- NOTE | 2023-12-12 09:26 | NEURO ---
NCS and/or EMG Patient Report Ordering Doctor: Eladia García DATE OF SERVICE: 12/12/23 Roosevelt presents for electrodiagnostic testing of the lower limbs. He reports numbness in both feet radiating up towards the knees. He has a history of lumbar spine surgery approximately 2 years ago and has ongoing lower back pain. Electrodiagnostic findings: Right peroneal motor nerve demonstrates normal distal latency with reduced amplitude and reduced conduction velocity. Left peroneal motor nerve demonstrates normal distal latency with reduced conduction velocity and a drop in amplitude across the fibular head. Right tibial motor nerve is within normal limits. Left tibial motor response demonstrates decreased amplitude and conduction velocity. Borderline prolonged left tibial F?wave. Prolonged H?reflex bilaterally. Sensory responses are not obtainable. Needle EMG testing was performed in the lower limbs. 1+ fibrillations are noted in the right tibialis anterior, right gastrocnemius and right lumbar paraspinals. Motor unit action potentials normal for normal amplitude and duration. Electrodiagnostic impression: This is an abnormal study in the lower limbs. 1. Electrodiagnostic findings demonstrate peripheral polyneuropathy,with motor and sensory involvement, with evidence of demyelination and axonal loss. 2. Electrodiagnostic findings suggestive of acute right L5, S1 radiculopathy. Multi Select Codes Neurology Neurology Interp Codes: 69889-61 Musc test done w/n test comp (interp) (2) and 47373-20 Nrv cndj test 11-12 studies (interp)
== END | disposition home or self-care (01) ==
LOC: PSN 06:35
PROVIDERS: PCP Internal Medicine; Referring Provider Internal Medicine; Visit Provider Internal Medicine
DX: R20.2 Paresthesia of skin (principal)
CPT/HCPCS: 95886; 95912

== ENCOUNTER → 2024-02-04 | Outpatient (CLI) | payer MEDICARE, OTHER, SELFPAY | END | disposition home or self-care (01) | PROVIDERS: PCP Internal Medicine; Referring Provider Internal Medicine Cardiovascular Disease; Visit Provider Internal Medicine Cardiovascular Disease | DX: I95.1 Orthostatic hypotension (principal) | CPT/HCPCS: 36415; 82533 ==

== ENCOUNTER 2024-03-13 10:30 | Outpatient (RCR) | payer MEDICARE, OTHER, SELFPAY ==
--- NOTE | 2024-02-13 11:27 | HP.PTEVAL_ITS ---
Patient's Visit Information Visit Information Visit Information: MIGUEL GUEVARA is a 78 year old M referred to Physical Therapy by Dr. Miguel Momin MD with a diagnosis of CERVICAL STENOSIS AND DDD. Date of Evaluation: 02/13/24 Physical Therapist: Luna Wolfe PT, Cert MDT Visit Plan Frequency: 2x /Week Duration: 4-6 Weeks Plan: US AT 1.3 W/CM2 X 8 MIN TO POSTERIOR CERVICAL MUSCULATURE X 6 TO 8 VISITS CERVICAL STM X 6 TO 8 VISITS INSTRUCT PATIENT IN CERVICAL ISOMETRICS, CERVICAL CHARLIE ROTATION STRETCHING WITH TOWEL ASSIST, SCAPULAR STRENGTHENING AND UPPER TRAP STRETCHING EX'S WITH PICT URES FOR HEP WITHIN COMFORTABLE ROM AND INTENSITY. POSTURE TRAINING. Subjective Subjective: Work/Leisure: RETIRED Present symptoms: CONSTANT CHARLIE NECK PAIN AND STIFFNESS. PATIENT DENIES CHARLIE UE PAIN, NUMBNESS AND TINGLING. Present since: CHRONIC - 1-2 YEARS Pain Scale: WORST 8/10, LEAST 5/10 Currently: 5/10 Commenced as a result of: NO APPARENT REASON Symptoms at onset: SAME - I DIDN'T EASE INTO IT Worse: TURNING HEAD, BENDING OVER TO PICK SOMETHING UP Better: KEEPING HEAD STRAIGHT Disturbed sleep: YES Previous history/Previous treatment: UNREMARKABLE This episode: MASSAGE THERAPY (NOT SPECIFIC FOR NECK - NE). DR. ANDERSON IN [place] (SAME DOCTOR THAT DID HIS BACK SURGERY A COUPLE YRS AGO) RECOMMENDED NECK SURGERY TOO BUT PATIENT REPORTS HIS BACK SURGERY DIDN'T GO VERY WELL SO HE DIDN'T WANT TO DO IT. REFERRED TO DR. ENCISO BY DR. WATSON AND HAS HAD ONE JOSE DE JESUS'T WITH DR. ENCISO. ANNABEL'S RECOMMENDED. Dizziness: AT TIMES - FOR OVER A YEAR - H/O ILLNESS DECEMBER 2022 - GALLSTONES REMOVED AND THERE WERE COMPLICATIONS INCLUDING SEPSIS AND INCREASED PARKINSON'S SX'S - SINCE THEN GETS DIZZY WHEN HE STANDS UP. ALSO HAS AFIB AND LOW BLOOD PRESSURE AT TIMES. STATES BLOOD PRESSURE IS BETTER REGULATED NOW BUT I FEEL LIKE HELL ALL THE TIME. Tinnitus: CONSTANT Nausea: NO Shortness of Breath: YES Difficulty Swollowing: YES Gait: CANE AND ROLLATOR NEEDED. MOSLTY CANE IN THE HOUSE AND CAME WITH CANE TODAY. DOES NOT DRIVE. BROUGHT HIM TODAY BUT DID NOT COME INTO PT WITH HIM. Accidents: NO Unexplained weight loss: NO Imaging: DECEMBER 2022 NECK MRI RESULTS FROM [facility] EMR: 1. 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 Calcified right posterior caudal disc extrusion cannot be entirely excluded. Additionally, mild stenosis of the right C4-C5 intervertebral neural foramen. In my opinion, these were present previously and are unchanged. 2. 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 This is unchanged. 3. C3-C4 ventral extradural defect due to posterior bulging annulus and posterior marginal spurs causing minimal indentation of the ventral cord surface and mild central canal stenosis. Additionally, moderate stenosis of the right intervertebral neural foramen and mild stenosis of the left intervertebral neural foramen. This level is unchanged. No 4. No MRI evidence of any suspicious cervical extruded disc fragment. 5. No significant interval change when compared to 03/05/2020. PMH: SEE BELOW AND PARKINSONS DZ Objective Objective: Sitting Posture/Standing Posture: PATIENT HAS RIGID FORWARD HEAD POSTURE WITH ROUNDED SHLD'S L>R. Other Observations: INDEP GAIT INTO PT WITH STRAIGHT CANE. INDEP SIT TO STAND AND REVERSE TRANSFERS. Sensory deficit: CHARLIE UE LIGHT TOUCH SENSATION GROSSLY INTACT AND SYMMETRICAL ROM deficit: R SHLD FLEX 130 DEG. L SHLD FLEX 123 DEG. 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 Dural Signs: NEGATIVE Cervical Mvmt Loss: Flex: MIN - INCREASES - W Pro: STUCK IN FH POSTURE - NE Ext: PATRICE - NE Ret: PATRICE - INCREASES - W RSB: PATRICE - INCREASES - W LSB: MOD - INCREASES - W R Rot: PATRICE - INCREASES - W L Rot: MOD - INCREASES - W Postural strength: POOR Palpation: MILD INCREASED MUSCLE TONE CHARLIE CERVICAL MUSCULATURE R>L BUT PATIENT DENIES NECK AND SHLD TENDERNESS THROUGHOUT. Balance/Special Test Scores Oswestry Neck Score: 22 Goals Goal 1:: DECREASE C/O NECK PAIN BY AT LEAST 25% TO EASE ADL'S. Goal Time Frame: 4-6 Weeks Goal 2:: PATIENT WILL REPORT AN INCREASE OF CERVICAL ROM BY AT LEAST 25% Goal Time Frame: 4-6 Weeks Goal 3:: PATIENT WILL SCORE AT LEAST 5 POINTS BETTER ON THE NECK OSWESTRY QUESTIONAIRRE Goal Time Frame: 4-6 Weeks Goal 4:: PATIENT WILL BE INDEP WITH A HEP FOR CONTINUED IMPROVEMENT ONCE FORMAL PHYSICAL THERPAY CONCLUDES. Goal Time Frame: 4-6 Weeks Rehabilitation Potential Physical Therapy Diagnosis: NECK PAIN AND STIFFNESS. POSTURAL STIFFNESS AND WEAKNESS. Rehabilitation Potential: Fair Anticipated Interventions Patient/Client Instruction: Educate patient on: Condition, Plan of Care and Risk Factors For the Purpose of:: To improve self management Therapeutic Exercise to Include: Strength training, Postural training, Flexibilty training and Scapular Strength/Stabilization For the Purpose of:: To decrease pain, To increase ROM, To improve muscle performance and motor function, To increase tolerance to activity/condition/position and To improve ability of physical actions for home/community/work/leisure Manual Therapy Techniques to Include: Trigger point massage and Soft tissue mobilization For the Purpose of:: To decrease pain, To increase ROM and To improve nutrient delivery to tissue Thermo therapy (hot pack): Yes Ultrasound (thermal/non thermal): Yes For the Purpose of:: To decrease pain and To improve nutrient delivery to tissue Text: Thank you for the opportunity to evaluate your patient. For Medicare and Medicare HMO plans, please review the plan of care and approve it. It will need to be FAXED BACK to us at [phone] for Medicare purposes. For Medicare only, by signing this I certify the plan of care. Please let me know if there are questions or concerns regarding this plan of care. Physician Signature: Date:
--- NOTE | 2024-03-13 12:00 | HP.PTREVAL_ITS ---
Re-Evaluation Intro: Dr. Miguel Momin MD, It has been my pleasure to treat MIGUEL GUEVARA over the last 10 visits for CERVICAL STENOSIS AND DDD. Please see the progress note below for an update on the physical therapy plan of care! Subjective Subjective: I FEEL LIKE I CAN TURN MY HEAD FURTHER NOW BUT IT STILL HURTS. PATIENT REPORTS IT DOESN'T HURT BAD IT DID. I CAN NOTICE THE DIFFERENCE IN THE CAR THE MOST BECAUSE I CAN LOOK TO SEE IF SOMETHING IS COMING BETTER NOW. PATIENT DENIES ANY NEW SX'S SINCE STARTING PT. PATIENT REPORTS NON COMPLIANCE WITH HEP EXCEPT FOR THE ONE EX THIS PT GAVE HIM. HE DECLINES WANTING ANY OTHER EX'S STATING HE DOESN'T WANT TO DO THEM. Objective Objective/Function: UPON EXAM TODAY THIS PATIENT SHOW MINIMAL IMPROVEMENT IN NECK AND SHLD ROM AND IS REPORTING A LITTLE BIT LESS PAIN. PATIENT IS REQUESTING WE HOLD HIS PT CHART OPEN. HE STATES HE WOULD LIKE TO CONTINUE PT BUT HE WANTS TO WAIT UNTIL HE HAS THE ANNABEL NEXT SUNDAY AND TALKS TO THE DOCTOR. THIS PT EXPLAINED TO PATIENT THAT PROGRESS WITH PT WILL BE GREATLY LIMITED OR NON EXISTENT WITHOUT HEP COMPLIANCE AND HE VERBALIZED UNDERSTANDING. ROM deficit: R SHLD FLEX 138 DEG. L SHLD FLEX 124 DEG. Motor deficit: CHARLIE SHLD FLEX 4-/5, ABD 4/5, IR 4/5, ER 4-/5. Cervical Mvmt Loss: Flex: MIN - INCREASES - INCREASES - NW Pro: STUCK IN FH POSTURE - NE Ext: MOD- NE Ret: PATRICE - NE RSB: PATRICE - INCREASES - NW LSB: MOD - INCREASES - NW R Rot: MOD - INCREASES - NW L Rot: MOD - INCREASES - NW Plan Plan Plan: HOLD CHART X 2 WKS. Balance/Gait/Functional tests Balance/Special Test Scores Oswestry Neck Score: 14 Goals Goals Goal 1:: DECREASE C/O NECK PAIN BY AT LEAST 25% TO EASE ADL'S. Goal Time Frame: 4-6 Weeks Goal 2:: PATIENT WILL REPORT AN INCREASE OF CERVICAL ROM BY AT LEAST 25% Goal Time Frame: 4-6 Weeks Goal 3:: PATIENT WILL SCORE AT LEAST 5 POINTS BETTER ON THE NECK OSWESTRY QUESTIONAIRRE Goal Time Frame: 4-6 Weeks Goal 4:: PATIENT WILL BE INDEP WITH A HEP FOR CONTINUED IMPROVEMENT ONCE FORMAL PHYSICAL THERPAY CONCLUDES. Goal Time Frame: 4-6 Weeks Anticipated Interventions Anticipated Interventions Patient/Client Instruction: Educate patient on: Condition, Plan of Care and Risk Factors For the Purpose of:: To improve self management Therapeutic Exercise to Include: Strength training, Postural training, Flexibilty training and Scapular Strength/Stabilization For the Purpose of:: To decrease pain, To increase ROM, To improve muscle performance and motor function, To increase tolerance to activity/condition/position and To improve ability of physical actions for home/community/work/leisure Manual Therapy Techniques to Include: Trigger point massage and Soft tissue mobilization For the Purpose of:: To decrease pain, To increase ROM and To improve nutrient delivery to tissue Thermo therapy (hot pack): Yes Ultrasound (thermal/non thermal): Yes For the Purpose of:: To decrease pain and To improve nutrient delivery to tissue Re-Evaluation Ending Re-evaluation ending: Please do not hesitate to contact me at [phone] by phone or Fax: if you have questions or concerns regarding this new plan of care! Sincerely, Luna Wolfe, PT, Cert MDT
--- NOTE | 2024-07-31 15:31 | HP.PT.NRP ---
Patient Information Patient Information: MIGUEL GUEVARA was seen in my office for initial evaluation on 02/13/24. The following Plan of Care was established for this patient: POC Established Initial Frequency: 2x /Week Initial Duration: 4-6 Weeks Anticipated Interventions Patient/Client Instruction: Educate patient on: Condition, Plan of Care and Risk Factors For the Purpose of:: To improve self management Therapeutic Exercise to Include: Strength training, Postural training, Flexibilty training and Scapular Strength/Stabilization For the Purpose of:: To decrease pain, To increase ROM, To improve muscle performance and motor function, To increase tolerance to activity/condition/position and To improve ability of physical actions for home/community/work/leisure Manual Therapy Techniques to Include: Trigger point massage and Soft tissue mobilization For the Purpose of:: To decrease pain, To increase ROM and To improve nutrient delivery to tissue Thermo therapy (hot pack): Yes Ultrasound (thermal/non thermal): Yes For the Purpose of:: To decrease pain and To improve nutrient delivery to tissue Last Seen Last Seen: This patient was last seen in our office 03/13/24. Pertinent comments regarding their Physical therapy will appear below: It has been my pleasure to see this patient for a total of 10 visits. This patient has not returned to Physical Therapy for more visits and is appropriate to return to MD for further follow-up as needed. At this point I will be discontinuing this patient from physical therapy. I would be happy to see this patient again in the future if found appropriate by the physician. Thank you! Luna Wolfe, PT, Cert MDT Balance/Gait/Functional tests Balance/Special Test Scores Oswestry Neck Score: 14
== END 2024-03-13 19:00 | disposition home or self-care (01) ==
LOC: PT 10:30
PROVIDERS: PCP Internal Medicine; Visit Provider Anesthesiology Pain Medicine
DX: M50.30 Other cervical disc degeneration, unspecified cervical region (principal); M48.02 Spinal stenosis, cervical region
CPT/HCPCS: 97035; 97110; 97140; 97162; 97530

== ENCOUNTER → 2024-05-14 | Outpatient (CLI) | payer MEDICARE, OTHER, SELFPAY ==
--- NOTE | 2024-05-14 07:32 | CT_ITS ---
STUDY: CT ABDOMEN AND PELVIS WITH CONTRAST REASON FOR EXAM: Male, 78 years old. WEIGHT LOSS, ABD PAIN. Patient has a history of Crohn''s disease. Prior gastric bypass surgery. RADIATION DOSAGE (If Supplied By Facility): CTDIvol = ( 21.63 ) mGy, DLP = ( 2799.79 ) mGycm TECHNIQUE: Transaxial images were obtained from the dome of the diaphragm to the symphysis pubis with oral contrast. Oral and amp; IV BREEZA NEUTRAL and amp; 100mL Isovue-300 was administered. Sagittal and coronal images were reconstructed. Enterography. Individualized dose optimization techniques were used for this CT. COMPARISON: Comparison is made with prior study dated January 10, 2023. FINDINGS: The visualized lung bases are unremarkable. Coronary artery calcification. Pneumobilia in the left intrahepatic biliary ducts secondary to prior cholecystectomy and gastric bypass surgery. Fatty infiltration of the liver. There are surgical clips in the gallbladder fossa consistent with a prior cholecystectomy. Normal spleen. There is diffuse atrophy of the pancreas. Normal bilateral adrenal glands. Stable small bilateral renal cysts. Moderate-sized hiatal hernia. The patient status post subtotal gastrectomy for gastric bypass surgery. Normal small intestine. There is evidence of prior right hemicolectomy. There is non-visualization of the appendix. There is scattered atherosclerotic calcification of the abdominal aorta, without a demonstrated aneurysm. Normal inferior vena cava. Normal retroperitoneum. Normal urinary bladder. There is evidence of an anterior abdominal hernia containing nondilated colon. There are diffuse degenerative changes of the visualized lumbar spine. CT/Abdomen/Pelvis WITH Contrast IMPRESSION: Status post right hemicolectomy. Status post gastric bypass surgery with evidence of anastomotic sites. Central ventral hernia containing nondilated portion of the transverse colon. Status post cholecystectomy. Electronically Signed: Howie Brothers MD at 10:31 EDT ,
--- NOTE | 2024-05-14 07:47 | RAD_ITS ---
STUDY: X-RAY - LUMBAR SPINE REASON FOR EXAM: Male, 78 years old. Other intervertebral disc degeneration, lumbosacral region. TECHNIQUE: 2 view(s) of the lumbar spine were obtained. COMPARISON: None FINDINGS: Normal lumbar lordosis. Mild levoscoliosis centered at L2. 2 mm retrolisthesis of L2 on L3, L3 on L4 and L4 on L5. There is multilevel endplate spondylosis of the lumbar vertebrae. There is multi-level degenerative disc disease with multi-level disc space narrowing. There is multilevel facet hypertrophy. The soft tissue structures are unremarkable. RAD/Lumbar Spine 2 or 3 Views IMPRESSION: Mild levoscoliosis with diffuse degenerative disc disease. MRI may be useful. Electronically Signed: Reginaldo Stout MD at 8:17 EDT ,
[2024-05-14 08:05] LABS: CREATININE FINGERSTICK 1.1 mg/dL (0.70-1.30); EGFR FINGERSTICK > 60.0000 mL/min (>60)
== END | disposition home or self-care (01) ==
PROVIDERS: PCP Internal Medicine; Referring Provider Internal Medicine Gastroenterology; Visit Provider Internal Medicine Gastroenterology
DX: R63.4 Abnormal weight loss (principal); R10.9 Unspecified abdominal pain; M51.37 Other intervertebral disc degeneration, lumbosacral region
CPT/HCPCS: 72100; 74177; Q9967

== ENCOUNTER 2024-06-23 10:15 | Inpatient (IN) | payer MEDICARE, OTHER, SELFPAY ==
[2024-06-23 10:19] VITALS: BP 191/80; PULSE 78; RESP 18; TEMP 37.6; O2SAT 94; BMI 27.0
--- NOTE | 2024-06-23 10:49 | EKG12_ITS ---
Test Reason : Blood Pressure : / mmHG Vent. Rate : 071 BPM Atrial Rate : 071 BPM P-R Int : 178 ms QRS Dur : 078 ms QT Int : 398 ms P-R-T Axes : 063 010 063 degrees QTc Int : 432 ms Normal sinus rhythm Nonspecific T wave abnormality Abnormal ECG Confirmed by GERALDINE MATUTE, JENSEN ([id number]), newspaper managing editor LILLIE ARRIAGA ([id number]) on 06/24/2024 8:46:23 AM Referred By: KVNG Confirmed By:JENSEN CHANDLER MD
--- NOTE | 2024-06-23 10:50 | EX.ED.DYSGE1 ---
HPI History of Present Illness Chief Complaint: Weakness Narrative Narrative: Patient is a 78-year-old male with past medical history of Parkinson's disease, hypothyroidism, hyperlipidemia, chronic kidney disease who presented to the emergency department with a chief complaint of generalized weakness. According to the family was at bedside he was too weak to stand up today. They note that he just recently returned from [facility] as he took a trip over the weekend with other veterans. They state that he had extremely busy days which is not normal for him. They note that he had a fall in the shower yesterday. They state that he does have a problem with hypotension and especially when he is in a hot shower. They noted that he had not had much to drink yesterday. To his knowledge nobody else was sick on the trip. [facility] Medical History Calculus of gallbladder with acute cholecystitis with obstruction Sinus bradycardia, chronic CKD (chronic kidney disease), stage III Parkinsons disease History of CVA (cerebrovascular accident) Hypothyroidism Hyperlipidemia GERD (gastroesophageal reflux disease) HTN (hypertension) Home Medications ?Medication ?Instructions ?Recorded ?Last Taken ?Type Carbidopa-Levo 25-100 mg Odt 1 tab PO TID parkinsons 08/14/20 06/22/24 History acetaminophen 500 mg tablet 1,000 mg PO Q6H 02/07/23 Unknown History amiodarone 200 mg tablet 200 mg PO DAILY 02/07/23 Unknown History cholecalciferol (vitamin D3) 25 50 mcg PO DAILY 02/07/23 06/22/24 History mcg (1,000 unit) tablet cyanocobalamin (vitamin B-12) 500 500 mcg PO DAILY 02/07/23 06/22/24 History mcg tablet (Vitamin B-12) levothyroxine 125 mcg tablet 112 mcg PO DAILY 02/07/23 06/22/24 History lidocaine HCl 4 % topical cream 1 applic topical DAILY 02/07/23 06/22/24 History (Aspercreme (lidocaine HCl)) melatonin 10 mg tablet 10 mg PO QHS 02/07/23 06/22/24 History oxycodone 5 mg tablet,oral ONLY 5 mg PO Q6H PRN Pain 02/07/23 Unknown History (not feeding tubes) (Oxaydo) pediatric multivit no.158-iron fum 1 tab PO DAILY 02/07/23 Unknown History 18 mg-vit K1 10 mcg chewable tablet (Cerovite Jr) sennosides 8.6 mg tablet (senna) 8.6 mg PO QHS 02/07/23 06/22/24 History sodium bicarbonate 650 mg tablet 650 mg PO TID 02/07/23 06/22/24 History tamsulosin 0.4 mg capsule 0.4 mg PO DAILY 02/07/23 06/22/24 History warfarin 1 mg tablet 1 mg PO QHS 02/07/23 Unknown History droxidopa 100 mg capsule 200 mg PO TID 06/23/24 Unknown History esomeprazole magnesium 40 mg 40 mg PO DAILY 06/23/24 06/22/24 History capsule,delayed release finasteride 5 mg tablet 5 mg PO DAILY 06/23/24 06/22/24 History fludrocortisone 0.1 mg tablet 0.2 mg PO DAILY 06/23/24 06/22/24 History hydrocodone-acetaminophen 5-325mg 1 tab PO Q6H PRN PRN pain 06/23/24 Unknown History 5mg-325mg tramadol 50 mg tablet 25 - 50 mg PO TID PRN PRN pain 06/23/24 Unknown History Allergy/AdvReac Type Severity Reaction Status Date / Time lisinopril Allergy Swelling Verified 06/23/24 10:19 Family History Father Colon cancer COPD (chronic obstructive pulmonary disease) Surgical History S/P cholecystectomy S/P cholecystectomy History of tonsillectomy and adenoidectomy History of back surgery History of total bilateral knee replacement History of gastric bypass h/o right thumb surgery H/O carpal tunnel repair H/O gastric bypass Social History household members: spouse Smoking Status: Never smoker alcohol intake: never substance use type: does not use ROS ROS ED ROS Narrative Constitutional: Denies any fevers, chills, lightness, dizziness Eyes: Denies change in vision double vision blurry vision Cardiovascular: Denies chest pain or palpitations Respiratory: Denies coughing wheezing shortness of breath Abdomen: Denies abdominal pain nausea vomit diarrhea : Denies any pain phonation, hematuria, polyuria Neurological: Complains of generalized weakness denies any numbness or tingling Musculoskeletal: Denies back pain Skin: Denies rashes or lesions EXAM Physical Exam Narrative Exam Narrative: General: Patient lying in bed rest comfortably did not appear to be in any acute distress Head: Atraumatic, normocephalic Eyes: PERRL bilateral, EOMI bilateral, no conjunctival injection noted, patient does have some swelling noted to the superior aspect of his left eye Neck: Soft, supple, trach midline Cardiovascular: Regular rate and rhythm no murmurs gallops rubs noted Respiratory: Clear to auscultation bilaterally no rales rhonchi or wheezes noted Abdomen: Soft, nondistended, nontender to palpation, bowel sounds present x 4 Extremities: +4/5 strength noted in the bilateral upper and lower extremities, no pedal edema no exam Neurological: Patient follow commands knew that he was at [facility] year is 2023 Skin: Warm, dry, intact Const Vital Signs: 06/23/24 10:19 06/23/24 10:19 06/23/24 10:27 Temperature 99.6 F H 99.6 F H Temperature Source Oral Oral Pulse Rate 78 Respiratory Rate 18 Respiratory Effort Normal Respiratory Pattern Normal Blood Pressure 191/80 H Blood Pressure Mean 117 Pulse Ox 94 Oxygen Delivery Method Room Air 06/23/24 12:15 06/23/24 14:00 Temperature Temperature Source Pulse Rate 72 Respiratory Rate 16 Respiratory Effort Respiratory Pattern Blood Pressure 200/78 H 145/76 H Blood Pressure Mean 118 99 Pulse Ox 95 Oxygen Delivery Method Room Air MDM MDM MDM Narrative Medical decision making narrative: Patient is a 78-year-old male who presented to the emergency department the chief complaint of generalized weakness not feeling well. Patient will have a workup performed here on the differential diagnose includes but not limited to COVID-19, other upper respiratory infection secondary viral etiology, electrolyte abnormality, ACS, intracranial hemorrhage. Once workup is obtained reviewed he will be reevaluated. Patient be given IV fluids for hydration. Patient's CBC reviewed and was largely unremarkable no evidence leukocytosis white blood count normal 7.4, hemoglobin 13.3, plate count normal at 189. Sodium normal 142, potassium is normal 4, creatinine was noted be 1.69, AST and ALT were 172 and 13 respectively, troponin elevated to 504 a delta troponin obtained was noted to be 471. Patient's EKG reviewed and interpreted by myself dependently which showed sinus rhythm with a rate of 71 bpm. Patient was given 3 and 25 mg of aspirin for type II MS likely secondary to his hypertension and COVID-19 infection, patient lipase normal at 10, urinalysis did not reveal any evidence of infection. Patient's x-ray of his chest reviewed showed no acute cardiopulmonary processes. Patient CT cervical spine reviewed showed no evidence of acute fracture or dislocation cervical spine multilevel degenerative disc disease, CT head and brain without contrast showed no acute intracranial processes identified chronic involutional white matter changes noted. Patient was noted be hypertensive into the 200s therefore he was given clonidine 0.2 mg. At this point time do believe the patient will warrant admission to the hospital for generalized weakness, COVID-19 and type II MS. Patient's case was discussed with hospitalist Dr. Goodwin who accept patient for admission. Patient was notified as well as family numbers at bedside all question concerns answered. Lab Data Labs: Laboratory Results - last 24 hr 06/23/24 06/23/24 06/23/24 11:10 12:15 14:15 WBC 7.4 RBC 4.52 L Hgb 13.3 Hct 42.9 MCV 94.9 H MCH 29.4 MCHC 31.0 L RDW Std Deviation 52.5 H RDW Coeff of Aravind 15.2 H Plt Count 189 MPV 10.9 Immature Gran % (Auto) 0.400 Neut % (Auto) 67.5 Lymph % (Auto) 13.5 L [place] % (Auto) 15.9 H Eos % (Auto) 2.0 Baso % (Auto) 0.7 Absolute Neuts (auto) 5.0 Absolute Lymphs (auto) 0.99 Nucleated RBC % 0 Sodium 142 Potassium 4.0 Chloride 110 H Carbon Dioxide 25.0 Anion Gap 7 BUN 25 H Creatinine 1.69 H Estim Creat Clear Calc 40.82 Est GFR (MDRD) Af Amer 51 L Est GFR (MDRD) Non-Af 42 L BUN/Creatinine Ratio 14.8 Glucose 97 Calcium 8.9 Total Bilirubin 0.80 AST 172 H ALT 13 L Alkaline Phosphatase 140 H Troponin I High Sens 504 H* 471 H* Total Protein 7.2 Albumin 3.0 L Globulin 4.2 Albumin/Globulin Ratio 0.7 L Lipase 10 L Urine Color Yellow Urine Clarity Clear Urine pH 6.0 Ur Specific [place]dock 1.020 Urine Protein 30 H Urine Glucose (UA) Normal Urine Ketones 5 H Urine Occult Blood 250 H Urine Nitrite Negative Urine Bilirubin Negative Urine Urobilinogen Normal Ur Leukocyte Esterase 25 H Urine RBC 0-5 SEEN Urine WBC 0-5 SEEN Ur Squamous Epith Cells 0-5 SEEN Urine Bacteria RARE Hyaline Casts 0-5 SEEN Urine Mucus 0 SEEN Radiography Diagnostic Testing: Clinical Impression(s) from Imaging Studies Brain CT 06/23/24 10:51 IMPRESSION: No acute intracranial process identified. Chronic involutional and white matter changes. Electronically Signed: Suzy Rodriguez MD at 11:49 EDT , Cervical Spine CT 06/23/24 10:51 IMPRESSION: No evidence for acute fracture or dislocation in the cervical spine. Multilevel degenerative disc disease. Electronically Signed: Suzy Rodriguez MD at 11:58 EDT , Chest X-Ray 06/23/24 11:30 IMPRESSION: No acute cardiopulmonary process identified. Electronically Signed: Suzy Rodriguez MD at 12:23 EDT , Discharge Plan Triage Chief Complaint: Weakness ED Provider: Herberth Caldwell Dx/Rx/DC Orders Clinical Impression: Generalized weakness, Hypertension, COVID-19, Type 2 MS (myocardial infarction) Primary Care Provider: Eladia García
--- NOTE | 2024-06-23 10:51 | CT_ITS ---
HISTORY: fall. TECHNIQUE: Helically acquired images were obtained of the cervical spine without contrast. 2D reformatted images were reviewed. A radiation dose optimization technique was used for this scan. 414 images. COMPARISON: MRI 12/30/2022. FINDINGS: VERTEBRAE: Vertebral body heights maintained. No acute fracture identified. ALIGNMENT: No significant anterior or posterior subluxation. Straightening of the cervical lordosis. INTERVERTEBRAL DISCS: Posterior disc bulge osteophyte complexes with uncovertebral and facet arthropathy at multiple levels as well as ossification of the posterior longitudinal ligament. Mild central canal stenosis at C2-3. Moderate-severe central canal stenosis and bilateral foraminal narrowing at C3-4. Moderate central canal stenosis, probable right traversing nerve root impingement, and moderate-severe bilateral foraminal narrowing at C4-5. Mild central canal stenosis and bilateral foraminal narrowing at C5-6 and C6-7. SOFT TISSUES: No prevertebral soft tissue swelling. CT/Spine Cervical without Contras IMPRESSION: No evidence for acute fracture or dislocation in the cervical spine. Multilevel degenerative disc disease. Electronically Signed: Suzy Rodriguez MD at 11:58 EDT ,
--- NOTE | 2024-06-23 10:51 | CT_ITS ---
HISTORY: fall hit head. TECHNIQUE: Multiple axial images were obtained of the head without intravenous contrast. A radiation dose optimization technique was used for this scan. 246 images. COMPARISON: 04/08/2023. FINDINGS: BRAIN PARENCHYMA: Small chronic right bhatti radiata and basal ganglia infarct. Multiple foci and zones of low attenuation in the bilateral cerebral white matter compatible with chronic small vessel ischemic gliosis. No acute intra-axial hemorrhage identified. CSF SPACES: Generalized volume loss. No midline shift or other significant mass effect. No acute extra-axial hemorrhage seen. OTHER: Intact calvarium. No significant air fluid levels in the paranasal sinuses or mastoid air cells. Mild left periorbital contusion. Symmetrical orbital contents. CT/Brain/Head without Contrast IMPRESSION: No acute intracranial process identified. Chronic involutional and white matter changes. Electronically Signed: Suzy Rodriguez MD at 11:49 EDT ,
[2024-06-23 11:14] LABS: Absolute Lymphocyte Count 0.99 X10^3/uL (0.83-4.51); Basophil# 0.05 X10^3/uL; Basophil% 0.7 % (0-1); Eosinophil# 0.15 X10^3/uL; Hematocrit 42.9 % (40-54); Hemoglobin 13.3 g/dL (13.0-16.5); Lymphocyte # 0.99 X10^3/ul (0.83-4.51); Lymphocyte % 13.5 % (19-41); Mean Corpuscular Hgb 29.4 pg (27.0-32.0); Mean Corpuscular Volume 94.9 fL (80-94); Mean Platelet Vol. 10.9 fl (6.2-12.0); Monocyte# 1.17 X10^3/uL; Monocyte% 15.9 % (0-10); NRBC Flagged by Analyzer 0 % (0-5); Neutrophil # 4.96 X10^3/uL (2.7-7.7); Neutrophil % 67.5 % (47-70); Platelet Count 189 K/mm3 (150-450); RBC Distribution Width CV 15.2 % (11.6-14.6); RBC Distribution Width SD 52.5 fl (35.1-43.9); Red Blood Count 4.52 M/mm3 (4.6-6.2); White Blood Count 7.4 K/mm3 (4.4-11.0)
--- NOTE | 2024-06-23 11:30 | RAD_ITS ---
HISTORY: weakness general. TECHNIQUE: XR Chest 2 Views. COMPARISON: 04/08/2023. FINDINGS: CARDIOMEDIASTINAL BORDERS: Cardiac silhouette within normal limits in size. Mediastinal contour unremarkable with calcification of the aortic knob. LUNGS: Radiographically clear. PLEURA: No pleural effusion or pneumothorax seen. OSSEOUS STRUCTURES: Degenerative change. RAD/Chest PA and Lateral IMPRESSION: No acute cardiopulmonary process identified. Electronically Signed: Suzy Rodriguez MD at 12:23 EDT ,
[2024-06-23 11:38] LABS: ALB/GLOB Ratio 0.7 RATIO (0.9-2.4); AST(SGOT) 172 U/L (15-37); Alanine Aminotransfer ALT/SGPT 13 U/L (16-61); Alkaline Phosphatase 140 U/L (45-117); Anion Gap 7 (5-15); BUN 25 mg/dL (7-18); BUN/Creat Ratio 14.8 RATIO (10-20); Calcium,Total 8.9 mg/dL (8.5-10.1); Chloride 110 mmol/L (98-107); Creatinine, Serum 1.69 mg/dL (0.70-1.30); EST Glomerular Filtration Rate 42 mL/min (>60); Est Glom Filt Rate - Afr Amer 51 mL/min (>60); Estimated Creatinine Clearance 40.82 ml/min; Globulin 4.2 g/dL (2.2-4.2); Glucose 97 mg/dL (74-106); Lipase 10 U/L (13-75); Protein, Total 7.2 g/dL (6.4-8.2); Sodium Level 142 mmol/L (136-145); Troponin-I HS 504 pg/mL (3.0-78.0)
[2024-06-23] MEDS: 0.9% Normal Saline (1000mL) 1,000 ML 999 ML IV (12:05)
[2024-06-23 12:15] VITALS: BP 200/78; PULSE 72; RESP 16; O2SAT 95
[2024-06-23 12:22] LABS: Mucous, Urine 0 SEEN /hpf (<or=2+)
[2024-06-23 12:25] LABS: Color, Urine Yellow (Yellow); Glucose, Dipstick Normal (Normal); Ketone-Dipstick 5 mg/dl (Negative); Leukocyte Esterase-Dipstick 25 /ul (Negative); Nitrite-Dipstick Negative (Negative); Occult Blood-Urine 250 /ul (Negative); Protein-Dipstick 30 mg/dl (Negative); Urine Bilirubin Dipstick Negative (Negative); Urine Clarity Clear (Clear); Urine Urobilinogen Normal (Normal)
[2024-06-23 12:46] LABS: Hyaline Cast 0-5 SEEN /lpf (0-5); Red Blood Cells-Urine 0-5 SEEN /hpf (0-5); Squamous Epithelial Cells - UA 0-5 SEEN /hpf (0-5); White Blood Cells 0-5 SEEN /hpf (0-5)
[2024-06-23] MEDS: Acetaminophen 500 MG Tablet 1000 MG PO (12:46)
[2024-06-23] MEDS: cloNIDine HCl 0.2 MG Tablet PO (12:46)
[2024-06-23 12:47] LABS: Bacteria RARE /hpf (None Seen)
[2024-06-23 14:00] VITALS: BP 145/76
--- NOTE | 2024-06-23 14:28 | PCM.HP.STD ---
HPI - General General Date of Admission: 06/23/24 Date of Service: 06/23/24 Chief Complaint: Worsening weakness and fatigue HPI Narrative MIGUEL GUEVARA, is a 78 M who presented to [facility] ED on 06/23/2024 with worsening weakness and fatigue. COVID-positive in the ED. Patient lives at home with his . Has history of Parkinson's disease diagnosed about 4 years ago. Follows with Dr. Sanchez with [facility] in [place]. He was in [facility] over the weekend with his and daughter for a veterans event. They returned home yesterday evening. Patient used a wheelchair for the entirety of the trip but noted that they were more active in general than is typical for him. She noticed that he was more tired than normal last night and then today he was so fatigued that he could not even stand up so they brought him in for further evaluation. Patient saw neurology in the office on 06/04. noted that his Parkinson symptoms have not been as well-controlled for the past few months. He has experienced more difficulty with movement and more drooling. Read Dr. Sanchez's office note from 06/04 in [employer]. Patient has history of significant orthostatic hypotension and Sinemet dosing had been limited by that. However his pressures were noted to be higher recently and his Sinemet dose was increased on 06/04. He was continued on same doses of Northera and fludrocortisone. Was also recommended he see speech therapy for hypophonia. Given his COVID infection and severe weakness, hospitalist was contacted for admission. I saw patient at bedside in the ED, and daughter present. Patient was very fatigued appearing. He was laying back comfortably in bed and asleep for the majority of my encounter with him. He did wake up enough to shake my hand and answer a few questions with short responses. He denied any acute pain or discomfort. Denied any fevers or chills. Stated he simply felt more tired and weak than his normal. and daughter helped to provide further history. Patient apparently had an episode of sepsis secondary to gallbladder issues about 1 to 2 years ago and was at [facility] for about 6 months. They had a good experience there and would be open to patient returning there on discharge from here if needed. Patient also had transient A-fib during that sepsis episode. Follows with a monitoring engineer down in [place]. He was on amiodarone and warfarin for a period of time but has now been off these for about a year. He was taken off warfarin given his significant orthostatic hypotension and history of falls in setting of Parkinson's. He has had no cardiac issues specifically since then. [facility] Medical History Calculus of gallbladder with acute cholecystitis with obstruction Sinus bradycardia, chronic CKD (chronic kidney disease), stage III Parkinsons disease History of CVA (cerebrovascular accident) Hypothyroidism Hyperlipidemia GERD (gastroesophageal reflux disease) HTN (hypertension) Home Medications ?Medication ?Instructions ?Recorded ?Last Taken ?Type Carbidopa-Levo 25-100 mg Odt 1.5 tab PO 3XD parkinsons 08/14/20 06/22/24 History acetaminophen 500 mg tablet 1,000 mg PO Q6H 02/07/23 Unknown History cholecalciferol (vitamin D3) 25 50 mcg PO DAILY 02/07/23 06/22/24 History mcg (1,000 unit) tablet cyanocobalamin (vitamin B-12) 500 500 mcg PO DAILY 02/07/23 06/22/24 History mcg tablet (Vitamin B-12) levothyroxine 125 mcg tablet 112 mcg PO DAILY 02/07/23 06/22/24 History lidocaine HCl 4 % topical cream 1 applic topical DAILY 02/07/23 06/22/24 History (Aspercreme (lidocaine HCl)) melatonin 10 mg tablet 10 mg PO QHS 02/07/23 06/22/24 History pediatric multivit no.158-iron fum 1 tab PO DAILY 02/07/23 Unknown History 18 mg-vit K1 10 mcg chewable tablet (Cerovite Jr) sennosides 8.6 mg tablet (senna) 8.6 mg PO QHS 02/07/23 06/22/24 History sodium bicarbonate 650 mg tablet 650 mg PO TID 02/07/23 06/22/24 History tamsulosin 0.4 mg capsule 0.4 mg PO DAILY 02/07/23 06/22/24 History droxidopa 100 mg capsule 200 mg PO TID 06/23/24 Unknown History esomeprazole magnesium 40 mg 40 mg PO DAILY 06/23/24 06/22/24 History capsule,delayed release finasteride 5 mg tablet 5 mg PO DAILY 06/23/24 06/22/24 History fludrocortisone 0.1 mg tablet 0.2 mg PO DAILY 06/23/24 06/22/24 History hydrocodone-acetaminophen 5-325mg 1 tab PO Q6H PRN PRN pain 06/23/24 Unknown History 5mg-325mg tramadol 50 mg tablet 25 - 50 mg PO TID PRN PRN pain 06/23/24 Unknown History Allergy/AdvReac Type Severity Reaction Status Date / Time lisinopril Allergy Swelling Verified 06/23/24 10:19 Family History Father Colon cancer COPD (chronic obstructive pulmonary disease) Surgical History S/P cholecystectomy S/P cholecystectomy History of tonsillectomy and adenoidectomy History of back surgery History of total bilateral knee replacement History of gastric bypass h/o right thumb surgery H/O carpal tunnel repair H/O gastric bypass Social History household members: spouse Smoking Status: Never smoker alcohol intake: never substance use type: does not use ROS Constitutional Constitutional: Reports fatigue and weakness; Denies chills or fever(s) Eyes Eyes: Denies change in vision Cardiovascular Cardiovascular: Denies chest pain Respiratory/Chest Respiratory/Chest: Denies shortness of breath at rest Gastrointestinal Gastrointestinal: Denies abdominal pain Neurologic Neurologic: Denies dizziness or focal weakness Vital Signs Vital Signs Vital Signs: 06/23/24 10:19 06/23/24 10:19 06/23/24 10:27 Temperature 99.6 F H 99.6 F H Temperature Source Oral Oral Pulse Rate 78 Respiratory Rate 18 Respiratory Effort Normal Respiratory Pattern Normal Blood Pressure 191/80 H Blood Pressure Mean 117 Pulse Ox 94 Oxygen Delivery Method Room Air 06/23/24 12:15 06/23/24 14:00 Temperature Temperature Source Pulse Rate 72 Respiratory Rate 16 Respiratory Effort Respiratory Pattern Blood Pressure 200/78 H 145/76 H Blood Pressure Mean 118 99 Pulse Ox 95 Oxygen Delivery Method Room Air Weight Weight: 90.5 kg Body Mass Index (BMI) 27.0 Physical Exam Const alert, oriented x3, no apparent distress and average body habitus Constitutional Narrative: Elderly male, very fatigued appearing but did answer questions with short appropriate responses, otherwise laying back comfortably in bed, in no acute distress. General Appearance: cooperative and comfortable HEENT normocephalic, head/scalp atraumatic, hearing grossly normal bilaterally and nasal mucous membranes and turbinates normal HEENT Narrative: Dry mucous membranes. Eyes PERRL, EOMs intact bilaterally and conjunctivae normal Neck full ROM Chest inspection of chest normal Resp normal respiratory effort, normal air movement, no use of accessory muscles and clear to auscultation bilaterally Cardio regular rate, regular rhythm, no murmurs and peripheral pulses 2+ throughout GI normal to inspection, nondistended, normoactive bowel sounds, soft to palpation, non-tender and non-distended Extremity normal to inspection and no pedal edema Skin no rashes or lesions noted Neuro Neuro Narrative: Patient did move arms and leg spontaneously for me. Good range of motion in arms. Generalized weakness noted in the legs. He reports no sensory changes throughout. Psych mental status grossly normal Results Lab / Micro Data 06/23/24 11:10 06/23/24 11:10 Labs: Laboratory Results - last 24 hr 06/23/24 11:10: WBC 7.4, RBC 4.52 L, Hgb 13.3, Hct 42.9, MCV 94.9 H, MCH 29.4, MCHC 31.0 L, RDW Std Deviation 52.5 H, RDW Coeff of Aravind 15.2 H, Plt Count 189, MPV 10.9, Immature Gran % (Auto) 0.400, Neut % (Auto) 67.5, Lymph % (Auto) 13.5 L, [place] % (Auto) 15.9 H, Eos % (Auto) 2.0, Baso % (Auto) 0.7, Absolute Neuts (auto) 5.0, Absolute Lymphs (auto) 0.99, Nucleated RBC % 0, Sodium 142, Potassium 4.0, Chloride 110 H, Carbon Dioxide 25.0, Anion Gap 7, BUN 25 H, Creatinine 1.69 H, Estim Creat Clear Calc 40.82, Est GFR (MDRD) Af Amer 51 L, Est GFR (MDRD) Non-Af 42 L, BUN/Creatinine Ratio 14.8, Glucose 97, Calcium 8.9, Total Bilirubin 0.80, AST 172 H, ALT 13 L, Alkaline Phosphatase 140 H, Troponin I High Sens 504 H*, Total Protein 7.2, Albumin 3.0 L, Globulin 4.2, Albumin/Globulin Ratio 0.7 L, Lipase 10 L 06/23/24 12:15: Urine Color Yellow, Urine Clarity Clear, Urine pH 6.0, Ur Specific [place] 1.020, Urine Protein 30 H, Urine Glucose (UA) Normal, Urine Ketones 5 H, Urine Occult Blood 250 H, Urine Nitrite Negative, Urine Bilirubin Negative, Urine Urobilinogen Normal, Ur Leukocyte Esterase 25 H, Urine RBC 0-5 SEEN, Urine WBC 0-5 SEEN, Ur Squamous Epith Cells 0-5 SEEN, Urine Bacteria RARE, Hyaline Casts 0-5 SEEN, Urine Mucus 0 SEEN Micro: Microbiology 06/23/24 11:55 Mucosa - Nose SARS-CoV-2, Influenza & RSV (PCR) - Final SARS-CoV-2 (COVID 19 PCR) Imaging Radiology Impression Brain CT 06/23/24 10:51 IMPRESSION: No acute intracranial process identified. Chronic involutional and white matter changes. Electronically Signed: Suyz Rodriguez MD at 11:49 EDT , Cervical Spine CT 06/23/24 10:51 IMPRESSION: No evidence for acute fracture or dislocation in the cervical spine. Multilevel degenerative disc disease. Electronically Signed: Suzy Rodriguez MD at 11:58 EDT , Chest X-Ray 06/23/24 11:30 IMPRESSION: No acute cardiopulmonary process identified. Electronically Signed: Suzy Rodriguez MD at 12:23 EDT , Assessment & Plan Assessment/Plan (1) COVID-19: (2) Generalized weakness: (3) Elevated troponin: (4) Rhabdomyolysis: PLAN: Plan Patient is a 78-year-old male who presented to [facility] ED on 06/23/2024 with worsening weakness and fatigue. 1. COVID-19 infection with mild dehydration ? Admit under inpatient status to PCU. COVID-positive in the ED. Suspect dehydration and weakness are in part secondary to this. Low-grade fevers in the ED, otherwise hemodynamically stable. Chest x-ray unremarkable. Breathing comfortably on room air at rest with oxygen saturations in the mid 90s. Given his significant weakness, will give 3 doses of IV Solu-Medrol and assess if patient shows any improvement with this. If he does, can consider further steroids. 10-day course of IV Decadron not indicated as patient is on room air. Giving IV fluid resuscitation for rhabdomyolysis as noted below. 2. Acute on chronic debility in setting of advanced Parkinson's disease, history of orthostatic hypotension ? PT/OT/case management consulted. Patient follows with [facility] neurology, has fairly advanced Parkinson's disease. Will continue home Sinemet, droxidopa and fludrocortisone. Notably will start fludrocortisone tomorrow after receiving 3 doses of IV Solu-Medrol as noted above. Suspect patient will need SNF on discharge. 3. Elevated troponins ? Troponin trend 504 > 471 on admit. EKG with no ischemic changes. Patient with no chest pain. Suspect demand ischemia from dehydration in setting of COVID infection. Rhabdomyolysis notable low could also be contributing to elevated troponins. However, patient is at risk for PE in setting of COVID infection and some degree of immobility given his worsening Parkinson's disease. He is notably stable on room air at rest. Will hold on CTA chest due to kidney function. Echo ordered. Had stress test in 01/2022 that showed an EF of 60% and was otherwise normal. Last echo in 2019 was unremarkable. If echo is normal, likely no further workup needed at this time. 4. Rhabdomyolysis in setting of CKD stage III ? CK level 7218 on admit. Creatinine 1.69, at baseline. Given 1 L normal saline in the ED. Will start LR 125 cc/h for now. Monitor daily BMP and urine output. Monitor daily CK level. 5. Elevated LFTs ? AST 172, ALT 13, alk phos 140 on admit. Suspect AST is elevated due to elevated troponins and/or rhabdomyolysis as noted above. Low concern for liver etiology. Follow-up a.m. CMP. Chronic medical conditions: ? History of GERD with hiatal hernia: Stable. Continue home PPI. ? BPH with obstructive symptoms: Stable. Continue home finasteride and tamsulosin. ? Hypothyroidism: TSH ordered. Continue home Synthroid. DVT prophylaxis: Heparin subcu CODE STATUS: Full code, verified Expected disposition: SNF versus home with home health care, 2 to 3 days Total clinical time spent by myself addressing the patient's medical issues, reviewing all the data, and collaborating with patient's care team: 75 minutes. Charges/Coding Visit Charges Inpatient E&M: 92302 Init Hosp L3
[2024-06-23 14:43] LABS: Troponin-I HS 471 pg/mL (3.0-78.0)
[2024-06-23 14:57] VITALS: BP 140/67; PULSE 60; RESP 16; TEMP 37.2; O2SAT 93
[2024-06-23 16:19] LABS: CPK Total, Creatine Kinase 7218 U/L (39-308)
[2024-06-23 16:20] VITALS: BP 133/63; PULSE 57; RESP 19; TEMP 37.9; O2SAT 94
[2024-06-23 16:21] VITALS: BMI 27.5
--- NOTE | 2024-06-23 16:21 | ECHOD_ITS ---
Reason For Study: Dyspnea/SOB Procedure This was a 2D Doppler, Color Flow transthoracic echocardiogram. Exam performed portable in patient room. The exam was abbreviated due to the COVID 19 protocol. Left Ventricle Normal LV size. The estimated ejection fraction is 70 %. Unable to assess diastolic dysfunction. No regional wall motion abnormalities noted. Right Ventricle Normal RV size. Normal systolic function. Atria The left and right atria are normal. No doppler evidence for ASD. Mitral Valve There is no mitral valve stenosis. No mitral valve insufficiency. Tricuspid Valve There is no tricuspid stenosis. Unable to estimate RV systolic pressure due to inadequate jet, pulmonary artery pressure probably normal. Aortic Valve Aortic sclerosis, no stenosis. There is no aortic stenosis. No aortic valve insufficiency. Pulmonic Valve There is no pulmonic valvular stenosis. No pulmonic valve insufficiency. Great Vessels Normal aortic root. Pericardium/Pleural No pericardial effusion. MMode/2D Measurements & Calculations LVIDd: 4.5 cm IVSd: 1.2 cm LAV(MOD-bp): 57.4 ml LVIDs: 2.9 cm LVPWd: 1.2 cm LAV(MOD-bp) Indexed: 26.8 ml/m2 FS: 36.0 % LAV(MOD-sp2): 51.8 ml LAV(MOD-sp4): 62.4 ml SV(MOD-sp4): 43.5 ml SV(sp4-el): 42.8 ml LVAd ap4: 25.3 cm2 LVLd ap4: 8.3 cm EDV(MOD-sp4): 66.3 ml EDV(sp4-el): 65.7 ml LVAs ap4: 12.9 cm2 LVLs ap4: 6.2 cm ESV(MOD-sp4): 22.8 ml ESV(sp4-el): 22.9 ml EF(MOD-sp4): 65.6 % EF(sp4-el): 65.2 % LA A4 area: 20.3 cm2 LA dimension(2D): 3.8 cm RA A4 area: 14.2 cm2 Doppler Measurements & Calculations Ao V2 max: 119.9 cm/sec LV V1 max: 109.5 cm/sec Ao max P.7 mmHg LV V1 max P.8 mmHg Ao V2 mean: 81.1 cm/sec LV V1 mean P.0 mmHg Ao mean P.1 mmHg LV V1 mean: 81.4 cm/sec Ao V2 VTI: 28.1 cm LV V1 VTI: 27.6 cm AV (velocity ratio): 0.98 ECHO/Echo Complete Interpretation Summary The estimated ejection fraction is 70 %. Aortic sclerosis, no stenosis. Ordering Physician: Darnell Goodwin Performed By: Zak Tavera RCS
[2024-06-23] MEDS: Lactated Ringers 1,000 ML 125 ML IV (18:04)
[2024-06-23] MEDS: Carbidopa/Levodopa 25/100 Tablet PO (18:06)
[2024-06-23] MEDS: Aspirin 325 MG Tablet PO (18:06)
[2024-06-23 18:08] LABS: Thyroid Stim Hormone (TSH) 0.363 uIU/mL (0.358-3.740)
[2024-06-23 22:07] VITALS: BP 162/74; PULSE 40; RESP 16; TEMP 36.3; O2SAT 96
[2024-06-23] MEDS: Heparin Injection (Vial) 5,000 UNIT/ML VIAL 5000 UNIT SC (22:10)
[2024-06-24] VITALS (8 sets, daily range): BP systolic 134–188; BP diastolic 61–77; PULSE 36–60; RESP 16–18; TEMP 36.1–36.6; O2SAT 94–99
[2024-06-24] MEDS: Lactated Ringers 1,000 ML 125 ML IV ×3 (02:02→17:35)
[2024-06-24] MEDS: 0.9% Saline Lock 10 ML Syringe IV ×3 (03:27→06:44)
[2024-06-24] MEDS: hydrALAZINE 20 MG/ML Vial 10 MG IV ×2 (03:27→06:44)
[2024-06-24] MEDS: Levothyroxine 112 MCG Tablet PO (05:46)
[2024-06-24] MEDS: Heparin Injection (Vial) 5,000 UNIT/ML VIAL 5000 UNIT SC ×3 (05:46→20:47)
[2024-06-24 06:27] LABS: Hematocrit 42.2 % (40-54); Hemoglobin 13.1 g/dL (13.0-16.5); Mean Corpuscular Hgb 29.4 pg (27.0-32.0); Mean Corpuscular Volume 94.6 fL (80-94); Mean Platelet Vol. 11.3 fl (6.2-12.0); Platelet Count 176 K/mm3 (150-450); RBC Distribution Width CV 14.8 % (11.6-14.6); RBC Distribution Width SD 51.3 fl (35.1-43.9); Red Blood Count 4.46 M/mm3 (4.6-6.2)
[2024-06-24 06:53] LABS: ALB/GLOB Ratio 0.7 RATIO (0.9-2.4); AST(SGOT) 144 U/L (15-37); Alanine Aminotransfer ALT/SGPT 15 U/L (16-61); Albumin, Serum 2.7 g/dL (3.2-5.0); Alkaline Phosphatase 122 U/L (45-117); Anion Gap 6 (5-15); BUN 24 mg/dL (7-18); BUN/Creat Ratio 18.2 RATIO (10-20); Calcium,Total 8.8 mg/dL (8.5-10.1); Chloride 109 mmol/L (98-107); Creatinine, Serum 1.32 mg/dL (0.70-1.30); EST Glomerular Filtration Rate 56 mL/min (>60); Est Glom Filt Rate - Afr Amer 68 mL/min (>60); Estimated Creatinine Clearance 52.26 ml/min; Globulin 4.1 g/dL (2.2-4.2); Glucose 150 mg/dL (74-106); Protein, Total 6.8 g/dL (6.4-8.2); Sodium Level 139 mmol/L (136-145)
[2024-06-24 07:11] LABS: CPK Total, Creatine Kinase 4621 U/L (39-308)
[2024-06-24] MEDS: Finasteride 5 MG Tablet PO (08:55)
[2024-06-24] MEDS: Tamsulosin HCl 0.4 MG Capsule PO (08:56)
[2024-06-24] MEDS: Pantoprazole Sodium 40 MG Tablet PO (08:56)
[2024-06-24] MEDS: Cholecalciferol (VIT D3) 25 MCG TABLET (1,000 UNITS) 50 MCG PO (08:56)
[2024-06-24] MEDS: Carbidopa/Levodopa 25/100 Tablet PO ×3 (08:57→17:35)
[2024-06-24] MEDS: Cyanocobalamin 500 MCG Tablet PO (09:12)
--- NOTE | 2024-06-24 14:15 | CASEMGMT ---
Addendum entered by Emilia Mendez 06/24/24 14:43: DEBBIE GIBSON Delivered lists for home meal deliveries and private duty aides to pt room. Pt denies any questions or concerns at this time. Original Note: DEBBIE GIBSON Assessment: Face to Face with pt for initial transition planning/care coordination assessment. DEBBIE GIBSON introduced self and role at [facility], pt voices understanding and consents to assessment. Pt is A&O x4 and answers all questions appropriately at this time. Pt sitting up in chair in no distress with pt daughter sitting at bedside. Pt agreeable to answering questions with daughter in the room. Care providers, pharmacy, and demographics verified/updated. Strata: 2 Admitting Dx: COVID infection with weakness, elevated troponin PCP: Ricky Specialists: Clinical [facility] [place]; Sonny, Pain management; Paulo, Neurologist; Randall, Nephrology. Preferred Pharmacy: [facility] Insurance: [facility] Prescription Benefit: yes LNOK: , Eladia; Daughter, Mckenzie Living Arrangements: Pt lives with in a 2 story home with 1 step to enter into home. ADLs: Pt needs assistance with ADLs and IADLs at baseline. Transportation: Pt family drives pt when needed and denies concerns with transportation. DME: wheelchair, pulse ox, bedside commode, shower bench, hospital bed, walker, cane. HHC/SNF: Previously at [place], went home with HHC but farrell not recall what agency. Pt requesting to go to TCU. Denies wanting a list of local SNF covered under insurance. DEBBIE GIBSON discussed how therapy went today, pt states today is a very good day, some days are good like this but a lot of days are bad days and I'm not able to get dressed on my own or walk without help . 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 Daughter bought house next to parents to help with pt's care. Daughter would like a list of local private duty agencies in the area and a list of meal prep companies. Pt states no further concerns/needs. SW or CM to follow. DEBBIE GIBSON notified SW of pt preference for SNF. Advised pt to ask CM if any further question/concerns/needs arise, voices understanding. Pt Goal: TCU Plan: TCU, will follow plan of care. Jose LEWIS CM
--- NOTE | 2024-06-24 14:20 | CASEMGMT ---
Per RN CM patient and are interested in [facility] TCU. SW made a referral to [facility]. Heather MICHAEL
[2024-06-24] MEDS: DROXIDOPA 100 MG CAPSULE 200 MG PO (17:40)
--- NOTE | 2024-06-24 18:33 | PN.HOSP_ITS ---
Reason for Visit Reason for Visit: Diagnoses Rhabdomyolysis (06/23/24) Weakness (06/23/24) Other specified abnormal findings of blood chemistry (06/23/24) COVID-19 (06/23/24) Subjective Subjective Patient was seen and examined today, he was admitted yesterday for generalized weakness and found to have COVID-19. Patient is not hypoxic and is not under active treatment for COVID-19 at this time. Patient had elevated troponins and elevated CPK, he received IV fluids today. Echocardiogram had been performed but had not resulted at the time of this dictation. The patient is a full admission and will meet 3 midnights in the hospital on 06/26/2024. Patient's CPK was improved today. Objective Data Objective Data Vital Signs: Vital Signs Temp Pulse Resp BP Pulse Ox O2 Del Method 97.9 F 44 L 16 134/77 H 99 Room Air 06/24/24 14:22 06/24/24 14:22 06/24/24 14:22 06/24/24 14:22 06/24/24 14:22 06/24/24 14:22 Oxygen Delivery Method Room Air Weight: 92 kg Body Mass Index (BMI) 27.5 Intake & Output: Intake and Output for Last 24 Hours 06/22/24 06/23/24 06/24/24 23:59 23:59 23:59 Intake Total 1000 / 1000 2877.08 / 2877.08 Output Total 200 / 450 1900 / 1900 Balance 800 / 550 977.08 / 977.08 Lab / Micro Data 06/24/24 05:28 06/24/24 05:28 Labs: Laboratory Results - last 24 hr 06/24/24 05:28: WBC 5.0, RBC 4.46 L, Hgb 13.1, Hct 42.2, MCV 94.6 H, MCH 29.4, M CHC 31.0 L, RDW Std Deviation 51.3 H, RDW Coeff of Aravind 14.8 H, Plt Count 176, MPV 11.3, Sodium 139, Potassium 4.0, Chloride 109 H, Carbon Dioxide 24.0, Anion Gap 6, BUN 24 H, Creatinine 1.32 H, Estim Creat Clear Calc 52.26, Est GFR (MDRD) Af Amer 68, Est GFR (MDRD) Non-Af 56 L, BUN/Creatinine Ratio 18.2, Glucose 150 H , Calcium 8.8, Total Bilirubin 0.70, AST 144 H, ALT 15 L, Alkaline Phosphatase 122 H, Total Creatine Kinase 4621 H, Total Protein 6.8, Albumin 2.7 L, Globulin 4.1, Albumin/Globulin Ratio 0.7 L Micro: Microbiology 06/23/24 11:55 Mucosa - Nose SARS-CoV-2, Influenza & RSV (PCR) - Final SARS-CoV-2 (COVID 19 PCR) Physical Exam Const alert, oriented x3 and no apparent distress Constitutional Narrative: Patient appears older than his stated age, he appears frail General Appearance: cooperative, well kempt and well developed Orientation / Consciousness: awake, oriented to person, oriented to place and oriented to time HEENT normocephalic, head/scalp atraumatic and moist oral mucous membranes Eyes PERRL, EOMs intact bilaterally and conjunctivae normal Neck supple, no JVD, thyroid normal and no carotid bruits General: trachea midline Resp normal respiratory effort, no retractions, no use of accessory muscles and clear to auscultation bilaterally Auscultation: Negative for rales, rhonchi or wheezes Cardio regular rate, regular rhythm, S1 normal heart sound, S2 normal heart sound, no murmurs, no rub and no gallops GI normal to inspection, nondistended, normoactive bowel sounds, soft to palpation, non-tender and non-distended Extremity no clubbing, cyanosis or edema Skin no rashes or lesions noted General Skin Exam: no breakdown Neuro oriented x3, CN's II-XII intact bilaterally, moves all extremities and no sensory deficits noted Neuro Narrative: Patient has a resting tremor Sensorium / Orientation: awake and alert Speech: speech normal Psych affect normal Assessment & Plan Assessment/Plan (1) Rhabdomyolysis: PLAN: Plan 1. Rhabdomyolysis-patient's IV for continued, his CPK was improved today, I will repeat the CPK tomorrow #2 elevated cardiac enzymes without chest pain-I feel this is demand ischemia and is not a type II CA, await echocardiogram results, if echocardiogram shows a reduced LV function he may need to be seen by cardiology. #3 COVID-19 infection without hypoxia-patient does not require treatment for COVID-19 #4 Parkinson's disease-complicates care, management, recovery, and prognosis #5 generalized debility secondary to multiple medical problems including Parkinson's disease, dehydration, and COVID-19 infection-it is likely that the patient will need temporary placement in a senior living facility, he states his is debilitated at home and he does not know if she can help take care of him. #6 dehydration-patient's creatinine is improved today-patient appears to have an element of chronic kidney disease, I will decrease the patient's IV fluids to 100 cc an hour, BMP will be repeated tomorrow #7 history of hypotension-patient is on Florinef daily, this was held today Total clinical time spent by myself addressing the patient's medical issues, reviewing all of his data, and collaborating with patient's care team: 35 minutes Charges/Coding Visit Charges Inpatient E&M: 36508 Subs Hosp L2
[2024-06-24] MEDS: MELATONIN 10 MG TABLET PO (20:47)
[2024-06-25] VITALS (9 sets, daily range): BP systolic 140–199; BP diastolic 58–89; PULSE 56–75; RESP 18; TEMP 36.2–38.4; O2SAT 93–99
[2024-06-25] MEDS: Lactated Ringers 1,000 ML 125 ML IV ×2 (01:27→08:23)
[2024-06-25] MEDS: DROXIDOPA 100 MG CAPSULE 200 MG PO ×3 (05:24→17:00)
[2024-06-25] MEDS: Levothyroxine 112 MCG Tablet PO (05:27)
[2024-06-25] MEDS: Heparin Injection (Vial) 5,000 UNIT/ML VIAL 5000 UNIT SC ×3 (05:27→21:33)
[2024-06-25] MEDS: Pantoprazole Sodium 40 MG Tablet PO (08:08)
[2024-06-25] MEDS: Carbidopa/Levodopa 25/100 Tablet PO ×3 (08:08→17:00)
[2024-06-25] MEDS: Fludrocortisone Acetate 0.1 MG Tablet 0.2 MG PO (08:08)
[2024-06-25] MEDS: Tamsulosin HCl 0.4 MG Capsule PO (08:08)
[2024-06-25] MEDS: Cholecalciferol (VIT D3) 25 MCG TABLET (1,000 UNITS) 50 MCG PO (08:08)
[2024-06-25] MEDS: Finasteride 5 MG Tablet PO (08:08)
[2024-06-25] MEDS: Cyanocobalamin 500 MCG Tablet PO (08:09)
[2024-06-25 08:29] LABS: ALB/GLOB Ratio 0.7 RATIO (0.9-2.4); AST(SGOT) 120 U/L (15-37); Alanine Aminotransfer ALT/SGPT 20 U/L (16-61); Albumin, Serum 2.5 g/dL (3.2-5.0); Alkaline Phosphatase 105 U/L (45-117); Anion Gap 4 (5-15); BUN 27 mg/dL (7-18); BUN/Creat Ratio 17.4 RATIO (10-20); CPK Total, Creatine Kinase 2518 U/L (39-308); Calcium,Total 8.7 mg/dL (8.5-10.1); Chloride 109 mmol/L (98-107); Creatinine, Serum 1.55 mg/dL (0.70-1.30); EST Glomerular Filtration Rate 47 mL/min (>60); Est Glom Filt Rate - Afr Amer 56 mL/min (>60); Globulin 3.6 g/dL (2.2-4.2); Glucose 90 mg/dL (74-106); Potassium 3.8 mmol/L (3.5-5.1); Protein, Total 6.1 g/dL (6.4-8.2); Sodium Level 140 mmol/L (136-145)
--- NOTE | 2024-06-25 09:49 | PCM.PN.HOSP ---
Reason for Visit Reason for Visit: Diagnoses Rhabdomyolysis (06/23/24) Weakness (06/23/24) Other specified abnormal findings of blood chemistry (06/23/24) COVID-19 (06/23/24) Subjective Subjective Patient is a 78-year-old gentleman admitted with progressive generalized weakness was found to have elevated CPK levels consistent with acute rhabdomyolysis. Patient also tested positive for COVID Objective Data Objective Data Vital Signs: Vital Signs Temp Pulse Resp BP Pulse Ox O2 Del Method 98.4 F 57 L 18 163/71 H 94 Room Air 06/25/24 08:23 06/25/24 08:23 06/25/24 08:23 06/25/24 08:23 06/25/24 08:23 06/25/24 08:28 Oxygen Delivery Method Room Air Weight: 92 kg Body Mass Index (BMI) 27.5 Intake & Output: Intake and Output for Last 24 Hours 06/23/24 06/24/24 06/25/24 23:59 23:59 23:59 Intake Total 1000 / 1000 2877.08 / 3127.08 2300.00 / 2300.00 Output Total 200 / 450 1900 / 2350 1250 / 1250 Balance 800 / 550 977.08 / 777.08 1050.00 / 1050.00 Lab / Micro Data 06/24/24 05:28 06/25/24 06:15 Labs: Laboratory Results - last 24 hr 06/25/24 06:15: Sodium 140, Potassium 3.8, Chloride 109 H, Carbon Dioxide 27.0, Anion Gap 4 L, BUN 27 H, Creatinine 1.55 H, Estim Creat Clear Calc 44.50, Est GFR (MDRD) Af Amer 56 L, Est GFR (MDRD) Non-Af 47 L, BUN/Creatinine Ratio 17.4, Glucose 90, Calcium 8.7, Total Bilirubin 0.40, AST 120 H, ALT 20, Alkaline Phosphatase 105, Total Creatine Kinase 2518 H, Total Protein 6.1 L, Albumin 2.5 L, Globulin 3.6, Albumin/Globulin Ratio 0.7 L Micro: Microbiology 06/23/24 11:55 Mucosa - Nose SARS-CoV-2, Influenza & RSV (PCR) - Final SARS-CoV-2 (COVID 19 PCR) Physical Exam Narrative GENERAL: cooperative HEENT: Atraumatic; normocephalic EYES; Anicteric, Normal Conjunctiva NECK; supple, normal thyroid, RESPIRATORY: Diminished to auscultation CARDIOVASCULAR: Regular S1 S2, GI: soft, normoactive bowel sounds, : No Renal angle tenderness; EXTREMITIES: No edema, no clubbing, MUSCULOSKELETAL: no muscle wasting NEURO: Awake; no lateralizing signs. SKIN: No Rash PSYCH; Flat affect Assessment & Plan Assessment/Plan (1) Rhabdomyolysis: PLAN: Plan Patient is a 78-year-old gentleman admitted with progressive generalized weakness was found to have elevated CPK levels consistent with acute rhabdomyolysis. Patient also tested positive for COVID 1. Acute rhabdomyolysis ? Admitted to monitored floor managed with IV fluids with subsequent monitoring of CPK levels ordered 2. Elevated troponin ? [place] to be secondary to patient underlying COVID infection. 2D echo ordered. Demonstrated ejection fraction of 70% with no regional wall motion abnormalities 3. COVID-19 infection without hypoxia ? Treated symptomatically 4. Parkinson's disease ? Patient is on droxidopa did continue 5. Physical deconditioning ? Requested for PT OT eval and mental health social worker to assist with discharge planning 6. Hypothyroidism ? Patient is on levothyroxine home dose continued 7. BPH with lower urinary obstructive symptoms - Patient treated with tamsulosin and finasteride 8. Chronic kidney disease stage IV ? Kidney function at baseline 9.Chronic hypotension ? Patient is on Florinef 10. GERD ? On PPI 11. DVT prophylaxis ? SC heparin Time spent in the patient's overall evaluation,decision-making process, review of diagnostic data, adjustment of management, discussion with other providers, nursing nursing and ancillary staff involved in patient's care documentation, 40 minutes Charges/Coding Visit Charges Inpatient E&M: 02394 Subs Hosp L2
--- NOTE | 2024-06-25 10:01 | CASEMGMT ---
Addendum entered by Milagros Arenas 06/27/24 10:10: MAYI called patient's , Eladia, and confirmed that patient would be going to TCU today. Milagros Arenas, GABRIEL, [employer]EL [employer]PERATION MANAGER Original Note: [facility] TCU can take patient. MAYI called patient's and confirmed that is the plan and that TCU can take patient. Plan: d/c to [facility] T[facility] Heather MICHAEL
[2024-06-25] MEDS: hydrALAZINE 20 MG/ML Vial 10 MG IV (15:08)
[2024-06-25] MEDS: hydrALAZINE 25 MG Tablet PO ×2 (16:59→21:32)
[2024-06-25] MEDS: Acetaminophen 325 MG Tablet 650 MG PO (21:32)
[2024-06-25] MEDS: MELATONIN 10 MG TABLET PO (21:33)
[2024-06-26] VITALS (12 sets, daily range): BP systolic 84–178; BP diastolic 45–102; PULSE 54–70; RESP 16–18; TEMP 36.4–36.9; O2SAT 92–97
[2024-06-26] MEDS: hydrALAZINE 20 MG/ML Vial 10 MG IV (03:50)
[2024-06-26] MEDS: 0.9% Saline Lock 10 ML Syringe IV (03:54)
[2024-06-26] MEDS: Levothyroxine 112 MCG Tablet PO (06:03)
[2024-06-26] MEDS: Heparin Injection (Vial) 5,000 UNIT/ML VIAL 5000 UNIT SC ×3 (06:04→22:21)
[2024-06-26 06:28] LABS: Absolute Lymphocyte Count 1.62 X10^3/uL (0.83-4.51); Absolute Neutrophil Count 4.8 X10^3/uL (2.0-7.7); Basophil# 0.05 X10^3/uL; Basophil% 0.7 % (0-1); Eosinophil# 0.11 X10^3/uL; Eosinophils% 1.5 % (0-5); Hematocrit 42.4 % (40-54); Hemoglobin 13.4 g/dL (13.0-16.5); Lymphocyte # 1.62 X10^3/ul (0.83-4.51); Mean Corp Hgb Conc 31.6 g/dL (32-36); Mean Corpuscular Hgb 29.8 pg (27.0-32.0); Mean Corpuscular Volume 94.2 fL (80-94); Mean Platelet Vol. 11.5 fl (6.2-12.0); Monocyte# 0.75 X10^3/uL; Monocyte% 10.2 % (0-10); NRBC Flagged by Analyzer 0 % (0-5); Neutrophil # 4.82 X10^3/uL (2.7-7.7); Neutrophil % 65.2 % (47-70); Platelet Count 167 K/mm3 (150-450); RBC Distribution Width CV 14.9 % (11.6-14.6); RBC Distribution Width SD 51.6 fl (35.1-43.9); White Blood Count 7.4 K/mm3 (4.4-11.0)
[2024-06-26] MEDS: hydrALAZINE 25 MG Tablet PO (06:39)
[2024-06-26] MEDS: DROXIDOPA 100 MG CAPSULE 200 MG PO ×3 (06:40→17:24)
[2024-06-26 07:14] LABS: Anion Gap 7 (5-15); BUN 21 mg/dL (7-18); BUN/Creat Ratio 14.4 RATIO (10-20); Calcium,Total 8.5 mg/dL (8.5-10.1); Chloride 106 mmol/L (98-107); Creatinine, Serum 1.46 mg/dL (0.70-1.30); EST Glomerular Filtration Rate 50 mL/min (>60); Est Glom Filt Rate - Afr Amer 60 mL/min (>60); Estimated Creatinine Clearance 47.25 ml/min; Glucose 90 mg/dL (74-106); Magnesium 1.8 mg/dL (1.6-2.6); Potassium 3.6 mmol/L (3.5-5.1); Sodium Level 138 mmol/L (136-145)
[2024-06-26] MEDS: Pantoprazole Sodium 40 MG Tablet PO (08:16)
[2024-06-26] MEDS: Carbidopa/Levodopa 25/100 Tablet PO ×3 (08:16→17:24)
[2024-06-26] MEDS: Cholecalciferol (VIT D3) 25 MCG TABLET (1,000 UNITS) 50 MCG PO (08:16)
[2024-06-26] MEDS: Finasteride 5 MG Tablet PO (08:16)
[2024-06-26] MEDS: Tamsulosin HCl 0.4 MG Capsule PO (08:16)
[2024-06-26] MEDS: Cyanocobalamin 500 MCG Tablet PO (08:16)
--- NOTE | 2024-06-26 09:04 | PN.HOSP_ITS ---
Reason for Visit Reason for Visit: Diagnoses Rhabdomyolysis (06/23/24) Weakness (06/23/24) Other specified abnormal findings of blood chemistry (06/23/24) COVID-19 (06/23/24) Subjective Subjective Patient seen. Complains of not feeling well and experiencing nausea. Patient blood pressure did drop after experiencing blood pressures as high as 199/89 necessitating patient fludrocortisone being held. Patient was started on hydralazine which has since been continued did resume patient fludrocortisone Objective Data Objective Data Vital Signs: Vital Signs Temp Pulse Resp BP Pulse Ox O2 Del Method 98.4 F 64 16 148/66 H 96 Room Air 06/26/24 08:15 06/26/24 08:15 06/26/24 08:15 06/26/24 08:15 06/26/24 08:50 06/26/24 08:50 Oxygen Delivery Method Room Air Weight: 92 kg Body Mass Index (BMI) 27.5 Intake & Output: Intake and Output for Last 24 Hours 06/24/24 06/25/24 06/26/24 23:59 23:59 23:59 Intake Total 2877.08 / 3127.08 3948.33 / 3948.33 Output Total 1900 / 2350 3850 / 3850 150 / 150 Balance 977.08 / 777.08 98.33 / 98.33 -150 / -150 Lab / Micro Data 06/26/24 05:26 06/26/24 05:26 Labs: Laboratory Results - last 24 hr 06/26/24 05:26: WBC 7.4, RBC 4.50 L, Hgb 13.4, Hct 42.4, MCV 94.2 H, MCH 29.8, M CHC 31.6 L, RDW Std Deviation 51.6 H, RDW Coeff of Aravind 14.9 H, Plt Count 167, MPV 11.5, Immature Gran % (Auto) 0.400, Neut % (Auto) 65.2, Lymph % (Auto) 22.0, Dixon % (Auto) 10.2 H, Eos % (Auto) 1.5, Baso % (Auto) 0.7, Absolute Neuts (auto) 4.8, Absolute Lymphs (auto) 1.62, Nucleated RBC % 0, Sodium 138, Potassium 3.6, Chloride 106, Carbon Dioxide 26.0, Anion Gap 7, BUN 21 H, Creatinine 1.46 H, Estim Creat Clear Calc 47.25, Est GFR (MDRD) Af Amer 60, Est GFR (MDRD) Non-Af 50 L, BUN/Creatinine Ratio 14.4, Glucose 90, Calcium 8.5, Phosphorus 3.0, Magnesium 1.8 Micro: Microbiology 06/23/24 11:55 Mucosa - Nose SARS-CoV-2, Influenza & RSV (PCR) - Final SARS-CoV-2 (COVID 19 PCR) Radiography Diagnostic Testing: Radiology Impression Echocardiogram 06/23/24 16:21 Interpretation Summary The estimated ejection fraction is 70 %. Aortic sclerosis, no stenosis. Ordering Physician: Darnell Goodwin Performed By: Zak Tavera RCS Physical Exam Narrative GENERAL: cooperative HEENT: Atraumatic; normocephalic EYES; Anicteric, Normal Conjunctiva NECK; supple, normal thyroid, RESPIRATORY: Diminished to auscultation CARDIOVASCULAR: Regular S1 S2, GI: soft, normoactive bowel sounds, : No Renal angle tenderness; EXTREMITIES: No edema, no clubbing, MUSCULOSKELETAL: no muscle wasting NEURO: Awake; no lateralizing signs. SKIN: No Rash PSYCH; Flat affect Assessment & Plan Assessment/Plan (1) Rhabdomyolysis: PLAN: Plan Patient is a 78-year-old gentleman admitted with progressive generalized weakness was found to have elevated CPK levels consistent with acute rhabdomyolysis. Patient also tested positive for COVID 1. Acute rhabdomyolysis ? Admitted to monitored floor managed with IV fluids with subsequent monitoring of CPK levels ordered ? 07/13/2024; CPK levels trending down 2. Elevated troponin ? [place] to be secondary to patient underlying COVID infection. 2D echo ordered. Demonstrated ejection fraction of 70% with no regional wall motion abnormalities 3. COVID-19 infection without hypoxia ? Treated symptomatically 4. Parkinson's disease ? Patient is on droxidopa did continue 5. Physical deconditioning ? Requested for PT OT eval and community mental health social worker to assist with discharge planning ? 06/26/2024 do anticipate discharge to a [facility] facility either this afternoon or tomorrow depending on bed availability at the transitional care 6. Hypothyroidism ? Patient is on levothyroxine home dose continued 7. BPH with lower urinary obstructive symptoms - Patient treated with tamsulosin and finasteride 8. Acute kidney injury superimposed chronic kidney disease stage IV ? Kidney function improving with IV hydration 9.Chronic hypotension ? Patient blood pressure did drop after experiencing blood pressures as high as 199/89 necessitating patient fludrocortisone being held. Patient was started on hydralazine which has since been continued did resume patient fludrocortisone - 10. GERD ? On PPI 11. DVT prophylaxis ? SC heparin Time spent in the patient's overall evaluation,decision-making process, review of diagnostic data, adjustment of management, discussion with other providers, nursing nursing and ancillary staff involved in patient's care documentation, 40 minutes Charges/Coding Visit Charges Inpatient E&M: 02148 Subs Hosp L2
[2024-06-26] MEDS: Acetaminophen 325 MG Tablet 650 MG PO (09:45)
[2024-06-26] MEDS: Fludrocortisone Acetate 0.1 MG Tablet 0.2 MG PO (09:45)
[2024-06-26] MEDS: MELATONIN 10 MG TABLET PO (22:21)
[2024-06-27 03:47] VITALS: BP 156/68; PULSE 54; RESP 18; TEMP 36.6; O2SAT 95
[2024-06-27] MEDS: Levothyroxine 112 MCG Tablet PO (05:28)
[2024-06-27] MEDS: Heparin Injection (Vial) 5,000 UNIT/ML VIAL 5000 UNIT SC (05:28)
[2024-06-27] MEDS: DROXIDOPA 100 MG CAPSULE 200 MG PO (05:29)
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
[2024-06-27 09:50] VITALS: BP 127/67; PULSE 60; RESP 18; TEMP 36.6; O2SAT 94
--- NOTE | 2024-06-27 09:56 | TREXTCAR_ITS ---
Diet Diet Order/Speech Therapy: 06/23/24 16:21 Diet: Regular - General Food consistency:: Regular Liquid Consistency:: Regular/Thin Routine Orders/Code Status Code Status: Full Code Therapies Physical Therapy: Eval and Treat Occupational Therapy: Eval and Treat Problem/Diagnosis (1) Rhabdomyolysis: Status: Acute Code(s): M62.82 - Rhabdomyolysis Plan Patient is a 78-year-old gentleman admitted with progressive generalized weakness was found to have elevated CPK levels consistent with acute rhabdomyolysis. Patient also tested positive for COVID 1. Acute rhabdomyolysis ? Admitted to monitored floor managed with IV fluids with subsequent monitoring of CPK levels ordered ? 07/13/2024; CPK levels trending down 2. Elevated troponin ? [place] to be secondary to patient underlying COVID infection. 2D echo ordered. Demonstrated ejection fraction of 70% with no regional wall motion abnormalities 3. COVID-19 infection without hypoxia ? Treated symptomatically 4. Parkinson's disease ? Patient is on droxidopa did continue 5. Physical deconditioning ? Requested for PT OT eval and social services assistant to assist with discharge planning ? 06/26/2024 do [facility] facility either this afternoon or tomorrow depending on bed availability at the transitional care 6. Hypothyroidism ? Patient is on levothyroxine home dose continued 7. BPH with lower urinary obstructive symptoms - Patient treated with tamsulosin and finasteride 8. Acute kidney injury superimposed chronic kidney disease stage IV ? Kidney function improving with IV hydration 9.Chronic hypotension ? Patient blood pressure did drop after experiencing blood pressures as high as 199/89 necessitating patient fludrocortisone being held. Patient was started on hydralazine which has since been continued did resume patient fludrocortisone -06/27/2024 patient did develop significant orthostatic hypotension the day prior resulting in his anticipated discharge being cancel 10. GERD ? On PPI 11. DVT prophylaxis ? SC heparin Time spent in the patient's overall evaluation,decision-making process, review of diagnostic data, adjustment of management, discussion with other providers, nursing nursing and ancillary staff involved in patient's care documentation, 40 minutes Allergies/Procedures Done in Hospital Allergies lisinopril Allergy (Verified 06/23/24 10:19) Swelling Type of Care/Length of Stay Estimated LOS: Convalescent Care Less Than 30 days Type of Care Needed: Skilled Rehab Potential: Good Prognosis: Good Additional Orders/Day of Discharge Day of Discharge: 06/27/24 Dietary and Speech Recommendations Dietitian Recommendations/Changes: Continue liberalized diet as PO adequacy established. Will add ensure compact w/ meals for tolerance. Adjust ONS as needed to optimize oral intake and maintain stable weight. Discharge Plan Admission Admit Date/Time: 06/23/24 14:35 Attending Provider: Margarito Giles Primary Care Provider: Eladia García Consulting Providers: Darnell Goodwin; Tevin Munoz Discharge Orders/Prescriptions Prescriptions: Continued Carbidopa-Levo 25-100 mg Odt 1.5 tab PO 3XD cyanocobalamin (vitamin B-12) [Vitamin B-12] 500 mcg Tablet 500 mcg PO DAILY cholecalciferol (vitamin D3) 25 mcg (1,000 unit) Tablet 50 mcg PO DAILY melatonin 10 mg Tablet 10 mg PO QHS Cerovite Jr 18 mg iron- 10 mcg Tablet,Chewable 1 tab PO DAILY sennosides [senna] 8.6 mg Tablet 8.6 mg PO QHS acetaminophen 500 mg Tablet 1,000 mg PO Q6H tamsulosin 0.4 mg Capsule 0.4 mg PO DAILY sodium bicarbonate 650 mg Tablet 650 mg PO TID levothyroxine 125 mcg Tablet 112 mcg PO DAILY lidocaine HCl [Aspercreme (lidocaine HCl)] 4 % Cream 1 applic TOPICAL DAILY esomeprazole magnesium 40 mg capsule,delayed release(DR/EC) 40 mg PO DAILY finasteride 5 mg tablet 5 mg PO DAILY hydrocodone-acetaminophen 5-325 mg tablet 1 tab PO Q6H PRN PRN (Reason: pain) tramadol 50 mg tablet 25 - 50 mg PO TID PRN PRN (Reason: pain) fludrocortisone 0.1 mg tablet 0.2 mg PO DAILY droxidopa 100 mg capsule 200 mg PO TID Rx Instructions: give consistently with OR without food, upon rising, at midday, late PM/at least 3hrs before bedtime Referrals / Follow Up: Eladia Garcaí DO [Primary Care Provider] - Disposition Disposition (needs filled in before D/C Order can be placed): Penitentiary Facility
[2024-06-27] MEDS: Acetaminophen 325 MG Tablet 650 MG PO (09:57)
[2024-06-27] MEDS: Fludrocortisone Acetate 0.1 MG Tablet 0.2 MG PO (09:58)
[2024-06-27] MEDS: Carbidopa/Levodopa 25/100 Tablet PO (09:58)
[2024-06-27] MEDS: Cholecalciferol (VIT D3) 25 MCG TABLET (1,000 UNITS) 50 MCG PO (09:58)
[2024-06-27] MEDS: Finasteride 5 MG Tablet PO (09:58)
[2024-06-27] MEDS: Tamsulosin HCl 0.4 MG Capsule PO (09:58)
[2024-06-27] MEDS: Pantoprazole Sodium 40 MG Tablet PO (09:58)
[2024-06-27] MEDS: Cyanocobalamin 500 MCG Tablet PO (09:58)
--- NOTE | 2024-06-27 10:03 | DS.PCM_ITS ---
Providers Date of Admission: 06/23/24 Date of Discharge: 06/27/24 Primary Care Physician: Dr. Eladia García, DO Reason For Visit: COVID INFECTION W/ WEAKNESS, ELEVATED TROPONIN Diagnosis Discharge Diagnosis (1) Rhabdomyolysis: Status: Acute Code(s): M62.82 - Rhabdomyolysis Plan Patient is a 78-year-old gentleman admitted with progressive generalized weakness was found to have elevated CPK levels consistent with acute rhabdomyolysis. Patient also tested positive for COVID 1. Acute rhabdomyolysis ? Admitted to monitored floor managed with IV fluids with subsequent monitoring of CPK levels ordered ? 07/13/2024; CPK levels trending down 2. Elevated troponin ? [place] to be secondary to patient underlying COVID infection. 2D echo ordered. Demonstrated ejection fraction of 70% with no regional wall motion abnormalities 3. COVID-19 infection without hypoxia ? Treated symptomatically 4. Parkinson's disease ? Patient is on droxidopa did continue 5. Physical deconditioning ? Requested for PT OT eval and social media campaign manager to assist with discharge planning ? 06/26/2024 do anticipate discharge to a long term facility either this afternoon or tomorrow depending on bed availability at the transitional care 6. Hypothyroidism ? Patient is on levothyroxine home dose continued 7. BPH with lower urinary obstructive symptoms - Patient treated with tamsulosin and finasteride 8. Acute kidney injury superimposed chronic kidney disease stage IV ? Kidney function improving with IV hydration 9.Chronic hypotension ? Patient blood pressure did drop after experiencing blood pressures as high as 199/89 necessitating patient fludrocortisone being held. Patient was started on hydralazine which has since been continued did resume patient fludrocortisone -06/27/2024 patient did develop significant orthostatic hypotension the day prior resulting in his anticipated discharge being cancel 10. GERD ? On PPI 11. DVT prophylaxis ? SC heparin Time spent in the patient's overall evaluation,decision-making process, review of diagnostic data, adjustment of management, discussion with other providers, nursing nursing and ancillary staff involved in patient's care documentation, 40 minutes Medications at Discharge Home Medications Carbidopa-Levo 25-100 mg Odt 1.5 tab PO 3XD parkinsons 08/14/20 acetaminophen 500 mg tablet 1,000 mg PO Q6H 02/07/23 cholecalciferol (vitamin D3) 25 mcg (1,000 unit) tablet 50 mcg PO DAILY 02/07/23 cyanocobalamin (vitamin B-12) 500 mcg tablet (Vitamin B-12) 500 mcg PO DAILY 02/07/23 levothyroxine 125 mcg tablet 112 mcg PO DAILY 02/07/23 lidocaine HCl 4 % topical cream (Aspercreme (lidocaine HCl)) 1 applic topical DAILY 02/07/23 melatonin 10 mg tablet 10 mg PO QHS 02/07/23 pediatric multivit no.158-iron fum 18 mg-vit K1 10 mcg chewable tablet (Cerovite Jr) 1 tab PO DAILY 02/07/23 sennosides 8.6 mg tablet (senna) 8.6 mg PO QHS 02/07/23 sodium bicarbonate 650 mg tablet 650 mg PO TID 02/07/23 tamsulosin 0.4 mg capsule 0.4 mg PO DAILY 02/07/23 droxidopa 100 mg capsule 200 mg PO TID 06/23/24 esomeprazole magnesium 40 mg capsule,delayed release 40 mg PO DAILY 06/23/24 finasteride 5 mg tablet 5 mg PO DAILY 06/23/24 fludrocortisone 0.1 mg tablet 0.2 mg PO DAILY 06/23/24 hydrocodone-acetaminophen 5-325mg 5mg-325mg 1 tab PO Q6H PRN PRN pain 06/23/24 tramadol 50 mg tablet 25 - 50 mg PO TID PRN PRN pain 06/23/24 Physical Exam Narrative GENERAL: cooperative HEENT: Atraumatic; normocephalic EYES; Anicteric, Normal Conjunctiva NECK; supple, normal thyroid, RESPIRATORY: Diminished to auscultation CARDIOVASCULAR: Regular S1 S2, GI: soft, normoactive bowel sounds, : No Renal angle tenderness; EXTREMITIES: No edema, no clubbing, MUSCULOSKELETAL: no muscle wasting NEURO: Awake; no lateralizing signs. SKIN: No Rash PSYCH; Flat affect Weight / BMI Weight Weight: 92 kg Body Mass Index (BMI) 27.5 ABG / Lab / Microbiology Data 06/26/24 05:26 06/26/24 05:26 Microbiology: Microbiology 06/23/24 11:55 Mucosa - Nose SARS-CoV-2, Influenza & RSV (PCR) - Final SARS-CoV-2 (COVID 19 PCR) Meaningful Use Info Meaningful Use Meaningful Use Diagnoses (Choose all that apply): None applicable Ischemic Stroke Statin Dosing Therapy Reference: STATIN DOSE THERAPY REFERENCE: * Patients > 75 years receive moderate or high dose statin therapy. * Patients 75 years or YOUNGER should receive HIGH intensity statin dose unless contraindicated. You will be required to document reason for non-treatment if statin daily dose does not meet guidelines. HIGH DOSE STATIN THERAPY DAILY Atorvastatin > than or = to 40 mg Rosuvastatin > than or = to 20 mg Amlodipine + Atorvastatin > than or = to 2.5/40 mg Ezetimibe + Simvastatin 10/80 mg Simvastatin 80mg Discharge Plan Admission Admit Date/Time: 06/23/24 14:35 Attending Provider: Margarito Giles Primary Care Provider: Eladia García Consulting Providers: Darnell Goodwin; Tevin Munoz Discharge Orders/Prescriptions Prescriptions: Continued Carbidopa-Levo 25-100 mg Odt 1.5 tab PO 3XD cyanocobalamin (vitamin B-12) [Vitamin B-12] 500 mcg Tablet 500 mcg PO DAILY cholecalciferol (vitamin D3) 25 mcg (1,000 unit) Tablet 50 mcg PO DAILY melatonin 10 mg Tablet 10 mg PO QHS Cerovite Jr 18 mg iron- 10 mcg Tablet,Chewable 1 tab PO DAILY sennosides [senna] 8.6 mg Tablet 8.6 mg PO QHS acetaminophen 500 mg Tablet 1,000 mg PO Q6H tamsulosin 0.4 mg Capsule 0.4 mg PO DAILY sodium bicarbonate 650 mg Tablet 650 mg PO TID levothyroxine 125 mcg Tablet 112 mcg PO DAILY lidocaine HCl [Aspercreme (lidocaine HCl)] 4 % Cream 1 applic TOPICAL DAILY esomeprazole magnesium 40 mg capsule,delayed release(DR/EC) 40 mg PO DAILY finasteride 5 mg tablet 5 mg PO DAILY hydrocodone-acetaminophen 5-325 mg tablet 1 tab PO Q6H PRN PRN (Reason: pain) tramadol 50 mg tablet 25 - 50 mg PO TID PRN PRN (Reason: pain) fludrocortisone 0.1 mg tablet 0.2 mg PO DAILY droxidopa 100 mg capsule 200 mg PO TID Rx Instructions: give consistently with OR without food, upon rising, at midday, late PM/at least 3hrs before bedtime Referrals / Follow Up: Eladia García DO [Primary Care Provider] - Disposition Disposition (needs filled in before D/C Order can be placed): Long Term Facility Charges/Coding Visit Charges Inpatient E&M: 03301 Disch Hosp >30min
--- NOTE | 2024-06-27 10:05 | PHA.DC.MR.R ---
Pharmacy [facility] Med Reconciliation Pharmacy Service has performed discharge medication reconciliation for this patient. The patient's discharge medication list was reviewed for discrepancies and discrepancies were resolved. Medications at Discharge Home Medications Carbidopa-Levo 25-100 mg Odt 1.5 tab PO 3XD parkinsons 08/14/20 acetaminophen 500 mg tablet 1,000 mg PO Q6H 02/07/23 cholecalciferol (vitamin D3) 25 mcg (1,000 unit) tablet 50 mcg PO DAILY 02/07/23 cyanocobalamin (vitamin B-12) 500 mcg tablet (Vitamin B-12) 500 mcg PO DAILY 02/07/23 levothyroxine 125 mcg tablet 112 mcg PO DAILY 02/07/23 lidocaine HCl 4 % topical cream (Aspercreme (lidocaine HCl)) 1 applic topical DAILY 02/07/23 melatonin 10 mg tablet 10 mg PO QHS 02/07/23 pediatric multivit no.158-iron fum 18 mg-vit K1 10 mcg chewable tablet (Cerovite Jr) 1 tab PO DAILY 02/07/23 sennosides 8.6 mg tablet (senna) 8.6 mg PO QHS 02/07/23 sodium bicarbonate 650 mg tablet 650 mg PO TID 02/07/23 tamsulosin 0.4 mg capsule 0.4 mg PO DAILY 02/07/23 droxidopa 100 mg capsule 200 mg PO TID 06/23/24 esomeprazole magnesium 40 mg capsule,delayed release 40 mg PO DAILY 06/23/24 finasteride 5 mg tablet 5 mg PO DAILY 06/23/24 fludrocortisone 0.1 mg tablet 0.2 mg PO DAILY 06/23/24 hydrocodone-acetaminophen 5-325mg 5mg-325mg 1 tab PO Q6H PRN PRN pain 06/23/24 tramadol 50 mg tablet 25 - 50 mg PO TID PRN PRN pain 06/23/24
--- NOTE | 2024-06-27 11:02 | NURSING ---
Called report to [place] on TCU
== END 2024-06-27 11:28 | disposition skilled nursing facility (03) | DRG 564 ==
LOC: ED 11:45 → PCU 06-24 07:15
PROVIDERS: Internal Medicine; Admitting Provider Hospitalist; Emergency Provider Emergency Medicine; PCP Internal Medicine; Visit Provider Internal Medicine
DX: T79.6XXA Traumatic ischemia of muscle, initial encounter (principal); U07.1 COVID-19; N13.8 Other obstructive and reflux uropathy; N18.4 Chronic kidney disease, stage 4 (severe); G20.A1 Parkinson's disease without dyskinesia, without mention of fluctuations; E03.9 Hypothyroidism, unspecified; I12.9 Hypertensive chronic kidney disease with stage 1 through stage 4 chronic kidney disease, or unspecified chronic kidney disease; W18.2XXA Fall in (into) shower or empty bathtub, initial encounter; I95.1 Orthostatic hypotension; I95.89 Other hypotension; E86.0 Dehydration; E78.5 Hyperlipidemia, unspecified; K21.9 Gastro-esophageal reflux disease without esophagitis; N40.1 Benign prostatic hyperplasia with lower urinary tract symptoms; R53.81 Other malaise; Z79.52 Long term (current) use of systemic steroids; Z79.890 Hormone replacement therapy; Z79.899 Other long term (current) drug therapy; Z86.73 Personal history of transient ischemic attack (TIA), and cerebral infarction without residual deficits
CPT/HCPCS: 36415; 70450; 71046; 72125; 80048; 80053; 81001; 82550; 83690; 83735; 84100; 84443; 84484; 85025; 85027; 87631; 93005; 93306; 94668; 97162; 97166; 97530; 99283; J7030; J7120; Q9957; A4216

== ENCOUNTER 2024-06-27 11:38 | Inpatient (IN) | payer MEDICARE, OTHER, SELFPAY ==
[2024-06-27 11:58] VITALS: BMI 26.7
[2024-06-27 12:07] VITALS: BP 140/70; PULSE 57; PULSE 78; RESP 14; RESP 18; TEMP 35.6; O2SAT 95; BMI 26.7
[2024-06-27] MEDS: Acetaminophen 500 MG Tablet 1000 MG PO (12:47)
[2024-06-27] MEDS: Sodium Bicarbonate 650 MG Tablet PO ×2 (13:42→21:05)
--- NOTE | 2024-06-27 14:47 | PCM.HP.STD ---
HPI - General General Date of Admission: 06/27/24 Date of Service: 06/27/24 Chief Complaint: Here for rehabilitation. HPI Narrative 06/23/2024 MIGUEL GUEVARA, is a 78 Male who presents to [facility] ED with weakness. Generalized weakness, too weak to stand up. Returned form veterans trip to [facility]. Extremely busy days in [facility] fell in shower yesterday, he blacked out. Did not drink much. Troponin 504, Covid +. 06/23/2024 Admit [facility]. Solu-medrol 125mg iv x 3 for covid-19. IV fluids for dehydration, rhabdomyolysis. PT/OT SNF. Troponin 504 trended to 471, Type 2 ischemia. 06/23/2024 Echo EF 70%. 06/24/2024 No hypoxia, cpk improved. PT/OT SNF. 06/25/2024 IV fluids, cpk for rhabdomyolysis. covid treated supportively. Plan SNF on discharge. 06/26/2024 Elevated troponin 2/2 Type 2 ischemia 2/2 covid. 06/27/2024 Admit to TCU with debility, here for rehabilitation, strengthening, prior to discharge home with . [facility] Medical History (Updated 06/27/24 @ 14:[address] Gonzalo Perry MD) Parkinsons disease Hypothyroidism Hyperlipidemia Calculus of gallbladder with acute cholecystitis with obstruction Sinus bradycardia, chronic CKD (chronic kidney disease), stage III History of CVA (cerebrovascular accident) GERD (gastroesophageal reflux disease) HTN (hypertension) Home Medications ?Medication ?Instructions ?Recorded ?Last Taken ?Type Carbidopa-Levo 25-100 mg Odt 1.5 tab PO 3XD parkinsons 08/14/20 06/22/24 History acetaminophen 500 mg tablet 1,000 mg PO Q6H Pain 1-10 02/07/23 Unknown History cholecalciferol (vitamin D3) 25 50 mcg PO DAILY Supplement 02/07/23 06/22/24 History mcg (1,000 unit) tablet cyanocobalamin (vitamin B-12) 500 500 mcg PO DAILY Supplement 02/07/23 06/22/24 History mcg tablet (Vitamin B-12) levothyroxine 125 mcg tablet 112 mcg PO DAILY Hypothyroidism 02/07/23 06/22/24 History lidocaine HCl 4 % topical cream 1 applic topical DAILY Pain 02/07/23 06/22/24 History (Aspercreme (lidocaine HCl)) melatonin 10 mg tablet 10 mg PO QHS Sleep 02/07/23 06/22/24 History pediatric multivit no.158-iron fum 1 tab PO DAILY Supplement 02/07/23 Unknown History 18 mg-vit K1 10 mcg chewable tablet (Cerovite Jr) sennosides 8.6 mg tablet (senna) 8.6 mg PO QHS Constipation 02/07/23 06/22/24 History sodium bicarbonate 650 mg tablet 650 mg PO TID Indigestion, 02/07/23 06/22/24 History supplement tamsulosin 0.4 mg capsule 0.4 mg PO DAILY Bladder 02/07/23 06/22/24 History droxidopa 100 mg capsule 200 mg PO TID Per physicion 06/23/24 Unknown History esomeprazole magnesium 40 mg 40 mg PO DAILY GERD 06/23/24 06/22/24 History capsule,delayed release finasteride 5 mg tablet 5 mg PO DAILY Prostate 06/23/24 06/22/24 History fludrocortisone 0.1 mg tablet 0.2 mg PO DAILY Per physician 06/23/24 06/22/24 History hydrocodone-acetaminophen 5-325mg 1 tab PO Q6H PRN PRN pain 06/23/24 Unknown History 5mg-325mg tramadol 50 mg tablet 25 - 50 mg PO TID PRN PRN pain 06/23/24 Unknown History Allergy/AdvReac Type Severity Reaction Status Date / Time lisinopril Allergy Swelling Verified 06/23/24 10:19 Family History Father Colon cancer COPD (chronic obstructive pulmonary disease) Surgical History S/P cholecystectomy S/P cholecystectomy History of tonsillectomy and adenoidectomy History of back surgery History of total bilateral knee replacement History of gastric bypass h/o right thumb surgery H/O carpal tunnel repair H/O gastric bypass Social History household members: spouse Smoking Status: Never smoker alcohol intake: never substance use type: does not use ROS Constitutional Constitutional: Denies chills, fever(s) or weight gain ENT HEENT: Denies headache(s), nasal congestion or nasal discharge Cardiovascular Cardiovascular: Denies chest pain or palpitations Respiratory/Chest Respiratory/Chest: Denies cough, excessive phlegm production or shortness of breath with exertion Gastrointestinal Gastrointestinal: Denies abdominal pain, nausea or vomiting Genitourinary Genitourinary: Denies dysuria Musculoskeletal Musculoskeletal: Denies joint pain or joint swelling Integumentary Integumentary: Denies rash or wounds Neurologic Neurologic: Denies focal weakness, numbness or tingling Psychiatric Psychiatric: Denies anxiety, auditory hallucinations, depression, homicidal ideation or suicidal ideation Vital Signs Vital Signs Vital Signs: 06/27/24 12:07 06/27/24 12:07 Temperature 96.0 F L Temperature Source Oral Pulse Rate 57 L 78 Pulse Rhythm Regular Pulse Strength Normal (2+) Respiratory Rate 14 18 Respiratory Effort Normal Blood Pressure 140/70 H Blood Pressure Mean 93 Blood Pressure Source Monitor Blood Pressure Position Semi-Fowlers Blood Pressure Location Right Arm Pulse Ox 95 95 Oxygen Delivery Method Room Air Room Air Weight Weight: 89.358 kg Body Mass Index (BMI) 26.7 Physical Exam Const alert General Appearance: cooperative HEENT normocephalic Eyes PERRL and EOMs intact bilaterally Neck supple, no JVD and no carotid bruits Resp normal respiratory effort, normal air movement and clear to auscultation bilaterally Cardio regular rate and regular rhythm GI normal to inspection, nondistended, normoactive bowel sounds, non-tender and non-distended Extremity normal capillary refill General Extremity: Negative for edema Skin no rashes or lesions noted General Skin Exam: no breakdown Neuro moves all extremities Psych affect normal Appearance: appropriate Assessment & Plan Assessment/Plan (1) Debility: (2) COVID-19: (3) NSTEMI (non-ST elevated myocardial infarction): (4) Rhabdomyolysis: (5) Parkinsons disease: (6) Hypothyroidism: QUALIFIERS: Hypothyroidism type: unspecified Qualified Code(s): E03.9 - Hypothyroidism, unspecified (7) Hyperlipidemia: QUALIFIERS: Hyperlipidemia type: unspecified Qualified Code(s): E78.5 - Hyperlipidemia, unspecified (8) Atrial fibrillation: (9) Insomnia: (10) BPH (benign prostatic hyperplasia): (11) Metabolic acidosis: (12) GERD (gastroesophageal reflux disease): QUALIFIERS: Esophagitis presence: esophagitis presence not specified Qualified Code(s): K21.9 - Gastro-esophageal reflux disease without esophagitis (13) Orthostatic hypotension: PLAN: Plan 78 year old male with below past medical history hospitalized for weakness 2/2 covid-19, complicated by nstemi, rhabdomyolysis, dehydration, admitted to TCU with debility, here for rehabilitation, strengthening, prior to discharge home with . Debility - PT/OT. Pain - Tylenol 1000mg q6, Tramadol 25mg - 50mg tid prn, Liberty 5/325mg q6 prn. Bowel - Senokot 1 tablet qhs. Adult immunization - Administer pneumonia vaccine, covid vaccine, flu vaccine as appropriate. DVT prophylaxis - Lovenox 40mg sc daily. Parkinson Disease - Sinemet 25/100mg tidac. Vitamin D deficiency - D3 50mcg daily. Vitamin B12 deficiency - B12 500mcg daily. Orthostatic hypotension - Northera 200mg tidcm, Fludrocortisone 0.2mg daily. BPH - Finasteride 5mg daily, Tamsulosin 0.4mg daily. Hypothyroidism - Levothyroxine 112mcg daily. Insomnia - Melatonin 10mg qhs. Skin irritation - Calmoseptine topical 4x/day. Nutrition - MVI 1 tablet daily. GERD - Pantoprazole 40mg daliy. Metabolic acidosis - Sodium bicarb 650mg tid.
[2024-06-27] MEDS: Carbidopa/Levodopa 25/100 Tablet PO (16:48)
[2024-06-27] MEDS: MELATONIN 10 MG TABLET PO (21:05)
[2024-06-27] MEDS: Senna Tablet 1 TABLET PO (21:05)
[2024-06-27] MEDS: Menthol/Lanolin/Calamine/Znox 113 GM Tube 1 APPLIC TOPICAL (21:06)
[2024-06-27 22:00] VITALS: PULSE 88; O2SAT 98
--- NOTE | 2024-06-28 04:23 | NURSING ---
All pt care is being conducted in pts room due to covid isolation throughout this shift.
[2024-06-28] MEDS: Enoxaparin 40 MG/0.4 ML Syringe SC (06:14)
[2024-06-28] MEDS: Levothyroxine 112 MCG Tablet PO (06:14)
[2024-06-28] MEDS: Acetaminophen 500 MG Tablet 1000 MG PO ×3 (06:14→23:04)
[2024-06-28] MEDS: Carbidopa/Levodopa 25/100 Tablet PO ×3 (06:14→17:15)
[2024-06-28] MEDS: Sodium Bicarbonate 650 MG Tablet PO ×3 (06:14→21:23)
[2024-06-28 07:58] LABS: Absolute Lymphocyte Count 1.38 X10^3/uL (0.83-4.51); Absolute Neutrophil Count 4.2 X10^3/uL (2.0-7.7); Basophil# 0.03 X10^3/uL; Basophil% 0.5 % (0-1); Eosinophils% 9.1 % (0-5); Hematocrit 39.5 % (40-54); Hemoglobin 12.7 g/dL (13.0-16.5); Lymphocyte # 1.38 X10^3/ul (0.83-4.51); Lymphocyte % 20.9 % (19-41); Mean Corp Hgb Conc 32.2 g/dL (32-36); Mean Corpuscular Volume 93.4 fL (80-94); Mean Platelet Vol. 10.6 fl (6.2-12.0); Monocyte# 0.37 X10^3/uL; Monocyte% 5.6 % (0-10); NRBC Flagged by Analyzer 0 % (0-5); Neutrophil % 63.6 % (47-70); Platelet Count 166 K/mm3 (150-450); RBC Distribution Width CV 14.6 % (11.6-14.6); RBC Distribution Width SD 50.9 fl (35.1-43.9); Red Blood Count 4.23 M/mm3 (4.6-6.2); White Blood Count 6.6 K/mm3 (4.4-11.0)
[2024-06-28 08:19] LABS: Anion Gap 7 (5-15); BUN 25 mg/dL (7-18); BUN/Creat Ratio 15.9 RATIO (10-20); Calcium,Total 8.4 mg/dL (8.5-10.1); Chloride 106 mmol/L (98-107); Creatinine, Serum 1.57 mg/dL (0.70-1.30); EST Glomerular Filtration Rate 46 mL/min (>60); Est Glom Filt Rate - Afr Amer 55 mL/min (>60); Estimated Creatinine Clearance 43.93 ml/min; Glucose 93 mg/dL (74-106); Potassium 3.2 mmol/L (3.5-5.1); Sodium Level 141 mmol/L (136-145)
[2024-06-28] MEDS: Multivitamins,Ther W-Minerals Tablet 1 TABLET PO (08:40)
[2024-06-28] MEDS: Fludrocortisone Acetate 0.1 MG Tablet 0.2 MG PO (08:40)
[2024-06-28] MEDS: Tamsulosin HCl 0.4 MG Capsule PO (08:40)
[2024-06-28] MEDS: Finasteride 5 MG Tablet PO (08:41)
[2024-06-28] MEDS: Cyanocobalamin 500 MCG Tablet PO (08:41)
[2024-06-28] MEDS: Pantoprazole Sodium 40 MG Tablet PO (08:41)
[2024-06-28] MEDS: Cholecalciferol (VIT D3) 25 MCG TABLET (1,000 UNITS) 50 MCG PO (08:41)
[2024-06-28] MEDS: Menthol/Lanolin/Calamine/Znox 113 GM Tube 1 APPLIC TOPICAL ×2 (08:42→21:21)
[2024-06-28] MEDS: Tuberculin,Purif.prot.deriv. 50 TU/ML Vial 0.1 ML ID (12:04)
[2024-06-28] MEDS: Potassium Chloride Oral Tablet 20 MEQ 60 MEQ PO (12:04)
[2024-06-28 13:38] VITALS: BP 123/66; PULSE 57; RESP 19; TEMP 36.5; O2SAT 97
[2024-06-28 20:00] VITALS: PULSE 50; O2SAT 97
[2024-06-28 21:15] VITALS: BP 151/75; PULSE 50; O2SAT 97
[2024-06-28] MEDS: MELATONIN 10 MG TABLET PO (21:23)
[2024-06-28] MEDS: Senna Tablet 1 TABLET PO (21:23)
--- NOTE | 2024-06-29 00:20 | NURSING ---
All patient care provided in room due to COVID isolation precautions.
[2024-06-29] MEDS: Levothyroxine 112 MCG Tablet PO (05:47)
[2024-06-29] MEDS: Sodium Bicarbonate 650 MG Tablet PO ×3 (05:47→20:59)
[2024-06-29] MEDS: Acetaminophen 500 MG Tablet 1000 MG PO ×4 (05:47→23:01)
[2024-06-29] MEDS: Carbidopa/Levodopa 25/100 Tablet PO ×3 (05:48→17:13)
[2024-06-29] MEDS: Enoxaparin 40 MG/0.4 ML Syringe SC (05:50)
[2024-06-29 06:40] VITALS: PULSE 60; O2SAT 98
[2024-06-29 07:10] LABS: Anion Gap 4 (5-15); BUN 26 mg/dL (7-18); BUN/Creat Ratio 16.9 RATIO (10-20); Calcium,Total 8.3 mg/dL (8.5-10.1); Chloride 108 mmol/L (98-107); Creatinine, Serum 1.54 mg/dL (0.70-1.30); EST Glomerular Filtration Rate 47 mL/min (>60); Est Glom Filt Rate - Afr Amer 57 mL/min (>60); Estimated Creatinine Clearance 44.79 ml/min; Glucose 90 mg/dL (74-106); Potassium 3.5 mmol/L (3.5-5.1); Sodium Level 140 mmol/L (136-145)
[2024-06-29] MEDS: Potassium Chloride Oral Tablet 20 MEQ PO (08:30)
[2024-06-29] MEDS: Multivitamins,Ther W-Minerals Tablet 1 TABLET PO (08:31)
[2024-06-29] MEDS: Fludrocortisone Acetate 0.1 MG Tablet 0.2 MG PO (08:31)
[2024-06-29] MEDS: Tamsulosin HCl 0.4 MG Capsule PO (08:31)
[2024-06-29] MEDS: Pantoprazole Sodium 40 MG Tablet PO (08:32)
[2024-06-29] MEDS: Finasteride 5 MG Tablet PO (08:32)
[2024-06-29] MEDS: Cyanocobalamin 500 MCG Tablet PO (08:33)
[2024-06-29] MEDS: Cholecalciferol (VIT D3) 25 MCG TABLET (1,000 UNITS) 50 MCG PO (08:33)
[2024-06-29] MEDS: Menthol/Lanolin/Calamine/Znox 113 GM Tube 1 APPLIC TOPICAL ×2 (12:24→20:57)
[2024-06-29 16:00] VITALS: BP 141/62; PULSE 56; RESP 16; TEMP 36.6; O2SAT 97
[2024-06-29] MEDS: Senna Tablet 1 TABLET PO (20:59)
[2024-06-29] MEDS: MELATONIN 10 MG TABLET PO (20:59)
--- NOTE | 2024-06-30 01:26 | NURSING ---
All patient care provided in room due to COVID + isolation precautions.
[2024-06-30] MEDS: Enoxaparin 40 MG/0.4 ML Syringe SC (05:42)
[2024-06-30] MEDS: Acetaminophen 500 MG Tablet 1000 MG PO ×3 (05:43→22:06)
[2024-06-30] MEDS: Levothyroxine 112 MCG Tablet PO (05:43)
[2024-06-30] MEDS: Sodium Bicarbonate 650 MG Tablet PO ×3 (05:43→22:06)
[2024-06-30] MEDS: Carbidopa/Levodopa 25/100 Tablet PO ×3 (05:44→16:51)
[2024-06-30] MEDS: Multivitamins,Ther W-Minerals Tablet 1 TABLET PO (09:06)
[2024-06-30] MEDS: Fludrocortisone Acetate 0.1 MG Tablet 0.2 MG PO (09:06)
[2024-06-30] MEDS: Potassium Chloride Oral Tablet 20 MEQ PO (09:06)
[2024-06-30] MEDS: Menthol/Lanolin/Calamine/Znox 113 GM Tube 1 APPLIC TOPICAL (09:06)
[2024-06-30] MEDS: Pantoprazole Sodium 40 MG Tablet PO (09:07)
[2024-06-30] MEDS: Cholecalciferol (VIT D3) 25 MCG TABLET (1,000 UNITS) 50 MCG PO (09:07)
[2024-06-30] MEDS: Finasteride 5 MG Tablet PO (09:07)
[2024-06-30] MEDS: Cyanocobalamin 500 MCG Tablet PO (09:07)
[2024-06-30] MEDS: Tamsulosin HCl 0.4 MG Capsule PO (09:07)
[2024-06-30 09:21] VITALS: BP 127/63; PULSE 64; RESP 16; TEMP 35.2; O2SAT 96
--- NOTE | 2024-06-30 09:57 | PCM.PN.DRR ---
Documented by User: Padilla Mendez 06/30/24 10:26 TCU RX Drug Regimen Review Subjective/Objective Subjective/Objective: Subjective: TCU admission. 78 year old male with below past medical history hospitalized for weakness 2/2 covid-19, complicated by nstemi, rhabdomyolysis, dehydration, admitted to TCU with debility, here for rehabilitation, strengthening, prior to discharge home with . Objective: Allergies lisinopril Allergy (Verified 06/23/24 10:19) Swelling Current Medications Generic Name Dose Route Start Last Admin Trade Name Freq PRN Reason Stop Dose Admin Acetaminophen 1,000 mg 06/27/24 12:00 06/30/24 05:43 Acetaminophen 500 Mg Tablet PO 1,000 mg Q6 HAYDE Administration Hydrocodone Bitart/Acetaminophen 1 tablet 06/27/24 11:54 Hydrocodone Bitartrate/Apap 5/325 Tablet PO Q6H PRN PRN PAIN 4-10 Calamine/Phenol 1 applic 06/27/24 22:00 06/30/24 09:06 Menthol/Lanolin/Calamine/Znox 113 Gm Tube TOPICAL 1 applic BID HAYDE Administration Protocol Carbidopa/Levodopa 1.5 tablet 06/28/24 06:45 06/30/24 05:44 Carbidopa/Levodopa 25/100 Tablet PO 1.5 tablet TIDAC HAYDE Administration Cholecalciferol 50 mcg 06/28/24 10:00 06/30/24 09:07 Cholecalciferol (Vit D3) 25 Mcg Tablet (1,000 Units) PO 50 mcg DAILY HAYDE Administration Cyanocobalamin 500 mcg 06/28/24 10:00 06/30/24 09:07 Cyanocobalamin 500 Mcg Tablet PO 500 mcg DAILY HAYDE Administration Enoxaparin Sodium 40 mg 06/28/24 06:00 06/30/24 05:42 Enoxaparin 40 Mg/0.4 Ml Syringe SC 40 mg DAILY@0600 HAYDE Administration Finasteride 5 mg 06/28/24 10:00 06/30/24 09:07 Finasteride 5 Mg Tablet PO 5 mg DAILY HAYDE Administration Fludrocortisone Acetate 0.2 mg 06/28/24 08:00 06/30/24 09:06 Fludrocortisone Acetate 0.1 Mg Tablet PO 0.2 mg DAILYCM HAYDE Administration Levothyroxine Sodium 112 mcg 06/28/24 06:00 06/30/24 05:43 Levothyroxine 112 Mcg Tablet PO 112 mcg 0600 HAYDE Administration Melatonin 10 mg 06/27/24 22:00 06/29/24 20:59 Melatonin 10 Mg Tablet PO 10 mg QHS [facility] Administration Menthol 1 applic 06/27/24 13:50 Menthol 226.8 Gm Jar TOPICAL 4X/DAY PRN PRN Pain/Inflammation Multivitamins/Minerals 1 tablet 06/28/24 08:00 06/30/24 09:06 Multivitamins,Ther W-Minerals Tablet PO 1 tablet BREAKFAST HAYDE Administration Pantoprazole Sodium 40 mg 06/28/24 10:00 06/30/24 09:07 Pantoprazole Sodium 40 Mg Tablet PO 40 mg DAILY HAYDE Administration Potassium Chloride 20 meq 06/29/24 08:00 06/30/24 09:06 Potassium Chloride Oral Tablet 20 Meq PO 20 meq DAILYCM HAYDE Administration Senna 1 tablet 06/27/24 22:00 06/29/24 20:59 Senna Tablet PO 1 tablet QHS [facility] Administration Sodium Bicarbonate 650 mg 06/27/24 14:00 06/30/24 05:43 Sodium Bicarbonate 650 Mg Tablet PO 650 mg TID HAYDE Administration Tamsulosin HCl 0.4 mg 06/28/24 10:00 06/30/24 09:07 Tamsulosin Hcl 0.4 Mg Capsule PO 0.4 mg DAILY [facility] Administration Tramadol HCl 25 - 50 mg 06/27/24 11:54 Tramadol 50 Mg Tablet PO TID PRN PRN PAIN 1-3 Tuberculin PPD 0.1 ml 07/05/24 10:00 Tuberculin,Purif.Prot.Deriv. 50 Tu/Ml Vial ID 07/05/24 10:01 X1 ONE Problem List Orthostatic hypotension (Acute) Metabolic acidosis (Acute) BPH (benign prostatic hyperplasia) (Acute) Insomnia (Acute) Atrial fibrillation (Acute) Hyperlipidemia (Acute) Hypothyroidism (Acute) Parkinsons disease (Acute) NSTEMI (non-ST elevated myocardial infarction) (Acute) Debility (Acute) Rhabdomyolysis (Acute) COVID-19 (Acute) GERD (gastroesophageal reflux disease) (Chronic) Vital Signs Temp Pulse Resp BP Pulse Ox O2 Del Method 95.4 F L 64 16 127/63 H 96 Room Air 06/30/24 09:21 06/30/24 09:21 06/30/24 09:21 06/30/24 09:21 06/30/24 09:21 06/30/24 09:21 Oxygen Delivery Method Room Air Weight: 89.358 kg Body Mass Index (BMI) 26.7 Sodium 140 mmol/L (136-145) 06/29/24 06:40 Potassium 3.5 mmol/L (3.5-5.1) 06/29/24 06:40 Chloride 108 mmol/L (98-107) H 06/29/24 06:40 Carbon Dioxide 28.0 mmol/L (21.0-32.0) 06/29/24 06:40 Anion Gap 4 (5-15) L 06/29/24 06:40 BUN 26 mg/dL (7-18) H 06/29/24 06:40 Creatinine 1.54 mg/dL (0.70-1.30) H 06/29/24 06:40 Est GFR (MDRD) Af Amer 57 mL/min (>60) L 06/29/24 06:40 Est GFR (MDRD) Non-Af 47 mL/min (>60) L 06/29/24 06:40 BUN/Creatinine Ratio 16.9 RATIO (10-20) 06/29/24 06:40 Glucose 90 mg/dL (74-106) 06/29/24 06:40 Assessment/Plan: 1. Pain: acetaminophen 1000 mg PO Q6, tramadol 25-50 mg PO TID PRN pain, hydrocodone/acetaminophen 5/325 mg PO Q6 PRN pain, menthol 1 application topically 4x/day PRN pain. The patient has not required any PRN doses of tramadol or hydrocodone/acetaminophen so far this admission. Please continue to monitor pain levels, PRN medication administration, LFTs (AST/ALT = 120/20 U/L on 06/25/24), for constipation, dizziness/drowsiness, syncope/ataxia/falls, renal function (serum creatinine = 1.54 mg/dL with creatinine clearance = ~45 mL/min on 06/29/24), skin irritation, and for s/s of seizures. The patient is ordered 4000 mg of acetaminophen per day scheduled, and also has as needed hydrocodone/acetaminophen ordered. If the patient receives even 1 dose of as needed hydrocodone acetaminophen they will exceed 4000 mg per day. Please consider reduce the acetaminophen to 1000 mg PO Q8H so that the patient would be able to receive appropriate PRN medications if needed, or alternatively change the hydrocodone acetaminophen 5/325 mg to oxycodone 5 mg PO Q6H PRN pain to avoid acetaminophen overuse. 2. Bowel: senna 1 tablet PO QHS. Please continue to monitor for bowel movements (last BM 06/28/24), for constipation and diarrhea. 3. DVT prophylaxis: enoxaparin 40 mg SC daily. Please continue to monitor for s/s of a DVT such as pain/erythema/edema of an extremity, renal function (serum creatinine = 1.54 mg/dL with creatinine clearance = ~45 mL/min on 06/29/24), for s/s of bleeding/excessive bruising, hemoglobin levels (Hgb = 12.7 g/dL on 06/28/24), and platelet count (plt = 166 K/mm3 on 06/28/24). 4. Parkinson Disease: carbidopa/levodopa 1.5 tablets PO TID before meals. Please continue to monitor for s/s of parkinson disease, tremors, hypotension, constipation, dizziness and dyskinesia. 5. Orthostatic hypotension: droxidopa 200 mg PO TID with meals, fludrocortisone 0.2 mg PO daily with a meal. Please continue to monitor blood pressure (recent range = 127-178/62-75 mmHg), headaches, nausea, hypertension, dizziness, edema, and hypertension. 6. Hypothyroidism: levothyroxine 112 mcg PO daily. Please continue to monitor for s/s of hypo/hyperthyroidism, and thyroid hormone levels (TSH = 0.363 uIU/mL on 06/23/24). 7. BPH: finasteride 5 mg PO daily, tamsulosin 0.4 mg PO daily. Please continue to monitor for urinary retention, urine stream, and for s/s of orthostasis. 8. GERD: pantoprazole 40 mg PO daily. Please continue to monitor for s/s of GERD, for diarrhea that could indicate clostridium difficile infection,magnesium levels (Mg = 1.8 mg/dL on 06/26/24), and for s/s of bone resorption issues such as fractures. 9. Metabolic acidosis: sodium bicarbonate 650 mg PO TID. Please continue to monitor for s/s of acidosis and bicarb level (C02 = 28.0 mmol/L on 06/29/24). 10. Insomnia: melatonin 10 mg PO QHS. Please continue to monitor for insomnia, and drowsiness. 11. Hypokalemia: potassium chloride 20 mEq PO daily. Please continue to monitor potassium levels (K = 3.5 mmol/L on 06/29/24). 12. Vitamin D deficiency: cholecalciferol 50 mcg PO daily. Please continue to monitor for s/s of vitamin D deficiency and vitamin D levels (vitamin D = 82.0 ng/mL on 05/22/23). 13. Vitamin B12 deficiency: cyanocobalamin 500 mcg PO daily. Please continue to monitor for s/s of vitamin B12 deficiency, and vitamin B12 levels(B12 = >2000 pg/mL on 03/25/19). 14. Nutrition: multivitamin 1 tablet PO daily. Please continue to monitor overall nutritional status. 15. Skin irritation: calmoseptine 1 application topically daily. Please continue to monitor skin integrity and for skin irritation. Assessment/Plan for indications treated with psychotropic medications: NA Medical chart and medication regimen reviewed. The following medication irregularities or issues were identified: 1. Pain: acetaminophen 1000 mg PO Q6, tramadol 25-50 mg PO TID PRN pain, hydrocodone/acetaminophen 5/325 mg PO Q6 PRN pain, menthol 1 application topically 4x/day PRN pain. The patient is ordered 4000 mg of acetaminophen per day scheduled, and also has as needed hydrocodone/acetaminophen ordered. If the patient receives even 1 dose of as needed hydrocodone acetaminophen they will exceed 4000 mg per day. Please consider reduce the acetaminophen to 1000 mg PO Q8H so that the patient would be able to receive appropriate PRN medications if needed, or alternatively change the hydrocodone acetaminophen 5/325 mg to oxycodone 5 mg PO Q6H PRN pain to avoid acetaminophen overuse. Date Date of Note:: 06/30/24 Documented by User: Dr. Gonzalo Perry MD 10/07/24 13:28 TCU RX Drug Regimen Review Provider Comments Provider responsibility Provider Comments to Recommendations by Pharmacy: Agree
--- NOTE | 2024-06-30 12:07 | NURSING ---
Patient remains in COVID isolation.
[2024-06-30 16:58] VITALS: BP 151/58; PULSE 51
[2024-06-30] MEDS: MELATONIN 10 MG TABLET PO (22:06)
[2024-07-01] MEDS: Enoxaparin 40 MG/0.4 ML Syringe SC (06:24)
[2024-07-01] MEDS: Sodium Bicarbonate 650 MG Tablet PO ×3 (06:24→22:21)
[2024-07-01] MEDS: Levothyroxine 112 MCG Tablet PO (06:24)
[2024-07-01] MEDS: Carbidopa/Levodopa 25/100 Tablet PO ×3 (06:24→16:54)
[2024-07-01] MEDS: Acetaminophen 500 MG Tablet 1000 MG PO ×2 (06:24→22:20)
[2024-07-01] MEDS: Cholecalciferol (VIT D3) 25 MCG TABLET (1,000 UNITS) 50 MCG PO (09:10)
[2024-07-01] MEDS: Potassium Chloride Oral Tablet 20 MEQ PO (09:10)
[2024-07-01] MEDS: Cyanocobalamin 500 MCG Tablet PO (09:10)
[2024-07-01] MEDS: Tamsulosin HCl 0.4 MG Capsule PO (09:10)
[2024-07-01] MEDS: Multivitamins,Ther W-Minerals Tablet 1 TABLET PO (09:10)
[2024-07-01] MEDS: Pantoprazole Sodium 40 MG Tablet PO (09:10)
[2024-07-01] MEDS: Finasteride 5 MG Tablet PO (09:10)
[2024-07-01] MEDS: Fludrocortisone Acetate 0.1 MG Tablet 0.2 MG PO (09:10)
[2024-07-01] MEDS: Menthol/Lanolin/Calamine/Znox 113 GM Tube 1 APPLIC TOPICAL ×2 (09:11→22:21)
[2024-07-01 09:52] VITALS: BMI 26.8
[2024-07-01 10:57] VITALS: BP 134/74; PULSE 55; RESP 18; TEMP 36.6; O2SAT 98
[2024-07-01 12:30] VITALS: BP 137/65
--- NOTE | 2024-07-01 15:19 | CHAPLAIN ---
Type of Pastoral Visit ___ Initial Visit ___ Follow-up Visit ___ On-call Visit ___ General Patient Visit ___ Spiritual Assessment ___ Family Conference ___ Bereavement ___ Rapid Response ___ Code Blue ___ Other (describe below) Pastoral Care Referral From ___ Patient ___ Family ___ Nurse ___ Physician ___ Expansion Joint Finisher ___ Aircraft Painter Apprentice ___ Other (describe below) Sacrament/Intervention ___ Active listening ___ Anointing ___ Christianity ___ Bereavement ___ Communion ___ Perla exploration ___ ___ Life review ___ Prayer ___ Reconciliation ___ Sacrament of Sick ___ Supportive presence ___ Wedding ___ Other (describe below) Pastoral Comments
--- NOTE | 2024-07-01 15:20 | CHAPLAIN ---
Type of Pastoral Visit _x__ Initial Visit ___ Follow-up Visit ___ On-call Visit ___ General Patient Visit ___ Spiritual Assessment ___ Family Conference ___ Bereavement ___ Rapid Response ___ Code Blue ___ Other (describe below) Pastoral Care Referral From _x__ Patient ___ Family ___ Nurse ___ Physician ___ Fly Maker ___ Patient Manager ___ Other (describe below) Sacrament/Intervention _x__ Active listening ___ Anointing ___ Worship ___ Bereavement ___ Communion ___ Perla exploration ___ ___ Life review ___ Prayer ___ Reconciliation ___ Sacrament of Sick ___ Supportive presence ___ Wedding ___ Other (describe below) Pastoral Comments phone call made into isolation room and the patient answers the phone; pt is able to talk on the phone and gives assurances that he is doing fine; pt states no concerns and that he has no needs; asked about visitors and how he is doing in the room, the patient answers that he is fine, has talked to people on the phone, and told his to stay home; pt is offered other support or a prayer and he declines
[2024-07-01 16:59] VITALS: BP 150/77
[2024-07-01 22:17] VITALS: PULSE 57; O2SAT 99
[2024-07-01] MEDS: MELATONIN 10 MG TABLET PO (22:21)
[2024-07-02] MEDS: Enoxaparin 40 MG/0.4 ML Syringe SC (06:42)
[2024-07-02] MEDS: Acetaminophen 500 MG Tablet 1000 MG PO ×3 (06:43→21:13)
[2024-07-02] MEDS: Carbidopa/Levodopa 25/100 Tablet PO ×3 (06:43→16:56)
[2024-07-02] MEDS: Sodium Bicarbonate 650 MG Tablet PO ×3 (06:44→21:13)
[2024-07-02] MEDS: Levothyroxine 112 MCG Tablet PO (06:44)
[2024-07-02] MEDS: Potassium Chloride Oral Tablet 20 MEQ PO (09:09)
[2024-07-02] MEDS: Finasteride 5 MG Tablet PO (09:09)
[2024-07-02] MEDS: Ensure Plus High Protein 120 ML LIQUID PO (09:09)
[2024-07-02] MEDS: Cyanocobalamin 500 MCG Tablet PO (09:09)
[2024-07-02] MEDS: Pantoprazole Sodium 40 MG Tablet PO (09:10)
[2024-07-02] MEDS: Multivitamins,Ther W-Minerals Tablet 1 TABLET PO (09:10)
[2024-07-02] MEDS: Fludrocortisone Acetate 0.1 MG Tablet 0.2 MG PO (09:10)
[2024-07-02] MEDS: Tamsulosin HCl 0.4 MG Capsule PO (09:10)
[2024-07-02] MEDS: Cholecalciferol (VIT D3) 25 MCG TABLET (1,000 UNITS) 50 MCG PO (09:10)
[2024-07-02] MEDS: Menthol/Lanolin/Calamine/Znox 113 GM Tube 1 APPLIC TOPICAL ×2 (09:11→21:10)
[2024-07-02] MEDS: Nystatin Powder 15gm Bottle 1 APPLIC TOPICAL ×2 (09:11→21:11)
--- NOTE | 2024-07-02 10:27 | CASEMGMT ---
Addendum entered by Verona Paige 07/02/24 10:59: SW provided with support group resource list that included all programs related to Parkinson's. Original Note: Social Work IDT met with and conference call with pt d/t in room isolation for care plan meeting. Discussed patient's progress in PT/OT/SN. Educated to Medicare benefit. Provided with written communication on insurance process and copay coverage during stay. Pt is adlib in room, is out of isolation 07/04. Pt's goal is to return home with , who assisted as needed prior. SW completed admission assessment after POC meeting. Requested provide copies of advanced directives. SW will continue to follow for DC planning. Verona Paige, INSTRUMENT PROCESSING TECH REPAIRER [employer]
--- NOTE | 2024-07-02 11:57 | NURSING ---
Chemical Detection Expert Note; Activity Asset: Guillaume Albert is independent in his choice of daily activities. Was admitted on covid isolation. Family will visit with precautions in place and he has his table. Will watch tv, read and is allowed to walk independently in his room. Will be out of room on 07/04 and family will take him out side and sit in day room. Staff will remind him of weekly activities and respect his right to say no.
[2024-07-02 12:30] VITALS: BP 132/66
[2024-07-02 14:57] VITALS: BP 160/78; PULSE 53; RESP 18; TEMP 36.6; O2SAT 97
[2024-07-02 21:00] VITALS: PULSE 60; O2SAT 97
[2024-07-02] MEDS: MELATONIN 10 MG TABLET PO (21:10)
[2024-07-02] MEDS: Senna Tablet 1 TABLET PO (21:14)
--- NOTE | 2024-07-03 03:52 | NURSING ---
All patient care provided in room due to COVID + isolation precautions.
[2024-07-03 04:04] VITALS: RESP 16
[2024-07-03] MEDS: Enoxaparin 40 MG/0.4 ML Syringe SC (05:44)
[2024-07-03] MEDS: Sodium Bicarbonate 650 MG Tablet PO ×3 (05:45→22:39)
[2024-07-03] MEDS: Levothyroxine 112 MCG Tablet PO (05:46)
[2024-07-03] MEDS: Acetaminophen 500 MG Tablet 1000 MG PO ×3 (05:46→22:40)
[2024-07-03] MEDS: Carbidopa/Levodopa 25/100 Tablet PO ×3 (05:47→17:15)
[2024-07-03] MEDS: Finasteride 5 MG Tablet PO (09:07)
[2024-07-03] MEDS: Fludrocortisone Acetate 0.1 MG Tablet 0.2 MG PO (09:07)
[2024-07-03] MEDS: Tamsulosin HCl 0.4 MG Capsule PO (09:07)
[2024-07-03] MEDS: Multivitamins,Ther W-Minerals Tablet 1 TABLET PO (09:08)
[2024-07-03] MEDS: Pantoprazole Sodium 40 MG Tablet PO (09:08)
[2024-07-03] MEDS: Cholecalciferol (VIT D3) 25 MCG TABLET (1,000 UNITS) 50 MCG PO (09:08)
[2024-07-03] MEDS: Cyanocobalamin 500 MCG Tablet PO (09:08)
[2024-07-03] MEDS: Potassium Chloride Oral Tablet 20 MEQ PO (09:08)
[2024-07-03] MEDS: Nystatin Powder 15gm Bottle 1 APPLIC TOPICAL ×2 (09:09→22:37)
[2024-07-03] MEDS: Menthol/Lanolin/Calamine/Znox 113 GM Tube 1 APPLIC TOPICAL ×2 (09:09→22:36)
[2024-07-03 09:30] VITALS: BP 165/79; PULSE 63; RESP 16; TEMP 36.1; O2SAT 98
--- NOTE | 2024-07-03 14:26 | MDS.RN ---
Pain interview for MDS complete.
[2024-07-03] MEDS: Senna Tablet 1 TABLET PO (22:38)
[2024-07-03] MEDS: MELATONIN 10 MG TABLET PO (22:38)
[2024-07-04] MEDS: Enoxaparin 40 MG/0.4 ML Syringe SC (05:43)
[2024-07-04] MEDS: Sodium Bicarbonate 650 MG Tablet PO ×3 (05:43→21:37)
[2024-07-04] MEDS: Acetaminophen 500 MG Tablet 1000 MG PO ×3 (05:44→21:37)
[2024-07-04] MEDS: Levothyroxine 112 MCG Tablet PO (05:44)
[2024-07-04] MEDS: Carbidopa/Levodopa 25/100 Tablet PO ×3 (05:44→16:47)
[2024-07-04 08:09] LABS: Absolute Lymphocyte Count 1.88 X10^3/uL (0.83-4.51); Absolute Neutrophil Count 3.8 X10^3/uL (2.0-7.7); Basophil# 0.05 X10^3/uL; Basophil% 0.7 % (0-1); Eosinophils% 5.9 % (0-5); Hematocrit 40.5 % (40-54); Hemoglobin 12.6 g/dL (13.0-16.5); Lymphocyte # 1.88 X10^3/ul (0.83-4.51); Lymphocyte % 27.9 % (19-41); Mean Corp Hgb Conc 31.1 g/dL (32-36); Mean Corpuscular Hgb 29.3 pg (27.0-32.0); Mean Corpuscular Volume 94.2 fL (80-94); Mean Platelet Vol. 10.3 fl (6.2-12.0); Monocyte# 0.54 X10^3/uL; NRBC Flagged by Analyzer 0 % (0-5); Neutrophil # 3.82 X10^3/uL (2.7-7.7); Neutrophil % 56.6 % (47-70); Platelet Count 272 K/mm3 (150-450); RBC Distribution Width CV 14.6 % (11.6-14.6); RBC Distribution Width SD 50.4 fl (35.1-43.9); White Blood Count 6.8 K/mm3 (4.4-11.0)
[2024-07-04 08:35] LABS: Anion Gap 4 (5-15); BUN 21 mg/dL (7-18); BUN/Creat Ratio 13.2 RATIO (10-20); Calcium,Total 9.1 mg/dL (8.5-10.1); Chloride 111 mmol/L (98-107); Creatinine, Serum 1.59 mg/dL (0.70-1.30); EST Glomerular Filtration Rate 45 mL/min (>60); Est Glom Filt Rate - Afr Amer 55 mL/min (>60); Estimated Creatinine Clearance 43.38 ml/min; Glucose 87 mg/dL (74-106); Sodium Level 143 mmol/L (136-145)
--- NOTE | 2024-07-04 09:18 | CASEMGMT ---
Social Work SW met with pt and completed BIMS () and PHQ9 () interviews for MDS assessment. Pt stating that he does feel depressed and attributes this to his parkinson's diagnosis which is limiting he ability to care for himself. Pt is also frustrated by need for SNF and isolation that was a result of Covid. Pt states that he has spoken with his PCP about antidepressants and pt is not interested. Pt does see a counselor a few times a month and pt states this has been helpful for him. SW will remain available for support at needed. MADAY Frias
[2024-07-04 09:20] VITALS: BP 157/79; PULSE 63; RESP 17; TEMP 35.6; O2SAT 97
[2024-07-04] MEDS: Potassium Chloride Oral Tablet 20 MEQ PO (09:23)
[2024-07-04] MEDS: Fludrocortisone Acetate 0.1 MG Tablet 0.2 MG PO (09:23)
[2024-07-04] MEDS: Nystatin Powder 15gm Bottle 1 APPLIC TOPICAL ×2 (09:24→21:38)
[2024-07-04] MEDS: Tamsulosin HCl 0.4 MG Capsule PO (09:24)
[2024-07-04] MEDS: Menthol/Lanolin/Calamine/Znox 113 GM Tube 1 APPLIC TOPICAL ×2 (09:24→21:38)
[2024-07-04] MEDS: Multivitamins,Ther W-Minerals Tablet 1 TABLET PO (09:24)
[2024-07-04] MEDS: Pantoprazole Sodium 40 MG Tablet PO (09:25)
[2024-07-04] MEDS: Finasteride 5 MG Tablet PO (09:25)
[2024-07-04] MEDS: Cholecalciferol (VIT D3) 25 MCG TABLET (1,000 UNITS) 50 MCG PO (09:25)
[2024-07-04] MEDS: Cyanocobalamin 500 MCG Tablet PO (09:25)
[2024-07-04 13:25] VITALS: BP 131/56; PULSE 61
--- NOTE | 2024-07-04 15:36 | NURSING ---
Patient approached nurse and stated he has an injection scheduled for Sunday07/09/24 with pain management. Call placed to Dr. Momin's office with pain management to confirm. Confirmation made that mutual patient is scheduled to have an injection this day at the surgery center. Nurse inquired about obtaining orders prior to surgery. Per office, nurse would have to call surgery center for pre-procedure orders. Number obtained for surgery center: [phone].
[2024-07-04 16:45] VITALS: BP 165/83; PULSE 56
[2024-07-04 19:04] VITALS: BP 125/65; PULSE 58
[2024-07-04] MEDS: Senna Tablet 1 TABLET PO (21:37)
[2024-07-04] MEDS: MELATONIN 10 MG TABLET PO (21:37)
[2024-07-05] MEDS: Acetaminophen 500 MG Tablet 1000 MG PO ×3 (06:20→20:44)
[2024-07-05] MEDS: Levothyroxine 112 MCG Tablet PO (06:20)
[2024-07-05] MEDS: Carbidopa/Levodopa 25/100 Tablet PO ×3 (06:20→17:13)
[2024-07-05] MEDS: Sodium Bicarbonate 650 MG Tablet PO ×3 (06:21→20:44)
[2024-07-05] MEDS: Enoxaparin 40 MG/0.4 ML Syringe SC (06:21)
[2024-07-05 07:45] VITALS: BP 103/50; PULSE 78; RESP 18; O2SAT 94
[2024-07-05] MEDS: Pantoprazole Sodium 40 MG Tablet PO (08:17)
[2024-07-05] MEDS: Cyanocobalamin 500 MCG Tablet PO (08:17)
[2024-07-05] MEDS: Fludrocortisone Acetate 0.1 MG Tablet 0.2 MG PO (08:17)
[2024-07-05] MEDS: Cholecalciferol (VIT D3) 25 MCG TABLET (1,000 UNITS) 50 MCG PO (08:17)
[2024-07-05] MEDS: Finasteride 5 MG Tablet PO (08:18)
[2024-07-05] MEDS: Tamsulosin HCl 0.4 MG Capsule PO (08:18)
[2024-07-05] MEDS: Multivitamins,Ther W-Minerals Tablet 1 TABLET PO (08:18)
[2024-07-05] MEDS: Potassium Chloride Oral Tablet 20 MEQ PO (08:18)
[2024-07-05] MEDS: Menthol/Lanolin/Calamine/Znox 113 GM Tube 1 APPLIC TOPICAL ×2 (08:20→20:45)
[2024-07-05] MEDS: Nystatin Powder 15gm Bottle 1 APPLIC TOPICAL ×2 (08:20→20:45)
[2024-07-05] MEDS: Tuberculin,Purif.prot.deriv. 50 TU/ML Vial 0.1 ML ID (13:38)
[2024-07-05 17:17] VITALS: BP 162/79
[2024-07-05] MEDS: MELATONIN 10 MG TABLET PO (20:44)
[2024-07-05 20:45] VITALS: PULSE 61; O2SAT 98
[2024-07-06] MEDS: Acetaminophen 500 MG Tablet 1000 MG PO ×3 (06:26→20:47)
[2024-07-06] MEDS: Enoxaparin 40 MG/0.4 ML Syringe SC (06:26)
[2024-07-06] MEDS: Levothyroxine 112 MCG Tablet PO (06:26)
[2024-07-06] MEDS: Sodium Bicarbonate 650 MG Tablet PO ×3 (06:27→20:46)
[2024-07-06] MEDS: Carbidopa/Levodopa 25/100 Tablet PO ×3 (06:27→17:32)
[2024-07-06] MEDS: Potassium Chloride Oral Tablet 20 MEQ PO (08:08)
[2024-07-06] MEDS: Fludrocortisone Acetate 0.1 MG Tablet 0.2 MG PO (08:09)
[2024-07-06] MEDS: Multivitamins,Ther W-Minerals Tablet 1 TABLET PO (08:11)
[2024-07-06] MEDS: Tamsulosin HCl 0.4 MG Capsule PO (08:11)
[2024-07-06] MEDS: Pantoprazole Sodium 40 MG Tablet PO (08:12)
[2024-07-06] MEDS: Finasteride 5 MG Tablet PO (08:12)
[2024-07-06] MEDS: Cholecalciferol (VIT D3) 25 MCG TABLET (1,000 UNITS) 50 MCG PO (08:13)
[2024-07-06] MEDS: Cyanocobalamin 500 MCG Tablet PO (08:14)
[2024-07-06] MEDS: Nystatin Powder 15gm Bottle 1 APPLIC TOPICAL ×2 (08:15→20:46)
[2024-07-06] MEDS: Menthol/Lanolin/Calamine/Znox 113 GM Tube 1 APPLIC TOPICAL ×2 (08:17→20:47)
[2024-07-06 08:24] VITALS: BP 144/75; PULSE 67
[2024-07-06 11:10] VITALS: PULSE 60; RESP 18; O2SAT 97
[2024-07-06 14:00] VITALS: BP 97/58
[2024-07-06 14:04] VITALS: BP 168/85; PULSE 60; RESP 18; TEMP 36.3; O2SAT 97
[2024-07-06 14:33] VITALS: BP 144/74
[2024-07-06] MEDS: MELATONIN 10 MG TABLET PO (20:47)
[2024-07-07] MEDS: Enoxaparin 40 MG/0.4 ML Syringe SC (06:38)
[2024-07-07] MEDS: Sodium Bicarbonate 650 MG Tablet PO ×3 (06:39→22:05)
[2024-07-07] MEDS: Acetaminophen 500 MG Tablet 1000 MG PO ×3 (06:39→22:05)
[2024-07-07] MEDS: Levothyroxine 112 MCG Tablet PO (06:39)
[2024-07-07] MEDS: Carbidopa/Levodopa 25/100 Tablet PO ×3 (06:39→17:57)
[2024-07-07] MEDS: Fludrocortisone Acetate 0.1 MG Tablet 0.2 MG PO (08:51)
[2024-07-07] MEDS: Potassium Chloride Oral Tablet 20 MEQ PO (08:52)
[2024-07-07] MEDS: Pantoprazole Sodium 40 MG Tablet PO (08:52)
[2024-07-07] MEDS: Multivitamins,Ther W-Minerals Tablet 1 TABLET PO (08:52)
[2024-07-07] MEDS: Finasteride 5 MG Tablet PO (08:53)
[2024-07-07] MEDS: Cholecalciferol (VIT D3) 25 MCG TABLET (1,000 UNITS) 50 MCG PO (08:57)
[2024-07-07] MEDS: Cyanocobalamin 500 MCG Tablet PO (08:57)
[2024-07-07] MEDS: Tamsulosin HCl 0.4 MG Capsule PO (08:59)
[2024-07-07] MEDS: Nystatin Powder 15gm Bottle 1 APPLIC TOPICAL ×2 (09:00→22:04)
--- NOTE | 2024-07-07 09:31 | CASEMGMT ---
Social Work Pt presented to this worker's office requesting to set DC date. Pt stated his injection is now canceled d/t to previous positive COVID, and will need to be rescheduled next week. pt is requesting to DC. SW offered DC 07/08. Pt agreeable and denies OP therapy or DME needs. to transport. IDT updated. Plan: DC home with 07/08, no needs GABRIEL Barclay OPERATIONS AND INTELLIGENCE ASSISTANT
[2024-07-07 10:33] VITALS: PULSE 65; RESP 18; O2SAT 97
--- NOTE | 2024-07-07 11:50 | NURSING ---
Resident just recovered from covid, does not wish to consider vaccine at this time.
--- NOTE | 2024-07-07 13:07 | NURSING ---
Dr Burnett's office called to cancel injections for this Sunday. Pt will be DC'd tomorrow and is aware injections will be done at a later date.
[2024-07-07 15:02] VITALS: BP 158/76; PULSE 60; RESP 18; TEMP 36.6; O2SAT 98
--- NOTE | 2024-07-07 19:10 | DS.PCM_ITS ---
Providers Date of Admission: 06/27/24 Primary Care Physician: Dr. Eladia García DO Reason For Visit: COVID AND WEAKNESS Diagnosis Discharge Diagnosis (1) Debility: Status: Acute Code(s): R53.81 - Other malaise (2) COVID-19: Status: Acute Code(s): U07.1 - COVID-19 (3) NSTEMI (non-ST elevated myocardial infarction): Status: Acute Code(s): I21.4 - Non-ST elevation (NSTEMI) myocardial infarction (4) Rhabdomyolysis: Status: Resolved Code(s): M62.82 - Rhabdomyolysis (5) Parkinsons disease: Status: Acute Code(s): G20 - Parkinson's disease (6) Hypothyroidism: Status: Acute Code(s): E03.9 - Hypothyroidism, unspecified Qualifiers: Hypothyroidism type: unspecified Qualified Code(s): E03.9 - Hypothyroidism, unspecified (7) Hyperlipidemia: Status: Acute Code(s): E78.5 - Hyperlipidemia, unspecified Qualifiers: Hyperlipidemia type: unspecified Qualified Code(s): E78.5 - Hyperlipidemia, unspecified (8) Atrial fibrillation: Status: Acute Code(s): I48.91 - Unspecified atrial fibrillation (9) Insomnia: Status: Acute Code(s): G47.00 - Insomnia, unspecified (10) BPH (benign prostatic hyperplasia): Status: Acute Code(s): N40.0 - Benign prostatic hyperplasia without lower urinary tract symptoms (11) Metabolic acidosis: Status: Acute Code(s): E87.20 - Acidosis, unspecified (12) GERD (gastroesophageal reflux disease): Status: Chronic Code(s): K21.9 - Gastro-esophageal reflux disease without esophagitis Qualifiers: Esophagitis presence: esophagitis presence not specified Qualified Code(s): K21.9 - Gastro-esophageal reflux disease without esophagitis (13) Orthostatic hypotension: Status: Acute Code(s): I95.1 - Orthostatic hypotension Plan 78 year old male with below past medical history hospitalized for weakness 2/2 covid-19, complicated by nstemi, rhabdomyolysis, dehydration, admitted to TCU with debility, here for rehabilitation, strengthening, prior to discharge home with . * Debility - PT/OT. * Pain - Tylenol 1000mg q6, Tramadol 25mg - 50mg tid prn, [place] 5/325mg q6 prn. * Bowel - Senokot 1 tablet qhs. * Adult immunization - Administer pneumonia vaccine, covid vaccine, flu vaccine as appropriate. * DVT prophylaxis - Lovenox 40mg sc daily. * Parkinson Disease - Sinemet 25/100mg tidac. * Vitamin D deficiency - D3 50mcg daily. * Vitamin B12 deficiency - B12 500mcg daily. * Orthostatic hypotension - Northera 200mg tidcm, Fludrocortisone 0.2mg daily. * BPH - Finasteride 5mg daily, Tamsulosin 0.4mg daily. * Hypothyroidism - Levothyroxine 112mcg daily. * Insomnia - Melatonin 10mg qhs. * Skin irritation - Calmoseptine topical 4x/day. * Nutrition - MVI 1 tablet daily. * GERD - Pantoprazole 40mg daliy. * Metabolic acidosis - Sodium bicarb 650mg tid. Medications at Discharge Home Medications Carbidopa-Levo 25-100 mg Odt 1.5 tab PO 3XD parkinsons 08/14/20 cholecalciferol (vitamin D3) 25 mcg (1,000 unit) tablet 50 mcg PO DAILY Supplement 02/07/23 cyanocobalamin (vitamin B-12) 500 mcg tablet (Vitamin B-12) 500 mcg PO DAILY Supplement 02/07/23 melatonin 10 mg tablet 10 mg PO QHS Sleep 02/07/23 pediatric multivit no.158-iron fum 18 mg-vit K1 10 mcg chewable tablet (Cerovite Jr) 1 tab PO DAILY Supplement 02/07/23 sennosides 8.6 mg tablet (senna) 8.6 mg PO QHS Constipation 02/07/23 sodium bicarbonate 650 mg tablet 650 mg PO TID Indigestion, supplement 02/07/23 tamsulosin 0.4 mg capsule 0.4 mg PO DAILY Bladder 02/07/23 droxidopa 100 mg capsule 200 mg PO TID Per physicion 06/23/24 esomeprazole magnesium 40 mg capsule,delayed release 40 mg PO DAILY GERD 06/23/24 finasteride 5 mg tablet 5 mg PO DAILY Prostate 06/23/24 fludrocortisone 0.1 mg tablet 0.2 mg PO DAILY Per physician 06/23/24 acetaminophen 500 mg tablet 1,000 mg (2 x 500 mg) PO Q8 #0 tabs 07/07/24 levothyroxine 112 mcg tablet 112 mcg PO 0600 30 days #30 tabs 07/07/24 potassium chloride 20 mEq tablet,extended release(part/cryst) 20 meq PO DAILYCM 30 days #30 tabs 07/07/24 Hospital Course Operations None Procedures None Summary of Care Provided Minutes Spent on Discharge: 35 Hospital Course: 78 year old male with below past medical history hospitalized for weakness 2/2 covid-19, complicated by nstemi, rhabdomyolysis, dehydration, admitted to TCU with debility, here for rehabilitation, strengthening, prior to discharge home with . Discharge home with 07/08/2024, No needs. Physical Exam Const alert General Appearance: cooperative HEENT normocephalic Eyes PERRL and EOMs intact bilaterally Neck supple, no JVD and no carotid bruits Resp normal respiratory effort, normal air movement and clear to auscultation bilaterally Cardio regular rate and regular rhythm GI normal to inspection, nondistended, normoactive bowel sounds, non-tender and non-distended Extremity normal capillary refill General Extremity: Negative for edema Skin no rashes or lesions noted General Skin Exam: no breakdown Psych affect normal Appearance: appropriate Medical Records Data Medical Nutrition Assessment Dietitian: Malnutrition Criteria Met Start: 06/27/24 15:47 Freq: Status: Active Protocol: Document 07/02/24 11:58 SLA (Rec: 07/02/24 11:58 SLA [id number]) Nutrition Malnutrition Evidence of Malnutrition Exists Yes Malnutrition (severe): Acute Illness/Injury Evidenced By Suboptimal Energy Intake ( Severe),Weight Loss (Severe) Clinical Problem Acute Disease or Injury Related Malnutrition Etiology related to acute illness and inadequate energy intake Signs/Symptoms as evidenced by po intake <75% of estimated nutritional needs and 5.3% unintended wt loss x 1.5 wks Status Active Problem Recommendation Dietitian Recommendations/Changes Continue regular diet w/ glucerna shake at meals Discontinue ensure compact at meals and ensure plus high protein at medpass. Rec consider appetite stimulant. Weight / BMI Weight Weight: 89.766 kg Body Mass Index (BMI) 26.8 ABG / Lab / Microbiology Data 07/04/24 07:50 07/04/24 07:50 D/C Instructions Discharge Diet: No restrictions Discharge Activity: Return to Normal Activity, May Shower and Use Walker Weight Bearing Status: Weight bearing as tolerated Call your doctor if you observe: Fever of 101 or Higher, Inability to urinate, Inability to have a bowel movement, Shortness of breath, Dizziness, Fainting spells, Swelling in the ankles, Chest pain and Uncontrolled pain Additional Instructions: Discharge home with 07/08/2024, No needs. Meaningful Use Info Meaningful Use Meaningful Use Diagnoses (Choose all that apply): None applicable Ischemic Stroke Statin Dosing Therapy Reference: STATIN DOSE THERAPY REFERENCE: * Patients > 75 years receive moderate or high dose statin therapy. * Patients 75 years or YOUNGER should receive HIGH intensity statin dose unless contraindicated. You will be required to document reason for non-treatment if statin daily dose does not meet guidelines. HIGH DOSE STATIN THERAPY DAILY Atorvastatin > than or = to 40 mg Rosuvastatin > than or = to 20 mg Amlodipine + Atorvastatin > than or = to 2.5/40 mg Ezetimibe + Simvastatin 10/80 mg Simvastatin 80mg Discharge Plan Admission Admit Date/Time: 06/27/24 11:38 Primary Reason for Your Visit: Debility. Attending Provider: Gonzalo Perry Chi Primary Care Provider: Eladia García Instructions Additional Instructions / Restrictions: Discharge home with 07/08/2024, No needs. Discharge Orders/Prescriptions Prescriptions: New acetaminophen 500 mg Tablet 1,000 mg PO Q8 Qty: 0 0RF potassium chloride 20 mEq Tablet,Er Particles/Crystals 20 meq PO DAILYCM 30 Days Qty: 30 0RF levothyroxine 112 mcg Tablet 112 mcg PO 0600 30 Days Qty: 30 0RF Continued Carbidopa-Levo 25-100 mg Odt 1.5 tab PO 3XD cyanocobalamin (vitamin B-12) [Vitamin B-12] 500 mcg Tablet 500 mcg PO DAILY cholecalciferol (vitamin D3) 25 mcg (1,000 unit) Tablet 50 mcg PO DAILY melatonin 10 mg Tablet 10 mg PO QHS Cerovite Jr 18 mg iron- 10 mcg Tablet,Chewable 1 tab PO DAILY sennosides [senna] 8.6 mg Tablet 8.6 mg PO QHS tamsulosin 0.4 mg Capsule 0.4 mg PO DAILY sodium bicarbonate 650 mg Tablet 650 mg PO TID esomeprazole magnesium 40 mg capsule,delayed release(DR/EC) 40 mg PO DAILY finasteride 5 mg tablet 5 mg PO DAILY fludrocortisone 0.1 mg tablet 0.2 mg PO DAILY droxidopa 100 mg capsule 200 mg PO TID Rx Instructions: give consistently with OR without food, upon rising, at midday, late PM/at least 3hrs before bedtime Discontinued acetaminophen 500 mg Tablet 1,000 mg PO Q6H levothyroxine 125 mcg Tablet 112 mcg PO DAILY lidocaine HCl [Aspercreme (lidocaine HCl)] 4 % Cream 1 applic TOPICAL DAILY hydrocodone-acetaminophen 5-325 mg tablet 1 tab PO Q6H PRN PRN (Reason: pain) tramadol 50 mg tablet 25 - 50 mg PO TID PRN PRN (Reason: pain) Referrals / Follow Up: Fast,Eladia, DO [Primary Care Provider] - (Isidoro said his will set this appointment up) Disposition Disposition (needs filled in before D/C Order can be placed): Home, Self Care
[2024-07-07 19:14] VITALS: BP 167/73; PULSE 67; RESP 16; TEMP 36.2; O2SAT 98
[2024-07-07] MEDS: MELATONIN 10 MG TABLET PO (22:04)
[2024-07-08 04:35] VITALS: PULSE 74; O2SAT 97
[2024-07-08] MEDS: Enoxaparin 40 MG/0.4 ML Syringe SC (05:42)
[2024-07-08] MEDS: Sodium Bicarbonate 650 MG Tablet PO (05:43)
[2024-07-08] MEDS: Acetaminophen 500 MG Tablet 1000 MG PO (05:43)
[2024-07-08] MEDS: Levothyroxine 112 MCG Tablet PO (05:43)
[2024-07-08] MEDS: Carbidopa/Levodopa 25/100 Tablet PO (05:44)
[2024-07-08] MEDS: Fludrocortisone Acetate 0.1 MG Tablet 0.2 MG PO (08:37)
[2024-07-08] MEDS: Multivitamins,Ther W-Minerals Tablet 1 TABLET PO (08:38)
[2024-07-08] MEDS: Potassium Chloride Oral Tablet 20 MEQ PO (08:38)
[2024-07-08] MEDS: Tamsulosin HCl 0.4 MG Capsule PO (08:38)
[2024-07-08] MEDS: Cyanocobalamin 500 MCG Tablet PO (08:39)
[2024-07-08] MEDS: Pantoprazole Sodium 40 MG Tablet PO (08:39)
[2024-07-08] MEDS: Nystatin Powder 15gm Bottle 1 APPLIC TOPICAL (08:39)
[2024-07-08] MEDS: Cholecalciferol (VIT D3) 25 MCG TABLET (1,000 UNITS) 50 MCG PO (08:39)
[2024-07-08] MEDS: Finasteride 5 MG Tablet PO (08:39)
[2024-07-08] MEDS: Menthol/Lanolin/Calamine/Znox 113 GM Tube 1 APPLIC TOPICAL (08:41)
[2024-07-08 09:00] VITALS: BMI 27.1
== END 2024-07-08 09:55 | disposition home or self-care (01) | DRG 177 ==
PROVIDERS: Admitting Provider Family Medicine Geriatric Medicine; PCP Internal Medicine; Referring Provider Family Medicine Geriatric Medicine; Visit Provider Family Medicine Geriatric Medicine
DX: U07.1 COVID-19 (principal); I21.A1 Myocardial infarction type 2; E44.1 Mild protein-calorie malnutrition; E87.20 Acidosis, unspecified; M62.82 Rhabdomyolysis; N18.30 Chronic kidney disease, stage 3 unspecified; G20.A1 Parkinson's disease without dyskinesia, without mention of fluctuations; E03.9 Hypothyroidism, unspecified; I12.9 Hypertensive chronic kidney disease with stage 1 through stage 4 chronic kidney disease, or unspecified chronic kidney disease; I48.91 Unspecified atrial fibrillation; E78.5 Hyperlipidemia, unspecified; I95.1 Orthostatic hypotension; K21.9 Gastro-esophageal reflux disease without esophagitis; E55.9 Vitamin D deficiency, unspecified; E53.8 Deficiency of other specified B group vitamins; G47.00 Insomnia, unspecified; Z79.890 Hormone replacement therapy; N40.0 Benign prostatic hyperplasia without lower urinary tract symptoms; Z79.899 Other long term (current) drug therapy; Z91.81 History of falling; Z98.84 Bariatric surgery status; Z68.26 Body mass index [BMI] 26.0-26.9, adult
CPT/HCPCS: 36415; 80048; 85025; 92523; 92610; 97110; 97112; 97116; 97162; 97166; 97530; 97535; 97802

== ENCOUNTER 2024-07-10 12:29 | Emergency (ER) | payer MEDICARE, OTHER, SELFPAY ==
[2024-07-10 12:30] VITALS: BP 138/71; PULSE 109; RESP 16; TEMP 36.8; O2SAT 97; BMI 27.4
--- NOTE | 2024-07-10 14:05 | EDS_ITS ---
HPI History of Present Illness Chief Complaint: Male Pain/Injury Informant: patient Narrative Narrative: 78-year-old male states he put a gold ring meant for a finger around the base of his penis this morning 6 AM in order to get an erection. States the erection has been present since then and he is having pain and unable to get the ring off. He presents here and was evaluated quickly just after 1300. He denies taking any medication such as Cialis, Viagra, blood thinners. Follows with Dr. Read for prostate related issues. [facility] Medical History Parkinsons disease Hypothyroidism Hyperlipidemia Calculus of gallbladder with acute cholecystitis with obstruction Sinus bradycardia, chronic CKD (chronic kidney disease), stage III History of CVA (cerebrovascular accident) GERD (gastroesophageal reflux disease) HTN (hypertension) Home Medications ?Medication ?Instructions ?Recorded ?Last Taken ?Type Carbidopa-Levo 25-100 mg Odt 1.5 tab PO 3XD parkinsons 08/14/20 06/22/24 History cholecalciferol (vitamin D3) 25 50 mcg PO DAILY Supplement 02/07/23 06/22/24 H istory mcg (1,000 unit) tablet cyanocobalamin (vitamin B-12) 500 500 mcg PO DAILY Supplement 02/07/23 06/22/24 History mcg tablet (Vitamin B-12) melatonin 10 mg tablet 10 mg PO QHS Sleep 02/07/23 06/22/24 History pediatric multivit no.158-iron fum 1 tab PO DAILY Supplement 02/07/23 Unknown History 18 mg-vit K1 10 mcg chewable tablet (Cerovite Jr) sennosides 8.6 mg tablet (senna) 8.6 mg PO QHS Constipation 02/07/23 06/22/24 History sodium bicarbonate 650 mg tablet 650 mg PO TID Indigestion, 02/07/23 06/22/24 History supplement tamsulosin 0.4 mg capsule 0.4 mg PO DAILY Bladder 02/07/23 06/22/24 History droxidopa 100 mg capsule 200 mg PO TID Per physicion 06/23/24 Unknown History esomeprazole magnesium 40 mg 40 mg PO DAILY GERD 06/23/24 06/22/24 History capsule,delayed release finasteride 5 mg tablet 5 mg PO DAILY Prostate 06/23/24 06/22/24 History fludrocortisone 0.1 mg tablet 0.2 mg PO DAILY Per physician 06/23/24 06/22/24 History acetaminophen 500 mg tablet 1,000 mg (2 x 500 mg) PO Q8 #0 tabs 07/07/24 Unknown Rx levothyroxine 112 mcg tablet 112 mcg PO 0600 30 days #30 tabs 07/07/24 Unknown Rx potassium chloride 20 mEq 20 meq PO DAILYCM 30 days #30 tabs 07/07/24 Unknown Rx tablet,extended release(part/cryst) Allergy/AdvReac Type Severity Reaction Status Date / Time lisinopril Allergy Swelling Verified 07/10/24 12:33 Family History Father Colon cancer COPD (chronic obstructive pulmonary disease) Surgical History S/P cholecystectomy S/P cholecystectomy History of tonsillectomy and adenoidectomy History of back surgery History of total bilateral knee replacement History of gastric bypass h/o right thumb surgery H/O carpal tunnel repair H/O gastric bypass Social History household members: spouse Smoking Status: Never smoker alcohol intake: never substance use type: does not use ROS ROS ED Genitourinary Genitourinary ED: Reports as per HPI, erectile dysfunction, penile swelling and other; Denies penile discharge EXAM Physical Exam Const Vital Signs: 07/10/24 12:30 Temperature 98.2 F Temperature Source Oral Pulse Rate 109 H Respiratory Rate 16 Blood Pressure 138/71 H Blood Pressure Mean 93 Pulse Ox 97 Oxygen Delivery Method Room Air Positive well nourished and well developed General Appearance ED: well developed and NAD Resp normal respiratory effort GI non-tender and non-distended Auscultation: normoactive bowel sounds Palpation: soft Narrative: There is a gold ring around the base of the penis, the penis is erect, and the shaft is edematous especially distally before the glans which is otherwise normal-appearing. Peers to be brisk cap refill distally. There is no blood or other discharge at the urethral meatus which is otherwise unremarkable. There is no purpuric or necrotic tissue, but there are a couple small areas of ecchymosis where the edema is. Perineum and scrotum are normal. Extremity normal to inspection Neuro oriented x3, CN's II-XII intact bilaterally, moves all extremities, no focal motor deficits and no sensory deficits noted Psych mental status grossly normal Skin Lesions: no lesions Rashes: no rashes MDM MDM MDM Narrative Medical decision making narrative: Nursing was able to use a ring cutter and cut the ring off which was made of yellow gold. It was returned to the patient. Reevaluation he states his pain is completely gone, and I reexamined him. Penis is now flaccid, but still edematous distal shaft. There is no tenderness. There is no deformity. He urinated subsequently without any issue or pain or blood. I discussed all this with Dr. Read, he states he does not need to be seen emergently and is stable to follow-up as an outpatient. Patient advised to try to avoid erections until he follows up. 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 Discharge Plan Triage Chief Complaint: Male Pain/Injury ED Provider: Ariel London Dx/Rx/DC Orders Clinical Impression: Priapism, unspecified, Edema of penis Instructions: ED Priapism Prescriptions: No Action Carbidopa-Levo 25-100 mg Odt 1.5 tab PO 3XD cyanocobalamin (vitamin B-12) [Vitamin B-12] 500 mcg Tablet 500 mcg PO DAILY cholecalciferol (vitamin D3) 25 mcg (1,000 unit) Tablet 50 mcg PO DAILY melatonin 10 mg Tablet 10 mg PO QHS Cerovite Jr 18 mg iron- 10 mcg Tablet,Chewable 1 tab PO DAILY sennosides [senna] 8.6 mg Tablet 8.6 mg PO QHS tamsulosin 0.4 mg Capsule 0.4 mg PO DAILY sodium bicarbonate 650 mg Tablet 650 mg PO TID esomeprazole magnesium 40 mg capsule,delayed release(DR/EC) 40 mg PO DAILY finasteride 5 mg tablet 5 mg PO DAILY fludrocortisone 0.1 mg tablet 0.2 mg PO DAILY droxidopa 100 mg capsule 200 mg PO TID Rx Instructions: give consistently with OR without food, upon rising, at midday, late PM/at least 3hrs before bedtime acetaminophen 500 mg Tablet 1,000 mg PO Q8 Qty: 0 0RF potassium chloride 20 mEq Tablet,Er Particles/Crystals 20 meq PO DAILYCM 30 Days Qty: 30 0RF levothyroxine 112 mcg Tablet 112 mcg PO 0600 30 Days Qty: 30 0RF Primary Care Provider: Eladia García Referrals: Eladia García DO [Primary Care Provider] - Camacho Read MD [Med Staff - Active Staff] - As soon as possible (call for appt) Activity Restrictions/Additional Instructions: Avoid erection or mechanical devices to your penis until you are seen in follow- up. Print Language: Mauritian Disposition Disposition: Home, Self Care
[2024-07-10 14:30] VITALS: PULSE 94; RESP 18; O2SAT 97
[2024-07-10 14:33] VITALS: BP 134/77; PULSE 94; RESP 18; TEMP 36.1; O2SAT 97
== END 2024-07-10 14:33 | disposition home or self-care (01) ==
PROVIDERS: Emergency Provider Emergency Medicine; PCP Internal Medicine; Referring Provider Emergency Medicine; Visit Provider Emergency Medicine
DX: S30.842A External constriction of penis, initial encounter (principal); G20.A1 Parkinson's disease without dyskinesia, without mention of fluctuations; N18.30 Chronic kidney disease, stage 3 unspecified; N48.30 Priapism, unspecified; R60.0 Localized edema; W49.04XA Ring or other jewelry causing external constriction, initial encounter; X58.XXXA Exposure to other specified factors, initial encounter; I12.9 Hypertensive chronic kidney disease with stage 1 through stage 4 chronic kidney disease, or unspecified chronic kidney disease; E78.5 Hyperlipidemia, unspecified; K21.9 Gastro-esophageal reflux disease without esophagitis; Z79.890 Hormone replacement therapy; Z79.899 Other long term (current) drug therapy; Z86.73 Personal history of transient ischemic attack (TIA), and cerebral infarction without residual deficits; Z98.84 Bariatric surgery status
CPT/HCPCS: 99282

== ENCOUNTER → 2024-07-15 | Outpatient (CLI) | payer MEDICARE, OTHER, SELFPAY ==
[2024-07-15 12:45] LABS: BUN 25 mg/dL (7-18); BUN/Creat Ratio 15.6 RATIO (10-20); Calcium,Total 9.5 mg/dL (8.5-10.1); Chloride 113 mmol/L (98-107); EST Glomerular Filtration Rate 45 mL/min (>60); Est Glom Filt Rate - Afr Amer 54 mL/min (>60); Glucose 67 mg/dL (74-106); Phosphorus 2.8 mg/dL (2.5-4.9); Potassium 4.1 mmol/L (3.5-5.1); Sodium Level 143 mmol/L (136-145)
== END | disposition home or self-care (01) ==
LOC: MTLAB 11:25
PROVIDERS: PCP Internal Medicine; Referring Provider Internal Medicine Nephrology; Visit Provider Internal Medicine Nephrology
DX: N17.9 Acute kidney failure, unspecified (principal)
CPT/HCPCS: 36415; 80069

== ENCOUNTER → 2024-08-11 | Outpatient (CLI) | payer OTHER, SELFPAY ==
--- NOTE | 2024-08-11 12:38 | ECHOD_ITS ---
Version 2 Reason For Study: Ischemic Heart Disease Procedure This was a 2D Doppler, Color Flow transthoracic echocardiogram. Exam performed in department. Left Ventricle Normal LV size. Left ventricular systolic function is normal. The left ventricular ejection fraction is 65 %. Stage 1 diastolic dysfunction. No regional wall motion abnormalities noted. Right Ventricle Normal RV size. Normal systolic function. Atria Normal left atrium. Normal right atrium. Mitral Valve Normal mitral valve. The mitral valve chordae are thickened and/or calcified. Mild (1+) eccentric mitral valve insufficiency. Tricuspid Valve Normal tricuspid valve. Aortic Valve Mild focal aortic valve calcification. Pulmonic Valve Normal pulmonic valve. Mild (1+) pulmonic valve insufficiency. Great Vessels Normal aortic root. The pulmonary artery is normal size. Inferior vena cava collapse with respiration. Pericardium/Pleural No pericardial effusion. MMode/2D Measurements & Calculations LVIDd: 4.6 cm IVSd: 1.1 cm LVOT diam: 2.1 cm LVIDs: 3.3 cm LVPWd: 1.1 cm LVOT area: 3.4 cm2 RVDd: 3.2 cm FS: 28.3 % Ao root diam: 4.4 cm LAV(MOD-bp): 50.9 ml LA A4 area: 16.2 cm2 LAV(MOD-bp) Indexed: 23.9 ml/m2 LAV(MOD-sp2): 53.4 ml LAV(MOD-sp4): 41.3 ml LA dimension(2D): 4.8 cm TAPSE: 2.3 cm RA A4 area: 13.8 cm2 Time Measurements MV dec time: 0.32 sec Doppler Measurements & Calculations MV E max gilbert: 58.5 cm/sec Lat Peak E' Gilbert: 3.9 cm/sec Med Peak E' Gilbert: 4.0 cm/sec MV A max gilbert: 99.7 cm/sec E/E' lat: 15.0 E/E' med: 14.5 MV E/A: 0.59 MV V2 max: 137.7 cm/sec MV P1/2t max gilbert: 72.4 cm/sec Ao V2 max: 112.3 cm/sec MV max P.6 mmHg MV P1/2t: 143.6 msec Ao max P.1 mmHg MV V2 mean: 55.9 cm/sec MV dec slope: 147.8 cm/sec2 Ao V2 mean: 81.7 cm/sec MV mean P.6 mmHg Ao mean P.0 mmHg MV V2 VTI: 39.3 cm MVA(P1/2t): 1.5 cm2 Ao V2 VTI: 30.9 cm MVA(VTI): 1.8 cm2 AV (velocity ratio): 0.68 YUMIKO(I,D): 2.3 cm2 YUMIKO(V,D): 2.5 cm2 LV V1 max: 83.4 cm/sec SV(LVOT): 71.7 ml LV V1 max P.8 mmHg PI dec slope: 96.3 cm/sec2 LV V1 mean P.4 mmHg LV V1 mean: 54.1 cm/sec LV V1 VTI: 20.9 cm ECHO/Echo Complete Interpretation Summary Normal LV size. Left ventricular systolic function is normal. The left ventricular ejection fraction is 65 %. The mitral valve chordae are thickened and/or calcified. Stage 1 diastolic dysfunction. Ordering Physician: Roosevelt Molina Referring Physician: Eladia García D.O. Performed By: Zak Tavera RCS
== END | disposition home or self-care (01) ==
LOC: CVS 12:33
PROVIDERS: PCP Internal Medicine; Referring Provider Chiropractor; Visit Provider Chiropractor
DX: I25.9 Chronic ischemic heart disease, unspecified (principal); I34.0 Nonrheumatic mitral (valve) insufficiency
CPT/HCPCS: 93306

== ENCOUNTER → 2024-10-06 | Outpatient (CLI) | payer MEDICARE, OTHER, SELFPAY ==
--- NOTE | 2024-10-06 09:43 | CDU_ITS ---
Reason For Study: Carotid Stenosis Rt. Velocities/BP Lt. Velocities/BP Prox CCA 52/8 cm/sec. Prox CCA 67/11 cm/sec. Mid CCA 70/10 cm/sec. Mid CCA 69/14 cm/sec. Dist CCA 59/8 cm/sec. Dist CCA 63/11 cm/sec. Prox ICA 72/10 cm/sec. Prox ICA 50/13 cm/sec. Mid ICA 59/15 cm/sec. Mid ICA 67/21 cm/sec. Dist ICA 85/13 cm/sec. Dist ICA 92/26 cm/sec. Rt. ICA/CCA = 1.2. Lt. ICA/CCA = 1.3. Prox ECA 75/5 cm/sec. Prox ECA 92/5 cm/sec. Rt. Vert. 31/7 cm/sec. Lt. Vert. 32/9 cm/sec. Right Extracranial There is intimal thickening but no significant atherosclerotic plaque noted in the right common carotid artery. There is heterogeneous, irregular atherosclerotic plaque noted in the right internal carotid artery. The right internal carotid artery is very tortuous. There is heterogeneous, irregular atherosclerotic plaque noted in the right external carotid artery. Antegrade flow is noted in the right vertebral artery. Left Extracranial There is heterogeneous, irregular atherosclerotic plaque noted in the left common carotid artery. There is heterogeneous, irregular atherosclerotic plaque noted in the left internal carotid artery. There is heterogeneous, irregular atherosclerotic plaque noted in the left external carotid artery. Antegrade flow is noted in the left vertebral artery. Procedure Carotid Duplex 72131. This is a Carotid Duplex examination using B-mode, color flow and specral Doppler. Exam performed in department. VL/Carotid Duplex Ultrasound Interpretation Summary Mild (<50%) stenosis right extracranial internal carotid. Mild (<50%) stenosis left extracranial internal carotid. Patent and antegrade vertebrals bilaterally. Ordering Physician: Eladia García Referring Physician: Eladia García Performed By: Mary Jane Booker, HAYES, RVT
== END | disposition home or self-care (01) ==
LOC: CVS 09:43
PROVIDERS: PCP Internal Medicine; Referring Provider Internal Medicine; Visit Provider Internal Medicine
DX: I65.23 Occlusion and stenosis of bilateral carotid arteries (principal)
CPT/HCPCS: 93880

== ENCOUNTER 2025-02-14 14:20 | Emergency (ER) | payer OTHER, SELFPAY ==
[2025-02-14 14:22] VITALS: BP 164/70; PULSE 59; RESP 16; TEMP 36.4; O2SAT 98; BMI 29.5
--- NOTE | 2025-02-14 14:57 | CT_ITS ---
EXAM: BRAIN/HEAD WITHOUT CONTRAST CLINICAL HISTORY: 79 y/o M with HEAD TRAUMA. Fell and hit head. COMPARISON: None. TECHNIQUE: Routine CT imaging of the head without IV contrast. Additional multiplanar reformats were obtained. Dose reduction techniques were used including intermediate exposure control (AEC),iterative reconstruction technique, and/or mA and/or KV dose adjustments based on patient's size. FINDINGS: Moderate generalized cerebral volume loss with concordant prominence of the ventricles and subarachnoid spaces. Small chronic lacunar type infarct of the right caudate head. Moderate patchy supratentorial white matter hypodensities. The cano-white matter interfaces are otherwise maintained. No acute intracranial hemorrhage or herniation. The orbits, visualized paranasal sinuses and mastoids are unremarkable. No acute calvarial fracture or scalp hematoma. CT/Brain/Head without Contrast IMPRESSION: No acute intracranial finding. Reading Location: [id number]
--- NOTE | 2025-02-14 15:00 | ED.VIS.FALL ---
HPI HPI - Fall History of Present Illness Chief Complaint: Fall Informant: patient Occured/Mechanism Occurred: Today Mechanism/Context: Yes same level fall and Yes trip Usually ambulates: Cane Pain/Injury Pain Location: head and abdomen (Left flank post fall) Quality of Pain: Sharp Current Severity: Moderate Maximum Severity: 8/10 Associated Symptoms Associated Symptoms: Negative for Parasthesias, Weakness, Loss of function, Inability to ambulate, Loss of consciousness or Amnesia Narrative Narrative: 79-year-old male history of Parkinson's,'s chronic kidney disease, stroke, hypotension. Patient states he was walking in his home. Lost his balance tripped fell hitting the back of his head on the floor. And hit something causing pain to his left flank just below his rib cage. Denies any LOC. Denies being on any blood dinners. Denies any neck pain. Denies any pain to his extremities, numbness or weakness to his extremities. Prior similar symptoms: No Recent Illness/Hospitalization: No PFSH PFSH Medical History Parkinson disease Parkinsons disease Hypothyroidism Hyperlipidemia Calculus of gallbladder with acute cholecystitis with obstruction Sinus bradycardia, chronic CKD (chronic kidney disease), stage III History of CVA (cerebrovascular accident) GERD (gastroesophageal reflux disease) HTN (hypertension) Home Medications ?Medication ?Instructions ?Recorded ?Last Taken ?Type Carbidopa-Levo 25-100 mg Odt 1.5 tab PO 3XD parkinsons 08/14/20 06/22/24 History cholecalciferol (vitamin D3) 25 50 mcg PO DAILY Supplement 02/07/23 06/22/24 History mcg (1,000 unit) tablet cyanocobalamin (vitamin B-12) 500 500 mcg PO DAILY Supplement 02/07/23 06/22/24 History mcg tablet (Vitamin B-12) melatonin 10 mg tablet 10 mg PO QHS Sleep 02/07/23 06/22/24 History pediatric multivit no.158-iron fum 1 tab PO DAILY Supplement 02/07/23 Unknown History 18 mg-vit K1 10 mcg chewable tablet (Cerovite Jr) sennosides 8.6 mg tablet (senna) 8.6 mg PO QHS Constipation 02/07/23 06/22/24 History sodium bicarbonate 650 mg tablet 650 mg PO TID Indigestion, 02/07/23 06/22/24 History supplement tamsulosin 0.4 mg capsule 0.4 mg PO DAILY Bladder 02/07/23 06/22/24 History droxidopa 100 mg capsule 200 mg PO TID Per physicion 06/23/24 Unknown History esomeprazole magnesium 40 mg 40 mg PO DAILY GERD 06/23/24 06/22/24 History capsule,delayed release finasteride 5 mg tablet 5 mg PO DAILY Prostate 06/23/24 06/22/24 History fludrocortisone 0.1 mg tablet 0.2 mg PO DAILY Per physician 06/23/24 06/22/24 History acetaminophen 500 mg tablet 1,000 mg (2 x 500 mg) PO Q8 #0 tabs 07/07/24 Unknown Rx levothyroxine 112 mcg tablet 112 mcg PO 0600 30 days #30 tabs 07/07/24 Unknown Rx potassium chloride 20 mEq 20 meq PO DAILYCM 30 days #30 tabs 07/07/24 Unknown Rx tablet,extended release(part/cryst) Allergy/AdvReac Type Severity Reaction Status Date / Time lisinopril Allergy Swelling Verified 02/14/25 14:22 Family History Father Colon cancer COPD (chronic obstructive pulmonary disease) Surgical History S/P cholecystectomy S/P cholecystectomy History of tonsillectomy and adenoidectomy History of back surgery History of total bilateral knee replacement History of gastric bypass h/o right thumb surgery H/O carpal tunnel repair H/O gastric bypass Social History household members: spouse Smoking Status: Never smoker alcohol intake: never substance use type: does not use ROS ROS ED ROS Narrative Denies recent illness. Constitutional Constitutional ED: Denies chills or fever(s) Eyes Eyes: Denies blurry vision ENT ENT ED: Denies ear pain Cardiovascular Cardiovascular: Denies chest pain Respiratory/Chest Respiratory/Chest: Denies cough or dyspnea Gastrointestinal Gastrointestinal: Denies abdominal pain Genitourinary Genitourinary ED: Denies dysuria or hematuria Musculoskeletal Musculoskeletal: Denies arthralgias or back pain Integumentary Denies abscess or Abrasions Neurologic Neurologic: Denies headache(s) or paresthesias Psychiatric Psychiatric: Denies anxiety or depression Endocrine Endocrinology: Denies polydipsia or polyphagia Hematologic/Lymphatic Hematologic/Lymphatic: Denies easy bleeding, easy bruising or lymphadenopathy Allergic/Immunologic Allergic/Immunologic ED: Denies mouth swelling, tongue swelling or urticaria EXAM Physical Exam Narrative Exam Narrative: 79-year-old male sitting upright in bed. Vital signs are stable afebrile. No acute distress. No one else present in room. H EENT exam pupils round reactive light. No facial trauma. He has a contusion with a small hematoma posterior scalp. No active bleeding. No laceration needs repaired. C-spine trachea nontender. Back and spine nontender except his left flank area there is tenderness below the rib cage. There is no bony deformity. No bruising. Lungs clear to auscultation bilaterally. Heart regular rhythm rate about 60 no murmur. Chest wall and ribs are nontender. No crepitus or subcu air. No bruising. Abdomen is soft, nontender, nondistended normal bowel sounds without peritoneal signs. Pelvic girdle intact. Extremities nontender. No deformity. 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 Normal flexion extension of his upper extremities. He can raise both shoulders. Hips, knees and ankles are nontender. Normal dorsi plantarflexion. Neurologically patient is awake and alert. Answering questions following commands. He has Parkinson's tremors. Const Vital Signs: 02/14/25 14:22 02/14/25 14:32 02/14/25 16:21 Temperature 97.5 F L 97.7 F L Temperature Source Oral Oral Pulse Rate 59 L 50 L Respiratory Rate 16 16 Respiratory Effort Normal Non-Labored Respiratory Depth Normal Respiratory Pattern Normal Blood Pressure 164/70 H 209/77 H Blood Pressure Mean 101 121 Pulse Ox 98 98 Oxygen Delivery Method Room Air Room Air Room Air Positive well nourished and well developed; Negative for cachectic, contractures or unkempt General Appearance ED: well developed and NAD; Negative for unkempt, cachectic or contractures Nutritional Appearance: Negative for cachectic HEENT Reports normocephalic HEENT Narrative: Posterior scalp contusion. Small hematoma. trauma, contusion, hematoma and tenderness Eyes PERRL and EOMs intact bilaterally Neck full ROM, no lymphadenopathy and supple Chest Wall inspection of chest normal and palpation of chest normal Chest Narrative: Ribs nontender. Resp normal respiratory effort, no retractions and clear to auscultation bilaterally Auscultation: Negative for rales, rhonchi, wheezes or diminished lung sounds Cardio regular rate, regular rhythm, S1 normal heart sound, S2 normal heart sound and no murmurs Rate: Negative for bradycardia or tachycardic GI non-distended and no masses; Negative for non-tender GI Narrative: Left flank tenderness just below the ribs. No ecchymosis or bruising. Abdomen otherwise is nontender. Nondistended no peritoneal signs. Auscultation: normoactive bowel sounds Palpation: soft; Negative for guarding or rebound tenderness present Back/Spine no CVA tenderness General Back: Negative for CVA tenderness Cervical Spine: Negative for cervical spine tenderness Lumbar Spine / Lower Back: lumbar spinal tenderness Neuro oriented x3, CN's II-XII intact bilaterally, moves all extremities and no focal motor deficits Gali Coma Scale: document GCS findings Spontaneous Obeys Commands Oriented 15 Sensorium / Orientation: alert, oriented to person, oriented to place and oriented to time; Negative for orientation impaired, confused or lethargic Motor Exam: strength 5/5 throughout Psych mental status grossly normal and thought process normal Appearance: Negative for unkempt Skin Lesions: no lesions Rashes: no rashes MDM MDM MDM Narrative Medical decision making narrative: 79-year-old male with Parkinson's fell at home as a contusion of his posterior scalp without the need to be sewn. He also complained of left flank pain post fall. CAT scan of his head and abdomen will be obtained. Screening labs due to the IV contrast CAT scan. Rest of exam is benign. He is not on blood thinners he had no LOC. He had no prefall event. Repeat exam patient doing well at 4:55 PM. Scalp contusion small hematoma has not gotten any significantly worse. There is no active bleeding. Neck nontender. He still has some left flank pain which think is musculoskeletal. We went over his CAT scan reports. Patient is comfortable being discharged to home. Tylenol for pain. Ice all sore areas. Head injury instructions. History & Record Review Discussion w/independent historian: Patient Additional record(s) reviewed:: Prior inpatient record, Prior outpatient record, Prior ED visit and Prior labs Lab Data Attestation: I reviewed the patient's lab results. Lab results narrative: CBC shows a white count 8. H&H 13 and 39. Platelets 227. Electrolytes show a gap of 11. BUN and creatinine of 27 and 1.79 consistent with chronic renal insufficiency. Glucose 96. Consistent with baseline labs. CT of the brain no acute abnormalities read by the radiologist reviewed by me. CT abdomen pelvis no acute abnormality. Labs: Laboratory Results - last 24 hr 02/14/25 15:09 WBC 8.0 RBC 4.13 L Hgb 13.1 Hct 39.6 L MCV 95.9 H MCH 31.7 MCHC 33.1 RDW Std Deviation 51.8 H RDW Coeff of Aravind 14.7 H Plt Count 227 MPV 10.8 Immature Gran % (Auto) 0.200 Neut % (Auto) 58.5 Lymph % (Auto) 22.1 [place] % (Auto) 9.0 Eos % (Auto) 9.2 H Baso % (Auto) 1.0 Absolute Neuts (auto) 4.7 Absolute Lymphs (auto) 1.77 Nucleated RBC % 0 Sodium 143 Potassium 3.8 Chloride 111 H Carbon Dioxide 21.5 Anion Gap 11 BUN 27 H Creatinine 1.79 H Estim Creat Clear Calc 42.04 L Est GFR (MDRD) Non-Af 39 L BUN/Creatinine Ratio 15.1 Glucose 96 Calcium 9.1 Radiography Diagnostic Testing: Clinical Impression(s) from Imaging Studies Brain CT 02/14/25 14:57 IMPRESSION: No acute intracranial finding. Reading Location: [facility] Abdomen/Pelvis CT 02/14/25 16:00 IMPRESSION: No acute abdominopelvic finding. Reading Location: [facility] Discharge Plan Triage Chief Complaint: Fall ED Provider: Isidoro Flowers Dx/Rx/DC Orders Prescriptions: No Action Carbidopa-Levo 25-100 mg Odt 1.5 tab PO 3XD cyanocobalamin (vitamin B-12) [Vitamin B-12] 500 mcg Tablet 500 mcg PO DAILY cholecalciferol (vitamin D3) 25 mcg (1,000 unit) Tablet 50 mcg PO DAILY melatonin 10 mg Tablet 10 mg PO QHS Cerovite Jr 18 mg iron- 10 mcg Tablet,Chewable 1 tab PO DAILY sennosides [senna] 8.6 mg Tablet 8.6 mg PO QHS tamsulosin 0.4 mg Capsule 0.4 mg PO DAILY sodium bicarbonate 650 mg Tablet 650 mg PO TID esomeprazole magnesium 40 mg capsule,delayed release(DR/EC) 40 mg PO DAILY finasteride 5 mg tablet 5 mg PO DAILY fludrocortisone 0.1 mg tablet 0.2 mg PO DAILY droxidopa 100 mg capsule 200 mg PO TID Rx Instructions: give consistently with OR without food, upon rising, at midday, late PM/at least 3hrs before bedtime acetaminophen 500 mg Tablet 1,000 mg PO Q8 Qty: 0 0RF potassium chloride 20 mEq Tablet,Er Particles/Crystals 20 meq PO DAILYCM 30 Days Qty: 30 0RF levothyroxine 112 mcg Tablet 112 mcg PO 0600 30 Days Qty: 30 0RF Primary Care Provider: Eladia García Referrals: Eladia García DO [Primary Care Provider] - Print Language: Mongolian
[2025-02-14 15:14] LABS: Absolute Lymphocyte Count 1.77 X10^3/uL (0.83-4.51); Absolute Neutrophil Count 4.7 X10^3/uL (2.0-7.7); Basophil# 0.08 X10^3/uL; Eosinophil# 0.74 X10^3/uL; Eosinophils% 9.2 % (0-5); Hematocrit 39.6 % (40-54); Hemoglobin 13.1 g/dL (13.0-16.5); Lymphocyte # 1.77 X10^3/ul (0.83-4.51); Lymphocyte % 22.1 % (19-41); Mean Corp Hgb Conc 33.1 g/dL (32-36); Mean Corpuscular Hgb 31.7 pg (27.0-32.0); Mean Corpuscular Volume 95.9 fL (80-94); Mean Platelet Vol. 10.8 fl (6.2-12.0); Monocyte# 0.72 X10^3/uL; NRBC Flagged by Analyzer 0 % (0-5); Neutrophil # 4.69 X10^3/uL (2.7-7.7); Neutrophil % 58.5 % (47-70); Platelet Count 227 K/mm3 (150-450); RBC Distribution Width CV 14.7 % (11.6-14.6); RBC Distribution Width SD 51.8 fl (35.1-43.9); Red Blood Count 4.13 M/mm3 (4.6-6.2)
[2025-02-14 15:43] LABS: Anion Gap 11 (5-15); BUN 27 mg/dL (4-19); BUN/Creat Ratio 15.1 RATIO (10-20); Calcium,Total 9.1 mg/dL (7.6-11.0); Carbon Dioxide 21.5 mmol/L (21.0-32.0); Chloride 111 mmol/L (98-108); Creatinine, Serum 1.79 mg/dL (0.70-1.20); EST Glomerular Filtration Rate 39 (>60); Estimated Creatinine Clearance 42.04 ml/min (50-250); Glucose 96 mg/dL (70-99); Potassium 3.8 mmol/L (3.3-5.1); Sodium Level 143 mmol/L (133-145)
--- NOTE | 2025-02-14 16:00 | CT_ITS ---
PROCEDURE: ABDOMEN/PELVIS W IV CONT ONLY 02/14/2025 REASON FOR EXAM: LEFT FLANK PAIN POST FALL TECHNIQUE: Abdomen and pelvis CT with intravenous contrast. Coronal and Sagittal reconstruction series were provided. PATIENT PREPARATION: Per protocol ORAL CONTRAST TYPE: None. CONTRAST: Isovue 370 VOLUME: 100 mL One or more dose reduction techniques were used (e.g., Automated exposure control, adjustment of the mA and/or kV according to patient size, use of iterative reconstruction technique. RADIATION DOSE SUMMARY: CTDlvol: N/a mGy DLP: 1800 mGycm COMPARISON: None. FINDINGS: Lung bases: Severe coronary artery calcifications/prior stenting. Aortic valvular calcifications. Bibasilar atelectasis. Liver: The liver is normal in size without obvious hepatic mass. The major portal veins are patent. Moderate left and trace right hepatic lobe pneumobilia, likely secondary to prior cholecystectomy and instrumentation. Gallbladder: Prior cholecystectomy. Spleen: Unremarkable. Pancreas: Diffusely atrophic. Adrenals: No adrenal mass. Kidneys: Mild symmetric renal cortical atrophy. Small bilateral renal cysts and additional hypodensities, too small to characterize. No hydronephrosis or nephrolithiasis. Bladder: Mildly distended and unremarkable. Reproductive Organs: Enlarged prostate with dystrophic calcifications, which indents the bladder base. Bowel: Prior Autumn-en-Y gastric bypass. Small hiatal hernia. The bowel loops are normal in caliber. No ascites or pneumoperitoneum. No inflammatory mass in the expected region of the appendix. Lymph nodes: No suspicious lymph node enlargement. Vasculature: Severe mixed plaque of the aortoiliac vessels. Bones/soft tissues: Mild symmetric gynecomastia. Moderate-sized upper midline abdominal hernia containing nondilated large bowel loops. Small fat containing left inguinal hernia. Prior L3-5 laminectomy with edema of the posterior midline lower soft tissues, most compatible with postoperative changes. Thoracolumbar spondylosis. CT/Abdomen/Pelvis W IV Cont ONLY IMPRESSION: No acute abdominopelvic finding. Reading Location: [id number]
[2025-02-14 16:21] VITALS: BP 209/77; PULSE 50; RESP 16; TEMP 36.5; O2SAT 98
[2025-02-14 17:19] VITALS: BP 209/77; PULSE 50; RESP 18; TEMP 36.5; O2SAT 98
== END 2025-02-14 17:24 | disposition home or self-care (01) ==
PROVIDERS: Emergency Provider Emergency Medicine; PCP Internal Medicine; Visit Provider Emergency Medicine
DX: S00.03XA Contusion of scalp, initial encounter (principal); G20.A1 Parkinson's disease without dyskinesia, without mention of fluctuations; N18.30 Chronic kidney disease, stage 3 unspecified; R10.9 Unspecified abdominal pain; I12.9 Hypertensive chronic kidney disease with stage 1 through stage 4 chronic kidney disease, or unspecified chronic kidney disease; E78.5 Hyperlipidemia, unspecified; Z79.890 Hormone replacement therapy; Z79.899 Other long term (current) drug therapy; Z86.73 Personal history of transient ischemic attack (TIA), and cerebral infarction without residual deficits; W18.09XA Striking against other object with subsequent fall, initial encounter; Y93.01 Activity, walking, marching and hiking; Y92.009 Unspecified place in unspecified non-institutional (private) residence as the place of occurrence of the external cause; E03.9 Hypothyroidism, unspecified
CPT/HCPCS: 70450; 74177; 80048; 85025; 99285; Q9967; A4216

== ENCOUNTER → 2025-03-09 | Outpatient (CLI) | payer OTHER, SELFPAY ==
--- NOTE | 2025-03-09 15:58 | CT_ITS ---
PROCEDURE: ABDOMEN WITHOUT IV CONTRAST 03/09/2025 REASON FOR EXAM: ABDOMINAL HERNIA TECHNIQUE: ABDOMEN WITHOUT IV CONTRAST Coronal and Sagittal reconstruction series were provided. One or more dose reduction techniques were used (e.g., Automated exposure control, adjustment of the mA and/or kV according to patient size, use of iterative reconstruction technique ORAL CONTRAST TYPE: None. RADIATION DOSE SUMMARY: CTDlvol: 21.39 mGy DLP: 1202.43 mGycm COMPARISON: Prior study dated February 14, 2025. FINDINGS: Noncontrast technique limits evaluation of the abdominal viscera. Lung bases: Mild increased linear markings at the lung bases suggestive of either linear atelectasis and/or scarring. Coronary artery calcification. Moderate-sized hiatal hernia. Liver: Pneumobilia. Most likely due to prior cholecystectomy and common bile duct exploration. Gallbladder: Surgically absent. Spleen: Normal size. Pancreas: Diffuse fatty atrophy. Adrenals: Unremarkable Kidneys: Normal renal sizes. No hydronephrosis. Bowel: The patient is status post gastric bypass surgery. Lymph nodes: Unremarkable. Vasculature: Mild diffuse atherosclerotic calcifications are noted. Peritoneum / Retroperitoneum: Once again, there is evidence of a midline ventral hernia in the upper abdomen containing nondilated portion of the transverse colon. The neck of the hernia measures 6.6 cm. The prostate is enlarged. It measures 4 cm x 5 cm. This causes indentation of the bladder base. The urinary bladder is decompressed. Incidental note is made of small bilateral inguinal hernias containing fat. Bones: Degenerative changes of the spine. CT/Abdomen without IV Contrast IMPRESSION: Stable examination. Anterior superior midline ventral hernia containing portions of nondilated beasley sverse colon. The neck of the hernia measures 6.6 cm. Reading Location: [place] [id number]
== END | disposition home or self-care (01) ==
LOC: CT 15:44
PROVIDERS: PCP Internal Medicine
DX: K45.8 Other specified abdominal hernia without obstruction or gangrene (principal)
CPT/HCPCS: 74150

== ENCOUNTER → 2025-04-01 | Outpatient (CLI) | payer MEDICARE, OTHER, SELFPAY ==
[2025-04-01 14:19] LABS: Albumin, Serum 3.9 g/dL (3.4-4.8); Anion Gap 11 (5-15); BUN 31 mg/dL (4-19); BUN/Creat Ratio 17.5 RATIO (10-20); Calcium,Total 9.5 mg/dL (7.6-11.0); Carbon Dioxide 22.0 mmol/L (21.0-32.0); Chloride 110 mmol/L (98-108); Glucose 92 mg/dL (70-99); Potassium 4.0 mmol/L (3.3-5.1)
== END | disposition home or self-care (01) ==
LOC: LAB 11:54
PROVIDERS: PCP Internal Medicine; Referring Provider Internal Medicine Nephrology; Visit Provider Internal Medicine Nephrology
DX: N17.9 Acute kidney failure, unspecified (principal)
CPT/HCPCS: 36415; 80069

== ENCOUNTER → 2025-09-07 | Outpatient (CLI) | payer MEDICARE, OTHER, SELFPAY ==
[2025-09-07 15:28] LABS: Hematocrit 47.7 % (40-54); Hemoglobin 14.8 g/dL (13.0-16.5); Immature Granulocytes Count 0.020 X10^3/uL (0.0-0.0); Mean Corp Hgb Conc 31.0 g/dL (32-36); Mean Corpuscular Volume 102.4 fL (80-94); Mean Platelet Vol. 11.2 fl (6.2-12.0); NRBC Flagged by Analyzer 0 % (0-5); Platelet Count 221 K/mm3 (150-450); RBC Distribution Width CV 14.7 % (11.6-14.6); RBC Distribution Width SD 55.8 fl (35.1-43.9); Red Blood Count 4.66 M/mm3 (4.6-6.2); White Blood Count 7.4 K/mm3 (4.4-11.0)
[2025-09-07 15:54] LABS: AST(SGOT) 28 U/L (<=37); Alanine Aminotransfer ALT/SGPT 8 U/L (<=46); Albumin, Serum 4.1 g/dL (3.4-4.8); Alkaline Phosphatase 142 U/L (40-129); Anion Gap 11 (5-15); BUN 27 mg/dL (4-19); BUN/Creat Ratio 13.7 RATIO (10-20); Calcium,Total 9.6 mg/dL (7.6-11.0); Carbon Dioxide 26.8 mmol/L (21.0-32.0); Chloride 108 mmol/L (98-108); Globulin 2.7 g/dL (2.2-4.2); Glucose 97 mg/dL (70-99); Potassium 4.7 mmol/L (3.3-5.1)
== END | disposition home or self-care (01) ==
LOC: LABSPEC 13:02
PROVIDERS: PCP Internal Medicine; Referring Provider Internal Medicine; Visit Provider Internal Medicine
DX: N28.89 Other specified disorders of kidney and ureter (principal)
CPT/HCPCS: 80053; 85025

== ENCOUNTER → 2025-09-10 | Outpatient (CLI) | payer MEDICARE, OTHER, SELFPAY ==
[2025-09-10 13:14] LABS: Mucous, Urine 0 SEEN /hpf (<or=2+); Red Blood Cells-Urine 0 SEEN /hpf (0-5)
[2025-09-10 15:48] LABS: Color, Urine Yellow (Yellow); Glucose, Dipstick Normal (Normal); Ketone-Dipstick Negative (Negative); Leukocyte Esterase-Dipstick 25 /ul (Negative); Nitrite-Dipstick Negative (Negative); Occult Blood-Urine Negative /ul (Negative); Protein-Dipstick 15 mg/dl (Negative); Specific Gravity, Urine 1.020 (1.002-1.030); Urine Bilirubin Dipstick Negative (Negative)
[2025-09-10 16:04] LABS: Creatinine, Urine (random) 116.00 mg/dL (39.00-259.00); Microalbumin,Random Urine < 12.0 mg/L (<20 mg/L)
[2025-09-10 16:22] LABS: Calcium Oxalate Crystals Ur 1+ /hpf (<or=2+); Squamous Epithelial Cells - UA 0-5 SEEN /hpf (0-5)
== END | disposition home or self-care (01) ==
LOC: LABSPEC 13:13
PROVIDERS: PCP Internal Medicine; Referring Provider Internal Medicine; Visit Provider Internal Medicine
DX: G90.3 Multi-system degeneration of the autonomic nervous system (principal); N28.89 Other specified disorders of kidney and ureter
CPT/HCPCS: 81001; 82043; 82570; 87086

== ENCOUNTER → 2025-09-15 | Outpatient (CLI) | payer MEDICARE, OTHER, SELFPAY ==
[2025-09-15 12:28] LABS: Hematocrit 41.7 % (40-54); Hemoglobin 13.6 g/dL (13.0-16.5); Immature Granulocytes Count 0.030 X10^3/uL (0.0-0.0); Mean Corp Hgb Conc 32.6 g/dL (32-36); Mean Corpuscular Volume 99.5 fL (80-94); Mean Platelet Vol. 11.3 fl (6.2-12.0); NRBC Flagged by Analyzer 0 % (0-5); Platelet Count 232 K/mm3 (150-450); RBC Distribution Width CV 14.6 % (11.6-14.6); RBC Distribution Width SD 53.4 fl (35.1-43.9); Red Blood Count 4.19 M/mm3 (4.6-6.2); White Blood Count 9.4 K/mm3 (4.4-11.0)
[2025-09-15 13:01] LABS: Anion Gap 10 (7-18); BUN 29 mg/dL (4-19); BUN/Creat Ratio 14.6 RATIO (10-20); Calcium,Total 9.1 mg/dL (7.6-11.0); Carbon Dioxide 25.3 mmol/L (20.0-29.0); Chloride 107 mmol/L (96-106); Glucose 104 mg/dL (70-99); Potassium 4.1 mmol/L (3.5-5.1); Pro- Brain NATRIURETIC PEPTIDE 471 pg/mL (<=1800)
== END | disposition home or self-care (01) ==
LOC: CIMLAB 10:57
PROVIDERS: PCP Internal Medicine; Referring Provider Internal Medicine; Visit Provider Internal Medicine
DX: R06.2 Wheezing (principal); J20.9 Acute bronchitis, unspecified
CPT/HCPCS: 36415; 80048; 83880; 85025